=== PATIENT | male | born 1995 | race Caucasian/White ===

== ENCOUNTER 2018-08-08 10:42 | Emergency (ER) | payer BC, SELFPAY ==
[2018-08-08 10:52] VITALS: BP 151/93; PULSE 97; RESP 22; TEMP 37.1; O2SAT 99; BMI 47.2
[2018-08-08 10:58] LABS: UTC Influenza A Antigen Positive (Negative); UTC Influenza B Antigen Negative (Negative)
[2018-08-08 10:59] LABS: UTC Strep Screen (Rapid) Negative (Negative)
--- NOTE | 2018-08-08 10:59 | HMH.EDUTC ---
[facility] [place] Clinical Impression: Influenza A Disposition: Home, Self-Care Condition on Discharge: Good Instructions: Influenza, Azithromycin, Oseltamivir Additional Instructions: You have influenza A. You need to stay home from work until you are not running a fever for 24 hours. Take tylenol for pain or fever. Drink plenty of fluids. Water or gatorade would be best. I went ahead and prescribed azithromycin to prevent any bacterial infection from occurring with this influenza. Go see your regular doctor if you are not getting better in 48 hours or so. GO TO THE ER FOR ANY WORSENING OR LIFE THREATENING SYMPTOMS. Prescriptions: Ondansetron [Zofran 4mg ODT] 4 mg PO Q8HP PRN #30 tab.rapdis PRN Reason: Nausea Azithromycin [Z-Curtis 250mg Tab] 250 mg PO UD DOSE PK #6 tab Oseltamivir Phosphate [Tamiflu 75mg Capsule] 75 mg PO BID #10 capsule Referrals: Stevan Daigle MD [Primary Care Provider] - Forms: Work/School Release Time of Disposition: 11:16 Medical Decision Making - Medical Records Medical records reviewed: No: I reviewed the patient's medical records. - Javier Inquiry Pt receiving controlled substance: No Javier was queried for this patient: No Vital Signs: 08/08/18 10:52 08/08/18 11:17 Temperature 98.7 F 98.8 F Temperature Source Oral Oral Pulse Rate 92 H Pulse Rate [Left Brachial] 97 H Respiratory Rate 22 22 Blood Pressure 146/89 H Blood Pressure [Left Arm] 151/93 H Blood Pressure Mean [Left Arm] 112 Blood Pressure Source [Left Arm] Automatic Cuff Blood Pressure Position [Left Arm] Sitting 02 Sat by Pulse Oximetry 99 Oxygen Delivery Method Room Air Room Air - Lab Data Lab results reviewed: Yes: I reviewed the patient's lab results. Lab Results 08/08/18 10:48: Influenza Type A Ag Positive A, Influenza Type B Ag Negative 08/08/18 10:58: Strep Scn Rapid Clinic Negative Orders (Tests/Meds): ORDERS Category Date Time Status Strep Screen Confirmation Stat Micro 08/08/18 10:58 Received [facility] [place] - General Stated complaint: flu like symptoms Time Seen by Provider: 08/08/18 10:59 Mode of Arrival: Family Vehicle Source of Information: Patient Limitations: No Limitations Description of Symptoms (Recalled from Triage Doc. by RN): PT C/O FLU LIKE SYMPTOMS; FEVER, NAUSEA, VOMITING AND CHILLS SINCE THURSDAY. PT HAS BEEN TAKING DAYQUIL BUT JUST CONTINUES TO FEEL WORSE. HEENT Symptoms (Recalled from RN notes): Yes (FEVER) Resp Symptoms (Recalled from RN notes): No Skin Symptoms (Recalled from RN notes): No MS Symptoms (Recalled from RN notes): No Functional Status (Recalled from RN notes): N/A - History of Present Illness Provider Complaint: He states he began running a fever and feeling nauseated on Thursday night. Since then he has chilled and ran a fever up to 102. He has not had a flu shot. In past years he has got pneumonia and strep throat after getting the flu. - Related Data Previous Rx's Medication Instructions Recorded Azithromycin [Z-Curtis 250mg Tab] 250 mg PO UD DOSE PK #6 tab 08/08/18 Ondansetron [Zofran 4mg ODT] 4 mg PO Q8HP PRN #30 tab.rapdis 08/08/18 Oseltamivir Phosphate [Tamiflu 75 mg PO BID #10 capsule 08/08/18 75mg Capsule] Allergies Allergy/AdvReac Type Severity Reaction Status Date / Time NSAIDS (Non-Steroidal Allergy Unknown Verified 08/08/18 10:56 Anti-Inflamma [NSAIDS (NON-STEROIDAL ANTI-INFLAMMA] - Worker's Comp Is this a Worker's Comp case?: No [facility] History - Hepatitis A Screen Drug use history?: No High risk sexual behaviors?: No History of sexually transmitted infection?: No Currently employed?: No Childcare worker?: No Do you have indoor plumbing?: Yes Do you have electricity?: Yes Attestation statement:: This patient has been screened for Hepatitis A risk factors. I have reviewed the patient's past medical history: Yes Medical History: Denies:: Cancer, Diabetes Mellitus Type 1
--- NOTE | 2018-08-08 11:07 | ED_ITS ---
[facility] [place] Clinical Impression: Influenza A Disposition: Home, Self-Care Condition on Discharge: Good Instructions: Influenza, Azithromycin, Oseltamivir Additional Instructions: You have influenza A. You need to stay home from work until you are not running a fever for 24 hours. Take tylenol for pain or fever. Drink plenty of fluids. Water or gatorade would be best. I went ahead and prescribed azithromycin to prevent any bacterial infection from occurring with this influenza. Go see your regular doctor if you are not getting better in 48 hours or so. GO TO THE ER FOR ANY WORSENING OR LIFE THREATENING SYMPTOMS. Prescriptions: Ondansetron [Zofran 4mg ODT] 4 mg PO Q8HP PRN #30 tab.rapdis PRN Reason: Nausea Azithromycin [Z-Curtis 250mg Tab] 250 mg PO UD DOSE PK #6 tab Oseltamivir Phosphate [Tamiflu 75mg Capsule] 75 mg PO BID #10 capsule Referrals: Stevan Daigle MD [Primary Care Provider] - Forms: Work/School Release Time of Disposition: 11:16 Medical Decision Making - Medical Records Medical records reviewed: No: I reviewed the patient's medical records. - Javier Inquiry Pt receiving controlled substance: No Javier was queried for this patient: No Vital Signs: 08/08/18 10:52 08/08/18 11:17 Temperature 98.7 F 98.8 F Temperature Source Oral Oral Pulse Rate 92 H Pulse Rate [Left Brachial] 97 H Respiratory Rate 22 22 Blood Pressure 146/89 H Blood Pressure [Left Arm] 151/93 H Blood Pressure Mean [Left Arm] 112 Blood Pressure Source [Left Arm] Automatic Cuff Blood Pressure Position [Left Arm] Sitting 02 Sat by Pulse Oximetry 99 Oxygen Delivery Method Room Air Room Air - Lab Data Lab results reviewed: Yes: I reviewed the patient's lab results. Lab Results 08/08/18 10:48: Influenza Type A Ag Positive A, Influenza Type B Ag Negative 08/08/18 10:58: Strep Scn Rapid Clinic Negative Orders (Tests/Meds): ORDERS Category Date Time Status Strep Screen Confirmation Stat Micro 08/08/18 10:58 Received [facility] [place] - General Stated complaint: flu like symptoms Time Seen by Provider: 08/08/18 10:59 Mode of Arrival: Family Vehicle Source of Information: Patient Limitations: No Limitations Description of Symptoms (Recalled from Triage Doc. by RN): PT C/O FLU LIKE SYMPTOMS; FEVER, NAUSEA, VOMITING AND CHILLS SINCE THURSDAY. PT HAS BEEN TAKING DAYQUIL BUT JUST CONTINUES TO FEEL WORSE. HEENT Symptoms (Recalled from RN notes): Yes (FEVER) Resp Symptoms (Recalled from RN notes): No Skin Symptoms (Recalled from RN notes): No MS Symptoms (Recalled from RN notes): No Functional Status (Recalled from RN notes): N/A - History of Present Illness Provider Complaint: He states he began running a fever and feeling nauseated on Thursday night. Since then he has chilled and ran a fever up to 102. He has not had a flu shot. In past years he has got pneumonia and strep throat after getting the flu. - Related Data Previous Rx's Medication Instructions Recorded Azithromycin [Z-Curtis 250mg Tab] 250 mg PO UD DOSE PK #6 tab 08/08/18 Ondansetron [Zofran 4mg ODT] 4 mg PO Q8HP PRN #30 tab.rapdis 08/08/18 Oseltamivir Phosphate [Tamiflu 75 mg PO BID #10 capsule 08/08/18 75mg Cap
[2018-08-08 11:17] VITALS: BP 146/89; PULSE 92; RESP 22; TEMP 37.1; O2SAT 100
== END 2018-08-08 11:20 | disposition home or self-care (01) ==
PROVIDERS: Emergency Provider Nurse Practitioner Family; PCP Family Medicine
DX: J10.1 Influenza due to other identified influenza virus with other respiratory manifestations (principal)
CPT/HCPCS: 87804; 87880; 99202

== ENCOUNTER 2018-10-21 22:35 | Emergency (ER) | payer BC, SELFPAY ==
[2018-10-21 22:40] VITALS: BP 175/107; PULSE 88; RESP 16; TEMP 36.9; O2SAT 100; BMI 45.9
--- NOTE | 2018-10-21 22:50 | XR_ITS ---
XR chest 2V HISTORY: ITS.REASON: chest pain ORDERING PHYSICIAN: Dhruv Rubi MD PATIENT AGE: 22 years COMPARISON: None FINDINGS: The cardiomediastinal silhouette and pulmonary vascularity are within normal limits. On the lateral view there is a 2 cm opacity anterior to the hilum fairly well-circumscribed and may represent calcified lymph node. The remaining lungs are clear. No lobar consolidation or collapse. A small granuloma is suspected left upper lobe. No acute bony findings. IMPRESSION: 1. No acute finding. 2. Nodular opacity overlies the hilum on the lateral view due to calcified left. Consider follow-up to confirm stability.
[2018-10-21 23:13] LABS: Basophils % 0.6 % (0.1-2.0); Eosinophils # 0.2 K/mm3 (0.0-0.4); Eosinophils % 3.5 % (0.1-12.0); Hematocrit 45.1 % (42.0-52.0); Hemoglobin 15.3 g/dL (14.1-18.0); Lymphocytes # 1.9 K/mm3 (0.7-4.5); Lymphocytes % 39.1 % (10-50); Mean Corpuscular HGB Conc 33.9 g/dL (31.8-35.4); Mean Corpuscular Hemoglobin 29.1 pg (27.0-31.2); Mean Corpuscular Volume 85.7 fl (80-94); Mean Platelet Volume 7.7 fl (7.4-10.4); Monocytes # 0.3 K/mm3 (0.1-1.0); Monocytes % 6.4 % (1.7-9.3); Neutrophils # 2.5 K/mm3 (1.8-7.8); Neutrophils % 50.5 % (37.0-80.0); Platelet Count 206 K/mm3 (142-424); Red Blood Count 5.26 M/mm3 (4.60-6.20); Red Cell Distribution Width 13.3 % (11.5-17.5)
[2018-10-21 23:33] LABS: Anion Gap 9.3 mEq/L (5-15); Blood Urea Nitrogen 7 mg/dL (7-18); Calcium 8.7 mg/dL (8.5-10.1); Carbon Dioxide 29 mmol/L (21.0-32.0); Chloride 105 mmol/L (98-107); Creatinine Clearance Estimated 104 mL/min (50-200); Creatinine,Serum 1.14 mg/dL (0.70-1.30); Estimated Glomerular Filt Rate 80 ml/min (>60); GFR (African American) 96 ML/MIN (>60); Glucose 103 mg/dL (74-106); Potassium 4.3 mmoL/L (3.5-5.1); Sodium 139 mmol/L (136-145); Troponin I < 0.02 ng/ml (0.00-0.06)
--- NOTE | 2018-10-21 23:44 | HMH.EDCP ---
ED Disposition Clinical Impression: Atypical chest pain, Elevated BP without diagnosis of hypertension Obesity Qualifiers: Obesity type: due to excess calories Obesity classification: adult class 3 (BMI >= 40) Serious obesity comorbidity presence: with serious comorbidity Body mass index: BMI 45.0-49.9 Qualified Code(s): E66.01 - Morbid (severe) obesity due to excess calories; Z68.42 - Body mass index (BMI) 45.0-49.9, adult Disposition: Home, Self-Care Condition on Discharge: Good Instructions: DI for Atypical Chest Pain Additional Instructions: see pcp about bp Referrals: Stevan Daigle MD [Primary Care Provider] - - Critical Care Critical Care Time: No Attestation: On 10/21/18, the high probability of a clinically significant, sudden or life threatening deterioration of the following system(s) required my full and direct attention, intervention and personal management. The time I documented below is in addition to time spent performing reported procedures but includes the following listed in this critical care notation. Medical Decision Making - Medical Records Medical records reviewed: Yes: I reviewed the patient's medical records. - Javier Inquiry Pt receiving controlled substance: No Vital Signs: 10/21/18 22:40 Temperature 98.5 F Temperature Source Oral Pulse Rate [Right Brachial] 88 Respiratory Rate 16 Blood Pressure [Right Arm] 175/107 H Blood Pressure Mean [Right Arm] 129 Blood Pressure Source [Right Arm] Automatic Cuff Blood Pressure Position [Right Arm] Sitting 02 Sat by Pulse Oximetry 100 Oxygen Delivery Method Room Air - Lab Data Lab Results 10/21/18 22:50: WBC 5.0, RBC 5.26, Hgb 15.3, Hct 45.1, MCV 85.7, MCH 29.1, MCHC 33.9, RDW 13.3, Plt Count 206, MPV 7.7, Neut % (Auto) 50.5, Lymph % (Auto) 39.1, [place] % (Auto) 6.4, Eos % (Auto) 3.5, Baso % (Auto) 0.6, Neut # (Auto) 2.5, Lymph # (Auto) 1.9, [place] # (Auto) 0.3, Eos # (Auto) 0.2, Baso # (Auto) 0.0 10/21/18 22:50: Sodium 139, Potassium 4.3, Chloride 105, Carbon Dioxide 29, Anion Gap 9.3, BUN 7, Creatinine 1.14, Estimated Creat Clear 104, Estimated GFR 80, Est GFR ( Amer) 96, Glucose 103, Calcium 8.7, Troponin I < 0.02 10/21/18 22:50: D-Dimer < 100 Result diagrams: 10/21/18 22:50 10/21/18 22:50 Orders (Tests/Meds): ORDERS Category Date Time Status XR chest 2V Stat Exams 10/21/18 22:50 Taken EKG Request [ECG Request by /John] Stat Y 10/21/18 22:50 Ordered - Radiology Data #1 Image(s): Chest Image Reviewed: Yes I reviewed the patient's radiology image Preliminary Findings: Normal/NAD - ECG Data Tracing #1 Normal Sinus Rhythm: Yes Ischemic changes: non-specific ST-T wave changes Chest Pain HPI - General Chief Complaint: Chest Pain Stated Complaint: Chest Pain Time Seen by Provider: 10/21/18 22:50 Mode of Arrival: Ambulatory Source of Information: Patient, Medical Record Limitations: No Limitations Description of Symptoms (Recalled from ER Triage Doc. by RN): Pt c/o constant pressure in chest since 1999. Advises at times it feels like a twisting, stabbing pain. - History of Present Illness HPI narrative: pt with occ lt ant chest pain worse with mov and no def relationship with resp status - pt reports sx over the last few weeks and has seen pcp - no trauma or rash and no known heart disease MD complaint: chest pain Onset (ago): week(s) Duration: intermittent Activity at onset: during rest Pain location: left chest Severity: similar to previous episodes Quality: sharp Treatments prior to or on arrival for Cardiac Chest Pain: none - GRETCHEN Score for Non-Stemi Age of Patient: <30 years old Heart Rate: 70-89 bpm Systolic Blood Pressure: 160-199 mmHg Serum Creatinine: 0.80-1.19 mg/dl CHF [place] Class: I-No CHF Other Risk Factors: None Non-Stemi Risk Score: 26 - Related Data Home Medications Medication Instructions Recorded Confirmed No Known Home Medications 10/21/18 10/21/18
[2018-10-22 00:06] LABS: D-Dimer < 100 ng/mL (0-400)
[2018-10-22 00:14] VITALS: BP 161/97; PULSE 57; RESP 20; O2SAT 98
[2018-10-22 00:33] VITALS: BP 145/80; PULSE 57; RESP 18; TEMP 36.9; O2SAT 98
== END 2018-10-22 00:33 | disposition home or self-care (01) ==
PROVIDERS: Emergency Provider Emergency Medicine; PCP Family Medicine
DX: R07.89 Other chest pain (principal); R03.0 Elevated blood-pressure reading, without diagnosis of hypertension; E66.01 Morbid (severe) obesity due to excess calories; Z68.42 Body mass index [BMI] 45.0-49.9, adult; Z88.6 Allergy status to analgesic agent
CPT/HCPCS: 71046; 80048; 84484; 85025; 85378; 93005; 99283

== ENCOUNTER 2019-06-28 08:00 | Outpatient (RCR) | payer BC, SELFPAY ==
--- NOTE | 2019-06-21 17:03 | HMH.PTOPEV ---
PT Outpatient Evaluation Rehab PT Outpatient Evaluation Start: 06/21/19 16:34 Freq: Status: Active Protocol: Document 06/21/19 16:35 JAYANT (Rec: 06/21/19 17:03 CONCEPCIÓNINDERJIT [id number]) Electronically Signed By Franky Orta, PT 06/21/19 16:35 Outpatient Therapy Subjective History Subjective History This is the initial Physical Therapy evaluation for Chester Tellez. Pt is a 23 y/o male referred to PT for c/o LBP. Pt reprots pain in lumbar area on and off for years but reports this bout began . Pt reports he was stretching backwards and his back locked up . Pt rpeorts over the last few days pain has eased up but is not gone. Chief Complaint Pain,Spasms,Stiff Symptom Type Ache,Sharp,Dull,Stabbing Symptoms Relieved By Rest/Positioning,Heat, Prescription Meds Symptoms Aggravated By Standing,Bending/Stooping, Physical Activity,Twisting, Walking,Lifting Prior Functional Limitations None Current Functional Limitations Lifting,Driving,Sleeping, Standing,Sitting,Squatting, Recreation Activity,Walking, Bending/Stooping Symptom Description Constant but Variable Level of pain today (0-10) 2 Pain scale - at its best (0-10) 2 Pain scale - at its worst (0-10) 7 Lumbopelvic Eval Posture Lumbar Spine Posture Standing Position Decreased Lordosis Assistive device Assistive Devices None / NA Palapation tenderness bilateral thoracic spinal tenderness No lumbar spinal tenderness Yes paraspinal tenderness Yes buttock tenderness No tenderness over symphysis pubis No Lumbar/Sacral Palpation Findings Tenderness,Muscle Guarding Lumbar/Sacral Palpation Overall Comment TTP at B QL Accessory Movement L-spine Vertebrae Accessory Movements Central P/A [place] that Elicit Symptoms L2 bilateral L3 bilateral L4 bilateral L5 bilateral Range of Motion Lumbar Spine Active Flexion Range of 60 w/ pain Motion (degrees) Lumbar Spine Active Extension Range of 20 Motion (degrees) Left Lumbar Spine Lateral Flexion Active 30 Range of Motion (degrees) Right Lumbar Spine Lateral Flexion 30 w/ pain in L Active Range of Motion (degrees)
== END 2019-06-28 08:05 | disposition home or self-care (01) ==
LOC: PT 08:00
PROVIDERS: PCP Family Medicine; Visit Provider Family Medicine
DX: M54.5 Low back pain (principal)
CPT/HCPCS: 97010; 97014; 97110; 97163; G0283

== ENCOUNTER → 2019-08-26 15:31 | Outpatient (CLI) | payer BC, SELFPAY ==
--- NOTE | 2019-08-26 15:43 | XR_ITS ---
PROCEDURE: XR LUMBAR SPINE MIN 4V CLINICAL INDICATION: LOW BACK PAIN COMPARISON: ABDPELW CT ABD PELVIS W/ CONTRAST from 07/27/2016 FINDINGS: Normal alignment. No fracture or dislocation. There is mild degenerative disc at L4-L5. There is mild wedge appearance T12-T11 which is chronic IMPRESSION: Degenerative disc disease Dictated by: Casey Lozada MD 08/26/2019 16:22 Electronically signed by Casey Lozada MD in [place] 08/26/2019 16:22
== END ==
PROVIDERS: PCP Family Medicine; Visit Provider Family Medicine
DX: M54.5 Low back pain (principal)
CPT/HCPCS: 72110

== ENCOUNTER → 2019-09-02 15:39 | Outpatient (CLI) | payer BC, SELFPAY ==
--- NOTE | 2019-09-02 15:48 | MR_ITS ---
PROCEDURE: MR LUMBAR SPINE WO CON CLINICAL INDICATION: LOW BACK PAIN Low back pain and right leg pain COMPARISON: XR LUMBAR SPINE MIN 4V from 08/26/2019 TECHNIQUE: Standard multiplanar multiecho sequences are performed without contrast. 3-D MIP and myelographic images are also rendered and reviewed FINDINGS: There is normal alignment. The spinal cord ends at the T12-L1 level. There is mild wedge deformity of T10-T11 and T12 with kyphosis at T11-T12. These findings are felt to be chronic with endplate irregularity at T10-T11 T12-L1 and L2 suggesting Scheuermann's disease. L2-L3: Unremarkable. L3-L4: Mild concentric bulging disc with small annular fissure with facet and ligamentum hypertrophy with mild bilateral lateral recess and foraminal narrowing. L4-5: Degenerative disc disease with bulging disc. There is a small central disc the true wood slightly eccentric to the right causing mild impingement upon the thecal sac and also causing impingement upon both L5 nerve roots in the lateral recess region. This is slightly more prominent on the right. There is facet and ligamentum hypertrophy with transverse narrowing of the canal at approximately 10 mm. There is borderline narrowing in the AP dimension at 12 mm. L5-S1: Degenerate disc disease with bulging disc. Annular fissure is present at this level posteriorly. There is borderline narrowing of the canal with facet and ligamentum hypertrophy with mild bilateral foraminal narrowing. IMPRESSION: 1. There is mild wedge deformity of T10-T11 and T12 with kyphosis at T11-T12. These findings are felt to be chronic with endplate irregularity at T10-T11 T12-L1 and L2 suggesting Scheuermann's disease 2. L3-L4: Mild concentric bulging disc with small annular fissure with facet and ligamentum hypertrophy with mild bilateral lateral recess and foraminal narrowing. 3. L4-5: Degenerative disc disease with bulging disc. There is a small central disc the true wood slightly eccentric to the right causing mild impingement upon the thecal sac and also causing impingement upon both L5 nerve roots in the lateral recess region. This is slightly more prominent on the right. There is facet and ligamentum hypertrophy with transverse narrowing of the canal at approximately 10 mm. There is borderline narrowing in the AP dimension at 12 mm. 4. L5-S1: Degenerate disc disease with bulging disc. Annular fissure is present at this level posteriorly. There is borderline narrowing of the canal with facet and ligamentum hypertrophy with mild bilateral foraminal narrowing. Dictated by: Casey Lozada MD 09/03/2019 09:14 Electronically signed by Casey Lozada MD in [place] 09/03/2019 09:14
== END ==
PROVIDERS: PCP Family Medicine; Visit Provider Family Medicine
DX: M54.5 Low back pain (principal)
CPT/HCPCS: 72148; 76376

== ENCOUNTER → 2019-09-20 09:05 | Outpatient (POV) | payer BC, SELFPAY ==
[2019-09-20 09:13] VITALS: BP 151/94; PULSE 74; RESP 18; O2SAT 98; BMI 46.6
--- NOTE | 2019-09-20 10:15 | HMH.PMCON ---
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 He and I did discuss that we are unable to perform any type of injective therapies at this time secondary to the risks of COVID 19. He is currently on gabapentin 100 mg 1 tablet p.o. 3 times daily. I do think that the patient would benefit from an increase in this dose. I have encouraged him to discuss this with his provider that is prescribing medication. The patient would likely benefit from a dose of 300 mg 1 tablet p.o. twice daily. We will plan to perform the injection on the patient once we are able to resume injective therapies and home restrictions are lifted within the clinic. He is not on any anticoagulation therapy. Patient has been instructed to contact clinic if he has any concerns before his next appointment. Dr. Haque has reviewed this note and agrees with this plan of care. This note was dictated using voice recognition software and make contain errors or omissions. HPI - Data of Consult Consult date: 09/20/19 Requesting Physician: Tisha Duran APRN Primary Care Provider: Stevan Daigle MD - Consult Narrative Reason for consult: Back pain History of present illness: Mr. Tellez is a 23 year old male who presents today for consultation for right low back pain with radiation into his right leg, as well as numbness and tingling into his right foot. Patient says this pain has been ongoing for approximately 1 month. Patient has a history of morbid obesity and did undergo gastric sleeve. He says he is lost a lot of weight and has noticed a significant change in his gait since losing the weight. He is also noticed more low back pain. Patient has been taking Tyzine Lukas for greater than 2 years for chronic low back pain, however, the numbness and tingling in his right foot started approximately a month ago. Patient says a leaning onto his left side does give him relief and does relieve the numbness and tingling into his right foot. Patient also takes gabapentin 100 mg 1 tablet p.o. 3 times daily. He is also taken corticosteroids for 5 days. Patient says that he did get some relief with steroids, however, he says it was only temporary. He describes his pain as a dull ache with numbness radiating into the foot. His pain into his low back stops below his knee, with numbness down from the knee into the foot. Patient does have recent imaging of his lumbar spine. He also has undergone physical therapy. He denies patient does continue with a home stretching program. He tries ice and heat therapies. CC: Tisha Duran APRN [facility] History I have reviewed the patient's past medical history: Yes Medical History: Reports:: Hypertension Denies:: Cancer, Diabetes Mellitus Type 1, Diabetes Mellitus Type 2, MRSA *Have you ever received a pneumonia vaccine?: Yes *Have you received a flu vaccine this season?: Yes Laterality Cases: Bilateral: Tonsillectomy Other Surgeries: Yes: Bariatric Surgery (GASTRIC SLEEVE) Amputation: No Fractures: No - *Social History Educational Level: Completed High School Smoking Status: Never smoker Tobacco Type: smokeless tobacco # Packs/Day (cigarettes): 1 Alcohol Intake: never Alcohol Intake Frequency:: holidays/special occasions only *Occupational Status:: other Housing: house *Travel in the last 8 weeks: None
== END ==
PROVIDERS: PCP Family Medicine; Visit Provider Clinical Nurse Specialist Family Health
DX: M47.26 Other spondylosis with radiculopathy, lumbar region (principal); M48.00 Spinal stenosis, site unspecified
CPT/HCPCS: 99202

== ENCOUNTER 2019-09-30 10:44 | Day surgery (SDC) | payer BC, SELFPAY ==
[2019-09-30 11:19] VITALS: BP 151/91; PULSE 90; RESP 18; TEMP 36.9; O2SAT 96; BMI 45.9
[2019-09-30 11:53] VITALS: BP 173/85; PULSE 64; RESP 18; O2SAT 99
[2019-09-30 11:56] VITALS: BP 175/88; PULSE 68; RESP 18; O2SAT 99
--- NOTE | 2019-09-30 12:00 | HMH.PMPROC ---
- Procedure Date: 09/30/19 Time: 12:00 Anesthesiologist:: Marvin Haque MD Complications:: None Pre-procedure Diagnosis:: Degenerative disc disease of lumbar spine with lumbar radiculopathy symptoms Post-procedure Diagnosis:: Same Indications for Procedure:: This patient is a pleasant 23-year-old white male who we are treating for low back pain with lumbar radicular symptoms. He is having some increasing pain in his back rating down his right leg. This pain is affecting activities of daily living. Is affecting his functionality. In order to keep him from going to the emergency room or starting oral opioids we will do a lumbar epidural steroid injection today to help him with his pain symptoms. Procedure Details:: Lumbar epidural steroid injection under fluoroscopy Informed consent was obtained and the risk and benefits of the procedure was explained to the patient. The patient was taken to the procedure room. The patient was placed prone on the procedure table. The patient was prepped and draped in sterile fashion. C-arm fluoroscopy was used to view the lumbar spine. Skin and subcutaneous tissues were anesthetized using lidocaine. I placed an 18-gauge epidural needle and advanced into the L4-L5 interspace using fluoroscopic guidance and [id number] to air. After confirmation of needle placement in the epidural space with dye I injected 2 mL of lidocaine 1.5% with Depo-Medrol 80 mg. Patient tolerated the procedure well with no complications. Plan and Disposition:: We will follow-up with him in 2 weeks. Will reevaluate symptoms at that time.
[2019-09-30 12:10] VITALS: BP 151/94; PULSE 67; RESP 18; O2SAT 96
== END 2019-09-30 12:11 | disposition home or self-care (01) ==
PROVIDERS: PCP Family Medicine; Visit Provider Anesthesiology
DX: M51.16 Intervertebral disc disorders with radiculopathy, lumbar region (principal)
CPT/HCPCS: 62323; J1040; Q9966

== ENCOUNTER → 2019-10-17 14:17 | Outpatient (POV) | payer BC, SELFPAY ==
--- NOTE | 2019-10-17 14:36 | HMH.VVPMSO ---
[facility] Virtual Visit SOAP Consent for virtual visit:: With the recent concerns about the COVID-19, we are trying to minimize exposure to you by shifting to telehealth appointments whenever possible. It restricts me from seeing you in person, but the trade off is protecting you during this pandemic. Can you see and hear me okay, and do you consent to this option? If not, I would be happy to see if we can reschedule your appointment in the future, when feasible. Has patient consented to this virtual visit?: Yes Subjective:: Patient is a pleasant 23-year-old white male who presents today for follow-up after his lumbar epidural steroid injection. Patient states that he got 90% relief with his epidural injection however his pain is begun to return this was his first injection in a series of 3. He would like to move on with the rest of his injections. He is not on any anticoagulation therapy. ROS General: no recent weight change, no fever, no sleep disturbances Respiratory: no cough, no shortness of air, no recurring pulmonary infections Cardiovascular/Peripheral Vascular: No chest pain, No palpitations, no edema, no shortness of breath. Gastrointestinal: no new onset incontinence, normal bowel movements reported Genitourinary: no new onset incontinence Musculoskeletal: [Back pain, leg pain Psychiatric: normal mood/ affect Neurological: [denies new onset weakness in extremities], [denies new onset balance issues] Objective:: Physical exam: Constitutional: Healthy appearing, well-developed, alert, in no acute distress Psychiatric: Judgment and insight intact, Alert and oriented x4 Mood and affect: Mood normal, affect appropriate Head and face: Inspection: Normocephalic atraumatic, extraocular movement intact Respiratory: Breathing nonlabored, nondyspneic Cardiovascular: No cyanosis, clubbing, or edema observed Skin: Head and neck: Skin with no lesions or rash observed Gait: Able to walk without assistive device: Able to heel and toe walk Neurologic: Sensation grossly intact per patient Musculoskeletal: he has decreased range of motion lumbar spine as seen on the video monitor. Assessment:: Degenerative disc disease lumbar spine with lumbar radiculopathy symptoms Plan:: We will schedule the patient for for repeat L4-L5 lumbar epidural steroid injection given the efficacy of the last one. I will follow-up with him after this reassess his symptoms at that time. This encounter was performed as a telemedicine visit via secure 2 way video and audio to minimize risk and transmission of Covid-19. The patient and we understand the limitations of a telemedicine visit including inability to check reflexes, possibly missing subtle findings on physical exam. Alternative options were presented to the patient and the patient elected to proceed with the visit. We specifically discussed risk factors for Covid-19 including age, heart or lung disease, diabetes, immunosuppression and travel. We also discussed that NSAIDs may worsen Covid-19 infection symptoms and that they should not be used to treat Covid-19 symptoms. Patient was also informed that corticosteroids in any form oral or injectable will decrease immune response and may increase risk of Covid-[address] Haque has reviewed this patient's chart and this note and agrees with plan of care. Patient has been instructed to call the office if they have any issues prior to the next appointment. Time In:: 13:50 Time Out:: 14:00 [facility] [place] History I have reviewed the patient's past medical history: Yes Medical History: Reports:: Hypertension Denies:: Cancer, Diabetes Mellitus Type 1, Diabetes Mellitus Type 2, MRSA, Seizures *Have you ever received a pneumonia vaccine?: No *Have you received a flu vaccine this season?: No Laterality Cases: Bilateral: Tonsillectomy Other Surgeries: Yes: Bariatric Surgery (GASTRIC SLEEVE) Amputation: No Fractures: No - *Social History Smoking S
== END ==
PROVIDERS: Visit Provider Clinical Nurse Specialist Family Health
DX: M51.16 Intervertebral disc disorders with radiculopathy, lumbar region (principal)
CPT/HCPCS: 99212

== ENCOUNTER → 2020-02-23 14:29 | Outpatient (POV) | payer BC, SELFPAY ==
--- NOTE | 2020-02-23 15:08 | HMH.PAINSOAP ---
[facility] Pain Management SOAP Note Subjective:: Patient is a 24-year-old white male who presents today for follow-up after lumbar epidural steroid injection. He has been treated for low back pain with lumbar radiculopathy symptoms. Patient did get 90% relief after his injection. Patient says that he would like to proceed with repeat injection. He says that his pain is worse with walking and standing and improves with sitting. His pain is in his low back area previously radiated into his lower extremities, however, he no longer has any radiation into his lower extremities.. Patient is not on any anticoagulation therapy. Does rate his pain is 6 out of 10 today. Review of Systems General: No recent weight changes, no fever, no sleep disturbances Respiratory: No cough, no shortness of air, no recurring pulmonary infections Cardiovascular/peripheral vascular: No chest pain, no palpitations, no edema, no shortness of breath Gastrointestinal: No new onset incontinence, normal bowel movements reported Genitourinary: No new onset incontinence Musculoskeletal: Low back pain Psychiatric: Normal mood/affect Neurological: [Denies weakness in extremities], [denies balance issues] Objective:: Physical exam General: Alert and oriented x3, no acute distress, pleasant and cooperative, [on room air] Lungs: Respirations even and unlabored, symmetrical chest expansion Eyes: PERRL Musculoskeletal: Flexion and extension of lumbar spine somewhat guarded secondary to pain, deep tendon reflexes normal, strength in upper and lower extremities [5/5], [abnormal gait noted] Neurological: Speech clear, transportation inspector equal, no gross sensory deficit Assessment:: Degenerative disc disease lumbar spine with lumbar radiculopathy symptoms Plan:: We will schedule patient for repeat lumbar epidural steroid injection at L4-L5. He is not on any anticoagulation therapy. He has gotten up to 90% relief with his previous injection for greater than 2 weeks. The injection also gave him relief of his lower extremity pain and numbness and tingling. His pain is now in his low back area. We will see him back after his injection to reassess his symptoms. He has been instructed to contact clinic if he has any concerns before his next appointment. The patient and I specifically discussed risk factors for COVID19. These risks include, but are not limited to age greater than 60, heart or lung disease, diabetes, immunosuppression, and travel. We also discussed NSAIDs may worsen COVID19 infection or symptoms. Patient should not use NSAIDs to treat COVID19 signs or symptoms. Patient was also informed that any type of corticosteroid of any form (oral or injection) will decrease the patient's immune system response and may increase the likelihood of COVID19 infection and symptoms[address] Haque has reviewed this note and agrees with this plan of care. This note was dictated using voice recognition software and make contain errors or omissions. [facility] History I have reviewed the patient's past medical history: Yes Medical History: Reports:: Hypertension Denies:: Cancer, Diabetes Mellitus Type 1, Diabetes Mellitus Type 2, MRSA, Seizures *Have you ever received a pneumonia vaccine?: Yes *Have you received a flu vaccine this season?: Yes Laterality Cases: Bilateral: Tonsillectomy Other Surgeries: Yes: Bariatric Surgery (GASTRIC SLEEVE) Amputation: No Fractures: No - *Social History Smoking Status: Never smoker Tobacco Type: smokeless tobacco # Packs/Day (cigarettes): 1 Alcohol Intake: never Alcohol Intake Frequency:: holidays/special occasions only *Occupational Status:: other Housing: house *Travel in the last 8 weeks: None Family Hx:: Unable to obtain
[2020-02-23 15:14] VITALS: BP 182/116; PULSE 67; RESP 18; TEMP 36.9; O2SAT 97; BMI 47.3
== END ==
PROVIDERS: PCP Family Medicine; Visit Provider Clinical Nurse Specialist Family Health
DX: M51.16 Intervertebral disc disorders with radiculopathy, lumbar region (principal)
CPT/HCPCS: 99212

== ENCOUNTER 2020-03-16 09:48 | Day surgery (SDC) | payer BC, SELFPAY ==
[2020-03-16 10:59] VITALS: BP 147/88; PULSE 56; RESP 20; TEMP 36.7; O2SAT 100; BMI 45.9
[2020-03-16 11:16] VITALS: BP 137/87; PULSE 85; RESP 18
[2020-03-16 11:17] VITALS: BP 133/74; PULSE 85; RESP 18; O2SAT 98
--- NOTE | 2020-03-16 11:26 | HMH.PMPROC ---
- Procedure Date: 03/16/20 Time: 11:26 Anesthesiologist:: Marvin Haque MD Complications:: None Pre-procedure Diagnosis:: Degenerative disc disease of lumbar spine with lumbar radiculopathy symptoms Post-procedure Diagnosis:: Same Indications for Procedure:: This patient is a pleasant 24-year-old white male who we are treating for low back pain with lumbar radiculopathy symptoms. He did very well with his last lumbar epidural steroid injection he was 80 to 90% better and probably started working approximately 3 to 4 days after his injection. Pain is now returned so we will repeat lumbar epidural steroid injection today to help him with his pain symptoms. Procedure Details:: Lumbar epidural steroid injection under fluoroscopy Informed consent was obtained and the risk and benefits of the procedure was explained to the patient. The patient was taken to the procedure room. The patient was placed prone on the procedure table. The patient was prepped and draped in sterile fashion. C-arm fluoroscopy was used to view the lumbar spine. Skin and subcutaneous tissues were anesthetized using lidocaine. I placed an 18-gauge epidural needle and advanced into the L4-L5 interspace using fluoroscopic guidance and [id number] to air. After confirmation of needle placement in the epidural space with dye I injected 2 mL of lidocaine 1.5% with Depo-Medrol 80 mg. Patient tolerated the procedure well with no complications. Plan and Disposition:: We will follow-up with him in 2 weeks. Will reevaluate symptoms at that time.
[2020-03-16 11:31] VITALS: BP 150/95; PULSE 56; RESP 18; O2SAT 100
== END 2020-03-16 11:32 | disposition home or self-care (01) ==
PROVIDERS: PCP Family Medicine; Visit Provider Anesthesiology
DX: M51.16 Intervertebral disc disorders with radiculopathy, lumbar region (principal); F32.9 Major depressive disorder, single episode, unspecified; Z90.49 Acquired absence of other specified parts of digestive tract; Z98.84 Bariatric surgery status; Z82.49 Family history of ischemic heart disease and other diseases of the circulatory system
CPT/HCPCS: 62323; J1040

== ENCOUNTER → 2020-04-05 14:35 | Outpatient (POV) | payer BC, SELFPAY ==
[2020-04-05 14:40] VITALS: BP 148/85; PULSE 89; RESP 18; TEMP 36.3; O2SAT 98; BMI 62.4
--- NOTE | 2020-04-05 15:04 | HMH.PAINSOAP ---
[facility] Pain Management SOAP Note Subjective:: Patient is a 24-year-old white male who presents today for follow-up after lumbar epidural steroid injection. Patient reports that he did get about 70% relief with his last injection. He has been treated for low back pain with lumbar radiculopathy symptoms. Patient says he is no longer having pain in his legs. He says his pain now is primarily worse when he is leaning forward. He also says the pain is worse when he is turning from side to side. 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 Patient says he does a lot of long hours of standing with his job as well as frequent walking. He says that the pain has changed somewhat since his initial lumbar epidural steroid injection. He has had physical therapy for greater than 6 weeks and continues with a home stretching program. Patient also tried gabapentin for which he says helped with the bilateral lower extremity numbness and tingling, however, he is no longer having this. He is currently taking relaxers. He has tried anti-inflammatories in the past with no relief. He does use ice and heat therapies. \ Review of Systems General: No recent weight changes, no fever, no sleep disturbances Respiratory: No cough, no shortness of air, no recurring pulmonary infections Cardiovascular/peripheral vascular: No chest pain, no palpitations, no edema, no shortness of breath Gastrointestinal: No new onset incontinence, normal bowel movements reported Genitourinary: No new onset incontinence Musculoskeletal: Low back pain worse with leaning forward Psychiatric: Normal mood/affect Neurological: [Denies weakness in extremities], [denies balance issues] Objective:: Physical exam General: Alert and oriented x3, no acute distress, pleasant and cooperative, [on room air] Lungs: Respirations even and unlabored, symmetrical chest expansion Eyes: PERRL Musculoskeletal: Flexion and extension of lumbar spine somewhat guarded secondary to pain, deep tendon reflexes normal, strength in upper and lower extremities [5/5], [abnormal gait noted], positive Kemps test Neurological: Speech clear, radiology tech equal, no gross sensory deficit Assessment:: Degenerative disc disease lumbar spine, facet arthropathy lumbar spine, lumbar spondylosis Plan:: We will schedule the patient for medial branch blocks/facet injections at L4-L5 L5-S1 bilaterally. Patient is not on any anticoagulation therapy. He will continue with a home stretching program. We will plan to see him back in the clinic after his injection to reassess his symptoms. He has been instructed to contact clinic if he has any concerns for his next appointment. The patient and I specifically discussed risk factors for COVID19. These risks include, but are not limited to age greater than 60, heart or lung disease, diabetes, immunosuppression, and travel. We also discussed NSAIDs may worsen COVID19 infection or symptoms. Patient should not use NSAIDs to treat COVID19 signs or symptoms. Patient was also informed that any type of corticosteroid of any form (oral or injection) will decrease the patient's immune system response and may increase the likelihood of COVID19 [address] symptoms[address] Haque has reviewed this note and agrees with this plan of care. This note was dictated using voice recognition software and make contain errors or omissions. [facility] History I have reviewed the patient's past medical history: Yes Medical History: Reports:: Hypertension Denies:: Cancer, Diabetes Mellitus Type 1, Diabetes Mellitus Type 2, MRSA, Seizures *Have you ever received a pneumonia vaccine?: Yes *Have you received a flu vaccine this season?: Yes Other Medical History: Denies: Blood Transfusion Reaction Laterality Cases: Bilateral: Tonsillectomy Other Surgeries: Yes: Bariatric Surgery (GASTRIC SLEEVE) Amputation: No Fractures: No - *Social His
== END ==
PROVIDERS: PCP Family Medicine; Visit Provider Clinical Nurse Specialist Family Health
DX: M51.36 Other intervertebral disc degeneration, lumbar region (principal); M47.816 Spondylosis without myelopathy or radiculopathy, lumbar region; M12.88 Other specific arthropathies, not elsewhere classified, other specified site
CPT/HCPCS: 99212

== ENCOUNTER 2020-04-13 12:54 | Day surgery (SDC) | payer BC, SELFPAY ==
[2020-04-13 13:40] VITALS: BP 132/86; PULSE 87; RESP 18; TEMP 36.4; O2SAT 98; BMI 45.9
--- NOTE | 2020-04-13 14:26 | HMH.PMPROC ---
- Procedure Date: 04/13/20 Time: 14:26 Anesthesiologist:: Marvin Haque MD Complications:: None Pre-procedure Diagnosis:: Degenerative disc disease of lumbar spine with lumbar spondylosis and lumbar facet arthropathy Post-procedure Diagnosis:: Same Indications for Procedure:: This patient is a pleasant 24-year-old white male who we have been treating for low back pain with lumbar radiculopathy symptoms. He got 70% relief with his last lumbar epidural steroid injection. Most of his pain is axial over the L4-5 and L5-S1 facet joints. He has increased pain with extension and twisting. We will do bilateral L4-L5 L5-S1 lumbar facet joint injection/medial branch blocks today. Procedure Details:: Lumbar medial branch block Informed consent was obtained and the risks and benefits of the procedure was explained to the patient. The back was prepped using ChloraPrep. The skin and subcutaneous tissues were anesthetized using lidocaine. I placed 22-gauge spinal needles into the facet joint/medial branches of L4-L5 and L5-S1 bilaterally. Needle placement was confirmed with dye. After this we injected 3 mL bupivacaine 0.25% and Depo-Medrol 13 mg into each facet joint/medial branch of L4-L5 and L5-S1 bilaterally. We used a total of 80 mg Depo-Medrol for both levels bilaterally. The patient tolerated the procedure well with no complications. Plan and Disposition:: We will follow-up with him in 2 weeks. Will reevaluate his symptoms at that time. If these are successful we will plan on radiofrequency ablation to the facet joint/medial branches of L4-5 and L5-S1 bilaterally.
[2020-04-13 14:32] VITALS: BP 138/89; PULSE 85; RESP 18; O2SAT 98
[2020-04-13 14:33] VITALS: BP 138/87; PULSE 85; RESP 18; O2SAT 98
[2020-04-13 14:45] VITALS: BP 152/92; PULSE 50; RESP 18; O2SAT 98
== END 2020-04-13 14:45 | disposition home or self-care (01) ==
LOC: SC.PAINP 12:56
PROVIDERS: PCP Family Medicine; Visit Provider Anesthesiology
DX: M51.36 Other intervertebral disc degeneration, lumbar region (principal); M47.816 Spondylosis without myelopathy or radiculopathy, lumbar region; M12.88 Other specific arthropathies, not elsewhere classified, other specified site; Z88.6 Allergy status to analgesic agent
CPT/HCPCS: 64493; 64494; J1030; Q9966

== ENCOUNTER → 2020-05-10 10:38 | Outpatient (POV) | payer BC, SELFPAY ==
[2020-05-10 11:03] VITALS: BP 154/87; PULSE 74; RESP 18; TEMP 36.9; O2SAT 98; BMI 45.9
--- NOTE | 2020-05-10 13:08 | HMH.PAINSOAP ---
[facility] Pain Management SOAP Note Subjective:: Patient is a 24-year-old white male who presents today for follow-up after medial branch block/facet joint injections at L4-L5 L5-S1. Patient is being treated for chronic low back pain with lumbar spondylosis and lumbar facet arthropathy. Patient says that he got 100% relief for about 4 days. His pain has returned. Patient says because he did so well with the injections he was able to return to work. He says that he is still having some significant pain when he is bending forward or with extension or flexion of his legs. He does rate his pain 2 out of 10 with sitting and a 7 out of 10 with standing and with standing or movement. He does continue with home stretching program and ice and heat therapies as well as anti-inflammatories Review of Systems General: No recent weight changes, no fever, no sleep disturbances Respiratory: No cough, no shortness of air, no recurring pulmonary infections Cardiovascular/peripheral vascular: No chest pain, no palpitations, no edema, no shortness of breath Gastrointestinal: No new onset incontinence, normal bowel movements reported Genitourinary: No new onset incontinence Musculoskeletal: Low back pain worse with bending forward or extension and flexion at waist Psychiatric: Normal mood/affect Neurological: [Denies weakness in extremities], [denies balance issues] Objective:: Physical exam General: Alert and oriented x3, no acute distress, pleasant and cooperative, [on room air] Lungs: Respirations even and unlabored, symmetrical chest expansion Eyes: PERRL Musculoskeletal: Flexion and extension of lumbar spine somewhat guarded secondary to pain, deep tendon reflexes normal, strength in upper and lower extremities [5/5], [abnormal gait noted], positive test sees Neurological: Speech clear, voltmeter operator equal, no gross sensory deficit Assessment:: Degenerative disc disease lumbar spine with lumbar facet arthropathy and lumbar spondylosis Plan:: Patient did well with his medial branch blocks/facet joint injections. We will schedule him for repeat medial branch block/facet joint injections at L4-5 and L5-S1 bilaterally. He got 100% relief for up to 4 days following the injection. If the patient does get relief after his second round of injections, we will proceed with RFA. He is in agreement. Patient is not on any anticoagulation therapy. We will follow-up with him after his injections to reassess his symptoms. He has been instructed to contact clinic if he has any concerns before his next appointment. The patient and I specifically discussed risk factors for COVID19. These risks include, but are not limited to age greater than 60, heart or lung disease, diabetes, immunosuppression, and travel. We also discussed NSAIDs may worsen COVID19 infection or symptoms. Patient should not use NSAIDs to treat COVID19 signs or symptoms. Patient was also informed that any type of corticosteroid of any form (oral or injection) will decrease the patient's immune system response and may increase the likelihood of COVID19 [address] Haque has reviewed this note and agrees with this plan of care. This note was dictated using voice recognition software and make contain errors or omissions. [facility] History I have reviewed the patient's past medical history: Yes Medical History: Reports:: Hypertension Denies:: Cancer, Diabetes Mellitus Type 1, Diabetes Mellitus Type 2, MRSA, Seizures *Have you ever received a pneumonia vaccine?: No *Have you received a flu vaccine this season?: Yes Other Medical History: Denies: Blood Transfusion Reaction Laterality Cases: Bilateral: Tonsillectomy Other Surgeries: Yes: Bariatric Surgery (GASTRIC SLEEVE) Amputation: No Fractures: No - *Social History Smoking Status: Never smoker Tobacco Type: smokeless tobacco # Packs/Day (cigarettes): 1 Alcohol Intake: never Alcohol Intake Frequency:: holidays/special occasions onl
== END ==
PROVIDERS: PCP Family Medicine; Visit Provider Clinical Nurse Specialist Family Health
DX: M51.36 Other intervertebral disc degeneration, lumbar region (principal); M12.88 Other specific arthropathies, not elsewhere classified, other specified site; M47.816 Spondylosis without myelopathy or radiculopathy, lumbar region
CPT/HCPCS: 99212

== ENCOUNTER 2021-02-17 09:25 | Emergency (ER) | payer BC, SELFPAY ==
[2021-02-17 10:20] VITALS: BP 149/97; PULSE 99; RESP 14; TEMP 36.8; O2SAT 96; BMI 45.9
[2021-02-17 10:23] VITALS: BP 149/97; PULSE 99; RESP 12; TEMP 36.8
--- NOTE | 2021-02-17 10:29 | HMH.EDUTC ---
[facility] [place] Disposition Clinical Impression: Strep pharyngitis Disposition: Home, Self-Care Condition on Discharge: Good Instructions: DI for Strep Throat Additional Instructions: Take antibiotics as directed until they are gone. Follow up with Dr Daigle if not improving. Replace toothbrush in 24-48 hours. Prescriptions: Amoxicillin [Amoxicillin 875MG Tab] 875 mg PO Q12H #20 tab Transmission Status: Pending to [id number] Referrals: Stevan Daigle MD [Primary Care Provider] - Forms: Work/School Release Time of Disposition: 10:37 Medical Decision Making - Javier Inquiry Pt receiving controlled substance: No Vital Signs: 02/17/21 10:20 02/17/21 10:23 Temperature 98.3 F 98.3 F Temperature Source Oral Pulse Rate 99 H Pulse Rate [Left] 99 H Respiratory Rate 14 12 Blood Pressure 149/97 H Blood Pressure [Right Arm] 149/97 H Blood Pressure Mean [Right Arm] 114 02 Sat by Pulse Oximetry 96 - Lab Data Lab results reviewed: Yes: I reviewed the patient's lab results. [facility] [place] HPI - General Stated complaint: sinus congestion, cough Time Seen by Provider: 02/17/21 10:29 Mode of Arrival: Ambulatory Source of Information: Patient Limitations: No Limitations Description of Symptoms (Recalled from Triage Doc. by RN): pt c/o congestion and sore throat. pts children have strep. HEENT Symptoms (Recalled from RN notes): Yes (sore throat and congestion) Resp Symptoms (Recalled from RN notes): No Skin Symptoms (Recalled from RN notes): No MS Symptoms (Recalled from RN notes): No Functional Status (Recalled from RN notes): na - History of Present Illness Provider Complaint: Sore throat, congestion X 3-4 days. No fever. No vomiting or diarrhea. Children have strep. Onset (ago): day(s) (4) Location: mouth Relieving factors: none Exacerbating factors: none Associated symptoms: denies other symptoms Treatments prior to arrival: none - Related Data Home Medications Medication Instructions Recorded Confirmed Tizanidine HCl 4 mg PO TID 09/30/19 04/13/20 Previous Rx's Medication Instructions Recorded Amoxicillin [Amoxicillin 875MG 875 mg PO Q12H #20 tab 02/17/21 Tab] Allergies Allergy/AdvReac Type Severity Reaction Status Date / Time NSAIDS (Non-Steroidal Allergy Unknown Verified 04/13/20 13:52 Anti-Inflamma [NSAIDS (NON-STEROIDAL ANTI-INFLAMMA] - Worker's Comp Is this a Worker's Comp case?: No [facility] History - Hepatitis A Screen Drug use history?: No High risk sexual behaviors?: No History of sexually transmitted infection?: No Currently employed?: No Childcare worker?: No Do you have indoor plumbing?: Yes Do you have electricity?: Yes Attestation statement:: This patient has been screened for Hepatitis A risk factors. I have reviewed the patient's past medical history: Yes Medical History: Reports:: Hypertension Denies:: Cancer, Diabetes Mellitus Type 1, Diabetes Mellitus Type 2, MRSA, Seizures Other Medical History: Denies: Blood Transfusion Reaction Laterality Cases: Bilateral: Tonsillectomy Other Surgeries: Yes: Bariatric Surgery (GASTRIC SLEEVE) Amputation: No Fractures: No - Social History Smoking Status: Never smoker Tobacco Type: smokeless tobacco # Packs/Day (cigarettes): 1 Alcohol Intake: never Alcohol Intake Frequency:: holidays/special occasions only Occupational Status: other Housing: house Household Members: spouse Family Hx:: Unable to obtain ROS Obtained: Yes All systems reviewed & no additional complaints - ENT Ears, Nose, Mouth, and Throat: Reports sore throat Physical Exam - General General appearance: alert, in no apparent distress - Head Head exam: normocephalic - Eye Eye exam: Present: PERRL - ENT ENT exam: Present: TM's normal bilaterally - Expanded ENT Exam Throat exam: Present: tonsillar erythema, tonsillomegaly - Respiratory Respiratory exam: Present: normal lung sounds bilaterally - Cardio
[2021-02-17 22:12] LABS: UTC Strep Screen (Rapid) Positive (Negative)
== END 2021-02-17 11:11 | disposition home or self-care (01) ==
PROVIDERS: Emergency Provider Physician Assistant; PCP Family Medicine
DX: J02.0 Streptococcal pharyngitis (principal); I10 Essential (primary) hypertension
CPT/HCPCS: 87880; 99202; G0463

== ENCOUNTER → 2021-03-28 11:26 | Outpatient (POV) | payer BC, SELFPAY ==
[2021-03-28 12:12] VITALS: BP 122/71; PULSE 63; RESP 18; O2SAT 99; BMI 45.9
--- NOTE | 2021-03-28 12:38 | P.CONS_ITS ---
[facility] Pain Management SOAP Note Subjective:: Patient is a 25-year-old white male who was last seen on 05/10/2020. The patient was following up after medial branch block/facet joint injection at L4- L5 L5-S1, number 1 injection. The patient was having pain when bending forward and turning and twisting at waist. The patient got 100% relief until November 2020. He says his pain has slowly returned. He is here today to discuss repeat injection and possible RFA. Today, the patient rates his pain a 6 out of 10. The pain is worse when he bends forward and turning and twisting at waist. He has tried physical therapy for more than 6 weeks and continues with home stretching and anti-inflammatories as needed. Review of Systems General: No recent weight changes, no fever, no sleep disturbances Respiratory: No cough, no shortness of air, no recurring pulmonary infections Cardiovascular/peripheral vascular: No chest pain, no palpitations, no edema, no shortness of breath Gastrointestinal: No new onset incontinence, normal bowel movements reported Genitourinary: No new onset incontinence Musculoskeletal: Pain to low back worse with bending forward and turning twisting at waist Psychiatric: [Normal mood/affect] Neurological: [Denies weakness in extremities], [denies balance issues] Objective:: Physical exam General: Alert and oriented x3, no acute distress, pleasant and cooperative, [on room air] Lungs: Respirations even and unlabored, symmetrical chest expansion Eyes: PERRL Musculoskeletal: Flexion and extension of lumbar [spine] somewhat guarded secondary to pain, [antalgic gait noted], positive Kemps test Neurological: Speech clear, no gross sensory deficit Assessment:: Degenerative disc disease lumbar spine with lumbar facet arthropathy and lumbar spondylosis Plan:: We will schedule the patient for #2 medial branch block at L4-L5 L5-S1 bilaterally. Patient got 100% relief from April 2020 until November 2020. If the patient gets significant relief again with his second round of injections, we will proceed with an RFA to these areas. Patient is not on any anticoagulation therapy. Patient is not diabetic. Possible side effects of corticosteroids have been discussed with the patient. Risks and benefits of the procedure have been explained to the patient. Patient would like to proceed with the procedure. Patient has been instructed to contact the clinic with any concerns before the next appointment. Dr. Haque has r eviewed this note and agrees with this plan of care. This note was dictated using voice recognition software and make contain errors or omissions. [facility] History I have reviewed the patient's past medical history: Yes Medical History: Reports:: Hypertension Denies:: Cancer, Diabetes Mellitus Type 1, Diabetes Mellitus Type 2, MRSA, Seizures *Have you ever received a pneumonia vaccine?: No *Have you received a flu vaccine this season?: No Other Medical History: Denies: Blood Transfusion Reaction Laterality Cases: Bilateral: Tonsillectomy Other Surgeries: Yes: Bariatric Surgery (GASTRIC SLEEVE) Amputation: No Fractures: No - *Social History Smoking Status: Never smoker Tobacco Type: smokeless tobacco # Packs/Day (cigarettes): 1 Alcohol Intake: never Alcohol Intake Frequency:: holidays/special occasions only *Occupational Status:: unemployed Housing: house Household Members: spouse *Travel in the last 8 weeks: None Family Hx:: Unable to obtain
== END ==
PROVIDERS: PCP Family Medicine; Visit Provider Clinical Nurse Specialist Family Health
DX: M51.36 Other intervertebral disc degeneration, lumbar region (principal); M47.816 Spondylosis without myelopathy or radiculopathy, lumbar region; M54.06 Panniculitis affecting regions of neck and back, lumbar region
CPT/HCPCS: 99212; G0463

== ENCOUNTER 2021-05-10 11:04 | Day surgery (SDC) | payer BC, SELFPAY ==
[2021-05-10 11:12] VITALS: BP 163/91; PULSE 101; RESP 18; TEMP 36.3; O2SAT 96; BMI 101.2
[2021-05-10 12:04] VITALS: BP 187/96; PULSE 90; RESP 18; O2SAT 100
[2021-05-10 12:06] VITALS: BP 173/89; PULSE 80; RESP 18; O2SAT 99
[2021-05-10 12:21] VITALS: BP 140/92; PULSE 72; RESP 20; O2SAT 98
--- NOTE | 2021-05-10 12:30 | HMH.PMPROC ---
- Procedure Date: 05/10/21 Time: 12:30 Anesthesiologist:: Shell Gregg MD Complications:: None Pre-procedure Diagnosis:: Degenerative disc disease of the lumbar spine, lumbar facet arthropathy, lumbar spondylosis Post-procedure Diagnosis:: Same Indications for Procedure:: Patient is a very pleasant 25-year-old white male who presents today with chronic low back pain related to the above diagnosis. He denies any pain radiating down his legs. He has tried and failed conservative treatment including oral pain medications and home stretching program for greater than 6 weeks. He previously underwent the same injection last April and notes significant pain relief up until last month. He states the pain has since returned and is requesting a repeat injection today. The plan for today is for the patient to undergo diagnostic lumbar facet joint/medial branch block injections at L4-L5 and L5-S1 bilaterally #2. Procedure Details:: Lumbar medial branch block Informed consent was obtained and the risks and benefits of the procedure was explained to the patient. The back was prepped using ChloraPrep. The skin and subcutaneous tissues were anesthetized using lidocaine. I placed 22-gauge spinal needles into the facet joint/medial branches of L4,-L5 and L5-S1 bilaterally. Needle placement was confirmed with dye. After this we injected 3 mL bupivacaine 0.25% and Depo-Medrol 13 mg into each facet joint/medial branch of L4,-L5 and L5-S1 bilaterally. We used a total of 40 mg Depo-Medrol for all 2 levels bilaterally. The patient tolerated the procedure well with no complications. Plan and Disposition:: We will follow-up with this patient in 2 weeks. Will reevaluate pain symptoms at this time. Since he is undergoing appropriate pain relief for many months with the diagnostic blocks we will continue the medial branch block injections for now. Should he only experience short-term pain relief in the future we may consider proceeding with lumbar RFA.
== END 2021-05-10 12:22 | disposition home or self-care (01) ==
LOC: SC.PAINP 11:07
PROVIDERS: PCP Family Medicine; Visit Provider Anesthesiology
DX: M51.36 Other intervertebral disc degeneration, lumbar region (principal); M54.06 Panniculitis affecting regions of neck and back, lumbar region; M47.816 Spondylosis without myelopathy or radiculopathy, lumbar region; I10 Essential (primary) hypertension; Z72.0 Tobacco use; K21.9 Gastro-esophageal reflux disease without esophagitis; F32.A Depression, unspecified; Z98.84 Bariatric surgery status
CPT/HCPCS: 64493; 64494; J1040; Q9966

== ENCOUNTER 2021-07-03 18:44 | Emergency (ER) | payer BC, SELFPAY ==
[2021-07-03 19:14] VITALS: BP 134/87; PULSE 88; RESP 18; TEMP 36.7; O2SAT 98; BMI 45.9
--- NOTE | 2021-07-03 19:19 | HMH.EDUTC ---
[facility] Disposition Clinical Impression: Viral syndrome, Encounter for laboratory testing for COVID-19 virus Disposition: Home, Self-Care Condition on Discharge: Good Instructions: DI for Viral Syndrome, DI for COVID-19 (Suspected or Confirmed ), Preventing the Spread of Coronavirus Discharge Instructions Additional Instructions: *Monitor Temp, Over the counter Motrin or Tylenol as directed/as needed Tylenol every 4 hours and Motrin every 6 hours (as long as your family doctor has told you that you can take it) for fever or pain. and straight to ER if unable to lower temp less than 101.0 after medication given *Warm salt water gargles may help to soothe the throat *Throat Lozenges *Warm fluids like tea with honey may help to soothe the throat *Sleep elevated *Humidifier/Vaporizer Follow up IMMEDIATELY for new or worsening symptoms or no Noticeable improvement over the next 48-72 hours. 911 for difficulty breathing or swallowing You were tested for today for COVID19 your test result should be back in the next 24-48 hours, you may check your results on the [facility] My Health Portal if you have trouble logging on you may call support to help you You was given a handout with instructions for Self Quarantine and Self isolation for while you wait on test results and what to do if they are positive If you are positive the Health Dept will be contacting you also Make sure to take your Vitamins Vit. C Vit D and Zinc if you can take them Referrals: Stevan Daigle MD [Primary Care Provider] - As needed Forms: Work/School Release Time of Disposition: 19:27 Medical Decision Making - Javier Inquiry Pt receiving controlled substance: No Javier was queried for this patient: No Vital Signs: 07/03/21 19:14 Temperature 98.1 F Temperature Source Oral Pulse Rate [Left] 88 Respiratory Rate 18 Blood Pressure [Right Arm] 134/87 Blood Pressure Mean [Right Arm] 102 02 Sat by Pulse Oximetry 98 Orders (Tests/Meds): ORDERS Category Date Time Status Covid-19 Nasal PCR ([facility]) Routine Lab 07/03/21 19:08 Ordered [facility] HPI - General Stated complaint: covid test Time Seen by Provider: 07/03/21 19:20 Mode of Arrival: Ambulatory Source of Information: Patient Limitations: No Limitations Description of Symptoms (Recalled from Triage Doc. by RN): pt c/o fever, myalgia, nasal drainage and ROJAS since yesterday. pt wants a covid test. HEENT Symptoms (Recalled from RN notes): Yes Resp Symptoms (Recalled from RN notes): No Skin Symptoms (Recalled from RN notes): No MS Symptoms (Recalled from RN notes): No Functional Status (Recalled from RN notes): wnl - History of Present Illness Provider Complaint: Patient state that he wanted to get tested for COVID States that he has been having fever, nasal congestion, headache body aches and fatigue State that his and child at home is having similar symptoms and worried he may have COVID - Related Data Home Medications Medication Instructions Recorded Confirmed Tizanidine HCl 4 mg PO TID 09/30/19 05/10/21 Amoxicillin [Amoxicillin 875MG 875 mg PO Q12H 05/10/21 05/10/21 Tab] Baclofen [Lioresal 10mg tablet] 10 mg PO DAILY 05/10/21 05/10/21 Allergies Allergy/AdvReac Type Severity Reaction Status Date / Time NSAIDS (Non-Steroidal Allergy Unknown Verified 05/10/21 11:31 Anti-Inflamma [NSAIDS (NON-STEROIDAL ANTI-INFLAMMA] - Worker's Comp Is this a Worker's Comp case?: No [facility] History - Hepatitis A Screen Drug use history?: No High risk sexual behaviors?: No History of sexually transmitted infection?: No Currently employed?: No Childcare worker?: No Do you have indoor plumbing?: Yes Do you have electricity?: Yes Attestation statement:: This patient has been screened for Hepatitis A risk factors. I have reviewed the patient's past medical history: Yes Medical History: Reports:: Hypertension Denies:: Cancer, Diabetes Mellitus Type 1, Diabetes Mellitus Ty
[2021-07-03 19:46] VITALS: BP 134/87; PULSE 88; RESP 18; TEMP 36.7
== END 2021-07-03 19:47 | disposition home or self-care (01) ==
PROVIDERS: Emergency Provider Nurse Practitioner; PCP Family Medicine
DX: U07.1 COVID-19 (principal); B34.9 Viral infection, unspecified; I10 Essential (primary) hypertension; F17.210 Nicotine dependence, cigarettes, uncomplicated
CPT/HCPCS: 99202; C9803; G0463; U0003; U0005

== ENCOUNTER 2022-01-23 17:21 | Observation (INO) | payer BC, SELFPAY ==
[2022-01-23] VITALS (19 sets, daily range): BP systolic 103–162; BP diastolic 37–84; PULSE 60–107; RESP 12–19; TEMP 36.6–37.4; O2SAT 94–99; BMI 44.6
--- NOTE | 2022-01-23 17:54 | CT_ITS ---
PROCEDURE INFORMATION: Exam: CT Abdomen And Pelvis With Contrast Exam date and time: 01/23/2022 6:05 PM Age: 26 years old Clinical indication: Vomiting; Abdominal pain; Generalized; Prior surgery; Surgery date: 6+ months; Surgery type: Gastric sleeve; Additional info: Abd pain-vomiting TECHNIQUE: Imaging protocol: Computed tomography of the abdomen and pelvis with contrast. Radiation optimization: All CT scans at this facility use at least one of these dose optimization techniques: automated exposure control; mA and/or kV adjustment per patient size (includes targeted exams where dose is matched to clinical indication); or iterative reconstruction. Contrast material: ISOVUE; Contrast volume: 75 ml; Contrast route: IV; COMPARISON: ABDPELW CT ABD PELVIS W/ CONTRAST 07/27/2016 2:43 AM FINDINGS: Lungs: No acute findings in the visualized lower lungs. Punctate peripheral left lower or granulomatous findings. No consolidation. Heart: The heart is not enlarged. Liver: The liver is normal. Gallbladder and bile ducts: The gallbladder is unremarkable. No calcified stones or biliary dilatation. Pancreas: Slight fatty infiltrative changes of the pancreas head. No ductal dilatation. No mass. Spleen: Mild splenomegaly approximate 15 cm long axis coronal image 45. Calcified splenic granuloma. Tiny accessory splenule coronal image 59. Adrenal glands: The adrenal glands are normal. Kidneys and ureters: The kidneys are normal. The ureters are normal. Stomach and bowel: Gastric surgical changes no acute findings in the stomach. Minimal small intestinal air-fluid levels, no dilated loops or mucosal thickening. Some liquid stool in the proximal colon with air-fluid levels, possible minimal colonic ileus. No dilated loops or mucosal thickening. Appendix: Mid and distal appendix is thickened up to 11 mm, distended with fluid, with hazy adjacent mesenteric edema, consistent with acute appendicitis. There are no calcified appendicoliths. There is some trace free fluid pooling in the posterior lower pelvis, but there is no organized periappendiceal abscess collection. No extraluminal gas bubbles. See coronal images 43-50, axial series 3, images 91-96. Intraperitoneal space: Small amount of free fluid in the posterior lower pelvis, HU density approximate 9. No loculated abscess collection.There is no free intraperitoneal air. Vasculature: The vasculature is normal. Lymph nodes: No significantly enlarged lymph nodes by short axis criteria. Urinary bladder: The bladder is normal. Reproductive: The prostate and seminal vesicles are normal. Bones/joints: Chronic anterior wedge deformities in lower thoracic and upper lumbar spine with kyphosis. No acute appearing fracture or high-grade listhesis.There are spinal degenerative changes, with multilevel disc narrrowing and spondylosis. Soft tissues: There are no soft tissue masses or fluid collections. IMPRESSION: 1. Findings of acute appendicitis. Thickened appendix distended up to 11 mm, surrounding hazy mesenteric edema. There is trace free fluid in the lower pelvis, but no organized diana-appendiceal abscess collection or extraluminal gas bubbles. 2. Additional nonemergency and chronic findings as above, including granulomatous changes, gastric surgical changes, splenomegaly.
--- NOTE | 2022-01-23 18:05 | PC.NURSE ---
IV established and blood sent to the lab. pt to ct via wheelchair at this time
--- NOTE | 2022-01-23 18:16 | PC.NURSE ---
pt back from rad
[2022-01-23 18:18] LABS: Alanine Aminotransferase 48 U/L (12-78); Albumin Level 4.1 g/dl (3.5-5.0); Albumin/Globulin Ratio 1.7 (1.1-1.8); Alkaline Phosphatase 79 U/L (38-126); Anion Gap 8.9 mEq/L (5-15); Aspartate Amino Transferase 37 U/L (17-59); Bilirubin,Total 2.4 mg/dl (0.2-1.3); Blood Urea Nitrogen 8 mg/dl (9-20); Calcium 8.8 mg/dl (8.4-10.2); Carbon Dioxide 26 mmol/L (22.0-30.0); Chloride 106 mmol/L (98-107); Creatinine Clearance Estimated 115 mL/min (50-200); Estimated Glomerular Filt Rate 90 ml/min (>60); GFR (African American) 108 ML/MIN (>60); Globulin 2.4 g/dL (1.3-3.2); Glucose 94 mg/dl (74-100); Lipase 56 U/L (23-300); Potassium 3.9 mmoL/L (3.5-5.1); Sodium 137 mmol/L (136-145); Total Protein,Serum 6.5 g/dl (6.3-8.2)
[2022-01-23 18:20] LABS: Basophils # 0.1 K/mm3 (0-0.2); Basophils % 0.8 % (0.1-2.0); Eosinophils # 0.2 K/mm3 (0.0-0.4); Eosinophils % 3.1 % (0.1-12.0); Hematocrit 44.2 % (42.0-52.0); Hemoglobin 14.3 g/dL (14.1-18.0); Lymphocytes # 1.1 K/mm3 (0.7-4.5); Lymphocytes % 17.1 % (10-50); Mean Corpuscular HGB Conc 32.2 g/dL (31.8-35.4); Mean Corpuscular Hemoglobin 28.6 pg (27.0-31.2); Mean Corpuscular Volume 88.6 fl (80-94); Mean Platelet Volume 8.5 fl (7.4-10.4); Monocytes # 0.5 K/mm3 (0.1-1.0); Monocytes % 8.3 % (1.7-9.3); Neutrophils # 4.5 K/mm3 (1.8-7.8); Neutrophils % 70.7 % (37.0-80.0); Platelet Count 226 K/mm3 (142-424); Red Blood Count 4.99 M/mm3 (4.60-6.20); White Blood Count 6.4 K/mm3 (4.8-10.8)
[2022-01-23 18:22] LABS: Coronavirus 19, PCR Not Detected (NotDetected); Influenza A, PCR Not Detected (NotDetected); Influenza B, PCR Not Detected (NotDetected)
--- NOTE | 2022-01-23 18:29 | PC.NURSE ---
hooked pt back to vital machine for updated vitals
--- NOTE | 2022-01-23 18:31 | PC.NURSE ---
Nelda RN to room
--- NOTE | 2022-01-23 18:33 | HMH.EDGENADL ---
ED Disposition Clinical Impression: Acute appendicitis Qualifiers: Acute appendicitis type: with localized peritonitis Appendicitis gangrene presence: without gangrene Appendicitis perforation presence: without perforation Appendicitis abscess presence: without abscess Qualified Code(s): K35.30 - Acute appendicitis with localized peritonitis, without perforation or gangrene Disposition: Still a Patient Condition on Discharge: Fair Instructions: DI for Acute Abdominal Pain Referrals: Meg Boston APRN [Primary Care Provider] - - Critical Care Critical Care Time: No Attestation: On 01/23/22, the high probability of a clinically significant, sudden or life threatening deterioration of the following system(s) required my full and direct attention, intervention and personal management. The time I documented below is in addition to time spent performing reported procedures but includes the following listed in this critical care notation. Medical Decision Making - Javier Inquiry Pt receiving controlled substance: No Vital Signs: 01/23/22 17:30 01/23/22 17:37 01/23/22 18:30 Temperature 98.6 F Temperature Source Oral Pulse Rate 107 H 77 Pulse Rate [Left Radial] 103 H Respiratory Rate 17 Blood Pressure 129/84 103/37 L Blood Pressure [Right Arm] 129/84 Blood Pressure Mean 98 61 Blood Pressure Mean [Right Arm] 99 02 Sat by Pulse Oximetry 97 99 99 - Lab Data Lab Results 01/23/22 18:02: WBC 6.4, RBC 4.99, Hgb 14.3, Hct 44.2, MCV 88.6, MCH 28.6, MCHC 32.2, RDW 14.0, Plt Count 226, MPV 8.5, Neut % (Auto) 70.7, Lymph % (Auto) 17.1, [place] % (Auto) 8.3, Eos % (Auto) 3.1, Baso % (Auto) 0.8, Neut # (Auto) 4.5, Lymph # (Auto) 1.1, [place] # (Auto) 0.5, Eos # (Auto) 0.2, Baso # (Auto) 0.1 01/23/22 18:02: Sodium 137, Potassium 3.9, Chloride 106, Carbon Dioxide 26, Anion Gap 8.9, BUN 8 L, Creatinine 1.00, Estimated Creat Clear 115, Estimated GFR 90, Est GFR ( Amer) 108, Glucose 94, Calcium 8.8, Total Bilirubin 2.4 H, AST 37, ALT 48, Alkaline Phosphatase 79, Total Protein 6.5, Albumin 4.1, Globulin 2.4, Albumin/Globulin Ratio 1.7, Lipase 56 01/23/22 18:06: SARS-CoV-2 (PCR) Not detected, Influenza A Untype (PCR) Not detected, Influenza Type B (PCR) Not detected Result diagrams: 01/23/22 18:02 01/23/22 18:02 Orders (Tests/Meds): ED MEDICATIONS Generic Name Dose Route Start Last Admin Trade Name Freq PRN Reason Stop Dose Admin Sodium Chloride 1,000 mls @ 999 mls/hr 01/23/22 18:00 01/23/22 18:35 Sod Chlor 0.9% 1000ml Bag IV 01/23/22 19:00 999 mls/hr .Q1H1M ELSIE Administration Discontinued Medications Generic Name Dose Route Start Last Admin Trade Name Freq PRN Reason Stop Dose Admin Iopamidol 75 ml 01/23/22 18:20 01/23/22 18:20 Iopamidol-370 (76%);100ml Bottle IV 01/23/22 18:21 75 ml ONCE ONE Administration Ondansetron HCl 4 mg 01/23/22 17:55 01/23/22 18:35 Ondansetron 4mg/2ml Vial IV 01/23/22 17:56 4 mg ONCE ONE Administration Sodium Chloride 10 ml 01/23/22 18:20 01/23/22 18:21 Sodium Chloride 0.9% 10ml Syr (Rad Only) IV 01/23/22 18:21 10 ml ONCE ONE Administration ORDERS Category Date Time Status Urinalysis and Microscopic Stat Lab 01/23/22 17:52 Ordered - CT Data CT Scan: Abdomen, Pelvis Time Received: 19:[address] Reviewed: Yes: I have viewed the radiologist's interpretation Findings Narrative: PROCEDURE INFORMATION: Exam: CT Abdomen And Pelvis With Contrast Exam date and time: 01/23/2022 6:05 PM Age: 26 years old Clinical indication: Vomiting; Abdominal pain; Generalized; Prior surgery; Surgery date: 6+ months; Surgery type: Gastric sleeve; Additional info: Abd pain-vomiting TECHNIQUE: Imaging protocol: Computed tomography of the abdomen and pelvis with contrast. Radiation optimization: All CT scans at this facility use at least one of these dose optimization techniques: automated exposure control; mA and/or
--- NOTE | 2022-01-23 18:40 | PC.NURSE ---
Tatianna Gonzalez took pt a warm blanket
--- NOTE | 2022-01-23 19:10 | PC.NURSE ---
Pt getting changed into gown for surgery
--- NOTE | 2022-01-23 19:31 | PC.NURSE ---
dr osborne @ bedside
--- NOTE | 2022-01-23 19:48 | HMH.GSHP ---
HPI HPI: Patient is a 26-year-old male who states that he had developed lower abdominal pain beginning about 24 hours ago in the evening of 01/22/2022. This persisted in he presented to the emergency department this evening. He was found to have a normal white blood cell count. Laboratory studies were otherwise significant for a bilirubin of 2.4. CT scan was performed which revealed findings of acute appendicitis with a thickened appendix which was distended and measuring 11 mm with surrounding hazy mesenteric edema and trace free fluid in the lower pelvis. Patient's past medical history is only significant for hypertension and prior surgery including laparoscopic sleeve gastrectomy 12 years ago in [place] followed by additional surgery to remove extraneous skin. [facility] History I have reviewed the patient's past medical history: Yes Medical History: Reports:: Hypertension Denies:: Cancer, Diabetes Mellitus Type 1, Diabetes Mellitus Type 2, MRSA, Seizures *Have you ever received a pneumonia vaccine?: No *Have you received a flu vaccine this season?: No Other Medical History: Denies: Blood Transfusion Reaction Laterality Cases: Bilateral: Tonsillectomy Other Surgeries: Yes: Bariatric Surgery (GASTRIC SLEEVE) Amputation: No Fractures: No - *Social History Smoking Status: Current every day smoker Tobacco Type: cigarettes # Packs/Day (cigarettes): 1 Alcohol Intake: never Alcohol Intake Frequency:: holidays/special occasions only *Occupational Status:: employed Housing: house Household Members: spouse *Travel in the last 8 weeks: None Family Hx:: Unable to obtain Review of Systems - Review of Systems Review of systems:: pertinent systems reviewed and negative unless documented below Meds Home Medications Medication Instructions Recorded Confirmed Type lisinopriL [Lisinopril] 10 mg PO DAILY 01/23/22 01/23/22 History Allergies Allergy/AdvReac Type Severity Reaction Status Date / Time NSAIDS (Non-Steroidal Allergy Unknown Verified 05/10/21 11:31 Anti-Inflamma [NSAIDS (NON-STEROIDAL ANTI-INFLAMMA] Exam Vital signs and Labs for Last 24 Hours: Temp Pulse Resp BP Pulse Ox 98.6 F 77 17 103/37 L 99 01/23/22 17:37 01/23/22 18:30 01/23/22 17:37 01/23/22 18:30 01/23/22 18:30 Laboratory Results - last 24 hr 01/23/22 18:02: WBC 6.4, RBC 4.99, Hgb 14.3, Hct 44.2, MCV 88.6, MCH 28.6, MCHC 32.2, RDW 14.0, Plt Count 226, MPV 8.5, Neut % (Auto) 70.7, Lymph % (Auto) 17.1, [place] % (Auto) 8.3, Eos % (Auto) 3.1, Baso % (Auto) 0.8, Neut # (Auto) 4.5, Lymph # (Auto) 1.1, [place] # (Auto) 0.5, Eos # (Auto) 0.2, Baso # (Auto) 0.1 01/23/22 18:02: Sodium 137, Potassium 3.9, Chloride 106, Carbon Dioxide 26, Anion Gap 8.9, BUN 8 L, Creatinine 1.00, Estimated Creat Clear 115, Estimated GFR 90, Est GFR ( Amer) 108, Glucose 94, Calcium 8.8, Total Bilirubin 2.4 H, AST 37, ALT 48, Alkaline Phosphatase 79, Total Protein 6.5, Albumin 4.1, Globulin 2.4, Albumin/Globulin Ratio 1.7, Lipase 56 01/23/22 18:06: SARS-CoV-2 (PCR) Not detected, Influenza A Untype (PCR) Not detected, Influenza Type B (PCR) Not detected I & O for Last 24 hours: Intake & Output 01/21/22 01/22/22 01/23/22 01/24/22 11:59 11:59 11:59 11:59 Weight 311 lb - Constitutional no acute distress - *Routine HEENT Exam Head: Present: normocephalic Eye: Present: EOMI, PERRL ENT: Present: mucous membranes moist - *Routine Neck Exam Present: supple. Absent: lymphadenopathy - *Routine Respiratory Exam Present: CTA bilaterally - *Routine Cardiovascular Exam Present: RRR - *Routine Abdominal Exam Present: soft, tenderness Comments: Prior surgical scars. Tender with guarding most pronounced in the right lower quadrant - *Routine Rectal Exam Rectal:: deferred - *Routine Genitalia Exam Genitalia:: deferred - *Routine Extremities Exam Absent: cyanosis, clubbing, edema - *Routine Skin Exam Present: warm. Absent: shaggy
--- NOTE | 2022-01-23 20:53 | HMH.ANESCL ---
[facility] Anesthesia Checklist - Patient Identification Patient Identification: Arm Band, Verbal (Name & ) - Structural Data Admitted From: Emergency Dept Planned Operative Procedure/s: lap Appendectomy Consent for Planned Operative Procedure(s) Verified: Yes Verified Documents: Surgical Consent - NPO Status Verified Time NPO: 16:00 - Additional verifications Anesthesia Reactions: No Hx Blood Transfusions: No Blood Transfusion Reaction: No - Airway Assessment C-Spine Mobility Assessed: Yes TMJ Mobility Assessed: Yes Dentition: Partials - Neurological Assessment Level of Consciousness: Awake, Alert, Appropriate - Anesthesia Plan Anesthesia Risk discussed: Yes ASA Class: III Anesthesia Type: General [facility] History Medical History: Reports:: Hypertension Denies:: Cancer, Diabetes Mellitus Type 1, Diabetes Mellitus Type 2, MRSA, Seizures *Have you ever received a pneumonia vaccine?: No *Have you received a flu vaccine this season?: No Other Medical History: Denies: Blood Transfusion Reaction Anesthesia experience/problems:: none Laterality Cases: Bilateral: Tonsillectomy Other Surgeries: Yes: Bariatric Surgery (GASTRIC SLEEVE) Amputation: No Fractures: No - *Social History Smoking Status: Current every day smoker Tobacco Type: cigarettes # Packs/Day (cigarettes): 1 Alcohol Intake: never Alcohol Intake Frequency:: holidays/special occasions only Substance Use Type: denies use *Occupational Status:: employed Housing: house Household Members: spouse *Travel in the last 8 weeks: None Family Hx:: Unable to obtain
--- NOTE | 2022-01-23 21:23 | P.OP_ITS ---
Date of procedure: 01/23/22 Pre-op Diagnosis:: Acute appendicitis Post-op Diagnosis:: Same Procedure performed:: Laparoscopic appendectomy Surgeon:: Yifan Huff MD Anesthesia: GETFauzia Estimated blood loss (mL): 15 Operative findings:: He had an acute suppurative appendicitis without perforation. Operative note:: Patient was taken to the operating room. He was given preoperative intravenous antibiotics. In the operating room he was placed in a supine position. General anesthesia was induced via endotracheal tube. Yoon catheter was placed. Abdomen was prepped and draped in the standard surgical fashion. Due to the patient's prior abdominoplasty Veress needle was inserted in the left subcostal region. CO2 pneumoperitoneum was achieved to 15 mmHg. 11 mm optical trocar was inserted at the supraumbilical location. 5 mm trocar was inserted in the left lower abdomen and 5 mm trochars inserted in the right upper abdomen. Laparoscopic surveillance was carried out. The appendix at its base was easily identified. It was grasped with an endoscopic [place]. Appendix was thickened and inflamed and adherent to the deep abdomen. It was then able to be delivered anteriorly with some blunt dissection where there acute inflammatory adhesions to the surrounding mesentery. Appendix was markedly thickened. There was some fibrinopurulent exudate which was suctioned free. Mesoappendix was carefully divided with ROCIO ultrasonic harmonic refugio with care taken to coagulate the appendiceal artery in the process. Dissection was ultimately carried down to the appendiceal base which was relatively uninflamed. The appendix was divided at its base with an endoscopic JAYDEN linear cutting stapling device. The appendix was placed within an Endo Catch retrieval device and removed from the peritoneal cavity via the umbilical trocar site which required some minor extension of the fascia for delivery of the thickened appendix. The appendiceal stump was inspected for integrity and hemostasis which was assured. Residual fluid was suctioned free. Trochars were then removed as CO2 pneumoperitoneum was evacuated. Attempt was made to close the fascia but this proved rather difficult due to the patient's prior surgery and body habitus. Therefore he underwent reinsufflation and the supraumbilical trocar site was closed with the need of close laparoscopic closure device with several sutures for complete closure. Trochars were then once again removed and CO2 pneumoperitoneum was evacuated. Local anesthetic was infiltrated. Skin incisions were closed with 4 Monocryl subcuticular fashion. Steri-Strips and dressings were applied. Condition: stable Disposition: PACU Specimens:: Appendix Complications:: None immediately apparent
--- NOTE | 2022-01-23 21:37 | P.PN_ITS ---
[facility] Anesthesia Record Part I Intake, IV Amount: 800 Estimated blood loss (mL): 10 Urine output (mL): 0 Blood Pressure: 129/68 SaO2: 95 Pulse Rate: 60 Respiratory Rate: 16 Temperature: 97.8 F Patient is:: Drowsy Stable to PACU at:: 21:33
--- NOTE | 2022-01-23 22:09 | PC.NURSE ---
PT ARRIVED TO MED/SURGE FLOOR VIA BED TO ROOM 204 AT THIS TIME
--- NOTE | 2022-01-23 22:17 | SUR.PHASEI ---
2201- detailed report called to liliana dalton on med surg 2203- pt left in stable condition with liliana dalton in pt room
[2022-01-24] VITALS (10 sets, daily range): BP systolic 121–157; BP diastolic 63–80; PULSE 50–77; RESP 16–18; TEMP 36.7–37.1; O2SAT 96–99; BMI 43.7
--- NOTE | 2022-01-24 05:51 | PC.NURSE ---
Patient admitted to floor after Laparoscopic appendectomy. Patient has for lap sites dressings are CDI. Patient has had some moderate abdominal pain, medicated per mar. Patient is a&0x4 tolerating room air. Patient can independently ambulate to the restroom. Patient did tolerate water and broth diet last night.
--- NOTE | 2022-01-24 06:21 | HMH.GSPN ---
Subjective Narrative: Patient feels better regarding his abdominal pain. He does have soreness from surgery. He has been tolerating some clear liquids. He states that he is quite hungry. He has had some abdominal pain when voiding. Progress Note: A&P Assessment and Plan for All Diagnoses:: Advance diet. Continue IV antibiotics. Likely discharge later today. Exam Vital signs and Labs for Last 24 Hours: Temp Pulse Resp BP Pulse Ox 98.1 F 70 18 148/70 H 98 01/24/22 04:55 01/24/22 04:55 01/24/22 04:55 01/24/22 04:55 01/24/22 04:55 Laboratory Results - last 24 hr 01/23/22 18:02: WBC 6.4, RBC 4.99, Hgb 14.3, Hct 44.2, MCV 88.6, MCH 28.6, MCHC 32.2, RDW 14.0, Plt Count 226, MPV 8.5, Neut % (Auto) 70.7, Lymph % (Auto) 17.1, [place] % (Auto) 8.3, Eos % (Auto) 3.1, Baso % (Auto) 0.8, Neut # (Auto) 4.5, Lymph # (Auto) 1.1, [place] # (Auto) 0.5, Eos # (Auto) 0.2, Baso # (Auto) 0.1 01/23/22 18:02: Sodium 137, Potassium 3.9, Chloride 106, Carbon Dioxide 26, Anion Gap 8.9, BUN 8 L, Creatinine 1.00, Estimated Creat Clear 115, Estimated GFR 90, Est GFR ( Amer) 108, Glucose 94, Calcium 8.8, Total Bilirubin 2.4 H, AST 37, ALT 48, Alkaline Phosphatase 79, Total Protein 6.5, Albumin 4.1, Globulin 2.4, Albumin/Globulin Ratio 1.7, Lipase 56 01/23/22 18:06: SARS-CoV-2 (PCR) Not detected, Influenza A Untype (PCR) Not detected, Influenza Type B (PCR) Not detected I & O for Last 24 hours: Intake & Output 01/21/22 01/22/22 01/23/22 01/24/22 11:59 11:59 11:59 11:59 Intake Total 1040 / 1040 Balance 1040 / 1040 Weight 305 lb 14.4 oz - Constitutional no acute distress - *Routine Abdominal Exam Present: soft
--- NOTE | 2022-01-24 07:17 | P.CONPHA_ITS ---
[facility] Pharmacy VTE Monitoring - Patient Demographics Admission date: 01/23/22 Report Date: 01/24/22 Time: 07:17 Allergies/Adverse Reactions: Patient Allergies NSAIDS (Non-Steroidal Anti-Inflamma [NSAIDS (NON-STEROIDAL ANTI-INFLAMMA] Allergy (Unknown, Verified 05/10/21 11:31) Height: 1.78 m Weight: 138.754 kg Patient Problems: Current Active Problems Acute appendicitis (Acute) - VTE Risk Labs: VTE Related Lab Results Hgb 14.3 g/dL (14.1-18.0) 01/23/22 18:02 Hct 44.2 % (42.0-52.0) 01/23/22 18:02 Plt Count 226 K/mm3 (142-424) 01/23/22 18:02 BUN 8 mg/dl (9-20) L 01/23/22 18:02 Creatinine 1.00 mg/dl (0.66-1.25) 01/23/22 18:02 Estimated Creat Clear 115 mL/min (50-200) 01/23/22 18:02 VTE Score: 1 VTE Risk Level: Very Low Risk - Prophylaxis VTE Prophylaxis Ordered?: Yes Types of VTE Prophylaxis: TEDS Knee High Location of Applied Device: Bilateral Lower Extremeties
--- NOTE | 2022-01-24 07:18 | HMH.PHAINT ---
MEDICATION RECONCILIATION COMPLETED ON PATIENT USING EXTERNAL FILL HISTORY FROM PHARMACY. -NAT MIRANDA, NICOLED
--- NOTE | 2022-01-24 09:15 | PC.NURSE ---
pt is sitting up in bed. pt diet has been advanced to bland diet. pt states he has some pain after eating but denies nausea and pain at this time. pt to receive IV post-op antibiotics now and at 1500. possible dc this afternoon. encouraged pt to call with any needs/concerns.
--- NOTE | 2022-01-24 10:34 | HMH.ANESII ---
[facility] Anesthesia Record Part II Discharge Time: 22:03 Destination: Medical Surgical Department PACU nurse assessment reviewed?: Yes Patient Condition:: Good Anesthesia Complications:: None Swallowing reflex intact?: Yes Cyanosis?: No Blood Pressure: 140/63 Pulse Rate: 72 Temperature: 98.8 F Mental Status: Alert & Oriented Pain level:: 2 Nausea and/or vomitting:: None Intake, IV Amount: 0
[2022-01-24 11:01] LABS: Microscopic,Cath URINE MICROSCOPIC (MICROSCOPIC)
[2022-01-24 11:22] LABS: Appearance,Urine/Cath CLEAR (Clear); Bilirubin,Cath Negative (Negative); Blood, Urine/Cath Negative (Negative); Color,Urine/Cath YELLOW (Yellow); Glucose,Urine/Cath (UA) Negative (Negative); Ketones,Urine/Cath Negative (Negative); Leukocyte Esterase,Cath Negative (Negative); Nitrate,Cath Negative (Negative); PH,Urine/Cath 8.5 (5.0-8.5); Protein,Urine/Cath Negative (Negative); Specific Gravity, Urine/Cath 1.015 (1.005-1.030)
[2022-01-24 11:57] LABS: WBC,Urine/Cath Occasional #/hpf (0-3)
[2022-01-24 11:58] LABS: Bacteria,Urine/Cath TRACE /lpf; Squamous Epithelial Ur./Cath Occasional #/hpf (0-5)
--- NOTE | 2022-01-24 13:01 | HMH.DCSUM ---
General - General Admission date:: 01/23/22 Discharge date: 01/24/22 HPI HPI: Patient had presented to the emergency department in the evening of 01/23/2022 with lower abdominal pain. Work-up included CT scan which revealed findings consistent with acute appendicitis. Surgical consultation was obtained. Hospital Course Hospital Course: Patient was seen and examined in the emergency department. He has significant lower abdominal tenderness. He did have a normal white blood cell count. He was taken to the operating room and underwent laparoscopic appendectomy. He was found to have an acutely inflamed suppurative but nonperforated appendicitis. Please see operative dictation for complete details. He was admitted postoperatively for continued convalescence and perioperative antibiotics. He was continued on Unasyn. He did well overnight. The following morning he had some minor expected surgical soreness. He was advanced to a bland diet. He tolerated this without difficulty. He had received several doses of intravenous Unasyn. Arrangements were made for discharge home. Objective Vital signs: Temp Pulse Resp BP Pulse Ox 98.3 F 50 L 16 121/64 97 01/24/22 12:00 01/24/22 12:00 01/24/22 12:00 01/24/22 12:00 01/24/22 12:00 Results Labs on day of discharge: Labs from last 24 hours 01/23/22 01/23/22 01/23/22 20:15 18:06 18:02 WBC RBC Hgb Hct MCV MCH MCHC RDW Plt Count MPV Neut % (Auto) Lymph % (Auto) [place] % (Auto) Eos % (Auto) Baso % (Auto) Neut # (Auto) Lymph # (Auto) [place] # (Auto) Eos # (Auto) Baso # (Auto) Sodium 137 Potassium 3.9 Chloride 106 Carbon Dioxide 26 Anion Gap 8.9 BUN 8 L Creatinine 1.00 Estimated Creat Clear 115 Estimated GFR 90 Est GFR ( Amer) 108 Glucose 94 Calcium 8.8 Total Bilirubin 2.4 H AST 37 ALT 48 Alkaline Phosphatase 79 Total Protein 6.5 Albumin 4.1 Globulin 2.4 Albumin/Globulin Ratio 1.7 Lipase 56 Urine Color Yellow Urine Appearance Clear Urine pH 8.5 Ur Specific [place] 1.015 Urine Protein Negative Urine Glucose (UA) Negative Urine Ketones Negative Urine Blood Negative Urine Nitrate Negative Urine Bilirubin Negative Urine Urobilinogen 2.0 Ur Leukocyte Esterase Negative Urine WBC Occasional Ur Squamous Epith Cells Occasional Urine Bacteria Trace SARS-CoV-2 (PCR) Not detected Influenza A Untype (PCR) Not detected Influenza Type B (PCR) Not detected 01/23/22 18:02 WBC 6.4 RBC 4.99 Hgb 14.3 Hct 44.2 MCV 88.6 MCH 28.6 MCHC 32.2 RDW 14.0 Plt Count 226 MPV 8.5 Neut % (Auto) 70.7 Lymph % (Auto) 17.1 [place] % (Auto) 8.3 Eos % (Auto) 3.1 Baso % (Auto) 0.8 Neut # (Auto) 4.5 Lymph # (Auto) 1.1 [place] # (Auto) 0.5 Eos # (Auto) 0.2 Baso # (Auto) 0.1 Sodium Potassium Chloride Carbon Dioxide Anion Gap BUN Creatinine Estimated Creat Clear Estimated GFR Est GFR ( Amer) Glucose Calcium Total Bilirubin AST ALT Alkaline Phosphatase Total Protein Albumin Globulin Albumin/Globulin Ratio Lipase Urine Color Urine Appearance Urine pH Ur Specific [place] Urine Protein Urine Glucose (UA) Urine Ketones Urine Blood Urine Nitrate Urine Bilirubin Urine Urobilinogen Ur Leukocyte Esterase Urine WBC Ur Squamous Epith Cells Urine Bacteria SARS-CoV-2 (PCR) Influenza A Untype (PCR) Influenza Type B (PCR) Discharge Plan - Patient Discharge Instructions ACTIVITY: No heavy lifting Additional Instructions: No lifting greater than 10 pounds. No work activity until scheduled surgical follow-up. Patient Instructions: Appendicitis, DI for Acute Abdominal Pain - Follow up Plan Follow up with: Meg Boston APRN [Primary Care Provider] - Yifan Huff MD [Staff Physician
--- NOTE | 2022-01-28 14:36 | CARE MANAGER ---
Attempted x 2 to contact patient left VM message. HAILEY Beck
== END 2022-01-24 14:50 | disposition home or self-care (01) ==
LOC: ER 19:05 → SDC 20:14 → 2ND 20:25
PROVIDERS: Admitting Provider Surgery; Emergency Provider Emergency Medicine; PCP Nurse Practitioner Family; Visit Provider Surgery
PROC: 0DTJ4ZZ Resection of Appendix, Percutaneous Endoscopic Approach (ICD-10-PCS; CPT 44970; principal; 2022-01-23 20:00)
DX: K35.890 Other acute appendicitis without perforation or gangrene (principal)
CPT/HCPCS: 44970; 74177; 80053; 81001; 83690; 85025; 99285; C9803; G0378; J2405; Q9967; U0003; U0005

== ENCOUNTER 2023-12-27 08:54 | Emergency (ER) | payer BC, SELFPAY ==
[2023-12-27 09:10] VITALS: BP 125/78; PULSE 64; RESP 18; TEMP 36.8; O2SAT 98; BMI 41.1
--- NOTE | 2023-12-27 09:29 | ED_ITS ---
Discharge Plan Disposition Patient Disposition: Home, Self-Care Condition: Good Prescriptions Prescriptions: New methylprednisolone 4 mg Tablets,Dose Pack 4 mg PO DIRECTED 6 Days Qty: 21 0RF Rx Instructions: Take 1 pack as directed for 6 days amoxicillin-pot clavulanate 875-125 mg Tablet 1 tab PO Q12H Qty: 20 0RF No Action lamotrigine [Lamictal] 25 mg tablet See Rx Instructions PO .COMPLEX Qty: 60 1RF Rx Instructions: take 1 tablet for 2 weeks; take 2 tablets daily PO ; lisinopril 10 MG tablet 10 mg PO DAILY Referrals Follow up/Referrals: Chani Paulino APRN [Primary Care Provider] - See instructions Activity Restrictions/Add. Instructions Additional Instructions/Restrictions: Drink plenty of fluids. Take tylenol or ibuprofen for pain or fever. Take the medications as directed. Follow up with your regular doctor. GO TO THE ER FOR ANY WORSENING SYMPTOMS Clinical Impressions Clinical Impression: Otitis media Instructions Patient Instructions: Middle Ear Infection, Methylprednisolone, Amoxicillin and Clavulanic Acid Discharge ED Provider: Leroy Damon [facility] General Stated complaint: ear pain both, muffled in right ear congestion Mode of Arrival: Ambulatory Source of Information: Patient Limitations: No Limitations Time Seen by Provider: 12/27/23 09:29 Description of Symptoms (Recalled from Triage Doc. by RN): PATIENT C/O MUFFLED HEARING IN RIGHT EAR, SINUS CONGESTION, AND RUNNY EYES X 5 DAYS HEENT Symptoms (Recalled from RN notes): Yes Resp Symptoms (Recalled from RN notes): No Skin Symptoms (Recalled from RN notes): No MS Symptoms (Recalled from RN notes): No Functional Status (Recalled from RN notes): WNL History of Present Illness Provider Complaint: He states that for the past 3 days he has had worsening ear pain and sinus congestion. Related Data Home Medications Medication Instructions Recorded Confirmed lisinopril 10 mg tablet 10 mg PO DAILY Hypertension 01/23/22 12/04/23 Previous Rx's Medication Instructions Recorded lamotrigine 25 mg tablet (Lamictal) See Rx Instructions PO .COMPLEX 12/18/23 #60 tabs amoxicillin 875 mg-potassium 1 tab PO Q12H #20 tabs 12/27/23 clavulanate 125 mg tablet methylprednisolone 4 mg tablets in 4 mg PO DIRECTED 6 days #21 tabs 12/27/23 a dose pack Allergies Allergy/AdvReac Type Severity Reaction Status Date / Time NSAIDS (Non-Steroidal Allergy Unknown Verified 12/04/23 11:44 Anti-Inflamma [NSAIDS (NON-STEROIDAL ANTI-INFLAMMA] Worker's Comp Is this a Worker's Comp case?: No [facility] Disclaimer: The information contained in this section may have been updated after the patient was seen, as this information can be updated by other users. Medical History (Updated 12/27/23 @ 09:32 by Leroy Damon APRN) Mood disorder Generalized anxiety disorder Concussion Migraines High blood pressure Surgical History (Updated 12/04/23 @ 09:20 by Aundrea Orta APRN) History of gastric bypass History of tonsillectomy Social History (Updated 12/04/23 @ 09:18 by Aundrea Orta APRN) Smoking Status: Current every day smoker tobacco type: smokeless tobacco second hand exposure: No alcohol intake: current alcohol intake frequency: holidays/special occasions only counseling given: No substance use type: marijuana current occupational status: employed Travel in the last 8 weeks: None adopted: No caregiver/support person: Yes foster care: No household members: spouse housing: house lives independently: Yes marital status: number of children: 2 number of grandchildren: 0 education level: high school current occupation: [employer] current occupational exposures/hazards: No Hx Recent Travel: No sexually active: Yes caffeine: No physical activity: none working smoke detector in home: Yes fire extinguisher in home: Yes carbon monox detector in home: No firearms in home: Yes firearms unloaded and locked: Yes (locked up) do you feel safe at home: Yes victim of physical abuse: No victim of emotional abuse: No victim of sexual abuse: No would you like helpful sources: No ROS Obtained: Yes All systems reviewed & no additional complaints except as documented Constitutional Constitutional: Denies chills, Reports fever(s) and Reports poor appetite Eyes Eyes: Denies eye discharge ENT Ears, Nose, Mouth, and Throat: Denies ear discharge, Reports otalgia, Denies hearing loss, Denies sinus pain and Reports sore throat Cardiovascular Cardiovascular: Denies chest pain and Denies dyspnea Respiratory Respiratory: Denies chest congestion, Reports cough and Denies dyspnea Gastrointestinal Gastrointestingal: Denies abdominal pain, diarrhea, nausea or vomiting Musculoskeletal Musculoskeletal: Denies arthralgias Integumentary/Breasts Skin/Breast: Denies rash Physical Exam General General appearance: alert and in no apparent distress Head Head exam: atraumatic, normocephalic and normal inspection Eye Eye exam: Present normal appearance; Absent PERRL or EOMI ENT ENT exam: Present mucous membranes moist and normal external ear exam Expanded ENT Exam TM/Canal exam: Bilateral TM: erythema, bulging and effusion Nose exam: Absent sinus tenderness Nasal speculum exam: Bilateral: normal Mouth exam: Present normal external inspection and other; Absent drooling Teeth exam: Present normal inspection Throat exam: Present tonsillar erythema and tonsillomegaly Neck Neck exam: Present normal inspection, full ROM and trachea midline; Absent tenderness, meningismus or lymphadenopathy Chest Chest inspection: Present normal inspection and symmetric chest wall rise; Absent tenderness Respiratory Respiratory exam: Present normal lung sounds bilaterally; Absent respiratory distress, wheezes or stridor Cardiovascular Cardiovascular exam: Present regular rate, normal rhythm and normal heart sounds; Absent tachycardia or irregular rhythm Abdominal Exam Abdominal exam: Present soft and normal bowel sounds; Absent distention, tenderness, guarding, rebound or rigidity Extremities Exam Extremities exam: Present normal inspection and normal capillary refill; Absent tenderness, joint swelling or calf tenderness Back Exam Back exam: Present normal inspection and full ROM; Absent tenderness, CVA tenderness (R) or CVA tenderness (L) Neurological Exam Neurological exam: Present alert, oriented X3, CN II-XII intact, normal gait and reflexes normal; Absent motor sensory deficit Psychiatric Psychiatric exam: Present normal affect and normal mood Skin Skin exam: Present warm, dry, intact and normal color Lymphatic Lymphatic Findings: no adenopathy Medical Decision Making Medical Records Medical records reviewed: No I reviewed the patient's medical records. Javier Inquiry Pt receiving controlled substance: No Vital Signs: 12/27/23 09:10 Temperature 98.2 F Temperature Source Oral Pulse Rate [Left Brachial] 64 Respiratory Rate 18 Blood Pressure [Left Arm] 125/78 Blood Pressure Mean [Left Arm] 93 Blood Pressure Source [Left Arm] Automatic Cuff Blood Pressure Position [Left Arm] Sitting 02 Sat by Pulse Oximetry 98 Oxygen Delivery Method Room Air
[2023-12-27 09:33] VITALS: BP 125/78; PULSE 64; RESP 18; TEMP 36.8; O2SAT 98
== END 2023-12-27 09:36 | disposition home or self-care (01) ==
PROVIDERS: Emergency Provider Nurse Practitioner Family; PCP Nurse Practitioner
DX: H66.91 Otitis media, unspecified, right ear (principal); H92.01 Otalgia, right ear; R09.81 Nasal congestion
CPT/HCPCS: 99212; 99214; G0463

== ENCOUNTER 2024-05-04 14:22 | Outpatient (CLI) | payer BC, SELFPAY ==
--- NOTE | 2024-05-04 14:26 | XR_ITS ---
FINAL REPORT CLINICAL HISTORY: lower back pain COMPARISON: None FINDINGS: 5 views of the lumbar spine were obtained. There is no evidence of fracture or dislocation. The vertebral alignment is normal. Mild degenerative changes present with small osteophytes. No paraspinous soft tissue abnormalities identified. IMPRESSION: Mild degenerative change as described, without acute bony abnormality. Reviewed, Interpreted and Dictated by Yifan Sutton III, MD Transcribed by Shiela Vergara Authenticated and . [facility]
== END 2024-05-04 23:59 | disposition home or self-care (01) ==
LOC: RAD 14:24
PROVIDERS: PCP Family Medicine; Visit Provider Family Medicine
DX: M54.50 Low back pain, unspecified (principal); M54.30 Sciatica, unspecified side
CPT/HCPCS: 72110

== ENCOUNTER 2024-05-16 14:16 | Outpatient (CLI) | payer BC, SELFPAY ==
--- NOTE | 2024-05-16 | MR_ITS ---
FINAL REPORT TECHNIQUE: Multiplanar and multisequence imaging of the lumbar spine was obtained without contrast. CLINICAL HISTORY: LOWER BACK PAIN WITH LEFT SI PAIN COMPARISON: None FINDINGS: Limited evaluation of the SI joints reveals no acute edema. There is normal alignment of the lumbar vertebral bodies. Vertebral body height is preserved. The spinal cord ends at the level of L1. There is normal signal intensity within the substance of the distal spinal cord. No acute bone marrow edema or pathologic marrow replacement. No acute paraspinal abnormality is identified. L1-2: There is no focal disc herniation, central canal stenosis or neuroforaminal narrowing. L2-3: There is no focal disc herniation, central canal stenosis or neuroforaminal narrowing. L3-4: Annular disc bulge. No central canal stenosis or foraminal narrowing. L4-5: Central protrusion causing severe central canal stenosis. No foraminal narrowing. L5-S1: Small central protrusion superimposed on annular disc bulge with degenerative endplate changes and facet osteoarthropathy. Mild central canal stenosis with mild to moderate bilateral neuroforaminal narrowing. IMPRESSION: Central protrusion at L4-5 causing severe central canal stenosis. Small central protrusion at L5-S1 superimposed on annular disc bulge as above. Reviewed, Interpreted and Dictated by Janell Becker MD Transcribed by Rocio Garcia Authenticated and . [facility]
== END 2024-05-16 23:59 | disposition home or self-care (01) ==
LOC: RAD 14:16
PROVIDERS: PCP Nurse Practitioner; Visit Provider Nurse Practitioner
DX: M54.50 Low back pain, unspecified (principal); M54.30 Sciatica, unspecified side
CPT/HCPCS: 72148

== ENCOUNTER 2024-11-21 13:40 | Outpatient (CLI) | payer BC, SELFPAY ==
--- NOTE | 2024-11-21 13:45 | MR_ITS ---
FINAL REPORT TECHNIQUE: Multiplanar and multisequence MR imaging was performed through the lumbar spine before and after contrast administration. CLINICAL HISTORY: LUMBAR PAIN RIGHT LEG SHARP PAIN WITH TINGLING , BURNING AND NUMBNESS DOWN LEG 23 ML PROHANCE COMPARISON: 05/16/2024 FINDINGS: The vertebral bodies are normally aligned. The vertebral body heights are preserved. There is no bone marrow edema. There is no abnormal bone marrow enhancement. The cord terminates at T12-L1. There is normal signal within the distal cord. There is no abnormal enhancement in the distal cord. There is no acute paraspinal abnormality. There is no loculated fluid collection. L1-L2: Unremarkable. L2-L3: Unremarkable. L3-L4: Annular disc bulge with annular fissure. Degenerative endplate changes. Mild facet osteoarthropathy. Stable mild central canal stenosis. No significant neuroforaminal narrowing. L4-L5: There has been a right laminectomy. There continues to be a central protrusion and moderate central stenosis. No foraminal narrowing. Some scar tissue is noted along the right aspect of the central canal. L5-S1: Stable central protrusion superimposed on annular disc bulge. No change in mild central canal stenosis or bilateral foraminal narrowing. IMPRESSION: Interval right laminectomy at L4-5 with slight improvement in central canal stenosis. There appears to be persistent central disc herniation and some enhancing scar tissue. Stable degenerative disease at L5-S1. Reviewed, Interpreted and Dictated by Janell Becker MD Transcribed by Rocio Garcia Authenticated and [facility]
[2024-11-21 14:39] LABS: Blood Urea Nitrogen 13 mg/dl (9-20); Estimated Glomerular Filt Rate 88 ml/min (>60); GFR (African American) 106 ML/MIN (>60)
[2024-11-21] MEDS: GADOTERIDOL INJ 20ML SYRINGE 20 ML IV (15:02)
[2024-11-21] MEDS: GADOTERIDOL INJ 10ML SYRINGE 3 ML IV (15:02)
== END 2024-11-21 23:59 | disposition home or self-care (01) ==
LOC: RAD 13:42
PROVIDERS: PCP Nurse Practitioner; Visit Provider Specialist/Technologist Athletic Trainer
DX: M48.061 Spinal stenosis, lumbar region without neurogenic claudication (principal); M51.26 Other intervertebral disc displacement, lumbar region; M51.379 Other intervertebral disc degeneration, lumbosacral region without mention of lumbar back pain or lower extremity pain; Z98.890 Other specified postprocedural states
CPT/HCPCS: 36415; 72158; 82565; 84520; A9576

== ENCOUNTER 2025-01-04 02:03 | Observation (INO) | payer BC, SELFPAY ==
--- OUTSIDE RECORDS SUMMARY | 2024-12-27 08:48 | XMS_ITS | Encounter Summary ---
Author Organization [facility] ([place], [place], [place], [place]) Address [address] [place] [address] Care Team Providers Care Messenger Office Name Role Phone Maggy Paulino APRN Primary Care Provider [phone] Reason for Visit * Auth/Cert (Routine) Specialty Diagnoses / Procedures Referred By Contac t Referred To Contact Diagnoses Spinal stenosis, lumbar region with neurogenic claudication SEE PRIMARY DX Procedures DC ARTHRODESIS COMBINED TQ 1NTRSPC LUMBAR DC POSTERIOR NON-SEGMENTAL INSTRUMENTATION DC INSJ BIOMCHN DEV INTERVERTEBRAL DSC SPC W/ARTHRD DC ALLOGRAFT FOR SPINE SURGERY ONLY STRUCTURAL DC MORALES FACETEC/FORAMOT DRG ARTHRD LUMBAR 1 VRT SGM LAMINECTOMY, SPINE, LUMBAR, WITH FUSION [facility] Operating Room [address] [place] [address] Phone: tel: fax: [facility] Operating Room [address] [place] [address] Phone: tel: fax: Referral ID Status Reason Start Date Expiration Date Visits Re quested Visits Authorized [id number] 5 Encounter Details Date Type Department Care Team (Late st Contact Info) Description 12/27/2024 8:48 AM EDT - 12/28/2024 3:41 PM EDT Hospital Encounter [facility] Orthopedic & Neurosurgery [address] [place] [address] Alexx Staley MD [address] [facility] 2nd floor [place] [id number] Discharge Disposition: Home or Self Care Social History Tobacco Use Types Packs/Day Years Used Date Smoking Tobacco: Never Smokeless Tobacco: Never Tobacco Cessation:Counseling Given: Not Answered Alcohol Use Standard Drinks/Week Comments Never 0 (1 standard drink = 0.6 oz pur e alcohol) Sex and Gender Information Value Date Recorded Sex Assigned at Not on file Legal Sex Male 9:56 AM CDT Gender Identity Not on file Sexual Orientation Not on file documented as of this encounter Last Filed Vital Signs Vital Sign Reading Time Taken Comments Blood Pressure 144/68 12/28/2024 4:35 AM EDT Pulse 57 12/28/2024 4:35 AM EDT Temperature 36.6 C (97.88 F) 12/28/2024 4:30 AM EDT Respiratory Rate 17 12/28/2024 8:49 AM EDT Oxygen Saturation 100% 12/28/2024 8:49 AM EDT Inhaled Oxygen Concentration - - Weight 63 kg (139 lb) 12/27/2024 10:20 AM EDT Height 177.8 cm (5' 10 ) 12/27/2024 10:20 AM EDT Body Mass Index 19.94 12/27/2024 10:20 AM EDT documented in this encounter Discharge Summaries * Dhruv Granda PA-C - 12/28/2024 12:13 PM EDT Images from the original note were not included. Patient Name: Chester Tellez : 1995 Date of Admission: 12/27/2024 Date of Discharge: 12/28/2024 Primary Care Physician: Maggy Paulino APRN Consultations: Dr. Stan Potts Discharge Diagnoses: Status post L4-L5 decompression and fusion Reason for Admission: Back surgery Hospital Course: Patient was admitted to the hospital yesterday postoperatively after having an L4-L5 decompression fusion due to recurrent disc herniation. Patient stated the morning of surgery he has biggest complaint was lying in the bed was causing him in his has been increased back pain in his pain since states it is leg pain had felt better though since the surgery. No complications with the physical therapy today he has been up and walking on his own also in the room Studies Performed: none Procedures Performed: L4-L5 decompression and fusion Discharge Medications: Your medication list Important This medication list is not yet final, because your doctor or pharmacist is still double-checking some of the changes. Ask your nurse for an updated version. Specifically ask about this and similar medications: oxyCODONE-acetaminophen (PERCOCET) 5-325 mg per tablet START taking these medications Instructions Comments Quantity Refills oxyCODONE-acetaminophen 5-325 mg per tablet Commonly known as: PERCOCET Take 1 tablet by mouth every 4 (four) hours as needed for pain for up to 10 days Look-alike/Sound-alike medication. Max Daily Amount: 6 tablets 0 CONTINUE taking these medications Instructions Comments Quantity Refills baclofen 20 MG tablet Commonly known as: LIORESAL Take 1 tablet (20 mg total) by mouth 3 (three) times daily as needed for muscle spasms. 0 lisinopriL 20 MG tablet Commonly known as: ZESTRIL Take 1 tablet (20 mg total) by mouth daily. 0 STOP taking these medications traMADoL 50 mg tablet Commonly known as: ULTRAM Where to Get Your Medications Information about where to get these medications is not yet available Ask your nurse or doctor about these medications oxyCODONE-acetaminophen 5-325 mg per tablet Physical Exam Discharge Instructions Discharge Diet: regular Discharge Activity: weightbear as tolerated no bending lifting or twisting walk daily at home Discharge Follow UP: Saturday January 11, 2025 10:15 a.m. [place] office Kang Granda PA-C Time Spent: 15 minutes this AM Electronically signed by Dhruv Granda PA-C, 12/28/24, 12:13 PM EDT documented in this encounter Medications at Time of Discharge baclofen (LIORESAL) 20 MG tablet Take 1 tablet (20 mg total) by mouth 3 (three) times daily as needed for muscle spasms. lisinopriL (ZESTRIL) 20 MG tablet Take 1 tablet (20 mg total) by mouth daily. oxyCODONE-acetami nophen (PERCOCET) 5-325 mg per tablet Take 1 tablet by mouth every 4 (four) hours as needed for pain Look-alike/S ound-alike medication. Max Daily Amount: 6 tablets 12/28/2024 documented as of this encounter Progress Notes * Alejandra Negro RN - 12/28/2024 3:11 PM EDT Care Coordination Final Discharge Plan Final Discharge Plan PCP referral provided? (P) No Community Referral Discussed with patient: (P) Yes Patient Appealing Discharge: (P) No Does the patient have ability to fill and recive their discharge medications? (P) Yes Patient returning to prior living situation: (P) Yes Support Systems: (P) Spouse/significant other Discharge Disposition: (P) Home Services Arranged for Discharge: Transporation Provider: Transporation Contact Name: Transportation Provider Phone: Date of supervisor data processing: (P) 12/28/24 Time of supervisor data processing: RRS-N/A CM consulted for DME. Met with pt and spouse at bedside to discuss DCP. FRW obtained from [facility] and has been delivered. He declines HH services. No other CM needs noted. [facility] choice list and Patient choice letter along with Quality data link to access Medicare.gov Care Compare website to review potential post-acute providers. Choice provided to patient/family, and patient preferences received and referral(s) submitted to requested providers. Referral(s) submitted to: Teressa Negro RN * Page Saucedo, PT - 12/28/2024 2:35 PM EDT Images from the original note were not included. Inpatient Physical Therapy Initial Evaluation Patient Name: Chester Tellez Date of : 1995 Date of Evaluation: 12/28/24 In Time 1400 Out Time 1413 Session Duration 13 minutes Time spent for nursing collaboration, chart and systems review, and clinical reasoning. 10 minutes Total Time 23 minutes Pt is a 29 y.o. male admitted on 12/27/2024 with Spinal stenosis, lumbar region with neurogenic claudication [M48.062]. Past Medical History: Diagnosis Date Back pain Hypertension Past Surgical History: Procedure Laterality Date APPENDECTOMY gastric sleeve LAMINECTOMY,LUMBAR W/FUSION N/A 12/27/2024 Procedure: (L4-5 REVISION DECOMPRESSION AND FUSION); Surgeon: Alexx Staley MD; Location: [facility];Service: Orthopedic Surgery; Laterality: N/A; LUMBAR DISCECTOMY PANNICULECTOMY TONSILLECTOMY VASECTOMY General Visit Type: Initial Evaluation Approved By: Nurse Ty Patient Disposition Upon Entry: Patient in bedside chair, All needs met and within reach, Nursing aware/notified, Feet elevated Patient Verified By: Name and Date of Precautions Weight-Bearing Status: No Restrictions Precautions: Fall risk Isolation Precautions: Standard Subjective Subjective: Patient agreeable to physical therapy evaluation and treatment. Pain Yes. 0-10 SCALE Pain location: Back, incision 12/29. Pain intervention: Medication (See eMAR) Nurse notified. Response to intervention: Gradually worsening Cognition Overall cognitive status: Patient is awake and alert, attending to directions appropriately, demonstrating good problem solving skills, and aware of any deficits or impairments, if present. Home Living Lives with: Spouse, kids Home Type: House Home Layout: One level Stairs to enter: 3 step(s) Stairs inside home: none Home Equipment: Single point cane, BSC, Shower chair Functional Mobility PLOF: Patient reports being complete independent with all functional mobility prior to onset. Activities of Daily Living PLOF: Patient reports being complete independent with all ADL's prior toonset. Fall History: No, patient denies any falls over the last 6 months. Objective Vitals No s/s of distress Basic Strength Assessment Strength was unable to be assessed at this date, due to increased pain upon attempt to test. Pt appeared to have WFL strength Range of Motion Assessment WFL for all extremities Sensation No complaints of N/T Coordination Coordination is intact and within normal limits. Functional Mobility Bed Mobility Patient up in bedside chair, therefore, bed mobility not assessed this date. Transfers Sit to Stand: stand by assist, 1-person assist, gait belt used, rolling walker used Stand to Sit: stand by assist, 1-person assist, gait belt used, rolling walker used Gait Pt ambulate 100' with gait belt and RW with CGA to SBA this date. No balance checks were observed at this time. Stair Management Patient declined to attempt this date. Wheelchair Mobility Not assessed, patient ambulatory. AM-PAC Basic Mobility Inpatient Short Form How much difficulty does the patient currently have: Turning over in bed (including adjusting bedclothes, sheets, and blankets)? (3) A little (can do the activity without assistive devices or help from another person, but requires A LITTLE more time and effort) Sitting down on and standing up from a chair with arms (e.g., wheelchair, bedside commode, etc.)? (3) A little (can do the activity without assistive devices or help from another person, but requiresA LITTLE more time and effort) Moving from lying on back to sitting on side of bed? (3) A little (can do the activity without assistive devices or help from another person, but requires A LITTLE more time and effort) How much help from another person does the patient currently need: Moving to and from a bed to a chair (including a wheelchair)? (3) A little (Minimal/Contact guard/Supervision/Setup) Need to walk in hospital room? (3) A little (Minimal/Contact guard/Supervision/Setup) Climbing 3-5 steps with a railing? (2) A lot (Maximal/Moderate assist) Score Raw score=17 t-Scale score=42.13 Standard error=3.03 CMS 0-100%=50.57% MDC=4.72 A raw score of >= 16 is significantly associated with increased odds of discharge to home in addition to consideration made for the patient's cognition and social determinants of health. Balance Static/dynamic sitting and static/dynamic standing balance grades Balance Grade Sitting Static Good - patient able to maintain balance without handhold support, limited postural sway Sitting Dynamic Good - patient accepts moderate challenge; able to maintain balance while picking object off floor Standing Static Good - patient able to maintain balance without handhold support, limited postural sway Standing Dynamic Fair - patient accepts minimal challenge; able to maintain balance while turning head/trunk Activity Tolerance Patient limited with activity/intervention due to pain Treatment Pt tolerated PT eval and gait training well this date. Pt was able to perform sit <> stand and ambulate 100' with SBA using gait belt and RW. Pt did appear more steady with RW at this time. Pt politely declines stair training this date. Pt and mother were both educated to put 2 feet on each step (step to gait pattern) to perform stairs safely. Pt will benefit from skilled therapy services. Assessment Pt was seen for mobility evaluation this date. Pt was able to complete all mobility [facility] SBA using the RW. Pt did appear more steady with RW. Patient will benefit from skilled PT services to increase overall strength, balance, safety awareness, endurance, and activity tolerance for functional mobility. Problems: Decreased functional mobility, Decreased gait tolerance, Decreased strength, Decreased activity tolerance, Impaired sitting balance, Impaired standing balance, Impaired dynamic balance, Gait impairment, Pain Rehab potential: Good for stated goals Plan Treatment Plan: Therapeutic Exercise, Therapeutic Activity, Gait Training, Neuromuscular Re-education, Transfer Training, Balance Training, Stair Training, Strengthening, Home Exercise Program, ROM PT Frequency/Duration: 5x/week for 14 days Recommendations Discharge recommendations: Discharge home/prior living situation. Patient would benefit from continued therapy services. DME recommendations: Patient would benefit from the use of a Rolling walker upon discharge. Per thepatient, the patient does not have access to the recommended DME/adaptive equipment. Goals Bed Mobility: Pt will be mod I for bed mobility Supine to/from sit: Pt will be mod I for supine <> sit Sit to/from stand: Pt will be supervision for sit <> stand with LRAD Gait: Pt will ambulate 200' with SBA and LRAD Stair Negotiation: Pt will ambulate 3 stairs with CGA and one handrail Transfer: Pt will perform stand pivot transfer mod I with LRAD Target Date: 01/11/2025 Goals were discussed with patient Education Patient educated on safety, use of call button, role of physical therapy, and plan of care and following, they were able to verbalize understanding. No further questions or concerns stated. Patient Disposition Upon Leaving Patient in bedside chair, Call Light/Pull Cord in reach, All needs met and within reach, Nursing aware/notified If this patient discharges prior to next therapy session, this note serves as the patient's discharge summary. Electronically signed by Page Saucedo PT - 12/28/24 - 2:35 PM EDT PT Evaluation Completed * Matteo Potts MD - 12/28/2024 11:17 AM EDT S: Doing well. No issues overnight. Denies chest pain, pressure. Denies cough or breathing difficulties. (-) flatus, good urination Has been up with therapy EXAM Vitals: 12/27/24200112/27/24235412/28/2442912/28/24 0435 BP: (!) 142/60 (!) 142/62 (!) 144/68 BP Location: Patient Position: Pulse: 93 54 57 Resp: Temp: 97.7 ??F (36.5 ??C) 97.52 ??F (36.4 ??C) 97.88 ??F (36.6 ??C) TempSrc: SpO2: 100% Weight: Height: obese white male in no distress; pleasant, cooperative, fair historian; sitting up in chair, motherat bedside nc/at, eomi, PEERL, pink conjunctiva, moist mucous membranes, =expansion b/l without wheezes rales or rhonchi non-displaced PMI, reg s1, s2 ABDis soft non-tender, non-distended, active bowel sounds skin warm, dry without rashes ext: without edema, no calf tenderness neuro: cn 2-12 intact; no gross motor -sensory deficits psych: normal affect, good mood Results for orders placed or performed during the hospital encounter of 12/27/24 (from the past 24 hours) ECG 12 lead Status: None Collection Time: 12/27/24 11:22 AM Result Value Ref Range VENTRICULAR RATE EKG/MIN 52 BPM ATRIAL RATE (MCT) 52 BPM DC Interval 124 ms QRS-INTERVAL (MSEC) 90 ms QT Interval 426 ms QTC Interval 396 ms P [place] 21 degrees R AXIS (MCT) -3 degrees T Wave [place] 27 degrees [place] Diagnosis Sinus bradycardia with sinus arrhythmia with occasional premature ventricular complexes Otherwise normal ECG No previous ECGs available Confirmed by Marie Apodaca MD (2019) on 12/27/2024 6:15:27 PM Basic Metabolic Panel Status: Abnormal Collection Time: 12/28/24 3:08 AM Result Value Ref Range Sodium 137 136 - 145 meq/L Potassium 3.9 3.4 - 5.1 meq/L CO2 27 22 - 29 meq/L Chloride 106 98 - 112 meq/L Glucose 130 (H) 74 - 100 mg/dL BUN 4.3 (L) 8.9 - 20.6 mg/dL Creatinine 0.82 0.72 - 1.25 mg/dL BUN/Creatinine 5 (L) 8 - 20 Calcium 8.7 8.4 - 10.2 mg/dL Anion Gap 8 4 - 12 eGFR (mL/min/1.73m2) 121 >=60 mL/min/1.73m2 Osmolality Calc 272.6 mOsm/kg CBC with automated diff Status: Abnormal Collection Time: 12/28/24 3:08 AM Result Value Ref Range WBC 8.0 4.2 - 9.1 K/??L RBC 4.40 (L) 4.63 - 6.08 M/??L Hemoglobin 13.3 (L) 13.7 - 17.5 GM/DL Hematocrit 39.6 (L) 40.1 - 51.0 % MCV 90 79 - 92 fL MCH 30.2 25.7 - 32.2 pg MCHC 33.6 32.3 - 36.5 GM/DL RDW 12.6 11.6 - 14.4 % Platelets 170 140 - 375 K/CU MM MPV 10.5 9.4 - 12.4 fL % Neutros 73 (H) 34 - 68 % % Lymphs 17 (L) 22 - 53 % % Monos 8 5 - 12 % % Eos 1 1 - 7 % % Baso 1 0 - 1 % NRBC Absolute <0.01 0 - 0.012 K/ul # Neutros 5.86 (H) 1.78 - 5.38 K/??L # Lymphs 1.40 1.32 - 3.57 K/??L # Monos 0.67 0.30 - 0.82 K/??L # Eos 0.04 0.04 - 0.54 K/??L # Baso 0.04 0.01 - 0.08 K/??L Immature Granulocytes-Relative 0.40 0.01 - 0.43 % # IG 0.03 0.00 - 0.03 K/uL IMPRESSION Spinal stenosis, lumbar region with neurogenic claudication s/p L4-5 revision decompression and fusion. HTN Depression Daily marijuana use ROSALBA, resolved with weight loss after weight loss surgery PLAN 12/28/24: ok to discharge home if flatus; not major concerns for safe discharge -Monitor HTN; add PRN's, hold parameters -bowel regimen -Incentive spirometer -PT/OT -DVT prophylaxis noted -Pain management deferred to surgeon -will monitor hb/hct daily for signs of ongoing acute blood loss -will monitor bun/cr daily for signs of dehydration, prerenal azotemia -will monitor for signs/symptoms of post-op wound infection or hospital acquired infectious process -resume outpatient medication regimen for comorbidities * Nelson Apodaca, LUCIANOR/Radha - 12/28/2024 9:23 AM EDT Images from the original note were not included. Inpatient Occupational Therapy Initial Evaluation Patient Name: Chester Tellez Date of : 1995 Date of Evaluation: 12/28/24 Start Time: 922 Stop Time: 945 Session Duration: 23 minutes Total time: 33 minutes spent, including 10 minutes for nursing collaboration, thorough chart and systems review, and clinical reasoning. This patient is a 29 y.o. male admitted on 12/27/2024 with Spinal stenosis, lumbar region with neurogenic claudication [M48.062]. Past Medical History: Diagnosis Date Back pain Hypertension Past Surgical History: Procedure Laterality Date APPENDECTOMY gastric sleeve LAMINECTOMY,LUMBAR W/FUSION N/A 12/27/2024 Procedure: (L4-5 REVISION DECOMPRESSION AND FUSION); Surgeon: Alexx Staley MD; Location: [facility];Service: Orthopedic Surgery; Laterality: N/A; LUMBAR DISCECTOMY PANNICULECTOMY TONSILLECTOMY VASECTOMY General Visit type: Initial Evaluation Approved by: Nursing Patient disposition upon entry: Patient verified by name, Patient verified by date of , Supinein bed, All needs met and within reach, Call light/pull cord in reach Precautions Weightbearing status: No restrictions Precautions: Spinal precautions, Fall risk Isolation precautions: Standard Subjective Subjective: Pt agreeable Pain 0-10 SCALE Pain location: back 4/10 Cognition Cognition: Overall cognitive status: Patient is awake and alert, attending to directions appropriately, demonstrating good problem solving skills, and aware of any deficits or impairments, if present. Orientation level: Oriented x4 Following commands: Follows all commands and directions without difficulty Home Living Lives with: Spouse, kids Home Type: House Home Layout: One level Stairs to enter: 3 step(s) Stairs inside home: none Home Equipment: Single point cane, BSC, Shower chair Functional Mobility PLOF: Patient reports being complete independent with all functional mobility prior to onset. Activities of Daily Living PLOF: Patient reports being complete independent with all ADL's prior toonset. Fall History: No, patient denies any falls over the last 6 months. Objective Range of Motion Assessment Normal: Patient is able to use bilateral upper extremities for reaching/grasping/holding objects inall planes, including above shoulder level Strength Assessment Good: Patient is able to use arms to pull, push, and hold moderate to maximal resistance at shoulder, elbow, and wrist. Coordination/Sensation Coordination: The patient's gross motor coordination is intact. Bed Mobility Supine to sit: Minimal assistance Sit to supine: Minimal assistance Transfers Sit to stand:Standby assist, Gait belt used, Rolling walker used Stand to sit:Standby assist, Gait belt used, Rolling walker used Functional mobility:Standby assist, Gait belt used, Rolling walker used ADLs Feeding:Independent Grooming:Independent Bathing:Standby Assist Upper body dressing:Modified independent Lower body dressing:Standby Assist Toileting:Standby Assist Outcome Measures [facility] Daily Living Functional Assessment How much help from another person does the patient currently need: Putting on and taking off regular lower body clothing? 3 Bathing, including washing, rinsing, and drying? 3 Toileting, including using toilet, bedpan or urinal? 3 Putting on and taking off regular upper body clothing? 4 Taking care of personal grooming such as brushing teeth? 4 Eating meals? 4 1=Total/Unable (Total assist/Dependent) 2=A lot (Maximal/Moderate assist) 3=A little (Minimal/Contact guard/Supervision/Setup) 4=None (Modified independent/Independent) The patient's [facility] raw score is 21. The patient currently has 32.79% functional impairment. Clinicians are most likely to recommend inpatient/SNF/[facility] operator care for patients with scores between 6-17, home health for scores between 18-22, and routine discharge for scores above 22. Balance Static sitting balance:Good: Patient able to maintain balance without handheld support; limited postural sway Dynamic sitting balance:Good: Patient accepts moderate challenge; able to maintain balance while picking object off the floor Static standing balance:Good: Patient able to maintain balance without handheld support; limited postural sway Dynamic standing balance:Fair: Patient accepts minimal challenge; able to maintain balance while turning head/trunk Activity Tolerance Patient tolerated activity/intervention well with no complaints or adverse events. Treatment Pt received sitting in bedside chair. Pt educated on spinal precautions, and AE for LBD/bathing. PtSBA for functional transfers and ambulating functional distance with RWx. Pt Min A for log rolling technique in and out of bed. Pt requested to return to chair after treatment. Pt left with all needsmet at this time. Assessment Assessment Patient to discharge from hospital today. Discussed with patient and were in agreement that OT services are not indicated at this time. Plan Recommendations Discharge recommendations: Discharge home/prior living situation. Patient would benefit from continued therapy services. DME recommendations: Unable to make adaptive/DME recommendations at this time. Patient Disposition Upon Leaving Patient disposition upon leaving: Sitting in bedside chair, Visitor/family present, All needs met and within reach, Call light/pull cord in reach If this patient discharges prior to next therapy session, this note serves as the patient's discharge summary. Electronically signed by TAY Jolly/Radha - 12/28/2024 - 3:12 PM EDT OT Evaluation Completed * Dhruv Granda PA-C - 12/28/2024 7:37 AM EDT Subjective POD 1 L4-L5 fusion. Patient states that he is doing ok other than increased pain when laying in thehospital bed. He has been up and walking on his own in the room he says. No flatus yet. Review of Systems Objective Strength 5/5 EHL and tib anterior both LE Sensation B LE Last Recorded Vitals Blood pressure (!) 144/68, pulse 57, temperature 97.88 ??F (36.6 ??C), resp. rate 20, height 1.778 m (5' 10 ), weight 63 kg (139 lb), SpO2 100%. Physical Exam Labs: Results for orders placed or performed during the hospital encounter of 12/27/24 (from the past 24 hours) CBC with automated diff Status: Abnormal Collection Time: 12/27/24 10:45 AM Result Value Ref Range WBC 6.2 4.2 - 9.1 K/??L RBC 4.91 4.63 - 6.08 M/??L Hemoglobin 14.9 13.7 - 17.5 GM/DL Hematocrit 43.4 40.1 - 51.0 % MCV 88 79 - 92 fL MCH 30.3 25.7 - 32.2 pg MCHC 34.3 32.3 - 36.5 GM/DL RDW 12.7 11.6 - 14.4 % Platelets 219 140 - 375 K/CU MM MPV 11.0 9.4 - 12.4 fL % Neutros 59 34 - 68 % % Lymphs 31 22 - 53 % % Monos 8 5 - 12 % % Eos 1 1 - 7 % % Baso 1 0 - 1 % NRBC Absolute <0.01 0 - 0.012 K/ul # Neutros 3.69 1.78 - 5.38 K/??L # Lymphs 1.93 1.32 - 3.57 K/??L # Monos 0.48 0.30 - 0.82 K/??L # Eos 0.04 0.04 - 0.54 K/??L # Baso 0.05 0.01 - 0.08 K/??L Immature Granulocytes-Relative 0.50 (H) 0.01 - 0.43 % # IG 0.03 0.00 - 0.03 K/uL Basic Metabolic Panel Status: Abnormal Collection Time: 12/27/24 10:45 AM Result Value Ref Range Sodium 141 136 - 145 meq/L Potassium 4.3 3.4 - 5.1 meq/L CO2 24 22 - 29 meq/L Chloride 110 98 - 112 meq/L Glucose 94 74 - 100 mg/dL BUN 5.2 (L) 8.9 - 20.6 mg/dL Creatinine 0.84 0.72 - 1.25 mg/dL BUN/Creatinine 6 (L) 8 - 20 Calcium 9.3 8.4 - 10.2 mg/dL Anion Gap 11 4 - 12 eGFR (mL/min/1.73m2) 120 >=60 mL/min/1.73m2 Osmolality Calc 278.3 mOsm/kg Type and Screen Status: None Collection Time: 12/27/24 10:47 AM Result Value Ref Range ABO/Rh O Positive Antibody Screen Negative HISTCHK HIST CHECK PERFORMED Urinalysis, Reflex Microscopic and Culture If Indicated Status: Abnormal Collection Time: 12/27/24 10:50 AM Result Value Ref Range Color, UA Yellow Clarity, UA Clear Clear Specific [place], UA 1.031 (H) 1.005 - 1.030 pH, UA 6.5 6.0 - 8.0 Leukocytes, UA 25 Bertin/uL (A) Negative Nitrite, UA Negative Negative Protein, UA 1+ (A) Negative Glucose, UA Normal Normal Ketones, UA Trace (A) Negative Bilirubin, UA Negative Negative Blood, UA Negative Negative Urobilinogen, UA 3 mg/dL (A) Normal Specimen Source Urine, Voided Urinalysis Microscopic Only Status: Abnormal Collection Time: 12/27/24 10:50 AM Result Value Ref Range WBC, UA 6-10 (A) None Seen /HPF RBC, UA 0-2 (A) None Seen /HPF Bacteria, UA None Seen None Seen, Trace Mucus 4+ (A) None Seen SQUAMOUS EPITHELIAL 0-2 (A) None Seen /HPF Ca Oxalate Carina, UA 1+ (A) None Seen ECG 12 lead Status: None Collection Time: 12/27/24 11:22 AM Result Value Ref Range VENTRICULAR RATE EKG/MIN 52 BPM ATRIAL RATE (MCT) 52 BPM DC Interval 124 ms QRS-INTERVAL (MSEC) 90 ms QT Interval 426 ms QTC Interval 396 ms P [place] 21 degrees R AXIS (MCT) -3 degrees T Wave [place] 27 degrees [place] Diagnosis Sinus bradycardia with sinus arrhythmia with occasional premature ventricular complexes Otherwise normal ECG No previous ECGs available Confirmed by Marie Apodaca MD (2019) on 12/27/2024 6:15:27 PM Basic Metabolic Panel Status: Abnormal Collection Time: 12/28/24 3:08 AM Result Value Ref Range Sodium 137 136 - 145 meq/L Potassium 3.9 3.4 - 5.1 meq/L CO2 27 22 - 29 meq/L Chloride 106 98 - 112 meq/L Glucose 130 (H) 74 - 100 mg/dL BUN 4.3 (L) 8.9 - 20.6 mg/dL Creatinine 0.82 0.72 - 1.25 mg/dL BUN/Creatinine 5 (L) 8 - 20 Calcium 8.7 8.4 - 10.2 mg/dL Anion Gap 8 4 - 12 eGFR (mL/min/1.73m2) 121 >=60 mL/min/1.73m2 Osmolality Calc 272.6 mOsm/kg CBC with automated diff Status: Abnormal Collection Time: 12/28/24 3:08 AM Result Value Ref Range WBC 8.0 4.2 - 9.1 K/??L RBC 4.40 (L) 4.63 - 6.08 M/??L Hemoglobin 13.3 (L) 13.7 - 17.5 GM/DL Hematocrit 39.6 (L) 40.1 - 51.0 % MCV 90 79 - 92 fL MCH 30.2 25.7 - 32.2 pg MCHC 33.6 32.3 - 36.5 GM/DL RDW 12.6 11.6 - 14.4 % Platelets 170 140 - 375 K/CU MM MPV 10.5 9.4 - 12.4 fL % Neutros 73 (H) 34 - 68 % % Lymphs 17 (L) 22 - 53 % % Monos 8 5 - 12 % % Eos 1 1 - 7 % % Baso 1 0 - 1 % NRBC Absolute <0.01 0 - 0.012 K/ul # Neutros 5.86 (H) 1.78 - 5.38 K/??L # Lymphs 1.40 1.32 - 3.57 K/??L # Monos 0.67 0.30 - 0.82 K/??L # Eos 0.04 0.04 - 0.54 K/??L # Baso 0.04 0.01 - 0.08 K/??L Immature Granulocytes-Relative 0.40 0.01 - 0.43 % # IG 0.03 0.00 - 0.03 K/uL No image results found. Assessment SP L4-L5 fusion Plan PT/OT WBAT Lik[place] home today after seeing therapy Discharge Planning: Case management to see * Shyann Antony RN - 12/27/2024 5:35 PM EDT Ortho/neuro Nurse Navigator rounds: Patient is resting in bed. He is requesting pain medication. Patient's nurse Reilly notified. documented in this encounter H&P Notes * Nuzhat Ashford PA-C - 12/27/2024 9:21 AM EDT H&P History Of Present Illness Chester Tellez is a 29 y.o. male with pertinent PMH of spinal stenosis of lumbar region with neurogenic claudication. Patient has been experiencing chronic low back pain due to pain symptoms he has a hard time sitting or walking. Lumbar MRI results indicate recurrent L4-L5 disc herniation and st enosis. Patient has been conservatively managed but continues to have pain which is negatively impacting activities of daily living. This morning the patient complains of denies any acute issues. No f/c/s. No cp, soa. Patient was evaluated by Dr. Staley and presents today for an elective L4-5 revision decompression and fusion. Past Medical History He has a past medical history of Back pain and Hypertension. Sleep apnea, resolved with weight loss. Surgical History He has a past surgical history that includes gastric sleeve; Appendectomy; Tonsillectomy; Vasectomy; PANNICULECTOMY; and Lumbar discectomy. Social History He reports that he has never smoked. He has never used smokeless tobacco. He reports current drug use. Drug: Marijuana. He reports that he does not drink alcohol. Family History His family history is not on file. Allergies Nsaids (Non-Steroidal Anti-Inflammatory Drug) Medications Current Outpatient Medications Medication Instructions baclofen (LIORESAL) 20 mg, oral, 3 times daily PRN lisinopriL (ZESTRIL) 20 mg, oral, Daily traMADoL (ULTRAM) 50 mg, oral, Every 6 hours PRN Review of Systems 14 point ROS completed and non-contributory except as listed above Physical Exam Blood pressure 135/55, pulse 64, temperature 97 ??F (36.1 ??C), temperature source Temporal Artery,resp. rate 19, height 1.778 m (5' 10 ), weight 63 kg (139 lb), SpO2 98%. GEN: Alert, awake, NAD HEENT: NCAT, no icterus, no thrush, nares patent, CV: S1S2, no murmur. No LE edema Resp: CTAB, NL Abd: Soft, NT, ND +BS Skin: no rashes on inspection and palpation. Ext: No LE edema. No joint edema, erythema. Neuro: A&O x 3, CN grossly intact Diagnostic Results Admission on 12/27/2024 Component Date Value Ref Range Status WBC 12/27/2024 6.2 4.2 - 9.1 K/??L Final RBC 12/27/2024 4.91 4.63 - 6.08 M/??L Final Hemoglobin 12/27/2024 14.9 13.7 - 17.5 GM/DL Final Hematocrit 12/27/2024 43.4 40.1 - 51.0 % Final MCV 12/27/2024 88 79 - 92 fL Final MCH 12/27/2024 30.3 25.7 - 32.2 pg Final MCHC 12/27/2024 34.3 32.3 - 36.5 GM/DL Final RDW 12/27/2024 12.7 11.6 - 14.4 % Final Platelets 12/27/2024 219 140 - 375 K/CU MM Final MPV 12/27/2024 11.0 9.4 - 12.4 fL Final % Neutros 12/27/2024 59 34 - 68 % Final % Lymphs 12/27/2024 31 22 - 53 % Final % Monos 12/27/2024 8 5 - 12 % Final % Eos 12/27/2024 1 1 - 7 % Final % Baso 12/27/2024 1 0 - 1 % Final NRBC Absolute 12/27/2024 <0.01 0 - 0.012 K/ul Final # Neutros 12/27/2024 3.69 1.78 - 5.38 K/??L Final # Lymphs 12/27/2024 1.93 1.32 - 3.57 K/??L Final # Monos 12/27/2024 0.48 0.30 - 0.82 K/??L Final # Eos 12/27/2024 0.04 0.04 - 0.54 K/??L Final # Baso 12/27/2024 0.05 0.01 - 0.08 K/??L Final Immature Granulocytes-Relative 12/27/2024 0.50 (H) 0.01 - 0.43 % Final # IG 12/27/2024 0.03 0.00 - 0.03 K/uL Final Color, UA 12/27/2024 Yellow Final Clarity, UA 12/27/2024 Clear Clear Final Specific [place], UA 12/27/2024 1.031 (H) 1.005 - 1.030 Final pH, UA 12/27/2024 6.5 6.0 - 8.0 Final Leukocytes, UA 12/27/2024 25 Bertin/uL (A) Negative Final Nitrite, UA 12/27/2024 Negative Negative Final Protein, UA 12/27/2024 1+ (A) Negative Final Glucose, UA 12/27/2024 Normal Normal Final Ketones, UA 12/27/2024 Trace (A) Negative Final Bilirubin, UA 12/27/2024 Negative Negative Final Blood, UA 12/27/2024 Negative Negative Final Urobilinogen, UA 12/27/2024 3 mg/dL (A) Normal Final Specimen Source 12/27/2024 Urine, Voided Final WBC, UA 12/27/2024 6-10 (A) None Seen /HPF Final RBC, UA 12/27/2024 0-2 (A) None Seen /HPF Final Bacteria, UA 12/27/2024 None Seen None Seen, Trace Final Mucus 12/27/2024 4+ (A) None Seen Final SQUAMOUS EPITHELIAL 12/27/2024 0-2 (A) None Seen /HPF Final Ca Oxalate Carina, UA 12/27/2024 1+ (A) None Seen Final No image results found. Assessment & Plan Spinal stenosis, lumbar region with neurogenic claudication -to OR for scheduled procedure HTN Depression Daily marijuana use ROSALBA, resolved with weight loss after weight loss surgery documented in this encounter Consult Notes * Matteo Potts MD - 12/27/2024 3:16 PM EDTAssociated Order(s): Inpatient consult to Hospitalist Inpatient consult to Hospitalist Consult performed by: Matteo Potts MD Consult ordered by: Alexx Staley MD Chief Complaint: Medical Management s/p L4-5 revision decompression and fusion HPI: Patient is followed for medical management perioperatively while hospitalized s/p L4-5 revision decompression and fusion after failing conservative therapy. Patient denies any recent exacerbations of chronic medical problems. Patient denies recent cardiopulmonary symptoms in the weeks leading up to surgery. Patient denies recent fever, chills or nightsweats. Patient denies recent sinus infection, bronchitis, or pneumonia. Denies COVID-19 symptoms or known exposure. Denies gastroenteritis. Presently, denies chest pain, pressure or palpitations. Deniesrecent antibiotics or med changes by PCP. Patients physical limitations are limited by chronic backpain. Review of preop workup showns normal cxr, urinalysis and EKG. Intra-op reports reviewed - no signs of sustained hemodynamic instability. PACU course - unremarkable. MEDICAL HISTORY Patient Active Problem List Diagnosis HTN (hypertension) Back pain ROSALBA Obesity SURGICAL HISTORY Past Surgical History: Procedure Laterality Date APPENDECTOMY gastric sleeve LUMBAR DISCECTOMY PANNICULECTOMY TONSILLECTOMY VASECTOMY SOCIAL HISTORY Social History Socioeconomic History Marital status: Spouse name: Not on file Number of children: Not on file Years of education: Not on file Highest education level: Not on file Occupational History Not on file Tobacco Use Smoking status: Never Smokeless tobacco: Never Substance and Sexual Activity Alcohol use: Never Drug use: Yes Types: Marijuana Sexual activity: Not on file Other Topics Concern Not on file Social History Narrative Not on file Social Drivers of Health Financial Resource Strain: Medium Risk (2022) Received from [facility] Financial Resource Strain Financial benefits problems: Not on file Trouble paying for things you need: Not on file Trouble paying for things you need (Other): Not on file Food Insecurity: Not on file Transportation: Not on file Physical Activity: Not on file Social Connections: Unknown (04/02/2023) Received from [facility] Family and Community Support Help with Day-to-Day Activities: Not on file Lonely or Isolated: Not on file FAMILY HISTORY No family history on file. ALLERGIES Allergies Allergen Reactions Nsaids (Non-Steroidal Anti-Inflammatory Drug) Other (See Comments) Intolerance due to gastric sleeve. Prior to Admission medications Medication Sig Start Date End Date Taking? Authorizing Provider baclofen (LIORESAL) 20 MG tablet Take 1 tablet (20 mg total) by mouth 3 (three) times daily as needed for muscle spasms. Historical Provider, lisinopriL (ZESTRIL) 20 MG tablet Take 1 tablet (20 mg total) by mouth daily. Historical Provider, traMADoL (ULTRAM) 50 mg tablet Take 1 tablet (50 mg total) by mouth every 6 (six) hours as needed for pain. Historical Provider, REVIEW OF SYMPTOMS PER.HPI. Limited as patient seen in PACU post-op EXAM Vitals: 12/27/24 1415 12/27/24 1420 12/27/24 1425 12/27/24 1440 BP: (!) 151/68 136/69 (!) 145/66 BP Location: Patient Position: Pulse: 53 63 71 87 Resp: 20 20 Temp: 98.2 ??F (36.8 ??C) TempSrc: SpO2: 100% 98% 98% 95% Weight: Height: obese white male in no distress; pleasant, cooperative, fair historian; arousing from sedation; mother at bedside nc/at, eomi, PEERL, pink conjunctiva, dry mucous membranes, no thyromegaly or cervical lymphadenopathy; thick neck =expansion b/l without wheezes rales or rhonchi non-displaced PMI, reg s1, s2 ABDis soft non-tender, non-distended, hypoactive bowel sounds skin warm, dry without rashes ext: without edema, no calf tenderness neuro: cn 2-12 intact; no gross motor -sensory deficits psych: normal affect, good mood Results for orders placed or performed during the hospital encounter of 12/27/24 (from the past 24 hours) CBC with automated diff Status: Abnormal Collection Time: 12/27/24 10:45 AM Result Value Ref Range WBC 6.2 4.2 - 9.1 K/??L RBC 4.91 4.63 - 6.08 M/??L Hemoglobin 14.9 13.7 - 17.5 GM/DL Hematocrit 43.4 40.1 - 51.0 % MCV 88 79 - 92 fL MCH 30.3 25.7 - 32.2 pg MCHC 34.3 32.3 - 36.5 GM/DL RDW 12.7 11.6 - 14.4 % Platelets 219 140 - 375 K/CU MM MPV 11.0 9.4 - 12.4 fL % Neutros 59 34 - 68 % % Lymphs 31 22 - 53 % % Monos 8 5 - 12 % % Eos 1 1 - 7 % % Baso 1 0 - 1 % NRBC Absolute <0.01 0 - 0.012 K/ul # Neutros 3.69 1.78 - 5.38 K/??L # Lymphs 1.93 1.32 - 3.57 K/??L # Monos 0.48 0.30 - 0.82 K/??L # Eos 0.04 0.04 - 0.54 K/??L # Baso 0.05 0.01 - 0.08 K/??L Immature Granulocytes-Relative 0.50 (H) 0.01 - 0.43 % # IG 0.03 0.00 - 0.03 K/uL Basic Metabolic Panel Status: Abnormal Collection Time: 12/27/24 10:45 AM Result Value Ref Range Sodium 141 136 - 145 meq/L Potassium 4.3 3.4 - 5.1 meq/L CO2 24 22 - 29 meq/L Chloride 110 98 - 112 meq/L Glucose 94 74 - 100 mg/dL BUN 5.2 (L) 8.9 - 20.6 mg/dL Creatinine 0.84 0.72 - 1.25 mg/dL BUN/Creatinine 6 (L) 8 - 20 Calcium 9.3 8.4 - 10.2 mg/dL Anion Gap 11 4 - 12 eGFR (mL/min/1.73m2) 120 >=60 mL/min/1.73m2 Osmolality Calc 278.3 mOsm/kg Type and Screen Status: None Collection Time: 12/27/24 10:47 AM Result Value Ref Range ABO/Rh O Positive Antibody Screen Negative HISTCHK HIST CHECK PERFORMED Urinalysis, Reflex Microscopic and Culture If Indicated Status: Abnormal Collection Time: 12/27/24 10:50 AM Result Value Ref Range Color, UA Yellow Clarity, UA Clear Clear Specific [place], UA 1.031 (H) 1.005 - 1.030 pH, UA 6.5 6.0 - 8.0 Leukocytes, UA 25 Bertin/uL (A) Negative Nitrite, UA Negative Negative Protein, UA 1+ (A) Negative Glucose, UA Normal Normal Ketones, UA Trace (A) Negative Bilirubin, UA Negative Negative Blood, UA Negative Negative Urobilinogen, UA 3 mg/dL (A) Normal Specimen Source Urine, Voided Urinalysis Microscopic Only Status: Abnormal Collection Time: 12/27/24 10:50 AM Result Value Ref Range WBC, UA 6-10 (A) None Seen /HPF RBC, UA 0-2 (A) None Seen /HPF Bacteria, UA None Seen None Seen, Trace Mucus 4+ (A) None Seen SQUAMOUS EPITHELIAL 0-2 (A) None Seen /HPF Ca Oxalate Carina, UA 1+ (A) None Seen ECG 12 lead Status: None (In process) Collection Time: 12/27/24 11:22 AM Result Value Ref Range VENTRICULAR RATE EKG/MIN 52 BPM ATRIAL RATE (MCT) 52 BPM DC Interval 124 ms QRS-INTERVAL (MSEC) 90 ms QT Interval 426 ms QTC Interval 396 ms P [place] 21 degrees R AXIS (MCT) -3 degrees T Wave [place] 27 degrees [place] Diagnosis Sinus bradycardia with sinus arrhythmia with occasional premature ventricular complexes Otherwise normal ECG No previous ECGs available IMPRESSION Spinal stenosis, lumbar region with neurogenic claudication s/p L4-5 revision decompression and fusion. HTN Depression Daily marijuana use ROSALBA, resolved with weight loss after weight loss surgery PLAN -Monitor HTN; add PRN's, hold parameters -bowel regimen -Incentive spirometer -PT/OT -DVT prophylaxis noted -Pain management deferred to surgeon -will monitor hb/hct daily for signs of ongoing acute blood loss -will monitor bun/cr daily for signs of dehydration, prerenal azotemia -will monitor for signs/symptoms of post-op wound infection or hospital acquired infectious process -resume outpatient medication regimen for comorbidities documented in this encounter OR Notes * Brief Op Note - Alexx Staley MD - 12/27/2024 11:30 AM EDT Date: 12/27/2024 Procedures: Procedure(s): Diagnosis: Pre-Op Diagnosis Codes: * Spinal stenosis, lumbar region with neurogenic claudication [M48.062] Post-Op Diagnosis Codes: * Spinal stenosis, lumbar region with neurogenic claudication [M48.062] Indications: Chester Tellez is an 29 y.o. male . The risks, benefits, and alternatives of the above procedure were discussed and the patient has elected to proceed. Surgeons: Surgeons and Role: * Alexx Staley MD - Primary Findings: Anesthesia: General Estimated Blood Loss: * No values recorded between 12/27/2024 12:00 AM and 12/27/2024 11:30 AM * Total IV Fluids: mL Drains: * No LDAs found * Specimens: Specimens (From admission, onward) None Complications: None * No complications entered in OR log * Disposition: PACU - hemodynamically stable. C Condition: stable Attending Attestation: I was present and scrubbed for the entire procedure. documented in this encounter Miscellaneous Notes * Plan of Care - Melony Hall RN - 12/28/2024 11:30 AM EDT Problem: Compromised Skin Integrity Goal: LTG - Patient will be free from infection Outcome: Progressing Goal: LTG - Patient will maintain/improve skin integrity through proper skin care techniques Outcome: Progressing Goal: LTG - Patient will demonstrate appropriate pressure relief techniques Outcome: Progressing Goal: LTG - Patient will demonstrate appropriate skin care techniques Outcome: Progressing Goal: LTG - Patient will be free from infection Outcome: Progressing Goal: STG - Patient demonstrates skin care/treatment/dressing change Outcome: Progressing Goal: STG - Patient will maintain good skin integrity Outcome: Progressing Goal: STG - Patient exhibits signs of wound healing. Outcome: Progressing Goal: STG - Patient demonstrates pressure reduction techniques Outcome: Progressing Goal: STG - Patient demonstrates preventative skin care measures Outcome: Progressing Problem: Knowledge Deficit Goal: Patient/family/caregiver demonstrates understanding of disease process, treatment plan, medications, and discharge instructions Description: Complete learning assessment and assess knowledge base. Outcome: Progressing Problem: Potential for Infection Goal: Remains infection free Description: Assess and monitor vital signs, skin (color, moisture, integrity, turgor), respiratorystatus, urinary and gastrointestinal status, and labs (WBC, cultures). Administer antibiotics and antipyretics as ordered. Ensure aseptic care of all intravenous lines, invasive tubes/drains and wounds. Monitor for signs and symptoms of infection (redness, warmth, discharge, increased body temperature). Wash hands properly before and after each patient care activity. Follow isolation guidelines per hospital protocol/policy. Collaborate with interdisciplinary team and initiate plan and interventions as ordered. Outcome: Progressing Problem: Inadequate Airway Clearance Goal: Patient will maintain patent airway Description: Assess and monitor breath sounds, cough and sputum (if present), and intake/output. Collaborate with respiratory therapy to administer medications and treatments. Outcome: Progressing Goal: Patient will achieve/maintain normal respiratory rate/effort Description: Assess and monitor respiratory rate, effort, breathing pattern and oxygenation as ordered or per policy. Monitor patient for restlessness, anxiety, air hunger. Assess physical activity tolerance. Assess patient's smoking history and intervene per policy. Collaborate with interdisciplinary team and initiate plans and interventions as needed. Outcome: Progressing Problem: Inadequate Breathing Pattern Goal: Patient will maintain effective ventilation Description: Assess and monitor vital signs, respiratory status (to include respiratory rate, depth, effort, and breath sounds), oxygen saturation, oral mucosa, tongue, pain, and labs (ABGs). Collaborate with interdisciplinary team and initiate plans and interventions as needed. Outcome: Progressing Problem: Insufficient Fluid Volume Goal: Fluid and electrolyte balance are achieved/maintained Description: Assess and monitor vital signs (orthostatic vitals if applicable), fluid intake and output, urine color, labs, skin turgor, mucous membranes, mental status, and gastrointestinal system for nausea, vomiting and diarrhea. Monitor for signs and symptoms of hypovolemia (tachycardia, rapid breathing, decreased urine output, postural hypotension, confusion, syncope). Collaborate with interdisciplinary team and initiate plan and interventions as ordered. Outcome: Progressing Problem: Insufficient Nutritional Intake Goal: Patient's nutritional intake is adequate Description: Assess and monitor food intake and supplements, patient food preferences, nausea, vomiting, labs, oral cavity (gums, teeth, tongue, mucosa), proper denture fit, and cultural beliefs. Monitor for signs of hypoglycemia and hyperglycemia. Collaborate with interdisciplinary team and initiate plan and interventions as ordered. Outcome: Progressing Goal: Mobility/activity is maintained at optimum level for patient Description: Assess and monitor patient barriers to mobility and need for assistive/adaptive devices. Assess patient's emotional response to limitations. Collaborate with interdisciplinary team and initiate plans and interventions as ordered. Outcome: Progressing Problem: Inadequate Tissue Perfusion - Venous Goal: Tissue perfusion is adequate - venous Description: Assess and monitor skin color and temperature, skin integrity, pulses, capillary refill, edema, pain in extremities, Homans' sign, labs (D- dimer), and diagnostic tests (ultrasound, CT scan, VQ scan). Monitor for signs and symptoms of deep vein thrombosis (swelling of calf/thigh, redness, pain, tenderness). Monitor for signs and symptoms of pulmonary embolism (dyspnea, tachypnea, tachycardia). Collaborate with interdisciplinary team and initiate plans and interventions as needed. Outcome: Progressing Problem: Activity Intolerance/Impaired Mobility Goal: Mobility/activity is maintained at optimum level for patient Description: Assess and monitor patient barriers to mobility and need for assistive/adaptive devices. Assess patient's emotional response to limitations. Collaborate with interdisciplinary team and initiate plans and interventions as ordered. Outcome: Progressing Problem: Altered Body Image Goal: Verbalizes feelings about physical appearance Description: Assess the patient's feelings about their physical appearance, how it will effect their lifestyle, sexuality, and relationships with family and friends. Collaborate with interdisciplinary team and initiate plan and interventions as ordered. Outcome: Progressing Problem: Pain Management Goal: Patient return to pre procedure comfort Outcome: Progressing Problem: Hemodynamic Status Goal: Patient's vitals signs are stable Description: Assess and monitor patient's heart rate, rhythm, respiratory rate, peripheral pulses, capillary refill, color, body temperature, intake and output, labs and physical activity tolerance. Observe for signs of chest pain (note location, duration, severity, radiation and associated symptoms such as diaphoresis, nausea, indigestion). Monitor for signs and symptoms of heart failure (eg. shortness of breath, edema of feet/ankles/legs, rapid irregular heart rate, coughing, wheezing, white/pink blood tinged sputum, sudden weight gain, chest pain). Collaborate with interdisciplinary team and initiate plan and interventions as ordered. Outcome: Progressing Problem: Inadequte temperature regulation Goal: Body temperature is within normal range Outcome: Progressing Problem: Safety Goal: Free from accidental physical injury Outcome: Progressing Goal: Free from abuse Outcome: Progressing Problem: Elimination Goal: Elimination patterns are normal or improving Description: Assess and monitor vital signs, gastrointestinal assessment to include bowel sounds, color, appearance, frequency, and amount of stool and emesis, abdominal distention and discomfort, intake and output, and labs. Collaborate with interdisciplinary team and initiate plan and interventions as ordered. Outcome: Progressing Problem: Increased Risk for /GI Compromise Goal: Optimal /GI status Outcome: Progressing Problem: Bleeding Precautions Goal: Excessive bleeding will be minimized Outcome: Progressing documented in this encounter Plan of Treatment Not on file documented as of this encounter Procedures Procedure Name Priority Date/Time Associated Diagnosis Comments CBC W/ AUTO DIFF Routine 12/28/2024 3:08 AM EDT BASIC METABOLIC PANEL Routine 12/28/2024 3:08 AM EDT [place] C-ARM < 1 HOUR Routine 12/27/2024 12: 55 PM EDT DC ARTHRODESIS COMBINED TQ [id number] LUMBAR 12/27/2024 11:38 AM EDT Spinal stenosis, lumbar region with neurogenic claudication Case Notes IN 0900 , 1h45m (R) [id number] 12-LEAD Routine 12/27/2024 11:22 AM EDT URINALYSIS, REFLEX MICROSCOPIC AND CULTURE IF INDICATED STAT 12/27/2024 10:50 AM EDT URINALYSIS MICROSCOPIC STAT 12/27/2024 10:50 AM EDT TYPE AND SCREEN ([place] BKR) Routine 12/27/2024 10:47 AM EDT CBC W/ AUTO DIFF STAT 12/27/2024 10:4 5 AM EDT BASIC METABOLIC PANEL STAT 12/27/2024 10:45 AM EDT EKG-SCANNED 12/27/2024 documented in this encounter Results * (ABNORMAL) CBC with automated diff (12/28/2024 3:08 AM EDT) WBC 8.0 4.2 - 9.1 K/ L 12/28/2024 3:20 AM EDT [facility] RBC 4.40(L) 4.63 - 6.08 M/ L 12/28/2024 3:20 AM EDT [facility] Hemoglobin 13.3(L) 13.7 - 17.5 GM/DL 12/28/2024 3:20 AM EDT [facility] Hematocrit 39.6(L) 40.1 - 51.0 % 12/28/2024 3:20 AM EDT [facility] MCV 90 79 - 92 fL 12/28/2024 3:20 AM EDT [facility] MCH 30.2 25.7 - 32.2 pg 12/28/2024 3:20 AM EDT [facility] MCHC 33.6 32.3 - 36.5 GM/DL 12/28/2024 3:20 AM EDT [facility] RDW 12.6 11.6 - 14.4 % 12/28/2024 3:20 AM EDT [facility] Platelets 170 140 - 375 K/CU MM 12/28/2024 3:20 AM EDT [facility] MPV 10.5 9.4 - 12.4 fL 12/28/2024 3:20 AM EDT [facility] % Neutros 73(H) 34 - 68 % 12/28/2024 3:20 AM EDT [facility] % Lymphs 17(L) 22 - 53 % 12/28/2024 3:20 AM EDT [facility] % Monos 8 5 - 12 % 12/28/2024 3:20 AM EDT [facility] % Eos 1 1 - 7 % 12/28/2024 3:20 AM EDT [facility] % Baso 1 0 - 1 % 12/28/2024 3:20 AM EDT [facility] NRBC Absolute <0.01 0 - 0.012 K/ul 12/28/2024 3:20 AM EDT [facility] # Neutros 5.86(H) 1.78 - 5.38 K/ L 12/28/2024 3:20 AM EDT [facility] # Lymphs 1.40 1.32 - 3.57 K/ L 12/28/2024 3:20 AM EDT [facility] # Monos 0.67 0.30 - 0.82 K/ L 12/28/2024 3:20 AM EDT [facility] # Eos 0.04 0.04 - 0.54 K/ L 12/28/2024 3:20 AM EDT [facility] # Baso 0.04 0.01 - 0.08 K/ L 12/28/2024 3:20 AM EDT [facility] Immature Granulocytes-Re lative 0.40 0.01 - 0.43 % 12/28/2024 3:20 AM EDT [facility] # IG 0.03 0.00 - 0.03 K/uL 12/28/2024 3:20 AM EDT [facility] Blood Venipuncture / Unknown 12/28/2024 3:08 AM EDT 12/28/2024 3:16 AM EDT Narrative [facility] - 12/28/2024 3:20 AM EDT When CBC w/ Auto Diff is ordered the lab will add a Manual Differential as a quality check at no additional charge if: Lymphocytes greater than seventy five percent with normal or increased WBC Monocytes greater than Fifteen percent Basophil greater than four percent Bands >10% or several immature myeloids are seen on scan Blast? Flag noted Atypical Lymph flag noted us Matteo Potts MD LAB BLOOD ORDERABLES Final Result [facility] [address] [place] [address] * (ABNORMAL) Basic Metabolic Panel (12/28/2024 3:08 AM EDT) Sodium 137 136 - 145 meq/L 12/28/2024 3:41 AM EDT [facility] Potassium 3.9 3.4 - 5.1 meq/L 12/28/2024 3:41 AM EDT [facility] CO2 27 22 - 29 meq/L 12/28/2024 3:41 AM EDT [facility] Chloride 106 98 - 112 meq/L 12/28/2024 3:41 AM EDT [facility] Glucose 130(H) 74 - 100 mg/dL 12/28/2024 3:41 AM EDT [facility] BUN 4.3(L) 8.9 - 20.6 mg/dL 12/28/2024 3:41 AM EDT [facility] Creatinine 0.82 0.72 - 1.25 mg/dL 12/28/2024 3:41 AM EDT [facility] BUN/Creatinine 5(L) 8 - 20 12/28/2024 3:41 AM EDT [facility] Calcium 8.7 8.4 - 10.2 mg/dL 12/28/2024 3:41 AM EDT [facility] Anion Gap 8 4 - 12 12/28/2024 3:41 AM EDT [facility] eGFR (mL/min/1.73m2) 121 >=60 mL/min/1.7 3m2 12/28/2024 3:41 AM EDT [facility] Osmolality Calc 272.6 mOsm/kg 3:41 AM EDT [facility] Blood Venipuncture / Unknown 12/28/2024 3:08 AM EDT 12/28/2024 3:17 AM EDT Matteo Potts MD LAB BLOOD ORDERABLES Final Result [facility] [address] [phone] * [place] C-ARM < 1 HOUR (12/27/2024 12:55 PM EDT) Anatomical Region Laterality Modality X-Ray 12/29/2024 7:57 AM EDT Impressions 12/29/2024 8:02 AM EDT See above. Please see the operative report. Images reviewed, interpreted, and dictated by Dr. Ellie Garcia. Transcribed by Precious Nagel PA-C. Narrative 12/29/2024 8:02 AM EDT FLUORO TIME HISTORY: L4-L5 fusion. PROCEDURE: Fluoroscopy in the operating room. FINDINGS: Fluoroscopy time was provided by the radiology department for the clinical service. Single intraoperative spot image was obtained during lumbar spine surgery. Fluoroscopy exposure time: 1.23 minutes. Radiation exposure in Reference air Kerma: 61 mGy Procedure Note Fauzia Garcia MD - 12/29/2024 FLUORO TIME HISTORY: L4-L5 fusion. PROCEDURE: Fluoroscopy in the operating room. FINDINGS: Fluoroscopy time was provided by the radiology department for the clinical service. Single intraoperative spot image was obtained during lumbar spine surgery. Fluoroscopy exposure time: 1.23 minutes. Radiation exposure in Reference air Kerma: 61 mGy IMPRESSION: See above. Please see the operative report. Images reviewed, interpreted, and dictated by Dr. Ellie Garcia. Transcribed by Precious Nagel PA-C. Alexx Staley MD IMG FLUOROSCOPY ORDERABLES Erin l Result * ECG 12 lead (12/27/2024 11:22 AM EDT) VENTRICULAR RATE EKG/MIN 52 BPM GE MUSE ATRIAL RATE (MCT) 52 BPM GE MUSE DC Interval 124 ms GE MUSE QRS-INTERVAL (MSEC) 90 ms GE MUSE QT Interval 426 ms GE MUSE QTC Interval 396 ms GE MUSE P [place] 21 degrees GE MUSE R AXIS (MCT) -3 degrees GE MUSE T Wave [place] 27 degrees GE MUSE [place] Diagnosis Sinus bradycardia with sinus arrhythmia with occasional premature ventricular complexes Otherwise normal ECG No previous ECGs available Confirmed by Constanza TRUONG, Marie (2019) on 12/27/2024 6:15:27 PM GE MUSE 12/27/2024 11:2 2 AM EDT 12/27/2024 6:15 PM EDT Alexx Staley MD ECG ORDERABLES Final Result GE MUSE * (ABNORMAL) Urinalysis Microscopic Only (12/27/2024 10:50 AM EDT) WBC, UA 6-10(A) None Seen /HPF 12/27/2024 11:12 AM EDT [facility] RBC, UA 0-2(A) None Seen /HPF 12/27/2024 11:12 AM EDT [facility] Bacteria, UA None Seen None Seen, Trace 12/27/2024 11:12 AM EDT [facility] Mucus 4+(A) None Seen 12/27/2024 11:12 AM EDT [facility] SQUAMOUS EPITHELIAL 0-2(A) None Seen /HPF 12/27/2024 11:12 AM EDT [facility] Ca Oxalate [place], UA 1+(A) None Seen 12/27/2024 11:12 AM EDT [facility] Urine URINE / Unknown 12/27/2024 1 0:50 AM EDT 12/27/2024 11:04 AM EDT us Alexx Staley MD URINE ORDERABLES Final Result [facility] [address] [phone] * (ABNORMAL) Urinalysis, Reflex Microscopic and Culture If Indicated (12/27/2024 10:50 AM EDT) Color, UA Yellow 12/27/2024 11:12 AM EDT [facility] Clarity, UA Clear Clear 12/27/2024 11:12 AM EDT [facility] Specific [place], UA 1.031(H) 1.005 - 1.030 12/27/2024 11:12 AM EDT [facility] pH, UA 6.5 6.0 - 8.0 12/27/2024 11:12 AM EDT [facility] Leukocytes, UA 25 [place]/uL(A) Negative 12/27/2024 11:12 AM EDT [facility] Nitrite, UA Negative Negative 12/27/2024 11:12 AM EDT [facility] Protein, UA 1+(A) Negative 12/27/2024 11:12 AM EDT [facility] Glucose, UA Normal Normal 12/27/2024 11:12 AM EDT [facility] Ketones, UA Trace(A) Negative 12/27/2024 11:12 AM EDT [facility] Bilirubin, UA Negative Negative 12/27/2024 11:12 AM EDT [facility] Blood, UA Negative Negative 12/27/2024 11:12 AM EDT [facility] Urobilinogen, UA 3 mg/dL(A) Normal 12/27/2024 11:12 AM EDT [facility] Specimen Source Urine, Voided 12/27/2024 11:12 AM EDT [facility] Urine URINE / Unknown 12/27/2024 1 0:50 AM EDT 12/27/2024 11:04 AM EDT us Alexx Staley MD URINE ORDERABLES Final Result Performing Organization Address [facility]/ZIP Co de Phone Number [facility] [address] [phone] * Type and Screen (12/27/2024 10:47 AM EDT) ABO/Rh O Positive 12/27/2024 10:45 AM EDT [facility] [place] Antibody Screen Negative 12/27/2024 10:45 AM EDT [facility] [place] HISTCHK HIST CHECK PERFORMED 12/27/2024 10:45 AM EDT [facility] [place] Blood Venipuncture / Unknown 12/27/2024 10:47 AM EDT 12/27/2024 10:57 AM EDT us Alexx Staley MD [facility] BLOOD BANK TEST ORDERABLES Final Result Performing Organization Address [facility] Co de Phone Number [facility] [place] [address] [phone] * (ABNORMAL) Basic Metabolic Panel (12/27/2024 10:45 AM EDT) Sodium 141 136 - 145 meq/L 12/27/2024 11:20 AM EDT [facility] Potassium 4.3 3.4 - 5.1 meq/L 12/27/2024 11:20 AM EDT [facility] CO2 24 22 - 29 meq/L 12/27/2024 11:20 AM EDT [facility] Chloride 110 98 - 112 meq/L 12/27/2024 11:20 AM EDT [facility] Glucose 94 74 - 100 mg/dL 12/27/2024 11:20 AM EDT [facility] BUN 5.2(L) 8.9 - 20.6 mg/dL 12/27/2024 11:20 AM EDT [facility] Creatinine 0.84 0.72 - 1.25 mg/dL 12/27/2024 11:20 AM EDT [facility] BUN/Creatinine 6(L) 8 - 20 12/27/2024 11:20 AM EDT [facility] Calcium 9.3 8.4 - 10.2 mg/dL 12/27/2024 11:20 AM EDT [facility] Anion Gap 11 4 - 12 12/27/2024 11:20 AM EDT [facility] eGFR (mL/min/1.73m2) 120 >=60 mL/min/1.7 3m2 12/27/2024 11:20 AM EDT [facility] Osmolality Calc 278.3 mOsm/kg 11:20 AM EDT [facility] Blood Venipuncture / Unknown 12/27/2024 10:45 AM EDT 12/27/2024 10:57 AM EDT us Alexx Staley MD LAB BLOOD ORDERABLES Final Resu lt [facility] [address] [phone] * (ABNORMAL) CBC with automated diff (12/27/2024 10:45 AM EDT) WBC 6.2 4.2 - 9.1 K/ L 12/27/2024 11:06 AM EDT [facility] RBC 4.91 4.63 - 6.08 M/ L 12/27/2024 11:06 AM EDT [facility] Hemoglobin 14.9 13.7 - 17.5 GM/DL 12/27/2024 11:06 AM EDT [facility] Hematocrit 43.4 40.1 - 51.0 % 12/27/2024 11:06 AM EDT [facility] MCV 88 79 - 92 fL 12/27/2024 11:06 AM EDT [facility] MCH 30.3 25.7 - 32.2 pg 12/27/2024 11:06 AM EDT [facility] MCHC 34.3 32.3 - 36.5 GM/DL 12/27/2024 11:06 AM EDT [facility] RDW 12.7 11.6 - 14.4 % 12/27/2024 11:06 AM EDT [facility] Platelets 219 140 - 375 K/CU MM 12/27/2024 11:06 AM EDT [facility] MPV 11.0 9.4 - 12.4 fL 12/27/2024 11:06 AM EDT [facility] % Neutros 59 34 - 68 % 12/27/2024 11:06 AM EDT [facility] % Lymphs 31 22 - 53 % 12/27/2024 11:06 AM EDT [facility] % Monos 8 5 - 12 % 12/27/2024 11:06 AM EDT [facility] % Eos 1 1 - 7 % 12/27/2024 11:06 AM EDT [facility] % Baso 1 0 - 1 % 12/27/2024 11:06 AM EDT [facility] NRBC Absolute <0.01 0 - 0.012 K/ul 12/27/2024 11:06 AM EDT [facility] # Neutros 3.69 1.78 - 5.38 K/ L 12/27/2024 11:06 AM EDT [facility] # Lymphs 1.93 1.32 - 3.57 K/ L 12/27/2024 11:06 AM EDT [facility] # Monos 0.48 0.30 - 0.82 K/ L 12/27/2024 11:06 AM EDT [facility] # Eos 0.04 0.04 - 0.54 K/ L 12/27/2024 11:06 AM EDT [facility] # Baso 0.05 0.01 - 0.08 K/ L 12/27/2024 11:06 AM EDT [facility] Immature Granulocytes-Re lative 0.50(H) 0.01 - 0.43 % 12/27/2024 11:06 AM EDT [facility] # IG 0.03 0.00 - 0.03 K/uL 12/27/2024 11:06 AM EDT [facility] Blood Venipuncture / Unknown 12/27/2024 10:45 AM EDT 12/27/2024 10:57 AM EDT Narrative [facility] - 12/27/2024 11:06 AM EDT When CBC w/ Auto Diff is ordered the lab will add a Manual Differential as a quality check at no additional charge if: Lymphocytes greater than seventy five percent with normal or increased WBC Monocytes greater than Fifteen percent Basophil greater than four percent Bands >10% or several immature myeloids are seen on scan Blast? Flag noted Atypical Lymph flag noted us Alexx Staley MD LAB BLOOD ORDERABLES Final Resu lt [facility] [address] [phone] * EKG-SCANNED (12/27/2024) Narrative 12/27/2024 Ordered by an unspecified provider. us Default Scanning Provider SCAN ORDERS Final Result documented in this encounter Visit Diagnoses Diagnosis HTN (hypertension) Unspecified essential hypertension documented in this encounter Administered Medications Inactive Administered Medications - up to 3 most recent administrations Medication Order MAR Action Action Date Dose Rate Site acetaminophen (TYLENOL) tablet 1,000 mg 1,000 mg Every 6 hours PRN, oral, mild pain (1-3), and severe pain, Starting on Thu12/27/24 at 1441, Recommended maximum dose of acetaminophen is 4000 mg from all sources in 24 hours, Phase II/On Unit Given 12/28/2024 1:12 AM EDT 1,000 mg albuterol 2.5 mg/0.5 mL nebulizer solution 2.5 mg 2.5 mg Every 6 hours PRN, nebulization, wheezing, shortness of breath, Starting on Thu12/27/24 at 1514, * RESPIRATORY THERAPY TREATMENT *, What is the respiratory therapy Modality? Small volume Nebulization benzocaine-menthoL (CHLORASEPTIC) lozenge 1 lozenge 1 lozenge Every 2 hour PRN, buccal, sore throat, Starting on Thu12/27/24 at 1514 bisacodyL (DULCOLAX) suppository 10 mg 10 mg Daily as needed, rectal, constipation, Starting on Thu12/27/24 at 1514 calcium carbonate (TUMS) chewable tablet 500 mg (elemental calcium 200 mg) 500 mg Daily as needed (1 tablet), oral, indigestion, Starting on Thu12/27/24 at 1514, Each tablet contains 500 mg of calcium carbonate which equals 200 mg of elemental calcium. ceFAZolin (ANCEF) 1 g in sodium chloride 0.9 % (NS) 50 mL STEFFANIE IVPB 1 g Every 8 hours interval, intravenous, Administer over 30 Minutes, First dose on Thu12/27/24 at 1530, For 3 doses, Please choose an indication: Surgical Prophylaxis IVPB Started 12/28/2024 6:45 AM EDT 1 g 100 mL/hr IVPB Started 12/27/2024 11:13 PM EDT 1 g 100 mL/hr IVPB Started 12/27/2024 3:12 PM EDT 1 g 100 mL/hr cloNIDine (CATAPRES) tablet 0.2 mg 0.2 mg Every 6 hours PRN, oral, high blood pressure (specify), SBP OVER 160, Starting on Thu12/27/24 at 1514, Look-alike/Sound-alike medication diphenhydrAMINE-zinc acetate (BENADRYL) cream topical, 3 times daily PRN, itching, Starting on Thu12/27/24 at 1514 docusate sodium (COLACE) capsule 100 mg 100 mg 2 times daily, oral, First dose on Thu12/27/24 at 2100, * DO NOT CRUSH THIS DOSAGE FORM * Given 12/28/2024 8:48 AM EDT 100 mg Given 12/27/2024 8:11 PM EDT 100 mg famotidine (PEPCID) tablet 20 mg 20 mg Once, oral, On Thu12/27/24 at 1130, For 1 dose, Pharmacist to renally dose if CrCl is less than 50 mL/min or on CRRT., Pre-op Given 12/27/2024 11:20 AM EDT 20 mg fentaNYL PF (SUBLIMAZE) injection 25 mcg 25 mcg Every 5 min PRN, intravenous, severe pain (7-10), First Line for pain moderate or greater, Starting on Thu12/27/24 at 1259, Maximum cumulative dose 100 mcg. If maximum dose is reached, proceed to 2nd Line agent., PACU Given 12/27/2024 1:30 PM EDT 25 mcg Given 12/27/2024 1:25 PM EDT 25 mcg Given 12/27/2024 1:20 PM EDT 25 mcg hydrALAZINE (APRESOLINE) injection 10 mg 10 mg Every 4 hours PRN, intravenous, HYPERTENSION (SBP > 180), Starting on Thu12/27/24 at 1514, Hold if SBP < 100 mmHg, DBP < 50 mmHg, or patient is on pressor. Look-alike/Sound-alike medication HYDROmorphone (DILAUDID) injection 0.5 mg 0.5 mg Every 10 min PRN, intravenous, severe pain (7-10), 2nd Line agent after max dose Fentanyl given if ordered., Starting on Thu12/27/24 at 1259, For 4 doses, Maximum cumulative dose 2 mg, PACU, PACU Given 12/27/2024 2:05 PM EDT 0.5 mg Given 12/27/2024 1:55 PM EDT 0.5 mg Given 12/27/2024 1:45 PM EDT 0.5 mg lactated Ringer's infusion 100 mL/hr Continuous, intravenous, Starting on Thu12/27/24 at 1130, Pre-op Continued by Anesthesia 12/27/2024 11:38 AM EDT 100 mL/hr New Bag 12/27/2024 11:08 AM EDT 100 mL/hr 100 mL/hr lactulose (CHRONULAC) 10 gram/15 mL solution 20 g 20 g 3 times daily PRN, oral, constipation, Starting on Thu12/27/24 at 1514 LORazepam (ATIVAN) tablet 1 mg 1 mg Every 8 hours PRN, oral, anxiety, Starting on Thu12/27/24 at 1301, Phase II/On Unit Given 12/28/2024 8:48 AM EDT 1 mg Given 12/27/2024 2:17 PM EDT 1 mg magnesium hydroxide (MILK OF MAGNESIA) suspension 30 mL 30 mL Daily as needed, oral, constipation, Starting on Thu12/27/24 at 1514, Do NOT exceed 6 doses per order. morphine injection 2 mg 2 mg Every 4 hours PRN, intravenous, moderate pain (4-6), severe pain (7-10), Starting on Thu12/27/24 at 1441, If inadequate response (less than 50% reduction in pain score) within 60 minutes, proceed to next-line agent for same PRN reason or contact provider if no further options ordered., Phase II/On Unit Given 12/28/2024 8:49 AM EDT 2 mg Given 12/27/2024 8:11 PM EDT 2 mg Given 12/27/2024 3:34 PM EDT 2 mg ondansetron (ZOFRAN) injection 4 mg 4 mg Every 8 hours PRN, intravenous, nausea, vomiting, Starting on Thu12/27/24 at 1441, Give IV if patient is unable to take orally. 1st line If inadequate response within 60 minutes, proceed to next-line agent for same PRN reason or contact provider if no further options ordered. For IV push, give over 2 - 5 minutes., Phase II/On Unit Given 12/28/2024 8:48 AM EDT 4 mg Given 12/27/2024 8:22 PM EDT 4 mg ondansetron (ZOFRAN) injection 4 mg 4 mg Every 15 min PRN, intravenous, nausea, Starting on Thu12/27/24 at 1259, For 2 doses, 1st line for nausea For IV push, give over 2 - 5 minutes., PACU Given 12/27/2024 1:31 PM EDT 4 mg ondansetron (ZOFRAN-ODT) disintegrating tablet 4 mg 4 mg Every 8 hours PRN, oral, nausea, vomiting, Starting on Thu12/27/24 at 1441, 1st line. If inadequate response within 60 minutes, proceed to next-line agent for same PRN reason or contact provider if no further options ordered., Phase II/On Unit oxyCODONE (ROXICODONE) immediate release tablet 10 mg 10 mg Every 4 hours PRN, oral, moderate pain (4-6), severe pain (7-10), Starting on Thu12/27/24 at 1355, 2nd line analgesic. Give only if inadequate response (less than 50% reduction in pain score) 60 minutes after administration of 1st line analgesics + adjuvants (if ordered). Look-alike/Sound-alike medication, Phase II/On Unit Given 12/28/2024 2:19 PM EDT 10 mg Given 12/28/2024 11:50 AM EDT 10 mg Given 12/28/2024 6:17 AM EDT 10 mg oxyCODONE (ROXICODONE) immediate release tablet 5 mg 5 mg Once as needed, oral, moderate pain (4-6), severe pain (7-10), For patients going home if they have not received hydromorphone or morphine., Starting on Thu12/27/24 at 1259, For 1 dose, Look-alike/Sound-alike medication, PACU Given 12/27/2024 1:43 PM EDT 5 mg polyethylene glycol (GLYCOLAX) packet 17 g 17 g Daily, oral, First dose on Thu12/27/24 at 1530, DISSOLVE IN 8 OUNCES OF WATER, JUICE, SODA, COFFEE OR TEA Given 12/28/2024 8:48 AM EDT 17 g Given 12/27/2024 3:44 PM EDT 17 g simethicone (MYLICON) chewable tablet 80 mg 80 mg Every 6 hours PRN, oral, flatulence, bloating/gas, Starting on Thu12/27/24 at 1514 sodium chloride 0.9 % infusion 50 mL/hr Continuous, intravenous, Starting on Thu12/27/24 at 1330, Phase II/On Unit New Bag 12/27/2024 1:52 PM EDT 50 mL/hr 50 mL/hr documented in this encounter Active and Recently Administered Medications Times are shown in EDT. Scheduled Medication Order 12/26/2024 12/27/2024 12/28/2024 ceFAZolin (ANCEF) 1 g in sodium chloride 0.9 % (NS) 50 mL STEFFANIE IVPB (COMPLETED) 1 g Every 8 hours interval, intravenous, Administer over 30 Minutes, First dose on Thu12/27/24 at 1530, For 3 doses, Please choose an indication: Surgical Prophylaxis 1512 (IVPB Started - Provider: Betzy Patel)1543 (IVPB Stopped - Provider: Betzy Patel)2313 (IVPB Started - Provider: Cullen El RN)2351 (IVPB Stopped - Provider: Cullen El RN) 0645 (IVPB Started - Provider: Cullen El RN)0843 (IVPB Stopped - Provider: Melony Hall, HAILEY) ceFAZolin (ANCEF) 2 g in sodium chloride 0.9 % (NS) MBP 50 mL IVPB (COMPLETED) 2 g Once, intravenous, Administer over 30 Minutes, On Thu12/27/24 at 1100, For 1 dose, Pre-op, Please choose an indication: Surgical Prophylaxis 1151 (New Bag - Provider: Bravo Hinson CRNA) docusate sodium (COLACE) capsule 100 mg 100 mg 2 times daily, oral, First dose on Thu12/27/24 at 2100, * DO NOT CRUSH THIS DOSAGE FORM * 2010 (Given - Provider: Cullen El RN) 0848 (Given - Provider: Melony Hall, HAILEY) famotidine (PEPCID) tablet 20 mg (COMPLETED) 20 mg Once, oral, On Thu12/27/24 at 1130, For 1 dose, Pharmacist to renally dose if CrCl is less than 50 mL/min or on CRRT., Pre-op 1120 (Given - Provider: Hayley Church RN) polyethylene glycol (GLYCOLAX) packet 17 g 17 g Daily, oral, First dose on Thu12/27/24 at 1530, DISSOLVE IN 8 OUNCES OF WATER, JUICE, SODA, COFFEE OR TEA 1544 (Given - Provider: Betzy Patel) 0848 (Given - Provider: Melony Hall RN) Continuous Medication Order 12/26/2024 12/27/2024 12/28/2024 lactated Ringer's infusion (CANCELED) 100 mL/hr Continuous, intravenous, Starting on Thu12/27/24 at 1130, Pre-op 1108 (New Bag - Provider: Hayley Church RN)1138 (Continued by Anesthesia - Provider: Bravo Hinson CRNA)1314 (Anesthesia Volume Adjustment - Provider: Bravo Hinson CRNA) sodium chloride 0.9 % infusion 50 mL/hr Continuous, intravenous, Starting on Thu12/27/24 at 1330, Phase II/On Unit 1352 (New Bag - Provider: Francisco Euceda RN) PRN Medication Order 12/26/2024 12/27/2024 12/28/2024 acetaminophen (TYLENOL) tablet 1,000 mg 1,000 mg Every 6 hours PRN, oral, mild pain (1-3), and severe pain, Starting on Thu12/27/24 at 1441, Recommended maximum dose of acetaminophen is 4000 mg from all sources in 24 hours, Phase II/On Unit 0112 (Given - Provid er: Cullen El RN) albuterol 2.5 mg/0.5 mL nebulizer solution 2.5 mg 2.5 mg Every 6 hours PRN, nebulization, wheezing, shortness of breath, Starting on Thu12/27/24 at 1514, * RESPIRATORY THERAPY TREATMENT *, What is the respiratory therapy Modality? Small volume Nebulization benzocaine-menthoL (CHLORASEPTIC) lozenge 1 lozenge 1 lozenge Every 2 hour PRN, buccal, sore throat, Starting on Thu12/27/24 at 1514 bisacodyL (DULCOLAX) suppository 10 mg 10 mg Daily as needed, rectal, constipation, Starting on Thu12/27/24 at 1514 calcium carbonate (TUMS) chewable tablet 500 mg (elemental calcium 200 mg) 500 mg Daily as needed (1 tablet), oral, indigestion, Starting on Thu12/27/24 at 1514, Each tablet contains 500 mg of calcium carbonate which equals 200 mg of elemental calcium. cloNIDine (CATAPRES) tablet 0.2 mg 0.2 mg Every 6 hours PRN, oral, high blood pressure (specify), SBP OVER 160, Starting on Thu12/27/24 at 1514, Look-alike/Sound-alike medication diphenhydrAMINE-zinc acetate (BENADRYL) cream topical, 3 times daily PRN, itching, Starting on Thu12/27/24 at 1514 fentaNYL PF (SUBLIMAZE) injection 25 mcg (CANCELED) 25 mcg Every 5 min PRN, intravenous, severe pain (7-10), First Line for pain moderate or greater, Starting on Thu12/27/24 at 1259, Maximum cumulative dose 100 mcg. If maximum dose is reached, proceed to 2nd Line agent., PACU 1315 (Given - Provider: Nat Euceda RN)1320 (Given - Provider: Nat Euceda, RN)1325 (Given - Provider: Nat Euceda RN)1330 (Given - Provider: Nat Euceda, RN) hydrALAZINE (APRESOLINE) injection 10 mg 10 mg Every 4 hours PRN, intravenous, HYPERTENSION (SBP > 180), Starting on Thu12/27/24 at 1514, Hold if SBP < 100 mmHg, DBP < 50 mmHg, or patient is on pressor. Look-alike/Sound-alike medication HYDROmorphone (DILAUDID) injection 0.5 mg (COMPLETED) 0.5 mg Every 10 min PRN, intravenous, severe pain (7-10), 2nd Line agent after max dose Fentanyl given if ordered., Starting on Thu12/27/24 at 1259, For 4 doses, Maximum cumulative dose 2 mg, PACU, PACU 1335 (Given - Provider: Nat Euceda RN)1345 (Given - Provider: Nat Euceda RN)1355 (Given - Provider: Nat Euceda, RN)1405 (Given - Provider: Nat Euceda, RN) lactulose (CHRONULAC) 10 gram/15 mL solution 20 g 20 g 3 times daily PRN, oral, constipation, Starting on Thu12/27/24 at 1514 LORazepam (ATIVAN) tablet 1 mg 1 mg Every 8 hours PRN, oral, anxiety, Starting on Thu12/27/24 at 1301, Phase II/On Unit 1417 (Given - Provider: Nat Euceda RN) 0848 (Given - Provider: Melony Hall RN) magnesium hydroxide (MILK OF MAGNESIA) suspension 30 mL 30 mL Daily as needed, oral, constipation, Starting on Thu12/27/24 at 1514, Do NOT exceed 6 doses per order. morphine injection 2 mg 2 mg Every 4 hours PRN, intravenous, moderate pain (4-6), severe pain (7-10), Starting on Thu12/27/24 at 1441, If inadequate response (less than 50% reduction in pain score) within 60 minutes, proceed to next-line agent for same PRN reason or contact provider if no further options ordered., Phase II/On Unit 1534 (Given - Provider: Kiran Green, HAILEY)2010 (Given - Provider: Cullen El, HAILEY) 0849 (Given - Provider: Melony Hall, RN) naloxone (NARCAN) injection 0.2 mg 0.2 mg Every 2 min PRN, intravenous, opioid reversal, respiratory depression,, Starting on Thu12/27/24 at 1441, Give for respiratory rate less than 10 breaths/min or if patient is difficult to arouse. Max dose = 10mg. Call provider., Phase II/On Unit ondansetron (ZOFRAN) injection 4 mg(Linked Group 1) 4 mg Every 8 hours PRN, intravenous, nausea, vomiting, Starting on Thu12/27/24 at 1441, Give IV if patient is unable to take orally. 1st line If inadequate response within 60 minutes, proceed to next-line agent for same PRN reason or contact provider if no further options ordered. For IV push, give over 2 - 5 minutes., Phase II/On Unit 2021 (Given - Provider: Cullen El RN) 0848 (Given - Provider: Melony Hall, RN) ondansetron (ZOFRAN) injection 4 mg (CANCELED) 4 mg Every 15 min PRN, intravenous, nausea, Starting on Thu12/27/24 at 1259, For 2 doses, 1st line for nausea For IV push, give over 2 - 5 minutes., PACU 1331 (Given - Provider: Nat Euceda RN) ondansetron (ZOFRAN-ODT) disintegrating tablet 4 mg(Linked Group 1) 4 mg Every 8 hours PRN, oral, nausea, vomiting, Starting on Thu12/27/24 at 1441, 1st line. If inadequate response within 60 minutes, proceed to next-line agent for same PRN reason or contact provider if no further options ordered., Phase II/On Unit 2021 (See Alternative - Provider: Cullen El RN) 0848 (See Alternative - Provider: Melony Hall, HAILEY) oxyCODONE (ROXICODONE) immediate release tablet 10 mg 10 mg Every 4 hours PRN, oral, moderate pain (4-6), severe pain (7-10), Starting on Thu12/27/24 at 1355, 2nd line analgesic. Give only if inadequate response (less than 50% reduction in pain score) 60 minutes after administration of 1st line analgesics + adjuvants (if ordered). Look-alike/Sound-alike medication, Phase II/On Unit 1744 (Given - Provider: Kiran Green, RN)2237 (Given - Provider: Cullen El, RN) 0232 (Given - Provider: Cullen El, RN)0617 (Given - Provider: Cullen El, HAILEY)1150 (Given - Provider: Luz Palomo, HAILEY)1419 (Given - Provider: Melony Hall RN) oxyCODONE (ROXICODONE) immediate release tablet 5 mg (COMPLETED) 5 mg Once as needed, oral, moderate pain (4-6), severe pain (7-10), For patients going home if they have not received hydromorphone or morphine., Starting on Thu12/27/24 at 1259, For 1 dose, Look-alike/Sound-alike medication, PACU 1343 (Given - Provider: Nat Euceda RN) simethicone (MYLICON) chewable tablet 80 mg 80 mg Every 6 hours PRN, oral, flatulence, bloating/gas, Starting on Thu12/27/24 at 1514 thrombin (bovine) topical solution (CANCELED) As needed, Starting on Thu12/27/24 at 1207, Intra-op 1207 (Given - Provider: Alexx Staley MD - Comment: Mixed into surgifoam powder - op site) Linked Groups Order Group 1: ondansetron (ZOFRAN-ODT) disintegrating tablet 4 mgJump to med 4 mg Every 8 hours PRN, oral, nausea, vomiting, Starting on Thu12/27/24 at 1441, 1st line. If inadequate response within 60 minutes, proceed to next-line agent for same PRN reason or contact provider if no further options ordered., Phase II/On Unit Or ondansetron (ZOFRAN) injection 4 mgJump to med 4 mg Every 8 hours PRN, intravenous, nausea, vomiting, Starting on Thu12/27/24 at 1441, Give IV if patient is unable to take orally. 1st line If inadequate response within 60 minutes, proceed to next-line agent for same PRN reason or contact provider if no further options ordered. For IV push, give over 2 - 5 minutes., Phase II/On Unit documented in this encounter Care Teams Messenger Office Relationship Specialty Start Date End Date Maggy Paulino APRN [address] [place] [address] PCP - General Emergency Medicine 12/27/24 documented as of this encounter
--- OUTSIDE RECORDS SUMMARY | 2024-12-27 11:38 | XMS_ITS | Encounter Summary ---
Author Organization [employer] ([place], [place], [place], [place]) Address [address] [place] [address] Care Team Providers Care Textile Cutting Machine Operator Name Role Phone Maggy Paulino APRN Primary Care Provider [phone] Reason for Visit * Auth/Cert (Routine) Specialty Diagnoses / Procedures Referred By Contac t Referred To Contact Diagnoses Spinal stenosis, lumbar region with neurogenic claudication SEE PRIMARY DX Procedures MI ARTHRODESIS COMBINED TQ 1NTRSPC LUMBAR MI POSTERIOR NON-SEGMENTAL INSTRUMENTATION MI INSJ BIOMCHN DEV INTERVERTEBRAL DSC SPC W/ARTHRD MI ALLOGRAFT FOR SPINE SURGERY ONLY STRUCTURAL MI MORALES FACETEC/FORAMOT DRG ARTHRD LUMBAR 1 VRT SGM LAMINECTOMY, SPINE, LUMBAR, WITH FUSION [facility] Operating Room [address] [place] [address] Phone: tel: fax: [facility] Operating Room [address] [place] [address] Phone: tel: fax: Referral ID Status Reason Start Date Expiration Date Visits Re quested Visits Authorized [id number] 1 5 Encounter Details Date Type Department Care Team (Late st Contact Info) Description 12/27/2024 11:38 AM EDT Anesthesia Event [facility] Operating Room 1 [place] [address] Edwardo Parekh MD [address] [place] [address] Eddie Freedman MD [address] [place] [address] Anesthesia Record Procedure Summary Procedure Name Responsible Anesthesiologist Anesthesia Start Time Anesthesia Stop Time (L4-5 REVISION DECOMPRESSION AND FUSION) (Spine Lumbar) Edwardo Parekh MD 12/27/24 1138 12/27/24 1322 Events Date Time Event Comment 12/27/2024 1131 1138 An Start Patient identif ied and chart reviewed. 1140 An Start Data Anesthesia mac deyanira and monitors checked. 1143 Pre-Induction Eval FDA anest hesia machine pre-use checkout completed. Patient status reassessed prior to start of anesthesia care. 1144 An Induction 1145 An Intubation 1150 Anesthesia Ready 1311 An Extubation 1315 an stop data 1317 Handoff to Receiving I compl eted my handoff to the receiving clinician during which we: 1. Identified the patient. 2. Identified the responsible provider. 3. Reviewed the pertinent medical history. 4. Discussed the surgical course. 5. Reviewed intra-op anesthesia management and issues during anesthesia. 6. Set expectations for post-procedure period. 7. Allowed opportunity for questions and acknowledgement of understanding. 1322 An Stop Meds Name Total fentaNYL (SUBLIMAZE) injection 200 mcg glycopyrrolate (ROBINUL) injection 1 mg lidocaine (XYLOCAINE) injection 2% 100 m g neostigmine (PROSTIGMINE) 1 mg/mL inject ion 5 mg ondansetron (ZOFRAN) injection vial 4 mg propofol (DIPRIVAN) injection 10 mg/mL b olus 300 mg rocuronium (ZEMURON) 100 mg/10 mL inject ion 40 mg ceFAZolin (ANCEF) 2 g in sodium chloride 0.9 % (NS) MBP 50 mL IVPB 2 g lactated Ringer's infusion 800 mL * Agents Name O2 N2O Air SEVOFLURANE * Blood No blood administrations on file. Lines, Drains, and Airways Type Details Placement Removal Wound 12/27/24; 1047; Inci cece; Back; Not applicable; Surgical site incision - backXeroform, 4x4s, TP tape 12/27/24 1047 by Silvia Jackson RN Peripheral IV Placement Date: 02/13; Placement Time: 1108; Size: 20 G; Orientation: Left, Posterior; Location: Hand; Site Prep: Chlorhexidine ; Local Anesthetic: None; Inserted by: danisha freeman rn; Insertion attempts: 1; Securement Method: Taped; Removal Date: 12/27/24; Removal Time: 1339; Removal Reason: Other (Comment) 12/27/24 1108 by Danisha Church RN 12/27/24 1339 by Nat Euceda RN Peripheral IV Placement Date: 02/13; Placement Time: 1114; Size: 20 G; Orientation: Posterior, Right; Location: Hand; Site Prep: Chlorhexidine ; Local Anesthetic: None; Inserted by: danisha freeman rn; Insertion attempts: 1; Securement Method: Taped; Removal Date: 01/01/25; Removal Time: 1541 12/27/24 1114 by Danisha hCurch RN 01/01/25 1541 by Automatic Discharge Provider ETT Placement Date 12/27; Placement Time 1145 (created via procedure documentation); Airway Size 7.5; Airway Cuffed Yes; Removal Date 12/27/24; Removal Time 1311 12/27/24 1145 by Bravo Hinson CRNA 12/27/24 1311 by Bravo Hinson CRNA documented in this encounter Social History Tobacco Use Types Packs/Day Years Used Date Smoking Tobacco: Never Smokeless Tobacco: Never Alcohol Use Standard Drinks/Week Comments Never 0 (1 standard drink = 0.6 oz pur e alcohol) Sex and Gender Information Value Date Recorded Sex Assigned at Not on file Legal Sex Male 9:56 AM CDT Gender Identity Not on file Sexual Orientation Not on file documented as of this encounter OR Notes * Anesthesia Postprocedure Evaluation - Bravo Hinson CRNA - 12/27/2024 1:21 PM EDT Patient: Chester Tellez Procedure Summary Date: 12/27/24 Room / Location: [facility] OR [facility] OPERATING ROOM Anesthesia Start: 1138 Anesthesia Stop: Procedure: (L4-5 REVISION DECOMPRESSION AND FUSION) (Spine Lumbar) Diagnosis: Spinal stenosis, lumbar region with neurogenic claudication (SEE PRIMARY DX) Surgeons: Alexx Staley MD Responsible Provider: Edwardo Parekh MD Anesthesia Type: general ASA Status: 2 Anesthesia Type: general Vitals Value Taken Time BP 128/66 12/27/24 1320 Temp 97.3 ??F (36.3 ??C) 12/27/24 1317 Pulse 76 12/27/24 1321 Resp 16 12/27/24 1317 SpO2 99 % 12/27/24 1321 Vitals shown include unfiled device data. Ht 1.778 m (5' 10 ) Wt 63 kg (139 lb) BMI 19.94 kg/m?? Anesthesia Post Evaluation Patient location during evaluation: PACU Patient participation: complete - patient participated Level of consciousness: awake Pain score: 2 Pain management: adequate Multimodal analgesia pain management approach Airway patency: patent Cardiovascular status: stable Respiratory status: face mask Hydration status: stable Color: [place] Activity: Moves 4 extremities Inotropes/Vasopressors: N/A No notable events documented. Bravo Hinson CRNA 12/27/2024 1:22 PM EDT * Anesthesia Procedure Notes - Bravo Hinson CRNA - 12/27/2024 11:58 AM EDT Associated Order(s): Intubation Intubation Authorized by: Edwardo Parekh MD Performed by: Bravo Hinson CRNA Date/Time: 12/27/2024 11:45 AM Urgency: elective Indications and Patient Condition Indications for airway management: anesthesia and airway protection Spontaneous Ventilation: absent Sedation level: general anesthesia Preoxygenated: yes Patient position: sniffing MILS maintained throughout: yes Mask difficulty assessment: 1 - vent by mask Planned trial extubation: yes Final Airway Details Final airway type: endotracheal airway Endotracheal tube type: ETT Cuffed: yes Successful intubation technique: direct laryngoscopy Facilitating devices/methods: intubating stylet Endotracheal tube insertion site: oral Blade: Mckeon Blade size: #3 ETT size (mm): 7.5 Cormack-Lehane Classification: grade I - full view of glottis Placement verified by: chest auscultation and capnometry Cuff volume (mL): 10 Measured from: lips ETT to lips (cm): 25 Number of attempts at approach: 1 Number of other approaches attempted: 0 Additional Comments Atraumatic Intubation. Lips, gums, and dentition unchanged and as preop. Bilateral BS and chest rise, ETCO2 confirmed * Anesthesia Preprocedure Evaluation - Marc Garcia MD - 12/27/2024 11:30 AM EDT Anesthesia Pre Evaluation Mr. Chester Tellez is a 29 y.o. male being evaluated for the following: Date/Time: 12/27/24 1305 Procedure: (L4-5 REVISION DECOMPRESSION AND FUSION) (Spine Lumbar) Location: [facility] OR [address] [facility] OPERATING ROOM Surgeons: Alexx Staley MD Relevant Problems CARDIOVASCULAR (+) HTN (hypertension) - Daily marijuana Clinical information reviewed: NPO Status Date of last liquid: 12/26/24 Time of last liquid: 2229 Date of last solid: 12/26/24 Time of last solid: 2229 Physical Exam Airway Mallampati: II TM distance: >3 FB Neck ROM: full Cardiovascular - normal exam Dental (+) upper dentures Pulmonary - normal exam Abdominal Anesthesia Plan ASA 2 Planned anesthetic: general Anesthesia Plan Factors- The patient is a current smoker. Patient was previously instructed to abstain from smoking on day of procedure. Patient did not smoke on day of procedure. Induction: intravenous Informed Consent- Anesthetic plan and risks discussed with patient. Plan discussed with BILINGUAL INTERPRETER. documented in this encounter Plan of Treatment Not on file documented as of this encounter Procedures Procedure Name Priority Date/Time Associated Diagnosis Comments ANESTHESIA INTUBATION Routine 12/27/2024 11:45 AM EDT documented in this encounter Results * AN SINGLE LUMEN INTUBATION (12/27/2024 11:45 AM EDT) Bravo Dale CRNA - 12/27/2024 11:45 AM EDT Bravo Hinson CRNA 12/27/2024 11:59 AM Intubation Authorized by: Edwardo Parekh MD Performed by: Bravo Hinson CRNA Date/Time: 12/27/2024 11:45 AM Urgency: elective Indications and Patient Condition Indications for airway management: anesthesia and airway protection Spontaneous Ventilation: absent Sedation level: general anesthesia Preoxygenated: yes Patient position: sniffing MILS maintained throughout: yes Mask difficulty assessment: 1 - vent by mask Planned trial extubation: yes Final Airway Details Final airway type: endotracheal airway Endotracheal tube type: ETT Cuffed: yes Successful intubation technique: direct laryngoscopy Facilitating devices/methods: intubating stylet Endotracheal tube insertion site: oral Blade: Mckeon Blade size: #3 ETT size (mm): 7.5 Cormack-Lehane Classification: grade I - full view of glottis Placement verified by: chest auscultation and capnometry Cuff volume (mL): 10 Measured from: lips ETT to lips (cm): 25 Number of attempts at approach: 1 Number of other approaches attempted: 0 Additional Comments Atraumatic Intubation. Lips, gums, and dentition unchanged and as preop. Bilateral BS and chest rise, ETCO2 confirmed us Edwardo Parekh MD ANESTHESIA ORDERABLES Final Resu lt documented in this encounter Visit Diagnoses Not on filedocumented in this encounter Administered Medications Inactive Administered Medications - up to 3 most recent administrations Medication Order MAR Action Action Date Dose Rate Site ceFAZolin (ANCEF) 2 g in sodium chloride 0.9 % (NS) MBP 50 mL IVPB 2 g Once, intravenous, Administer over 30 Minutes, On Thu12/27/24 at 1100, For 1 dose, Pre-op, Please choose an indication: Surgical Prophylaxis New Bag 12/27/2024 11:51 AM EDT 2 g fentaNYL PF (SUBLIMAZE) injection As needed, intravenous, Starting on Thu12/27/24 at 1144, Anesthesia Intra-op Given 12/27/2024 12:00 PM EDT 100 mcg Given 12/27/2024 11:44 AM EDT 50 mcg Given 12/27/2024 11:41 AM EDT 50 mcg glycopyrrolate (ROBINUL) injection As needed, intravenous, Starting on Thu12/27/24 at 1253, Anesthesia Intra-op Given 12/27/2024 12:53 PM EDT 1 mg lactated Ringer's infusion 100 mL/hr Continuous, intravenous, Starting on Thu12/27/24 at 1130, Pre-op Continued by Anesthesia 12/27/2024 11:38 AM EDT 100 mL/hr New Bag 12/27/2024 11:08 AM EDT 100 mL/hr 100 mL/hr lidocaine (XYLOCAINE) injection 2% As needed, intravenous, Starting on Thu12/27/24 at 1141, Anesthesia Intra-op Given 12/27/2024 11:41 AM EDT 100 mg neostigmine methylsulfate (PROSTIGMINE) injection As needed, intravenous, Starting on Thu12/27/24 at 1253, Anesthesia Intra-op Given 12/27/2024 12:53 PM EDT 5 mg ondansetron (ZOFRAN) injection As needed, intravenous, Starting on Thu12/27/24 at 1144, Anesthesia Intra-op Given 12/27/2024 11:44 AM EDT 4 mg propofol (DIPRIVAN) injection 10 mg/mL bolus As needed, intravenous, Starting on Thu12/27/24 at 1144, Anesthesia Intra-op Given 12/27/2024 12:03 PM EDT 100 mg Given 12/27/2024 11:44 AM EDT 200 mg rocuronium (ZEMURON) injection As needed, intravenous, Starting on Thu12/27/24 at 1144, Anesthesia Intra-op Given 12/27/2024 11:44 AM EDT 40 mg documented in this encounter Care Teams Textile Cutting Machine Operator Relationship Specialty Start Date End Date Maggy Paulino APRN [address] [phone] PCP - General Emergency Medicine 12/27/24 documented as of this encounter
--- OUTSIDE RECORDS SUMMARY | 2024-12-27 13:05 | XMS_ITS | Encounter Summary ---
Author Organization [employer] ([place], [place], [place], [place]) Address [address] [place] [address] Care Team Providers Care Technical Sales Specialist Name Role Phone Maggy Paulino APRN Primary Care Provider [phone] Reason for Visit * Auth/Cert (Routine) Specialty Diagnoses / Procedures Referred By Contac t Referred To Contact Diagnoses Spinal stenosis, lumbar region with neurogenic claudication SEE PRIMARY DX Procedures HI ARTHRODESIS COMBINED TQ 1NTRSPC LUMBAR HI POSTERIOR NON-SEGMENTAL INSTRUMENTATION HI INSJ BIOMCHN DEV INTERVERTEBRAL DSC SPC W/ARTHRD HI ALLOGRAFT FOR SPINE SURGERY ONLY STRUCTURAL HI MORALES FACETEC/FORAMOT DRG ARTHRD LUMBAR 1 VRT SGM LAMINECTOMY, SPINE, LUMBAR, WITH FUSION [facility] Operating Room [address] [place] [address] Phone: tel: fax: [facility] Operating Room [address] [place] [address] Phone: tel: fax: Referral ID Status Reason Start Date Expiration Date Visits Re quested Visits Authorized [id number] 1 5 Encounter Details Date Type Department Care Team (Late st Contact Info) Description 12/27/2024 1:05 PM EDT - 12/27/2024 3:24 PM EDT Surgery [facility] Operating Room [address] [place] [address] Alexx Staley MD [address] [facility] 2nd [place] [address] (L4-5 REVISION DECOMPRESSION AND FUSION) Social History Tobacco Use Types Packs/Day Years [...] Sign Reading Time Taken Comments Blood Pressure 145/66 12/27/2024 2:40 PM EDT Pulse 87 12/27/2024 2:40 PM EDT Temperature 36.8 C (98.2 F) 12/27/2024 2:40 PM EDT Respiratory Rate 20 12/27/2024 2:20 PM EDT Oxygen Saturation 95% 12/27/2024 2:40 PM EDT Inhaled Oxygen Concentration - - Weight [...] UP: Saturday January 11, 2025 10:15 a.m. [place] office Kang Granda PA-C Time Spent: 15 [...] Contact Name: Transportation Provider Phone: Date of technical customer support specialist: (P) 12/28/24 Time of technical customer support specialist: RRS-N/A CM consulted for DME. Met with pt and spouse at bedside to discuss DCP. FRW obtained from [facility] and has been delivered. He declines HH services. No other CM needs noted. [facility] and Patient choice [...] Surgeon: Alexx Staley MD; Location: [facility];Service: Orthopedic Surgery; Laterality: N/A; LUMBAR DISCECTOMY [...] Pt was able to complete all mobility [facility] SBA using the RW. Pt did appear [...] patient's discharge summary. Electronically signed by Page Saucedo, PT - 12/28/24 - 2:35 PM EDT PT Evaluation Completed * Matteo Potts MD - 12/28/2024 11:17 AM EDT S: Doing well. No issues overnight. Denies chest pain, pressure. Denies cough or breathing difficulties. (-) flatus, good urination Has been up with therapy EXAM Vitals: 12/27/24200112/27/24 2355 12/28/240 12/28/24 0435 BP: (!) 142/60 (!) 142/62 (!) [...] 52 BPM ATRIAL RATE (MCT) 52 BPM HI Interval 124 ms QRS-INTERVAL (MSEC) 90 ms QT Interval 426 ms QTC Interval 396 ms P [place] 21 degrees R AXIS (MCT) -3 degrees T Wave [place] 27 degrees [place] Diagnosis Sinus bradycardia with sinus arrhythmia with occasional premature ventricular complexes Otherwise normal ECG No previous ECGs available Confirmed by Constanza TRUONG, Marie (2019) on 12/27/2024 6:15:27 PM Basic Metabolic [...] Surgeon: Alexx Staley MD; Location: [facility];Service: Orthopedic Surgery; Laterality: N/A; LUMBAR DISCECTOMY [...] agreeable Pain 0-10 SCALE Pain location: back /10 Cognition Cognition: Overall cognitive status: Patient is [...] body dressing:Standby Assist Toileting:Standby Assist Outcome Measures [facility] Daily Living Functional Assessment How much [...] (Minimal/Contact guard/Supervision/Setup) 4=None (Modified independent/Independent) The patient's [facility] raw score is 21. The patient currently has 32.79% functional impairment. Clinicians are most likely to recommend inpatient/SNF/terminal gauger supervisor care for patients with scores between 6-17, [...] UA Yellow Clarity, UA Clear Clear Specific [place], UA 1.031 (H) 1.005 - 1.030 pH, [...] 52 BPM ATRIAL RATE (MCT) 52 BPM HI Interval 124 ms QRS-INTERVAL (MSEC) 90 ms QT Interval 426 ms QTC Interval 396 ms P [place] 21 degrees R AXIS (MCT) -3 degrees T Wave [place] 27 degrees Jackson Diagnosis Sinus bradycardia with sinus arrhythmia with [...] Clarity, UA 12/27/2024 Clear Clear Final Specific [place], UA 12/27/2024 1.031 (H) 1.005 - 1.030 [...] Resource Strain: Medium Risk (2022) Received from [facility] Financial Resource Strain Financial benefits problems: Not on file Trouble paying for things you need: Not on file Trouble paying for things you need (Other): Not on file Food Insecurity: Not on file Transportation: Not on file Physical Activity: Not on file Social Connections: Unknown (04/02/2023) Received from [facility] Family and Community Support Help with Day-to-Day [...] UA Yellow Clarity, UA Clear Clear Specific [place], UA 1.031 (H) 1.005 - 1.030 pH, [...] 52 BPM ATRIAL RATE (MCT) 52 BPM HI Interval 124 ms QRS-INTERVAL (MSEC) 90 ms QT Interval 426 ms QTC Interval 396 ms P [place] 21 degrees R AXIS (MCT) -3 degrees T Wave [place] 27 degrees Jackson Diagnosis Sinus bradycardia with sinus arrhythmia with [...] HOUR Routine 12/27/2024 12: 55 PM EDT HI ARTHRODESIS COMBINED TQ 1NTRSPC LUMBAR 12/27/2024 11:38 [...] 9.1 K/ L 12/28/2024 3:[address] [facility] RBC 4.40(L) 4.63 - 6.08 M/ L 12/28/2024 3:[address] [facility] Hemoglobin 13.3(L) 13.7 - 17.5 GM/DL 12/28/2024 3:[address] [facility] Hematocrit 39.6(L) 40.1 - 51.0 % 12/28/2024 3:[address] [facility] MCV 90 79 - 92 fL 12/28/2024 3:[address] [facility] MCH 30.2 25.7 - 32.2 pg 12/28/2024 3:[address] [facility] MCHC 33.6 32.3 - 36.5 GM/DL 12/28/2024 3:[address] [facility] RDW 12.6 11.6 - 14.4 % 12/28/2024 3:[address] [facility] Platelets 170 140 - 375 K/CU MM 12/28/2024 3:[address] [facility] MPV 10.5 9.4 - 12.4 fL 12/28/2024 3:[address] [facility] % Neutros 73(H) 34 - 68 % 12/28/2024 3:[address] [facility] % Lymphs 17(L) 22 - 53 % 12/28/2024 3:[address] [facility] % Monos 8 5 - 12 % 12/28/2024 3:[address] [facility] % Eos 1 1 - 7 % 12/28/2024 3:[address] [facility] % Baso 1 0 - 1 % 12/28/2024 3:[address] [facility] NRBC Absolute <0.01 0 - 0.012 K/ul 12/28/2024 3:[address] [facility] # Neutros 5.86(H) 1.78 - 5.38 K/ L 12/28/2024 3:[address] [facility] # Lymphs 1.40 1.32 - 3.57 K/ L 12/28/2024 3:[address] [facility] # Monos 0.67 0.30 - 0.82 K/ L 12/28/2024 3:[address] [facility] # Eos 0.04 0.04 - 0.54 K/ L 12/28/2024 3:[address] [facility] # Baso 0.04 0.01 - 0.08 K/ L 12/28/2024 3:[address] [facility] Immature Granulocytes-Re lative 0.40 0.01 - 0.43 % 12/28/2024 3:[address] [facility] # IG 0.03 0.00 - 0.03 K/uL 12/28/2024 3:[address] [facility] Blood Venipuncture / Unknown 12/28/2024 3:08 AM EDT 12/28/2024 3:[address] [facility] - 12/28/2024 3:20 AM EDT When [...] Potts MD LAB BLOOD ORDERABLES Final Result [facility] [address] [place] [address] * (ABNORMAL) Basic Metabolic Panel (12/28/2024 3:08 AM EDT) Sodium 137 136 - 145 meq/L 12/28/2024 3:[address] [facility] Potassium 3.9 3.4 - 5.1 meq/L 12/28/2024 3:[address] [facility] CO2 27 22 - 29 meq/L 12/28/2024 3:[address] [facility] Chloride 106 98 - 112 meq/L 12/28/2024 3:[address] [facility] Glucose 130(H) 74 - 100 mg/dL 12/28/2024 3:[address] [facility] BUN 4.3(L) 8.9 - 20.6 mg/dL 12/28/2024 3:[address] [facility] Creatinine 0.82 0.72 - 1.25 mg/dL 12/28/2024 3:[address] [facility] BUN/Creatinine 5(L) 8 - 20 12/28/2024 3:[address] [facility] Calcium 8.7 8.4 - 10.2 mg/dL 12/28/2024 3:[address] [facility] Anion Gap 8 4 - 12 12/28/2024 3:[address] [facility] eGFR (mL/min/1.73m2) 121 >=60 mL/min/1.7 3m2 12/28/2024 3:[address] [facility] Osmolality Calc 272.6 mOsm/kg 3:[address] [facility] Blood Venipuncture / Unknown 12/28/2024 3:08 AM EDT 12/28/2024 3:17 AM EDT Matteo Potts MD LAB BLOOD ORDERABLES Final Result [facility] [address] [phone] * [place] C-ARM < 1 HOUR (12/27/2024 [...] ATRIAL RATE (MCT) 52 BPM GE MUSE HI Interval 124 ms GE MUSE QRS-INTERVAL (MSEC) 90 ms GE MUSE QT Interval 426 ms GE MUSE QTC Interval 396 ms GE MUSE P [place] 21 degrees GE MUSE R AXIS (MCT) -3 degrees GE MUSE T Wave [place] 27 degrees GE MUSE [place] Diagnosis Sinus bradycardia with sinus arrhythmia with occasional premature ventricular complexes Otherwise normal ECG No previous ECGs available Confirmed by Marie Apodaca MD (2019) on 12/27/2024 6:15:27 PM GE MUSE 12/27/2024 11:2 2 AM EDT 12/27/2024 6:15 PM EDT Alexx Staley MD ECG ORDERABLES Final Result GE MUSE * (ABNORMAL) Urinalysis Microscopic Only (12/27/2024 10:50 AM EDT) WBC, UA 6-10(A) None Seen /HPF 12/27/2024 11:[address] [facility] RBC, UA 0-2(A) None Seen /HPF 12/27/2024 11:[address] [facility] Bacteria, UA None Seen None Seen, Trace 12/27/2024 11:[address] [facility] Mucus 4+(A) None Seen 12/27/2024 11:[address] [facility] SQUAMOUS EPITHELIAL 0-2(A) None Seen /HPF 12/27/2024 11:[address] [facility] Ca Oxalate [place], UA 1+(A) None Seen 12/27/2024 11:[address] [facility] Urine URINE / Unknown 12/27/2024 1 0:50 AM EDT 12/27/2024 11:04 AM EDT us Alexx Staley MD URINE ORDERABLES Final Result [facility] [address] [phone] * (ABNORMAL) Urinalysis, Reflex Microscopic and Culture If Indicated (12/27/2024 10:50 AM EDT) Color, UA Yellow 12/27/2024 11:[address] [facility] Clarity, UA Clear Clear 12/27/2024 11:[address] [facility] Specific [place], UA 1.031(H) 1.005 - 1.030 12/27/2024 11:[address] [facility] pH, UA 6.5 6.0 - 8.0 12/27/2024 11:[address] [facility] Leukocytes, UA 25 Bertin/uL(A) Negative 12/27/2024 11:[address] [facility] Nitrite, UA Negative Negative 12/27/2024 11:[address] [facility] Protein, UA 1+(A) Negative 12/27/2024 11:[address] [facility] Glucose, UA Normal Normal 12/27/2024 11:[address] [facility] Ketones, UA Trace(A) Negative 12/27/2024 11:[address] [facility] Bilirubin, UA Negative Negative 12/27/2024 11:[address] [facility] Blood, UA Negative Negative 12/27/2024 11:[address] [facility] Urobilinogen, UA 3 mg/dL(A) Normal 12/27/2024 11:[address] [facility] Specimen Source Urine, Voided 12/27/2024 11:[address] [facility] Urine URINE / Unknown 12/27/2024 1 0:50 AM EDT 12/27/2024 11:04 AM EDT us Alexx Staley MD URINE ORDERABLES Final Result Performing Organization Address [facility]/ZIP Co de Phone Number [facility] [address] [phone] * Type and Screen (12/27/2024 10:47 AM EDT) ABO/Rh O Positive 12/27/2024 10:45 AM EDT [facility] ([place]) Antibody Screen Negative 12/27/2024 10:45 AM EDT [facility] ([place]) HISTCHK HIST CHECK PERFORMED 12/27/2024 10:45 AM EDT [facility] ([place]) Blood Venipuncture / Unknown 12/27/2024 10:47 AM EDT 12/27/2024 10:57 AM EDT us Alexx Staley MD [facility] TEST ORDERABLES Final Result Performing Organization Address [facility] Co de Phone Number [facility] ([place]) [address] [phone] * (ABNORMAL) Basic Metabolic Panel (12/27/2024 10:45 AM EDT) Sodium 141 136 - 145 meq/L 12/27/2024 11:[address] [facility] Potassium 4.3 3.4 - 5.1 meq/L 12/27/2024 11:[address] [facility] CO2 24 22 - 29 meq/L 12/27/2024 11:[address] [facility] Chloride 110 98 - 112 meq/L 12/27/2024 11:[address] [facility] Glucose 94 74 - 100 mg/dL 12/27/2024 11:[address] [facility] BUN 5.2(L) 8.9 - 20.6 mg/dL 12/27/2024 11:[address] [facility] Creatinine 0.84 0.72 - 1.25 mg/dL 12/27/2024 11:[address] [facility] BUN/Creatinine 6(L) 8 - 20 12/27/2024 11:[address] [facility] Calcium 9.3 8.4 - 10.2 mg/dL 12/27/2024 11:[address] [facility] Anion Gap 11 4 - 12 12/27/2024 11:[address] [facility] eGFR (mL/min/1.73m2) 120 >=60 mL/min/1.7 3m2 12/27/2024 11:[address] [facility] Osmolality Calc 278.3 mOsm/kg 11:[address] [facility] Blood Venipuncture / Unknown 12/27/2024 10:45 AM EDT 12/27/2024 10:57 AM EDT us Alexx Staley MD LAB BLOOD ORDERABLES Final Resu lt Performing Organization Address City/State/[facility] Co de Phone Number [facility] [address] [phone] * (ABNORMAL) CBC with automated diff (12/27/2024 10:45 AM EDT) WBC 6.2 4.2 - 9.1 K/ L 12/27/2024 11:[address] [facility] RBC 4.91 4.63 - 6.08 M/ L 12/27/2024 11:[address] [facility] Hemoglobin 14.9 13.7 - 17.5 GM/DL 12/27/2024 11:[address] [facility] Hematocrit 43.4 40.1 - 51.0 % 12/27/2024 11:[address] [facility] MCV 88 79 - 92 fL 12/27/2024 11:[address] [facility] MCH 30.3 25.7 - 32.2 pg 12/27/2024 11:[address] [facility] MCHC 34.3 32.3 - 36.5 GM/DL 12/27/2024 11:[address] [facility] RDW 12.7 11.6 - 14.4 % 12/27/2024 11:[address] [facility] Platelets 219 140 - 375 K/CU MM 12/27/2024 11:[address] [facility] MPV 11.0 9.4 - 12.4 fL 12/27/2024 11:[address] [facility] % Neutros 59 34 - 68 % 12/27/2024 11:[address] [facility] % Lymphs 31 22 - 53 % 12/27/2024 11:[address] [facility] % Monos 8 5 - 12 % 12/27/2024 11:[address] [facility] % Eos 1 1 - 7 % 12/27/2024 11:[address] [facility] % Baso 1 0 - 1 % 12/27/2024 11:[address] [facility] NRBC Absolute <0.01 0 - 0.012 K/ul 12/27/2024 11:[address] [facility] # Neutros 3.69 1.78 - 5.38 K/ L 12/27/2024 11:[address] [facility] # Lymphs 1.93 1.32 - 3.57 K/ L 12/27/2024 11:[address] [facility] # Monos 0.48 0.30 - 0.82 K/ L 12/27/2024 11:[address] [facility] # Eos 0.04 0.04 - 0.54 K/ L 12/27/2024 11:[address] [facility] # Baso 0.05 0.01 - 0.08 K/ L 12/27/2024 11:[address] [facility] Immature Granulocytes-Re lative 0.50(H) 0.01 - 0.43 % 12/27/2024 11:[address] [facility] # IG 0.03 0.00 - 0.03 K/uL 12/27/2024 11:[address] [facility] Blood Venipuncture / Unknown 12/27/2024 10:45 AM EDT 12/27/2024 10:[address] [facility] - 12/27/2024 11:06 AM EDT When [...] MD LAB BLOOD ORDERABLES Final Resu lt [facility] [address] [phone] * EKG-SCANNED (12/27/2024) Narrative 12/27/2024 Ordered by an unspecified provider. us Default Scanning Provider SCAN ORDERS Final Result documented in this encounter Visit Diagnoses Diagnosis HTN (hypertension) Unspecified essential hypertension Spinal stenosis, lumbar region with neurogenic claudication documented in this encounter Administered Medications Inactive [...] 1:52 PM EDT 50 mL/hr 50 mL/hr thrombin (bovine) topical solution As needed, Starting on Thu12/27/24 at 1207, Intra-op Given 12/27/2024 12:07 PM EDT 5,000 Units documented in this encounter Active and Recently [...] El RN)0843 (IVPB Stopped - Provider: Melony Hall RN) ceFAZolin (ANCEF) 2 g in sodium chloride [...] Nat Euceda RN)1355 (Given - Provider: Nat Euceda RN)1405 (Given - Provider: Nat Euceda RN) lactulose (CHRONULAC) 10 gram/15 mL solution [...] RN)2010 (Given - Provider: Cullen El RN) 0849 (Given - Provider: Melony Hall, RN) [...] Kiran Green RN)2237 (Given - Provider: Cullen El, HA[place]) 0232 (Given - Provider: Cullen El, RN)0617 (Given - Provider: Cullen El, RN)1150 (Given - Provider: Luz Palomo, [place])1419 (Given [...] Unit documented in this encounter Care Teams Technical Sales Specialist Relationship Specialty Start Date End Date Maggy Paulino APRN [address] [phone] PCP - General Emergency Medicine 12/27/24 documented as of this encounter
[2025-01-04] VITALS (13 sets, daily range): BP systolic 106–154; BP diastolic 54–98; PULSE 52–109; RESP 12–24; TEMP 36.4–37.1; O2SAT 96–99; BMI 34.4
--- NOTE | 2025-01-04 02:00 | ECG_ITS ---
APPROVED REPORT Exam: Resting ECG HR:101 bpm ECG Measurements Heart Rate 101 AXES DC 135 P 67 QRSd 92 QRS 16 QT 319 T 75 QTc 377 Conclusion SINUS TACHYCARDIA ABNORMAL RHYTHM ECG No STEMI Electronically signed by : MELANIE VILLELA, 01/04/2025 06:58:05
--- NOTE | 2025-01-04 02:07 | CT_ITS ---
PROCEDURE INFORMATION: Exam: CTA Head With Contrast, Arteriography Exam date and time: 01/04/2025 2:45 AM Age: 29 years old Clinical indication: Injury or trauma; Additional info: Recent surgery unprovoked syncope TECHNIQUE: Imaging protocol: Computed tomographic angiography of the head with contrast. Exam focused on the arteries. 3D rendering (Not supervised by radiologist): MIP and/or 3D reconstructed images were created by the technologist. Radiation optimization: All CT scans at this facility use at least one of these dose optimization techniques: automated exposure control; mA and/or kV adjustment per patient size (includes targeted exams where dose is matched to clinical indication); or iterative reconstruction. Contrast material: ISOVUE; Contrast volume: 80 ml; Contrast route: INTRAVENOUS (IV); COMPARISON: CT HEAD/BRAIN WO CON 01/04/2025 2:38 AM FINDINGS: ANTERIOR CIRCULATION: INTRACRANIAL INTERNAL CAROTID ARTERIES: Intracranial internal carotid arteries are without acute flow limiting stenosis. MIDDLE CEREBRAL ARTERIES: M1, M2 and their distal visualized branches are without acute flow limiting stenosis. ANTERIOR CEREBRAL ARTERIES: A1, A2 and their distal visualized branches are without acute flow limiting stenosis. Anterior communicating artery is unremarkable. . POSTERIOR CIRCULATION: VERTEBRAL ARTERIES: Intracranial vertebral arteries and their visualized branches are without acute flow limiting stenosis. BASILAR ARTERY: The basilar artery and its visualized proximal branches are without acute flow limiting stenosis. POSTERIOR CEREBRAL ARTERIES: P1, P2 and their distal visualized branches are without acute flow limiting stenosis. IMPRESSION: NO acute flow-limiting stenosis or large vessel occlusion. COMMENTS: Recommend followup with MRI if persistent/new/worsening symptoms or symptoms unexplained by the current study. PROCEDURE INFORMATION: Exam: CTA Neck With Contrast Exam date and time: 01/04/2025 2:45 AM Age: 29 years old Clinical indication: Injury or trauma; Additional info: Recent surgery unprovoked syncope TECHNIQUE: Imaging protocol: Computed tomographic angiography of the neck with contrast. Exam focused on the cervical segments of the vasculature. Radiation optimization: All CT scans at this facility use at least one of these dose optimization techniques: automated exposure control; mA and/or kV adjustment per patient size (includes targeted exams where dose is matched to clinical indication); or iterative reconstruction. COMPARISON: No relevant prior studies available. FINDINGS: THORACIC VESSELS: Visualized aortic arch is unremarkable. No significant narrowing at the origin of the neck vessels. . COMMON CAROTID ARTERIES: Common carotid arteries are without acute flow limiting stenosis. . CERVICAL INTERNAL CAROTID ARTERIES: No acute flow-limiting stenosis of the cervical internal carotid arteries. No evidence of an aneurysm or a dissection. . VERTEBRAL ARTERIES: Cervical vertebral arteries are without acute flow limiting stenosis. . OTHER STRUCTURES: Mild degenerative changes in the visualized spine. IMPRESSION: NO acute flow-limiting stenosis, no occlusion, aneurysm or dissection of the carotid and vertebral arteries in the neck. REFERENCES: NASCET CRITERIA. The degree of stenosis in the cervical segment of the internal carotid artery is based on NASCET criteria. Normal is no stenosis. Mild is less than 50% stenosis. Moderate is 50-69% stenosis. Severe is 70% to 99% stenosis. Total occlusion is no detectable patent lumen.
--- NOTE | 2025-01-04 02:07 | CT_ITS ---
PROCEDURE INFORMATION: Exam: CT Cervical Spine Without Contrast Exam date and time: 01/04/2025 2:40 AM Age: 29 years old Clinical indication: Injury or trauma; Additional info: Fall struck head TECHNIQUE: Imaging protocol: Computed tomography of the cervical spine without contrast. Radiation optimization: All CT scans at this facility use at least one of these dose optimization techniques: automated exposure control; mA and/or kV adjustment per patient size (includes targeted exams where dose is matched to clinical indication); or iterative reconstruction. COMPARISON: CT CERVICAL SPINE WO CON 01/04/2025 2:40 AM FINDINGS: Bones: Loss of normal curvature of the spine, alignment of the vertebral bodies is grossly normal. No evidence of acute compression fracture or deformity in the cervical spine. No acute displaced fracture involving the vertebral bodies or their posterior elements. Discs/Spinal canal/Neural foramina: Mild chronic degenerative changes with foraminal osteophytes at C2-C3 and C3-C4. Soft tissues: Pre-and paravertebral soft tissues are grossly normal. IMPRESSION: Mild chronic degenerative changes in the cervical spine without an acute bony cervical spine injury or abnormality. COMMENTS: Recommend followup with MRI if clinically suspicion for discoligamentous/soft tissue or cord abnormality.
--- NOTE | 2025-01-04 02:07 | CT_ITS ---
PROCEDURE INFORMATION: Exam: CTA Chest With Contrast Exam date and time: 01/04/2025 2:49 AM Age: 29 years old Clinical indication: Injury or trauma; Additional info: Recent surgery, unprovoked syncope TECHNIQUE: Imaging protocol: Computed tomographic angiography of the chest with contrast. Exam focused on the arteries. 3D rendering (Not supervised by radiologist): MIP and/or 3D reconstructed images were created by the technologist. Radiation optimization: All CT scans at this facility use at least one of these dose optimization techniques: automated exposure control; mA and/or kV adjustment per patient size (includes targeted exams where dose is matched to clinical indication); or iterative reconstruction. Contrast material: ISOVUE; Contrast volume: 70 ml; Contrast route: INTRAVENOUS (IV); COMPARISON: CR CXR2V XR chest 2V 10/21/2018 10:50 PM FINDINGS: Pulmonary arteries: Normal. No pulmonary emboli. Aorta: Unremarkable. No aortic aneurysm. No aortic dissection. Lungs: Unremarkable. No consolidation. No masses. Pleural spaces: Unremarkable. No pneumothorax. No pleural effusion. Heart: Unremarkable. No cardiomegaly. No pericardial effusion. Mediastinal space: There no mediastinal hematoma. Lymph nodes: Unremarkable. No enlarged lymph nodes. Bones/joints: No acute fracture. Soft tissues: Unremarkable. IMPRESSION: 1. There is no significant traumatic injury seen. 2. No acute cardiac or pulmonary process.
--- NOTE | 2025-01-04 02:07 | CT_ITS ---
PROCEDURE INFORMATION: Exam: CT Head Without Contrast Exam date and time: 01/04/2025 2:38 AM Age: 29 years old Clinical indication: Injury or trauma; Additional info: Syncope struck head TECHNIQUE: Imaging protocol: Computed tomography of the head without contrast. Radiation optimization: All CT scans at this facility use at least one of these dose optimization techniques: automated exposure control; mA and/or kV adjustment per patient size (includes targeted exams where dose is matched to clinical indication); or iterative reconstruction. COMPARISON: No relevant prior studies available. FINDINGS: Brain: Normal appearing brain parenchyma without intraparenchymal hemorrhage and normal gaston-white matter differentiation/no obvious acute ischemic stroke. No intra-or extra-axial fluid collection, no supra-or infratentorial mass, no mass effect or midline shift. Cerebral ventricles: Ventricles, sulci and basal cisterns are normal in size without hydrocephalus. Paranasal sinuses: No significant mucoperiosteal thickening in the visualized paranasal sinuses. Mastoid air cells: No mastoid effusion. Bones: Visualized skull bones are grossly normal. Soft tissues: NA IMPRESSION: No evidence of an acute intracranial hemorrhage, mass lesion or obvious acute ischemic infarction.
--- NOTE | 2025-01-04 02:07 | CT_ITS ---
PROCEDURE INFORMATION: Exam: CTA Head With Contrast, Arteriography Exam date and time: 01/04/2025 2:45 AM Age: 29 years old Clinical indication: Injury or trauma; Additional info: Recent surgery unprovoked syncope TECHNIQUE: Imaging protocol: Computed tomographic angiography of the head with contrast. Exam focused on the arteries. Radiation optimization: All CT scans at this facility use at least one of these dose optimization techniques: automated exposure control; mA and/or kV adjustment per patient size (includes targeted exams where dose is matched to clinical indication); or iterative reconstruction. COMPARISON: CT HEAD/BRAIN WO CON 01/04/2025 2:38 AM FINDINGS: ANTERIOR CIRCULATION: INTRACRANIAL INTERNAL CAROTID ARTERIES: Intracranial internal carotid arteries are without acute flow limiting stenosis. MIDDLE CEREBRAL ARTERIES: M1, M2 and their distal visualized branches are without acute flow limiting stenosis. ANTERIOR CEREBRAL ARTERIES: A1, A2 and their distal visualized branches are without acute flow limiting stenosis. Anterior communicating artery is unremarkable. . POSTERIOR CIRCULATION: VERTEBRAL ARTERIES: Intracranial vertebral arteries and their visualized branches are without acute flow limiting stenosis. BASILAR ARTERY: The basilar artery and its visualized proximal branches are without acute flow limiting stenosis. POSTERIOR CEREBRAL ARTERIES: P1, P2 and their distal visualized branches are without acute flow limiting stenosis. IMPRESSION: NO acute flow-limiting stenosis or large vessel occlusion. COMMENTS: Recommend followup with MRI if persistent/new/worsening symptoms or symptoms unexplained by the current study. PROCEDURE INFORMATION: Exam: CTA Neck With Contrast Exam date and time: 01/04/2025 2:45 AM Age: 29 years old Clinical indication: Injury or trauma; Additional info: Recent surgery unprovoked syncope TECHNIQUE: Imaging protocol: Computed tomographic angiography of the neck with contrast. Exam focused on the cervical segments of the vasculature. 3D rendering (Not supervised by radiologist): MIP and/or 3D reconstructed images were created by the technologist. Radiation optimization: All CT scans at this facility use at least one of these dose optimization techniques: automated exposure control; mA and/or kV adjustment per patient size (includes targeted exams where dose is matched to clinical indication); or iterative reconstruction. Contrast material: ISOVUE; Contrast volume: 80 ml; Contrast route: INTRAVENOUS (IV); COMPARISON: No relevant prior studies available. FINDINGS: THORACIC VESSELS: Visualized aortic arch is unremarkable. No significant narrowing at the origin of the neck vessels. . COMMON CAROTID ARTERIES: Common carotid arteries are without acute flow limiting stenosis. . CERVICAL INTERNAL CAROTID ARTERIES: No acute flow-limiting stenosis of the cervical internal carotid arteries. No evidence of an aneurysm or a dissection. . VERTEBRAL ARTERIES: Cervical vertebral arteries are without acute flow limiting stenosis. . OTHER STRUCTURES: Mild degenerative changes in the visualized spine. IMPRESSION: NO acute flow-limiting stenosis, no occlusion, aneurysm or dissection of the carotid and vertebral arteries in the neck. REFERENCES: NASCET CRITERIA. The degree of stenosis in the cervical segment of the internal carotid artery is based on NASCET criteria. Normal is no stenosis. Mild is less than 50% stenosis. Moderate is 50-69% stenosis. Severe is 70% to 99% stenosis. Total occlusion is no detectable patent lumen.
[2025-01-04 02:14] LABS: Hematocrit 43.0 % (42.0-52.0); Hemoglobin 14.7 g/dL (14.1-18.0); Immature Granulocytes % 0.5 %; Mean Corpuscular HGB Conc 34.2 g/dL (31.8-35.4); Mean Corpuscular Hemoglobin 30.2 pg (27.0-31.2); Mean Corpuscular Volume 88.3 fl (80-94); Nucleated Red Blood Cells % 0 %; Platelet Count 318 K/mm3 (142-424); Red Blood Count 4.87 M/mm3 (4.60-6.20); Red Cell Distribution Width-SD 39.7 fL; White Blood Count 7.7 K/mm3 (4.8-10.8)
[2025-01-04] MEDS: LACTATED RINGERS 1000ML 1,000 ML 999 ML IV (02:14)
--- OUTSIDE RECORDS SUMMARY | 2025-01-04 02:14 | XMS_ITS | Encounter Summary ---
Author Organization [employer] ([place], [place], [place], [place]) Address [address] [place] [address] Care Team Providers Care Accounts Receivable Associate Name Role Phone Maggy Paulino APRN Primary Care Provider [phone] Encounter Details Date Type Department Care Team (Latest Contact Info) Description 12/27/2024 Travel Social History Tobacco Use Types Packs/Day Years [...] on file documented as of this encounter Plan of Treatment Not on file documented as of this encounter Visit Diagnoses Not on filedocumented in this encounter Care Teams Accounts Receivable Associate Relationship Specialty Start Date End Date Maggy Paulino APRN [address] [place] [address] PCP - General Emergency Medicine 12/27/24 documented as of this encounter
--- OUTSIDE RECORDS SUMMARY | 2025-01-04 02:14 | XMS_ITS | Clinical Summary ---
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 Medications lisinopriL (ZESTRIL) 20 MG tablet Take 1 tablet (20 mg total) by mouth daily. Active baclofen (LIORESAL) 20 MG tablet Take 1 tablet (20 mg total) by mouth 3 (three) times daily as needed for muscle spasms. Active oxyCODONE-aceta minophen (PERCOCET) 5-325 mg per tablet Take 1 tablet by mouth every 4 (four) hours as needed for pain Look-alike /Sound-alike medication . Max Daily Amount: 6 tablets 5 Active traMADoL (ULTRAM) 50 mg tablet Take 1 tablet (50 mg total) by mouth every 6 (six) hours as needed for pain. 12/29/19 25 Discontinu ed(Stop Taking at Discharge) Resolved Problems Problem Noted Date Diagnosed Date Resolved Date HTN (hypertension) 12/27/2024 5 Encounters Date Type Department Care Team Description 12/27/2024 1:05 PM EDT - 12/27/2024 3:24 PM EDT Surgery [facility] Operating Room [address] [place] [address] Alexx Staley MD (L4-5 REVISION DECOMPRESSION AND FUSION) 12/27/2024 11:38 AM EDT Anesthesia Event [facility] Operating Room [address] [place] [address] Edwardo Parekh MD Wilson, Matthew L, MD 12/27/2024 8:48 AM EDT - 12/28/2024 3:41 PM EDT Hospital Encounter [facility] Orthopedic & Neurosurgery Unit [address] [place] [address] Alexx Staley MD Discharge Disposition: Home or Self Care 12/27/2024 Travel from Last 3 Months Social History Tobacco Use Types Packs/Day Years [...] on file Sexual Orientation Not on file Last Filed Vital Signs Vital Sign Reading [...] Mass Index 19.94 12/27/2024 10:20 AM EDT Plan of Treatment Health Maintenance Due Date Last Done Comments Depression Screening (12+) 2006 HIV Screening 2009 Hepatitis C Screening 2012 DTAP/TDAP/TD VACCINES (4 - Tdap) 2013 1999, 02/04/1996, 08/25/1995 Lipid Panel 2014 COVID-19 VACCINE (2 2023-2 5 season) 2024 04/25/2021 Influenza Vaccine (#1) 2025 Tobacco Cessation Counseling and Screening (12+) 12/26/2025 12/26/2024 Pneumococcal Vaccine: 0-49 Years Aged Out No longer eligible b ased on patient's age to complete this topic Medical Devices Implanted Type Area Nurse First Assist Device Identifier Shelf Expiration Date Model / Serial / Lot Wire Nitonal - [id number] Implanted:Qty : 4 on 12/27/2024 by Alexx Staley MD at [facility] IMPLANTS N/A: Spine Lumbar J &J:DEPUY:DEPUY SPINE / / Mis Chris Ply Scrw Set Ti - [id number] Implanted:Qty : 4 on 12/27/2024 by Alexx Staley MD at [facility] IMPLANTS N/A: Spine Lumbar J &J:DEPUY:DEPUY SPINE / / Bone Matrx [facility]0-001 - [id number] Implanted:Qty : 1 on 12/27/2024 by Alexx Staley MD at [facility] IMPLANTS N/A: Spine Lumbar LIFENET:LIFENET TRANSPLANT SRV 11/23/2025 [facility]0-001 / [id number] / Cage Eit Plif H 11mm 8d 26/9 [id number] - [id number] Implanted:Qty : 1 on 12/27/2024 by Alexx Staley MD at [facility] IMPLANTS N/A: Spine Lumbar J &J:DEPUY:DEPUY SPINE 11/23/2025 [id number] / / [id number] Imp Vpr Prm Cfxfen Xtab 7x50mm [id number] - [id number] Implanted:Qty : 4 on 12/27/2024 by Alexx Staley MD at [facility] IMPLANTS N/A: Spine Lumbar J &J:DEPUY:DEPUY SPINE [id number] / / Viper2 Lordotic Antolin-50mm -050 - [id number] Implanted:Qty : 2 on 12/27/2024 by Alexx Staley MD at [facility] IMPLANTS N/A: Spine Lumbar J &J:DEPUY:DEPUY SPINE / / Procedures Procedure Name Priority Date/Time Associated Diagnosis Comments CBC W/ AUTO DIFF Routine 12/28/2024 3:08 AM EDT BASIC METABOLIC PANEL Routine 12/28/2024 3:08 AM EDT [place] C-ARM < 1 HOUR Routine 12/27/2024 12: 55 PM EDT ANESTHESIA INTUBATION Routine 12/27/2024 11:45 AM EDT [place] ARTHRODESIS COMBINED TQ 1NTRSPC LUMBAR 12/27/2024 11:38 AM EDT Spinal stenosis, lumbar region with neurogenic claudication Case Notes IN 0900 , 1h45m (R) [id number] 12-LEAD Routine 12/27/2024 11:22 AM EDT URINALYSIS MICROSCOPIC STAT 12/27/2024 10:50 AM EDT URINALYSIS, REFLEX MICROSCOPIC AND CULTURE IF INDICATED STAT 12/27/2024 10:50 AM EDT TYPE AND SCREEN ([place] BKR) Routine 12/27/2024 10:47 AM EDT BASIC METABOLIC PANEL STAT 12/27/2024 10:45 AM EDT CBC W/ AUTO DIFF STAT 12/27/2024 10:4 5 AM EDT EKG-SCANNED 12/27/2024 from Last 3 Months Results * (ABNORMAL) CBC with automated diff (12/28/2024 3:08 AM EDT) Only the most recent of2 resultswithin the time period is included. WBC 8.0 4.2 - 9.1 K/ L 12/28/2024 3:20 AM EDT [facility] RBC 4.40(L) 4.63 - 6.08 M/ L 12/28/2024 3:20 AM EDT [facility] Hemoglobin 13.3(L) 13.7 - 17.5 GM/DL 12/28/2024 3:20 AM EDT [facility] Hematocrit 39.6(L) 40.1 - 51.0 % 12/28/2024 3:20 AM EDT [facility] MCV 90 79 - 92 fL 12/28/2024 3:20 AM EDT [facility] MCH 30.2 25.7 - 32.2 pg 12/28/2024 3:20 AM T [facility] MCHC 33.6 32.3 - 36.5 GM/DL 12/28/2024 3:20 AM T [facility] RDW 12.6 11.6 - 14.4 % 12/28/2024 3:20 AM EDT [facility] Platelets 170 140 - 375 K/CU MM 12/28/2024 3:20 AM T [facility] MPV 10.5 9.4 - 12.4 fL 12/28/2024 3:20 AM EDT [facility] % Neutros 73(H) 34 - 68 % 12/28/2024 3:20 AM EDT [facility] % Lymphs 17(L) 22 - 53 % 12/28/2024 3:20 AM EDT [facility] % Monos 8 5 - 12 % 12/28/2024 3:20 AM EDT [facility] % Eos 1 1 - 7 % 12/28/2024 3:20 AM EDT [facility] % Baso 1 0 - 1 % 12/28/2024 3:20 AM EDT [facility] NRBC Absolute <0.01 0 - 0.012 K/ul 12/28/2024 3:20 AM EDT [facility] # Neutros 5.86(H) 1.78 - 5.38 K/ L 12/28/2024 3:20 AM EDT [facility] # Lymphs 1.40 1.32 - 3.57 K/ L 12/28/2024 3:20 AM EDT [facility] # Monos 0.67 0.30 - 0.82 K/ L 12/28/2024 3:20 AM EDT [facility] # Eos 0.04 0.04 - 0.54 K/ L 12/28/2024 3:20 AM EDT [facility] # Baso 0.04 0.01 - 0.08 K/ L 12/28/2024 3:20 AM EDT [facility] Immature Granulocytes-Re lative 0.40 0.01 - 0.43 % 12/28/2024 3:20 AM EDT [facility] # IG 0.03 0.00 - 0.03 K/uL 12/28/2024 3:20 AM EDT [facility] Blood Venipuncture / Unknown 12/28/2024 3:08 AM EDT 12/28/2024 3:16 AM EDT Narrative [facility] - 12/28/2024 3:20 AM EDT When [...] Blast? Flag noted Atypical Lymph flag noted Matteo Potts MD LAB BLOOD ORDERABLES Final Result [facility] [address] [phone] * (ABNORMAL) Basic Metabolic Panel (12/28/2024 3:08 AM EDT) Only the most recent of2 resultswithin the time period is included. Sodium 137 136 - 145 meq/L 12/28/2024 3:41 AM EDT [facility] Potassium 3.9 3.4 - 5.1 meq/L 12/28/2024 3:41 AM EDT [facility] CO2 27 22 - 29 meq/L 12/28/2024 3:41 AM EDT [facility] Chloride 106 98 - 112 meq/L 12/28/2024 3:41 AM EDT [facility] Glucose 130(H) 74 - 100 mg/dL 12/28/2024 3:41 AM EDT [facility] BUN 4.3(L) 8.9 - 20.6 mg/dL 12/28/2024 3:41 AM EDT [facility] Creatinine 0.82 0.72 - 1.25 mg/dL 12/28/2024 3:41 AM EDT [facility] BUN/Creatinine 5(L) 8 - 20 12/28/2024 3:41 AM EDT [facility] Calcium 8.7 8.4 - 10.2 mg/dL 12/28/2024 3:41 AM EDT [facility] Anion Gap 8 4 - 12 12/28/2024 3:41 AM EDT [facility] eGFR (mL/min/1.73m2) 121 >=60 mL/min/1.7 3m2 12/28/2024 3:41 AM EDT [facility] Osmolality Calc 272.6 mOsm/kg 3:41 AM EDT [facility] Blood Venipuncture / Unknown 12/28/2024 3:08 AM EDT 12/28/2024 3:17 AM EDT Matteo Potts MD LAB BLOOD ORDERABLES Final Result [facility] [address] [phone] * [place] C-ARM < 1 HOUR (12/27/2024 [...] Ellie Garcia. Transcribed by Precious Nagel PA-C. us Alexx Staley MD IMG FLUOROSCOPY ORDERABLES Erin l Result * AN SINGLE LUMEN INTUBATION (12/27/2024 11:45 [...] Parekh MD ANESTHESIA ORDERABLES Final Resu lt * ECG 12 lead (12/27/2024 11:22 AM EDT) VENTRICULAR RATE EKG/MIN 52 BPM GE MUSE ATRIAL RATE (MCT) 52 BPM GE MUSE OK Interval 124 ms GE MUSE QRS-INTERVAL (MSEC) 90 ms GE MUSE QT Interval 426 ms GE MUSE QTC Interval 396 ms GE MUSE P [place] 21 degrees GE MUSE R AXIS (MCT) -3 degrees GE MUSE T Wave [place] 27 degrees GE MUSE [place] Diagnosis Sinus bradycardia with sinus arrhythmia with occasional premature ventricular complexes Otherwise normal ECG No previous ECGs available Confirmed by Marie Apodaca MD (2019) on 12/27/2024 6:15:27 PM GE MUSE 12/27/2024 11:2 2 AM EDT 12/27/2024 6:15 PM EDT us Alexx Staley MD ECG ORDERABLES Final Result GE MUSE * (ABNORMAL) Urinalysis, Reflex Microscopic and Culture If Indicated (12/27/2024 10:50 AM EDT) Color, UA Yellow 12/27/2024 11:12 AM EDT [facility] Clarity, UA Clear Clear 12/27/2024 11:12 AM EDT [facility] Specific [place], UA 1.031(H) 1.005 - 1.030 12/27/2024 11:12 AM EDT [facility] pH, UA 6.5 6.0 - 8.0 12/27/2024 11:12 AM EDT [facility] Leukocytes, UA 25 Bertin/uL(A) Negative 12/27/2024 11:12 AM EDT [facility] Nitrite, UA Negative Negative 12/27/2024 11:12 AM EDT [facility] Protein, UA 1+(A) Negative 12/27/2024 11:12 AM EDT [facility] Glucose, UA Normal Normal 12/27/2024 11:12 AM EDT [facility] Ketones, UA Trace(A) Negative 12/27/2024 11:12 AM EDT [facility] Bilirubin, UA Negative Negative 12/27/2024 11:12 AM EDT [facility] Blood, UA Negative Negative 12/27/2024 11:12 AM EDT [facility] Urobilinogen, UA 3 mg/dL(A) Normal 12/27/2024 11:12 AM EDT [facility] Specimen Source Urine, Voided 12/27/2024 11:12 AM EDT [facility] Urine URINE / Unknown 12/27/2024 1 0:50 AM EDT 12/27/2024 11:04 AM EDT us Alexx Staley MD URINE ORDERABLES Final Result Performing Organization Address City/State/[facility] Co de Phone Number [facility] [address] [place] [address] * (ABNORMAL) Urinalysis Microscopic Only (12/27/2024 10:50 AM EDT) WBC, UA 6-10(A) None Seen /HPF 12/27/2024 11:12 AM EDT [facility] RBC, UA 0-2(A) None Seen /HPF 12/27/2024 11:12 AM EDT [facility] Bacteria, UA None Seen None Seen, Trace 12/27/2024 11:12 AM EDT [facility] Mucus 4+(A) None Seen 12/27/2024 11:12 AM EDT [facility] SQUAMOUS EPITHELIAL 0-2(A) None Seen /HPF 12/27/2024 11:12 AM EDT [facility] Ca Oxalate Carina, UA 1+(A) None Seen 12/27/2024 11:12 AM EDT [facility] Urine URINE / Unknown 12/27/2024 1 0:50 AM EDT 12/27/2024 11:04 AM EDT us Alexx Staley MD URINE ORDERABLES Final Result Performing Organization Address City/[facility]/ZIP Co de Phone Number [facility] [address] [place], [place] [id number] [place] [address] * Type and Screen (12/27/2024 10:47 AM EDT) ABO/Rh O Positive 12/27/2024 10:45 AM EDT [facility] ([place] Antibody Screen Negative 12/27/2024 10:45 AM EDT [facility] [place] HISTCHK HIST CHECK PERFORMED 12/27/2024 10:45 AM EDT [facility] [place] Blood Venipuncture / Unknown 12/27/2024 10:47 AM EDT 12/27/2024 10:57 AM EDT Alexx Stalye MD [facility] BLOOD BANK TEST ORDERABLES Final Result Performing Organization Address [facility] Co de Phone Number [facility] ([place] [address] [phone] * EKG-SCANNED (12/27/2024) Narrative 12/27/2024 Ordered by an unspecified provider. us Default Scanning Provider SCAN ORDERS Final Result from Last 3 Months Insurance [facility] [place] [address] [id number] BLUE CROSS/BLUE SHIELD Advance Directives For more information, please contact: [phone] * Full Code (Latest Code Status on File) Date Activated Date Inactivated Comments 12/27/2024 1:41 PM 12/28/2024 4:41 PM Care Teams Technical Support Analyst Relationship Specialty Start Date End Date Maggy Paulino, RODRIGO [address] [place] [address] PCP - General Emergency Medicine 12/27/24
--- OUTSIDE RECORDS SUMMARY | 2025-01-04 02:16 | XMS_ITS | Continuity of Care Document ---
Author Organization [facility] & [facility] Urology-100 Address [address] [address] [place] [address] Care Team Providers Care Bursar Name Role Phone BRITTNEY NAGY Primary Care Provider [phone] Assessment Encounter Date Assessment Date Assessment LastModified by Organization Details LastModified Time 11/17/2024 11/17/2024 ASSESSMENT: Chester Tellez is a 29-year-old male with high riding testicles, which may complicate performing a vasectomy in the office setting. PLAN: 1. The patient was advised to hold any blood thinners, including aspirin and Excedrin, for seven days prior to the procedure. 2. A prescription for Valium was sent to the pharmacy for the patient to take 30 to 60 minutes before the procedure to help relax. 3. The patient was informed about the potential need to perform the procedure in the OR if it cannot be completed in the office due to anatomical reasons. 4. The patient was educated on the importance of continuing contraception until a semen analysis confirms sterility two months post-procedure. 5. The patient was provided with a pamphlet summarizing the procedure and post-procedure care instructions. 6. The patient was instructed to avoid heavy lifting or straining for five to seven days post-procedure to reduce the risk of bleeding. 7. The patient was advised to avoid sexual activity and submersion in water for one week post-procedure to reduce the risk of infection. Please note this report was created using voice recognition/text compilation software with [employer] documentation services during the encounter with the patient; Please excuse any errors due to the regulatory and compliance technician process. [email or web address] Not available 11/17/2024 10:09:32 Plan of Treatment Reminders Order Date Submit Date Provider Last Modified By Organization Details Last Modified Time Details Appointments None recorded . Lab None recorded . Referral None recorded . Procedures None recorded . Surgeries None recorded . Imaging None recorded . Medication Orders Valium 10 mg tablet 025 11/18/19 25 [facility], [address] [address] [place], [id number], 11:03:27 Patient TargetsNo targets recorded. Patient InstructionsNo instructions recorded. Reason for Referral None Reported. Procedures Surgical History Date Name Laterality Status Provider Name and Address Organization Details Recorded Time 12/07/19 Urology Vasectomy completed JOSHUA GLEZ MD [facility], [place], [address], [facility] & [place] 12/06/2024 12:00:22 tonsillectomy completed Carmen Candido Cervantesarrez [facility] & [place] 11/17/2024 09:53:40 sleeve resection of stomach completed Carmen Sniderez [facility] & [place] 11/17/2024 09:53:50 excision of skin completed Carmen ridleyo Rio [facility] & [place] 11/17/2024 09:54:02 appendectomy completed Carmen Sniderez [facility] & [place] 11/17/2024 09:54:13 Imaging Results None recorded. Procedure Notes None recorded. Medical Equipment None Reported. Allergies Allergen ID Allergen Name Allergen Category Reaction Reaction Severity Criticality Documentation Date Start Date Code Code System Note Provider Name and Address Organization Details Recorded Time 229807 Non-stero idal anti-infl ammatory agent (product) medicatio n Not available Not available Not available 11/17/2024 28133 005 SNOMED Carmen Pate [facility] & [place] 09:53:24 Medications Name Sig Start Date Stop Date Status Note LastModified by Organization Details LastModified Time tizanidine 4 mg tablet TAKE 1 TABLET BY MOUTH 2 TIMES A DAY FOR 10 DAYS active Not Available Not Available No t Available lisinopril 20 mg tablet TAKE 1 TABLET BY MOUTH ONCE A DAY active Not Available Not Available No t Available prednisone 20 mg tablet TAKE 2 TABLETS BY MOUTH ONCE A DAY FOR 6 DAYS 11/17 completed Not Available Not Available Not Available hydrocodone 10 mg-acetamin ophen 325 mg tablet TAKE 1 TABLET BY MOUTH EVERY 6 HOURS FOR 7 DAYS active Not Available Not Available No t Available tramadol 50 mg tablet Take 1 tablet every 6 hours by oral route for 3 days. 2024 active Not Available Not Available Not Avai lable diazepam 10 mg tablet TAKE 1 TABLET BY MOUTH FOR 1 DOSE active Not Available Not Available No t Available ondansetron 4 mg disintegrat ing tablet DISSOLVE 1 TABLET ON THE TONGUE EVERY 6 HOURS FOR 10 DAYS active Not Available Not Available No t Available baclofen active Not Available Not Avai lable Not Available Vitals Date Recorded Body height Body mass index (BMI) Body weight Oxygen saturation Oxygen saturation in Arterial blood by Pulse oximetry Heart rate Systolic And Diastolic Provider Name and Address Organization Details Last Updated DateTime 5 177.8 cm 35.6 kg/m2 159391. 91 g 98 % 98 % 69 /min 132/74 mm[Hg] Carmen Pate [place] - [facility] & [place] 5 09:52:28 Social History None recorded. Functional Status None recorded. Mental Status None recorded. Family History Nothing Reported. Medical History No medical history recorded. Past Encounters Encounter ID Performer Location Encounter Start Date Encounter Closed Date Diagnosis/Indication Diagnosis SNOMED-CT Code Diagnosis ICD10 Code Diagnosis Note [id number] JOSHUA GLEZ MD [facility] Urology-1 00 [address] [facility] [address] [place] [address] 11/17/2024 09:46:06 11/17/2024 10:10:41 Assessment for sterilization procedure 459843654 Z30.09 I had a long discussion with Mr. Tellez today regarding elective sterilizat ion. I reviewed procedure in depth including risks including, but not limited to: Bleeding, infection, scrotal hematoma, injury to adjacent structures such as the testicle, and re-cannula tion. I discussed the typical postoperat praveen recovery along with activity limitation s. The patient was explicitly instructed to continue contracept ion for a minimum of 2 months following the procedure. At that time, sterility must be confirmed by semen analysis prior to the cessation of contracept ion. The patient verbalized his understand ing. I explained to the patient that given the retractile testicles bilaterall y, It may be difficult if not impossible to comfortabl y performed the procedure in office under local anesthetic . He verbalized his understand ing. We will proceed in office, but may have to abort the procedure in favor of rescheduli ng under general anesthesia .. Health Concerns Section Related Observation LastModified by Organization Detai ls LastModified Time None Recorded Concern Status LastModified by Organization Details LastModified Time None Recorded Payers Encounter Date Sequence Insurance Name Policy Number Policy Camacho Covered Member ID Camacho Member ID Guarantor Name 11/17/2024 1 [place] [id number] Chester Tellez [id number] Chester Tellez Notes Date Note Type Note Provider Name and Address Organization Details Recorded Time 11/17/2024 text/html 11/17/24 63-[id number]-[id number]-male present for a vasectomy consultation.Chester Tellez is a 29-year-old male who presents for a new patient visit. He is interested in discussing a vasectomy. He has two children, one who just turned five and another who is a few months old. He is currently using control but not an IUD. He has no history of hernia repair or any other surgeries. During the visit, the procedure for vasectomy was explained in detail, including the use of local anesthetic, the steps involved, and the potential risks such as bleeding and infection. The patient was informed about the need to hold blood thinners like aspirin for seven days prior to the procedure and the option to take Valium 30 to 60 minutes before the procedure to help relax. The patient was also advised about the importance of continuing contraception until a semen analysis confirms sterility two months post-procedure. Not Available [facility] 11/17/2024 10:59:52
--- OUTSIDE RECORDS SUMMARY | 2025-01-04 02:16 | XMS_ITS | Continuity of Care Document ---
Author Organization [facility] & [facility] Urology-100 Address [address] [facility] [address] [place] [address] Care Team Providers Care Autoglazier Name Role Phone BRITTNEY NAGY Primary Care Provider Assessment No assessment recorded. Plan of Treatment Reminders Order Date Submit Date Provider Last Modified By Organization Details Last Modified Time Details Appointments None recorded. Lab semen analysis (post vasectomy) [address] (Registration ), [address] [place], [address], 12:01:29 Referral None recorded. Procedures None recorded. Surgeries None recorded. Imaging None recorded. Medication Orders tramadol 50 mg tablet 2024 025 [facility], [address], [id number], 14:15:07 Patient TargetsNo targets recorded. Patient InstructionsNo instructions recorded. Reason for Referral None Reported. Procedures Surgical History Date Name Laterality Status Provider Name and Address Organization Details Recorded Time 12/07/19 25 Urology Vasectomy completed JOSHUA GLEZ MD [address] [place], [address], [facility] & [place] 12/06/2024 12:00:22 tonsillectomy completed Carmen Pate [facility] 11/17/2024 09:53:40 sleeve resection of stomach completed Carmen IBARRA - [facility] & [place] 11/17/2024 09:53:50 excision of skin completed Carmen Pate [place] - [facility] & [place] 11/17/2024 09:54:02 appendectomy completed Carmen IBARRA - [facility] & [place] 11/17/2024 09:54:13 Imaging Results None recorded. Procedure Notes None recorded. Medical Equipment None Reported. Allergies Allergen ID Allergen Name Allergen Category Reaction Reaction Severity Criticality Documentation Date Start Date Code Code System Note Provider Name and Address Organization Details Recorded Time 383254 Non-stero idal anti-infl ammatory agent (product) medicatio n Not available Not available Not available 11/17/2024 51842 005 SNOMED Carmen gonzalez, [facility] & [place] 09:53:24 Medications Name Sig Start Date Stop [...] height Body mass index (BMI) Body weight Provider Name and Address Organization Details Last Updated DateTime 12/06/2024 177.8 cm 35.1 kg/m2 506290.98 g Silke Wilde [place] - [facility] & [place] 12/06/2024 11:24:24 Social History None recorded. Functional Status None recorded. Mental Status None recorded. Family History Nothing Reported. Medical History No medical history recorded. Past Encounters Encounter ID Performer Location Encounter Start Date Encounter Closed Date Diagnosis/Indication Diagnosis SNOMED-CT Code Diagnosis ICD10 Code Diagnosis Note [id number] JOSHUA GLEZ MD [facility] Urology-1 00 [address] [facility] 100 [place] [address] 11/17/2024 09:46:06 11/17/2024 10:10:41 Assessment for sterilization procedure 030570456 Z30.09 I had a long discussion with [...] of rescheduli ng under general anesthesia .. [id number] JOSHUA GLEZ MD [facility] Urology-1 00 [address] [facility] 100 [place] [address] 12/06/2024 11:06:04 12/06/2024 12:08:51 Contraception status 664273634 Z30.2 Patient tolerated the procedure well. He was instructed to apply cold compress today, 20 minutes on/ 20 minutes off. He may shower tomorrow but is instructed not to submerge the incision sites under water for a minimum of 1 week. He may return to light duty tomorrow, but he was instructed to avoid any heavy lifting or straining for the next week. He was instructed to contact our office if he experience s any fever, shortness of breath, uncontroll able pain/swell ing, or signs worrisome for infection (redness, purulent drainage, fever). He was given explicit instructio ns to continue contracept ion until sterility is confirmed on semen analysis is performed in 2 months. Health Concerns Section Related Observation LastModified by Organization Detai ls LastModified Time None Recorded Concern Status LastModified by Organization Details LastModified Time None Recorded Payers Encounter Date Sequence Insurance Name Policy Number Policy Camacho Covered Member ID Camacho Member ID Guarantor Name 12/06/2024 1 [place] [id number] Chester Tellez [id number] Chester Tellez Notes Date Note Type Note Provider Name and Address Organization Details Recorded Time 12/06/2024 text/html 12/06/24 Patient returns to my office for vasectomy. ----- 11/17/24 71-[id number]-abt-male present for a vasectomy consultation.Chester Tellez is [...] semen analysis confirms sterility two months post-procedure. JOSHUA GLEZ MD [address], [place], [address], [facility] - [facility] - [place] & [place] 12/09/2024 09:05:15
--- OUTSIDE RECORDS SUMMARY | 2025-01-04 02:16 | XMS_ITS | Data Portability ---
Author Organization [facility] - [place] & JOSE Kemp ADMIN Address [address] [place] [address] Care Team Providers Care Ice Guard Tester Name Role Phone BRITTNEY NAGY Primary Care Provider [phone] Assessment Encounter Date Assessment Date Assessment LastModified [...] created using voice recognition/text compilation software with [employer]'s documentation services during the encounter with the patient; Please excuse any errors due to the flexible nanny process. [email or web address] Not available 11/17/2024 10:09:32 Plan of Treatment Reminders Order Date Submit Date Provider Last Modified By Organization Details Last Modified Time Details Appointments None recorded. Lab semen analysis (post vasectomy) [address] (Registration ), [address], [place], [address], 12:01:29 Referral None recorded. Procedures None recorded. Surgeries None recorded. Imaging None recorded. Medication Orders tramadol 50 mg tablet 2024 025 [facility], [facility], [id number], 14:15:07 Valium 10 mg tablet 2024 025 [facility], [address] [place] [address], [id number], 11:03:27 Patient TargetsNo targets recorded. Patient InstructionsNo instructions recorded. Reason for Referral None Reported. Procedures Surgical History Date Name Laterality Status Provider Name and Address Organization Details Recorded Time 12/07/19 25 Urology Vasectomy completed JOSHUA GLEZ MD [address], [place], [address], [facility] & [place] 12/06/2024 12:00:[address] [facility] Candido IBARRA - [facility] & [place] 11/17/2024 09:53:40 sleeve resection of stomach completed Carmen IBARRA - [facility] & [place] 11/17/2024 09:53:50 excision of skin completed Carmen Leana IBARRA - [facility] & [place] 11/17/2024 09:54:02 appendectomy completed Carmen IBARRA [facility] & [place] 11/17/2024 09:54:13 Imaging Results None recorded. Procedure Notes None recorded. Medical Equipment None Reported. Allergies Allergen ID Allergen Name Allergen Category Reaction Reaction Severity Criticality Documentation Date Start Date Code Code System Note Provider Name and Address Organization Details Recorded Time 685204 Non-stero idal anti-infl ammatory agent (product) medicatio n Not available Not available Not available 11/17/2024 83733 005 SNOMED Carmen Pate [facility], [facility] & [place] 5 09:53:24 Medications Name Sig Start Date Stop [...] Updated DateTime 5 177.8 cm 35.6 kg/m2 456189. 91 g 98 % 98 % 69 /min 132/74 mm[Hg] Carmen Pate [facility] & [place] 5 09:52:28 Date Recorded Body height Body mass index (BMI) Body weight Provider Name and Address Organization Details Last Updated DateTime 12/06/2024 177.8 cm 35.1 kg/m2 194788.98 g Silke Chani [facility] [place] & [place] 12/06/2024 11:24:24 Social History None recorded. Functional Status None recorded. Mental Status None recorded. Family History Nothing Reported. Medical History No medical history recorded. Past Encounters Encounter ID Performer Location Encounter Start Date Encounter Closed Date Diagnosis/Indication Diagnosis SNOMED-CT Code Diagnosis ICD10 Code Diagnosis Note [id number] JOSHUA GLEZ MD [facility] Urology-1 00 [address] [facility] 100 [place] [address] 11/17/2024 09:46:06 11/17/2024 10:10:41 Assessment for sterilization procedure 540283483 Z30.09 I had a long discussion with [...] of rescheduli ng under general anesthesia .. [id number] JOSHUA GLEZ MD [facility] Urology-1 00 [address] [facility] 100 [place] [address] 12/06/2024 11:06:04 12/06/2024 12:08:51 Contraception status 879617166 Z30.2 Patient tolerated the procedure well. He [...] Concerns Section Related Observation LastModified by Organization Karen LastModified Time None Recorded Concern Status LastModified by Organization Details LastModified Time None Recorded Advance Directives Directive None Recorded Payers Insurance Date Sequence Insurance Name Policy Number Policy Camacho Covered Member ID Camacho Member ID Guarantor Name 12/06/2024 1 [place] [id number] Chester Tellez [id number] Chester Tellez Notes Date Note Type Note Provider Name and Address Organization Details Recorded Time 11/17/2024 text/html 11/17/24 64-ipgg-atb-male present for a vasectomy consultation.Chester Tellez is [...] confirms sterility two months post-procedure. Not Available [facility] 11/17/2024 10:59:52 12/06/2024 text/html 12/06/24 Patient returns to my office for vasectomy. ----- 11/17/24 26-dxrp-ovj-male present for a vasectomy consultation.Chester Tellez is [...] sterility two months post-procedure. JOSHUA GLEZ MD [address], [place], [address], [facility] - [place] & [place] 12/09/2024 09:05:15
[2025-01-04 02:17] LABS: Albumin Level 4.5 g/dl (3.5-5.0); Chloride 100 mmol/L (98-107); Potassium 3.6 mmoL/L (3.5-5.1); Sodium 135 mmol/L (136-145)
[2025-01-04 02:20] LABS: Alanine Aminotransferase 19 U/L (12-78); Albumin/Globulin Ratio 1.7 (1.1-1.8); Alkaline Phosphatase 93 U/L (38-126); Anion Gap 15.6 mEq/L (5-15); Aspartate Amino Transferase 27 U/L (17-59); Bilirubin,Total 0.5 mg/dl (0.2-1.3); Blood Urea Nitrogen 9 mg/dl (9-20); Calcium 8.7 mg/dl (8.4-10.2); Carbon Dioxide 23 mmol/L (22.0-30.0); Creatinine Clearance Estimated 238 mL/min (50-200); Creatinine,Serum 0.70 mg/dl (0.66-1.25); Estimated Glomerular Filt Rate 132 ml/min (>60); GFR (African American) 160 ML/MIN (>60); Globulin 2.6 g/dL (1.3-3.2); Glucose 139 mg/dl (74-100); Total Protein,Serum 7.1 g/dl (6.3-8.2)
[2025-01-04 02:35] LABS: VBG HCO3 21.9 mmol/L (23-30); VBG PCO2 35.3 mmol/L (35-51); VBG PH 7.41 mmol/L (7.31-7.41); VBG PO2 82.4 mmol/L (28-40)
[2025-01-04 02:38] LABS: Lactate Venous 2.1 mmol/L (0.4-2.0)
[2025-01-04 02:42] LABS: Troponin I < 0.01 ng/ml (0.00-0.034)
[2025-01-04] MEDS: SODIUM CHLORIDE 0.9% 10ML SYR (RAD ONLY) 10 ML IV ×2 (03:01→07:53)
[2025-01-04] MEDS: IOPAMIDOL-370 (76%);100ML BOTTLE 150 ML IV (03:01)
[2025-01-04] MEDS: 0.9 % SODIUM CHLORIDE 50 ML VIAL IV ×2 (03:02→07:53)
--- NOTE | 2025-01-04 03:39 | HMH.EDGENADL ---
Discharge Plan Disposition Patient Disposition: Admitted Prescriptions Prescriptions: No Action Vraylar 1.5 mg capsule 1.5 mg PO DAILY Qty: 30 1RF lisinopril 10 MG tablet 10 mg PO DAILY Referrals Follow up/Referrals: Fauzia Osorio MD [Primary Care Provider, Medical] - See instructions Clinical Impressions Clinical Impression: Syncope and collapse Print Language Print Language: Trinidadian Discharge ED Provider: Tam Meyer General Adult HPI General Chief complaint: Fall Stated complaint: SYNCOPE Time Seen by Provider: 01/04/25 02:07 Mode of Arrival: EMS Source of Information: Patient and Parent(s) Description of Symptoms (Recalled from ER Triage Doc. by RN): pt presents to the ED d/t falling in bathroom twice, pt denies hitting head, pt had lumbar fusion on L4-5. pt is alert. pt had gastric bypass for med hx. History of Present Illness HPI narrative: 29-year-old male who just had lumbar fusion 8 days ago presents to the ER after concerns of passing out. Patient reports he took a prescribed pain pill before bed, went to lay down, had to get up to use the restroom so he walked to the bathroom, attempted to take a picture of his incision and started having tunnel vision and then syncopized. He was attempting to take a video of the incision when this happened and on his video he can see that he twitched briefly after he initially fell to the ground. He then woke up to get himself off the ground and to the toilet and states I do not know what happened next, I woke up on the floor again . Patient reports a similar passing out episode a few months ago prior to his surgery which she thought may have been related to his chronic back pain. He is unsure why he has had these episodes and is now worrying about them. He did not think he hit his head but he did fall completely to the floor. He does not take any blood thinners. He is not having any new back pain, numbness, tingling, or weakness. No neck pain. Was tachycardic on arrival and with EMS but otherwise stable and well-appearing. He was GCS 15 per EMS report. Blood glucose 180 during transportation. Patient reports no fevers but states he has been having hot and cold flashes and currently has chills. Denies any new pain at the incision sites, no new back pain, he states his pain has been steadily improving since the time of surgery. He also has not had any redness or pus from the wounds. No abdominal pain, nausea, vomiting, diarrhea, no chest pain or difficulty breathing, he does not report any palpitations. Related Data Home Medications ?Medication ?Instructions ?Recorded ?Confirmed lisinopril 10 mg tablet 10 mg PO DAILY Hypertension 01/23/22 01/29/24 Previous Rx's ?Medication ?Instructions ?Recorded cariprazine 1.5 mg capsule 1.5 mg PO DAILY #30 caps 02/05/24 (Vraylar) Allergies Allergy/AdvReac Type Severity Reaction Status Date / Time NSAIDS (Non-Steroidal Allergy Unknown Verified 01/29/24 12:00 Anti-Inflamma (NSAIDS (NON-STEROIDAL ANTI-INFLAMMA) [facility] Disclaimer: The information contained in this section may have been updated after the patient was seen, as this information can be updated by other users. Medical History (Updated 01/04/25 @ 04:00 by Tam Meyer MD) Mood disorder Generalized anxiety disorder Concussion Migraines High blood pressure Surgical History (Updated 12/04/23 @ 09:20 by Aundrea Orta APRN) History of gastric bypass History of tonsillectomy Social History (Updated 12/04/23 @ 09:18 by Aundrea Orta APRN) Smoking Status: Never smoker second hand exposure: No alcohol intake: current alcohol intake frequency: holidays/special occasions only counseling given: No substance use type: marijuana current occupational status: employed Travel in the last 8 weeks?: None adopted: No caregiver/support person: Yes foster care: No household members: spouse housing: house lives independently: Yes marital status: number of children: 2 number of grandchildren: 0 education level: high school current occupation: 3M current occupational exposures/hazards: No Hx Recent Travel: No sexually active: Yes caffeine: No physical activity: none working smoke detector in home: Yes fire extinguisher in home: Yes carbon monox detector in home: No firearms in home: Yes firearms unloaded and locked: Yes (locked up) do you feel safe at home: Yes victim of physical abuse: No victim of emotional abuse: No victim of sexual abuse: No would you like helpful sources: No Other Medical History Have you received the Flu Vaccine for this season: No Have you received the Pneumonia Vaccine: No ROS Obtained: Yes Systems reviewed as appropriate & no additional complaints except as documented Per HPI Physical Exam General General appearance: alert and in no apparent distress Head Head exam: atraumatic and normocephalic Eye Eye exam: Present PERRL and EOMI ENT ENT exam: Present mucous membranes moist Neck Neck exam: Present normal inspection and full ROM Chest Chest inspection: Present symmetric chest wall rise Respiratory Respiratory exam: Present normal lung sounds bilaterally; Absent respiratory distress, wheezes or stridor Cardiovascular Cardiovascular exam: Present normal rhythm and tachycardia Abdominal Exam Abdominal exam: Present soft; Absent distention or tenderness Extremities Exam Extremities exam: Present full ROM Back Exam Back exam: Present other (Lumbar surgical incisions well-approximated with analy in place, well-healing, no evidence of infection, mild appropriate postoperative tenderness) Neurological Exam Neurological exam: Present alert, oriented X3 and CN II-XII intact; Absent motor sensory deficit Psychiatric Psychiatric exam: Present normal affect and normal mood Skin Skin exam: Present warm and dry Medical Decision Making Medical Records Medical records reviewed: Yes I reviewed the patient's medical records. Screening: Per USPSTF and CDC recommendations, given the prevalence of disease in our region, it is our hospital?s policy to screen for HIV and viral Hepatitis for all patients aged 18 and over and those with ongoing risk factors. Javier Inquiry Pt receiving controlled substance: No Vital Signs: 01/04/25 02:03 01/04/25 03:01 01/04/25 03:31 Temperature 98.7 F Temperature Source Oral Pulse Rate 73 Pulse Rate [Bilateral Radial] 109 H Respiratory Rate 24 16 18 Blood Pressure 108/59 L 122/98 H Blood Pressure [Right Arm] 108/82 L Blood Pressure Mean 106 Blood Pressure Mean [Right Arm] 90 Blood Pressure Source Blood Pressure Position Blood Pressure Position [Right Arm] Supine 02 Sat by Pulse Oximetry 99 99 Oxygen Delivery Method Room Air 01/04/25 03:40 01/04/25 03:41 01/04/25 03:42 Temperature Temperature Source Pulse Rate 72 78 80 Pulse Rate [Bilateral Radial] Respiratory Rate 16 18 20 Blood Pressure 119/54 L 125/60 106/67 L Blood Pressure [Right Arm] Blood Pressure Mean 78 82 82 Blood Pressure Mean [Right Arm] Blood Pressure Source Automatic Cuff Automatic Cuff Automatic Cuff Blood Pressure Position Supine Sitting Standing Blood Pressure Position [Right Arm] 02 Sat by Pulse Oximetry 99 99 Oxygen Delivery Method 07/16/25 03:45 Temperature Temperature Source Pulse Rate 64 Pulse Rate [Bilateral Radial] Respiratory Rate 18 Blood Pressure Blood Pressure [Right Arm] Blood Pressure Mean Blood Pressure Mean [Right Arm] Blood Pressure Source Blood Pressure Position Blood Pressure Position [Right Arm] 02 Sat by Pulse Oximetry 98 Oxygen Delivery Method Lab Data Lab Results 01/04/25 01:48: WBC 7.7, RBC 4.87, Hgb 14.7, Hct 43.0, MCV 88.3, MCH 30.2, MCHC 34.2, RDW 12.2, Plt Count 318, MPV 10.4, Neut % (Auto) 50.2, Lymph % (Auto) 40.6, [place] % (Auto) 6.2, Eos % (Auto) 1.7, Baso % (Auto) 0.8, Neut # (Auto) 3.9, Lymph # (Auto) 3.1, [place] # (Auto) 0.5, Eos # (Auto) 0.1, Baso # (Auto) 0.1, Sodium 135 L, Potassium 3.6, Chloride 100, Carbon Dioxide 23, Anion Gap 15.6 H, BUN 9, Creatinine 0.70, Estimated Creat Clear 238, Estimated GFR 132, Est GFR ( Amer) 160, Glucose 139 H, Calcium 8.7, Total Bilirubin 0.5, AST 27, ALT 19, Alkaline Phosphatase 93, Troponin I < 0.01, Total Protein 7.1, Albumin 4.5, Globulin 2.6, Albumin/Globulin Ratio 1.7, Plasma/Serum Alcohol < 10 01/04/25 02:12: VBG pH 7.41, VBG pCO2 35.3, VBG pO2 82.4 H, VBG HCO3 21.9 L, VBG Total CO2 23.0, VBG O2 Saturation 96.3 H, VBG Base Excess -2.8 L, VBG Lactic Acid 2.1 H 01/04/25 01:48 01/04/25 01:48 Orders (Tests/Meds): ED MEDICATIONS Discontinued Medications Generic Name Dose Route Start Last Admin Trade Name Freq PRN Reason Stop Dose Admin Lactated Ringer's 1,000 mls @ 999 mls/hr 01/04/25 02:07 01/04/25 02:14 Lactated Ringer's 1000 Ml Bag IV 01/04/25 03:07 999 mls/hr .Q1H1M ONE Administration Iopamidol 150 ml 01/04/25 03:00 01/04/25 03:01 Iopamidol-370 (76%);100ml Bottle IV 01/04/25 03:01 150 ml ONCE ONE Administration Sodium Chloride 50 ml 01/04/25 03:00 01/04/25 03:02 0.9 % Sodium Chloride 50 Ml Vial IV 01/04/25 03:01 50 ml ONCE ONE Administration Sodium Chloride 10 ml 01/04/25 03:00 01/04/25 03:01 Sodium Chloride 0.9% 10ml Syr (Rad Only) IV 01/04/25 03:01 10 ml ONCE ONE Administration ORDERS Category Date Time Status CT angio chest PE protocol Stat Cat Scan 01/04/25 02:[address] angio head Stat Cat Scan 01/04/25 02:[address] angio neck Stat Cat Scan 01/04/25 02:[address] cervical spine wo con Stat Cat Scan 01/04/25 02:[address] head/brain wo con Stat Cat Scan 01/04/25 02:07 Completed CBC w/Auto Diff [Complete Blood Count Auto Diff] Stat Lab 01/04/25 01:48 Completed CMP [Comprehensive Metabolic Panel] Stat Lab 01/04/25 01:48 Completed Ethanol [Ethyl Alcohol] Stat Lab 01/04/25 01:48 Completed Troponin I Q3H Lab 01/04/25 05:15 Ordered Troponin I Q3H Lab 01/04/25 08:15 Ordered Troponin I Stat Lab 01/04/25 01:48 Completed UDS [Drug Screen,Urine] Stat Lab 01/04/25 03:33 Received Blood Culture Stat Micro 01/04/25 03:05 Ordered VBG [Venous Blood Gas] Stat RT 01/04/25 02:12 Completed Medical Decision Narrative: In summary, this 29-year-old male with comorbidities described in the HPI including recent back surgery presents to the emergency department today with multiple syncopal episodes. On initial evaluation patient is tachycardic but otherwise hemodynamically stable, afebrile but having chills, no numbness, tingling, or weakness, no focal neurologic deficits, benign abdominal exam, lungs clear bilaterally, no peripheral edema, no external evidence of trauma, lumbar surgical sites well-healing without evidence of infection. Differential diagnosis includes but is not limited to ACS, PE, arrhythmia, electrolyte abnormality, arrhythmogenic abnormality such as WPW, Brugada, HCM, or prolonged QT, also considered the possibility of intracranial bleed, traumatic cervical spine injury, also considered the possibility of vascular abnormality in the brain causing relatively unprovoked syncope though his initial episode sounded vasovagal, his second episode sounded unprovoked and I am concerned he has had episodes like this before. I did also consider the possibility of bloodstream infection since patient is more than a week out from surgery and is now having hot and cold flashes with new syncope. Based on these concerns, I ordered broad workup including serum labs, CT imaging and angiography, cardiac workup, VBG, tox labs. ECG personally interpreted demonstrates sinus tachycardia, rate 101, normal axis, normal WA and QTc, no STEMI. No WPW, Brugada, HCM, or prolonged QT. Patient received IV fluids initially for treatment. Labs personally reviewed demonstrate normal CBC, VBG with normal pH, mild elevated lactic acid on VBG, CMP with tracely elevated anion gap consistent with a slightly elevated lactic acid, normal kidney function, troponin undetectably low less than 0.01, EtOH negative. CT head personally interpreted does not demonstrate acute intracranial traumatic injury or intracranial bleed, I also do not appreciate acute traumatic injury in the cervical spine. See radiology reads for final interpretations. On CTA PE I do not appreciate large segmental or subsegmental PE, see radiology read for final interpretation. CT angiography of the head and neck were also reviewed and do not demonstrate acute stenosis or occlusion. After returning from all imaging, patient asked if we were going to do images of his low back, I explained to him I did not have high concern for any hardware failure since he has no new low back pain, he is actually describing to me that his pain has improved daily since the surgery. He has no new numbness, tingling, or weakness, and does not have any exquisite midline tenderness. He is reassured by this. I am not going to do any additional imaging of the low back at this time. On reassessment patient is stable, his tachycardia has improved. Orthostatic vitals demonstrate mild drop in systolic blood pressure when going from sitting to standing but his mean arterial pressures remain the same without significant change in heart rate. At this time I am mostly concerned that the patient is having unprovoked syncopal episodes and him also somewhat concerned that he is having these hot and cold flashes concerning for potential developing infection though he has a normal CBC which is reassuring. Biggest concern for unprovoked syncope in the postsurgical setting. I recommended admission to the patient and he and family are agreeable to this. I discussed this case with the hospitalist, Dominique, and she graciously accepted the patient for admission. Patient was admitted in stable condition. Critical Care Critical Care Time Critical Care Time: No
[2025-01-04 03:58] LABS: Amphetamine/Metha Screen,Urine Negative ng/ml (<1000); Barbiturates Screen,Urine Negative ng/ml (<200)
[2025-01-04 03:59] LABS: Benzodiazepines Screen,Urine Negative ng/ml (<200)
[2025-01-04 04:01] LABS: Methadone Screen,Urine Negative ng/ml (<300); Opiate Screen,Urine Negative ng/ml (<300)
[2025-01-04 04:02] LABS: Phencyclidine Screen,Urine Negative ng/ml (<25)
--- NOTE | 2025-01-04 04:51 | PC.NURSE ---
Patient arrived to floor via stretcher from ED at 04:45.
--- NOTE | 2025-01-04 05:03 | P.HP_ITS ---
<Statement entered by Cedrick Lagos MD - 01/08/25 08:54> Personally examined patient and agree with plan of care as outlined by the [employer] PROGRAMMER ANALYST. History of Present Illness *Admission Date: 01/04/25 *Reason for visit:: Syncope *History of present illness: This is a 29-year-old male with a past medical history of lumbar radiculopathy and recent spinal fusion who presents emergency department today with syncope and collapse. He reports spinal fusion 8 days ago and has been doing well since then. States that he got up to go to the bathroom this evening secondary to his spinal dressing being itchy. States that he walked across the house to get his cell phone to take a picture of his back to ensure that there was no problems with his wound. Upon starting the video to record his back he had tunnel vision and woke up lying on the floor. He states that he attempted to sit up when he passed out again. He states that he was not using the bathroom when this happened he was standing up. He does endorse taking 3 doses of his pain medication today for his back which he typically does not do. States that he tries to stay away from pain medicine. He does endorse frequent THC usage but has never had any issues with this. He reports similar episode that happened in October during a painful episode with sciatica. He does not recall if he was on pain medication that day when those events happened. EKG was performed and possible delta wave noted concerning for arrhythmic etiology for syncopal episode. Labs are stable. Spinal incision wound looks well. No analy noted in back. Edges approximated. No drainage noted. Given his multiple single events today and prior history of this it was felt he would benefit from further evaluation he is admitted to the hospital service. [facility] Disclaimer: The information contained in this section may have been updated after the patient was seen, as this information can be updated by other users. Medical History (Updated 01/04/25 @ 05:12 by Josefa Hernandez RN) Depression Fusion of spine of lumbar region Mood disorder Generalized anxiety disorder Concussion Migraines High blood pressure Surgical History (Updated 01/04/25 @ 05:12 by Josefa Hernandez RN) Hx of appendectomy Hx of vasectomy H/O discectomy History of gastric bypass History of tonsillectomy Social History (Updated 12/04/23 @ 09:18 by Aundrea Orta APRN) Smoking Status: Never smoker second hand exposure: No alcohol intake: never counseling given: No substance use type: marijuana current occupational status: employed Travel in the last 8 weeks?: None adopted: No caregiver/support person: Yes foster care: No household members: spouse housing: house lives independently: Yes marital status: number of children: 2 number of grandchildren: 0 education level: high school current occupation: 3[employer] current occupational exposures/hazards: No Hx Recent Travel: No sexually active: Yes caffeine: No physical activity: none working smoke detector in home: Yes fire extinguisher in home: Yes carbon monox detector in home: No firearms in home: Yes firearms unloaded and locked: Yes (locked up) do you feel safe at home: Yes victim of physical abuse: No victim of emotional abuse: No victim of sexual abuse: No would you like helpful sources: No Other Medical History Have you received the Flu Vaccine for this season: No Have you received the Pneumonia Vaccine: No Review of Systems Review of Systems Review of systems:: pertinent systems reviewed and negative unless documented below Review of systems (narrative): Negative except for HPI Meds Home Medications and Allergies Home Medications ?Medication ?Instructions ?Recorded ?Confirmed ?Type lisinopril 10 mg tablet 20 mg PO DAILY Hypertension 01/23/22 01/04/25 History ondansetron 4 mg disintegrating 4 mg PO Q6 PRN Nausea And Vomiting 01/04/25 01/04/25 History tablet oxycodone-acetaminophen 5 mg-325 1 tab PO Q4HP PRN [place] n (Scale 01/04/25 01/04/25 History mg tablet Score 7-10) New Prescriptions to Start Prescriptions: Allergies Allergy/AdvReac Type Severity Reaction Status Date / Time NSAIDS (Non-Steroidal Allergy Unknown Verified 01/29/24 12:00 Anti-Inflamma (NSAIDS (NON-STEROIDAL ANTI-INFLAMMA) Exam Data for Last 24 hours Vital signs and Labs for Last 24 Hours: Temp Pulse Resp BP Pulse Ox O2 Del Method 98.4 F 56 L 18 110/57 L 99 Room Air 01/04/25 04:59 01/04/25 04:59 01/04/25 04:59 01/04/25 04:59 01/04/25 04:59 01/04/25 04:59 Laboratory Results - last 24 hr 01/04/25 01:48: WBC 7.7, RBC 4.87, Hgb 14.7, Hct 43.0, MCV 88.3, MCH 30.2, MCHC 34.2, RDW 12.2, Plt Count 318, MPV 10.4, Neut % (Auto) 50.2, Lymph % (Auto) 40.6, [place] % (Auto) 6.2, Eos % (Auto) 1.7, Baso % (Auto) 0.8, Neut # (Auto) 3.9, Lymph # (Auto) 3.1, [place] # (Auto) 0.5, Eos # (Auto) 0.1, Baso # (Auto) 0.1, Sodium 135 L, Potassium 3.6, Chloride 100, Carbon Dioxide 23, Anion Gap 15.6 H, BUN 9, Creatinine 0.70, Estimated Creat Clear 238, Estimated GFR 132, Est GFR ( Amer) 160, Glucose 139 H, Calcium 8.7, Total Bilirubin 0.5, AST 27, ALT 19, Alkaline Phosphatase 93, Troponin I < 0.01, Total Protein 7.1, Albumin 4.5, Globulin 2.6, Albumin/Globulin Ratio 1.7, Plasma/Serum Alcohol < 10 01/04/25 02:12: VBG pH 7.41, VBG pCO2 35.3, VBG pO2 82.4 H, VBG HCO3 21.9 L, VBG Total CO2 23.0, VBG O2 Saturation 96.3 H, VBG Base Excess -2.8 L, VBG Lactic Acid 2.1 H 01/04/25 03:33: Urine Opiates Screen Negative, Urine Methadone Screen Negative, Ur Barbituates Screen Negative, Ur Phencyclidine Scrn Negative, Ur Amphetamines Screen Negative, U Benzodiazepines Scrn Negative, Urine Cocaine Screen Negative, U Marijuana (THC) Screen Positive H I & O for Last 24 hours: Intake & Output 01/01/25 01/02/25 01/03/25 01/04/25 23:59 23:59 23:59 23:59 Weight 109.27 kg Constitutional Constitutional: no acute distress *Routine HEENT Exam Head: Present normocephalic Eye: Present EOMI and PERRL ENT: Present mucous membranes moist *Routine Neck Exam Neck: Present supple; Absent lymphadenopathy *Routine Respiratory Exam Respiratory: Present CTA bilaterally *Routine Cardiovascular Exam Cardiovascular: Present RRR *Routine Abdominal Exam Abdominal: Present soft and normoactive bowel sounds; Absent tenderness *Routine Rectal Exam Rectal:: deferred *Routine Genitalia Exam Genitalia:: deferred *Routine Extremities Exam Extremities: Absent cyanosis, clubbing or edema *Routine Skin Exam Skin: Present warm; Absent rash Comments: Spinal incision intact. Edges approximated. No incision closure device is present *Routine Neurological Exam Neurological: Present alert and oriented X3 Assessment and Plan *Assessment and plan (1) Syncope and collapse: Status: Acute Category: Medical Code(s): R55 - Syncope and collapse (2) Degenerative joint disease (DJD) of lumbar spine: Status: Chronic Category: Medical Code(s): M47.816 - Spondylosis without myelopathy or radiculopathy, lumbar region Plan Admit to medicine #Syncope and collapse Likely secondary to polypharmacy with oxycodone and THC. Nonetheless, ED provider concerned about possible delta wave on EKG. Heart rate in the 50s in the emergency department. Will monitor on telemetry for the remainder of the evening. Will obtain echocardiogram in a.m. Patient taking his oxycodone at the time of this assessment. Will stand patient up about an hour after oxycodone to see if we can elicit similar symptoms. Consider cardiology consult in a.m. #Degenerative joint disease of the lumbar spine #Status post fusion No evidence to suggest infection of the spine. No leukocytosis, no fever Wound well-healing. Continue oxycodone as needed
[2025-01-04] MEDS: OXYCODONE 5MG IMMEDIATE RELEASE TABLET 5 MG PO ×2 (05:18→09:56)
[2025-01-04] MEDS: LACTATED RINGERS 1000ML 1,000 ML 75 ML IV (05:19)
[2025-01-04 06:07] LABS: Reflex Lactic Add Lactic Reflex
[2025-01-04 06:35] LABS: Lactic Acid Follow Up (RFLX 1) 0.9 mmol/L (0.7-2.1)
--- NOTE | 2025-01-04 06:43 | CT_ITS ---
FINAL REPORT TECHNIQUE: CT angiogram was performed of the abdomen and pelvis after the intravenous administration of contrast. Reformatted images were also obtained and reviewed. This study was performed with techniques to keep radiation doses as low as reasonably achievable (ALARA). Individualized dose reduction techniques using automated exposure control or adjustment of mA and/or kV according to the patient's size were employed. CLINICAL HISTORY: back pain and hematuria trauma protocol COMPARISON: 01/23/2022 FINDINGS: The lung bases are clear. Liver is homogeneous. Gallbladder is normal. Spleen, adrenal glands and pancreas are without acute abnormality. Kidneys demonstrate normal enhancement. There is no hydronephrosis. Patient is status post gastric sleeve. There is no free fluid or adenopathy. Bowel is unremarkable. Urinary bladder and prostate are normal. The appendix is not identified. There is no acute osseous abnormality identified. CTA: Abdominal aorta is normal in caliber and without evidence of dissection. Mesenteric vessels are widely patent. Renal arteries and iliac arteries are widely patent. IMPRESSION: Unremarkable CTA of the abdominal aorta and branch vessels. No findings to account for patient's hematuria. Reviewed, Interpreted and Dictated by Elke Lam MD Transcribed by Rhianna Chadwick Authenticated and . [facility]
[2025-01-04 06:54] LABS: Troponin I < 0.01 ng/ml (0.00-0.034)
--- NOTE | 2025-01-04 07:00 | CA_ITS ---
APPROVED REPORT EXAM: Comprehensive 2D, Doppler, and color-flow Echocardiogram Magnetic Healer: DONALD Coffey, RVS Ht: 5 ft 10 in Wt: 240lbs BSA: 2.26 BP: 130/53 mmHg Indications: syncope s/p lumbar fusion surgery 8 days ago. Echo Enhancing Agent Comments: Technically limited due to lung impedance, lack of positioning, patient intolerance to exam. Patient in pain throughout exam. 2D Dimensions Left Atrium 2.81 cm LA Volume 39.10 mL LA Volume Index 17.407363 mL/m2 (M/F) 16-34 M-Mode Dimensions RVDd 2.70 cm (0.9-2.6) LA Diam 2.87 cm (1.9-4.0) LVDd 5.23 cm (3.5-5.7) LVDs 3.37 cm (3.5-5.7) IVSd 1.05 cm (0.6-1.1) PWd 0.97 cm (0.6-1.1) EF (Teich) 61.10% EPSs 0.85 cm FS 32.90% EDV (Teich) 119.30 mL ESV (Teich) 46.40 mL LV Diastology E Decel Time 217 (160-240 msec) E/A Ratio 2.08 MED A' 10.20 cm/s LAT A' 9.30 cm/s Aortic Valve ANI Index 1.35 cm2/m2 AoV Peak [place]. 119.0 (50-130 cm/s) AO Peak GR. 5.60 mmHg AO Mean GR. 2.80 (<5 mmHg) AO VTI 23.9 (18-25 cm) ANI (VTI) 3.11 (2.5-4.5 cm2) Mitral Valve MV A Velocity 32.0 (40-130 cm/s) E/A Ratio 2.08 Left Ventricle The left ventricle is normal size. The left ventricular systolic function is normal. The left ventricular ejection fraction is within the normal range. There is normal left ventricular wall thickness. There is normal LV segmental wall motion. The left ventricular diastolic function is normal. LVEF is 55%. Right Ventricle The right ventricle is normal size. The right ventricular systolic function is normal. Atria The left atrium size is normal. The right atrium size is normal. There is no Doppler evidence of interatrial shunt. Aortic Valve The aortic valve opens well. There is no aortic valvular stenosis. No aortic regurgitation is present. Mitral Valve The mitral valve is normal in structure. No evidence of mitral valve stenosis. There is no mitral valve regurgitation noted. Tricuspid Valve Tricuspid valve is grossly normal in structure and function. Trace tricuspid interstitium. There is insufficient TR jet estimate of SBE. Pulmonic Valve The pulmonary valve is normal in structure. César pulmonic regurgitation. Great Vessels The aortic root is normal in size. IVC is normal in size and collapses >50% with inspiration. Pericardium There is no pericardial effusion. Other Information Study Quality: Fair Conclusion Normal biventricular systolic function. No significant valvular stenosis or regurgitation. Electronically signed by : Alicia Caraballo MD 01/05/2025 22:48:42
[2025-01-04 07:17] LABS: Creatine Kinase 50 U/L (55-170)
[2025-01-04] MEDS: IOPAMIDOL-370 (76%);100ML BOTTLE 100 ML IV (07:53)
--- NOTE | 2025-01-04 07:55 | PC.NURSE ---
went to radiology at 07:34 returned at 07:55
[2025-01-04 08:04] LABS: Microscopic, Urine URINE MICROSCOPIC (MICROSCOPIC)
[2025-01-04 08:07] LABS: Bilirubin,Urine Negative (Negative); Color,Urine RED (Yellow); Glucose,Urine (UA) Negative (Negative); Ketones,Urine Negative (Negative); Leukocyte Esterase,Urine Negative (Negative); PH,Urine 7.0 (5.0-8.5); Protein,Urine TRACE (Negative); Specific Gravity, Urine <= 1.005 (1.005-1.030); Urobilinogen,Urine 2.0 EU/dl (0.2)
[2025-01-04 08:23] LABS: RBC,Urine TNTC #/hpf (0-3); WBC,Urine Occasional #/hpf (0-3)
--- NOTE | 2025-01-04 09:03 | HMH.PHAINT1 ---
Pharmacy Intervention Comments: MEDICATION RECONCILIATION COMPLETE USING EXTERNAL PHARMACY FILL HISTORY AND TEGAN REPORT.
[2025-01-04 09:22] LABS: Troponin I < 0.01 ng/ml (0.00-0.034)
[2025-01-04 09:48] LABS: Thyroid Stimulating Hormone 0.67 uIU/mL (0.465-4.68)
[2025-01-04 10:41] LABS: Hemoglobin A1C 6.1 % (4.0-6.0)
[2025-01-04] MEDS: TIZANIDINE 4MG TABLET 2 MG PO (12:00)
--- NOTE | 2025-01-04 14:14 | P.DS_ITS ---
<Statement entered by Cedrick Lagos MD - 01/08/25 09:02> Personally examined patient and agree with plan of care as outlined by the FREE LANCE ARTIST. General Admission date:: 01/04/25 Discharge date: 01/04/25 HPI HPI HPI: This is a 29-year-old male with a past medical history of lumbar radiculopathy and recent spinal fusion who presents emergency department today with syncope and collapse. He reports spinal fusion 8 days ago and has been doing well since then. States that he got up to go to the bathroom this evening secondary to his spinal dressing being itchy. States that he walked across the house to get his cell phone to take a picture of his back to ensure that there was no problems with his wound. Upon starting the video to record his back he had tunnel vision and woke up lying on the floor. He states that he attempted to sit up when he passed out again. He states that he was not using the bathroom when this happened he was standing up. He does endorse taking 3 doses of his pain medication today for his back which he typically does not do. States that he tries to stay away from pain medicine. He does endorse frequent THC usage but has never had any issues with this. He reports similar episode that happened in October during a painful episode with sciatica. He does not recall if he was on pain medication that day when those events happened. EKG was performed and possible delta wave noted concerning for arrhythmic etiology for syncopal episode. Labs are stable. Spinal incision wound looks well. No analy noted in back. Edges approximated. No drainage noted. Given his multiple single events today and prior history of this it was felt he would benefit from further evaluation he is admitted to the hospital service. Hospital Course Hospital Course Hospital Course: Mr. Tomas is a 29-year-old male who was admitted to the hospital after a syncopal episode at home. He states that he had a recent back surgery, L4-5 fusion. He is approximately 1 week postop and began to feel lightheaded at home and lost consciousness. States that he hit his left shoulder, trauma scans were all negative. Patient was admitted to the hospital for close monitoring. #Syncopal episode ?Patient taking oxycodone 5 mg every 4 hours since his procedure, also endorses smoking marijuana daily. Syncopal episode likely secondary to polypharmacy with oxycodone and THC. Heart rate has remained slightly bradycardic between 50 and 60. Telemetry shows normal sinus rhythm. Preliminary echo report shows normal EF. ?Patient received fluids during admission, states that he feels better. Discussed with patient the importance of increased hydration. #Degenerative disc disease #Status post spinal fusion ? CBC shows no leukocytosis or signs of infection. Patient remains afebrile. Surgical site clean dry and intact, no drainage, no hematoma. #Hematuria ?Patient's urinalysis does show gross blood. No signs of infection. Repeat UA shows 2+ blood, urine is yellow. ?CTA unremarkable, no findings to account for patient's hematuria. ?Patient does state that he recently had a vasectomy approximately 1 month ago, so he follows with a urologist. Recommendations to follow-up outpatient in the next 1 to 2 weeks. #Hypertension ?Patient has been normotensive during admission, continue lisinopril 20 mg daily per PCP. #Elevated A1c ?Discussed with patient A1c is elevated, 6.1%. Encouraged close PCP follow-up. Total time spent on discharge 32 minutes in counseling, documentation, chart review, and direct care with patient. Exam Data for Last 24 hours Vital signs and Labs for Last 24 Hours: Temp Pulse Resp BP Pulse Ox O2 Del Method 98 F 53 L 16 124/60 96 Room Air 01/04/25 12:00 01/04/25 12:00 01/04/25 12:00 01/04/25 12:00 01/04/25 12:00 01/04/25 13:00 Laboratory Results - last 24 hr 01/04/25 01:48: WBC 7.7, RBC 4.87, Hgb 14.7, Hct 43.0, MCV 88.3, MCH 30.2, MCHC 34.2, RDW 12.2, Plt Count 318, MPV 10.4, Neut % (Auto) 50.2, Lymph % (Auto) 40.6, [place] % (Auto) 6.2, Eos % (Auto) 1.7, Baso % (Auto) 0.8, Neut # (Auto) 3.9, Lymph # (Auto) 3.1, [place] # (Auto) 0.5, Eos # (Auto) 0.1, Baso # (Auto) 0.1, Sodium 135 L, Potassium 3.6, Chloride 100, Carbon Dioxide 23, Anion Gap 15.6 H, BUN 9, Creatinine 0.70, Estimated Creat Clear 238, Estimated GFR 132, Est GFR ( Amer) 160, Glucose 139 H, Hemoglobin A1c 6.1 H, Calcium 8.7, Total Bilirubin 0.5, AST 27, ALT 19, Alkaline Phosphatase 93, Troponin I < 0.01, Total Protein 7.1, Albumin 4.5, Globulin 2.6, Albumin/Globulin Ratio 1.7, Plasma/Serum Alcohol < 10 01/04/25 02:12: VBG pH 7.41, VBG pCO2 35.3, VBG pO2 82.4 H, VBG HCO3 21.9 L, VBG Total CO2 23.0, VBG O2 Saturation 96.3 H, VBG Base Excess -2.8 L, VBG Lactic Acid 2.1 H 01/04/25 03:33: Urine Opiates Screen Negative, Urine Methadone Screen Negative, Ur Barbituates Screen Negative, Ur Phencyclidine Scrn Negative, Ur Amphetamines Screen Negative, U Benzodiazepines Scrn Negative, Urine Cocaine Screen Negative, U Marijuana (THC) Screen Positive H 01/04/25 06:04: Lactate 0.9, Total Creatine Kinase 50 L, Troponin I < 0.01 01/04/25 06:38: Urine Color Red, Urine Appearance Cloudy, Urine pH 7.0, Ur Specific [place] <= 1.005, Urine Protein Trace, Urine Glucose (UA) Negative, Urine Ketones Negative, Urine Blood 3+ A, Urine Nitrate Negative, Urine Bilirubin Negative, Urine Urobilinogen 2.0, Ur Leukocyte Esterase Negative, Urine RBC Tntc, Urine WBC Occasional, Ur Squamous Epith Cells None, Urine Bacteria None 01/04/25 08:25: Troponin I < 0.01, TSH 0.67 I & O for Last 24 hours: Intake & Output 01/01/25 01/02/25 01/03/25 01/04/25 23:59 23:59 23:59 23:59 Intake Total 120 / 120 Balance 120 / 120 Weight 109.27 kg Constitutional Constitutional: no acute distress, average body habitus and cooperative *Routine HEENT Exam Head: Present normocephalic Eye: Present EOMI ENT: Present mucous membranes moist *Routine Neck Exam Neck: Present supple and full ROM Routine Chest/Breast/Axilla Exam Breast: Present scars *Routine Respiratory Exam Respiratory: Present CTA bilaterally, normal respiratory effort, able to speak in complete sentences and symmetric chest movement; Absent wheezes *Routine Cardiovascular Exam Cardiovascular: Present RRR; Absent murmur *Routine Abdominal Exam Abdominal: Present soft and normoactive bowel sounds; Absent tenderness or d istended *Routine Rectal Exam Patient deferred: visual exam *Routine Exam Patient deferred: penile exam *Routine Extremities Exam Extremities: Present full ROM and normal capillary refill; Absent edema *Routine Skin Exam Skin: Present intact and dry *Routine Neurological Exam Neurological: Present alert and oriented X3 Results Data Completed and Pending Labs on day of discharge: Labs from last 24 hours 01/04/25 01/04/25 01/04/25 08:25 06:38 06:04 WBC RBC Hgb Hct MCV MCH MCHC RDW Plt Count MPV Neut % (Auto) Lymph % (Auto) [place] % (Auto) Eos % (Auto) Baso % (Auto) Neut # (Auto) Lymph # (Auto) [place] # (Auto) Eos # (Auto) Baso # (Auto) VBG pH VBG pCO2 VBG pO2 VBG HCO3 VBG Total CO2 VBG O2 Saturation VBG Base Excess VBG Lactic Acid Sodium Potassium Chloride Carbon Dioxide Anion Gap BUN Creatinine Estimated Creat Clear Estimated GFR Est GFR ( Amer) Glucose Hemoglobin A1c Lactate 0.9 Calcium Total Bilirubin AST ALT Alkaline Phosphatase Total Creatine Kinase 50 L Troponin I < 0.01 < 0.01 Total Protein Albumin Globulin Albumin/Globulin Ratio TSH 0.67 Urine Color Red Urine Appearance Cloudy Urine pH 7.0 Ur Specific [place] <= 1.005 Urine Protein Trace Urine Glucose (UA) Negative Urine Ketones Negative Urine Blood 3+ A Urine Nitrate Negative Urine Bilirubin Negative Urine Urobilinogen 2.0 Ur Leukocyte Esterase Negative Urine RBC Tntc Urine WBC Occasional Ur Squamous Epith Cells None Urine Bacteria None Urine Opiates Screen Urine Methadone Screen Ur Barbituates Screen Ur Phencyclidine Scrn Ur Amphetamines Screen U Benzodiazepines Scrn Urine Cocaine Screen U Marijuana (THC) Screen Plasma/Serum Alcohol 01/04/25 01/04/25 01/04/25 03:33 02:12 01:48 WBC 7.7 RBC 4.87 Hgb 14.7 Hct 43.0 MCV 88.3 MCH 30.2 MCHC 34.2 RDW 12.2 Plt Count 318 MPV 10.4 Neut % (Auto) 50.2 Lymph % (Auto) 40.6 [place] % (Auto) 6.2 Eos % (Auto) 1.7 Baso % (Auto) 0.8 Neut # (Auto) 3.9 Lymph # (Auto) 3.1 [place] # (Auto) 0.5 Eos # (Auto) 0.1 Baso # (Auto) 0.1 VBG pH 7.41 VBG pCO2 35.3 VBG pO2 82.4 H VBG HCO3 21.9 L VBG Total CO2 23.0 VBG O2 Saturation 96.3 H VBG Base Excess -2.8 L VBG Lactic Acid 2.1 H Sodium 135 L Potassium 3.6 Chloride 100 Carbon Dioxide 23 Anion Gap 15.6 H BUN 9 Creatinine 0.70 Estimated Creat Clear 238 Estimated GFR 132 Est GFR ( Amer) 160 Glucose 139 H Hemoglobin A1c 6.1 H Lactate Calcium 8.7 Total Bilirubin 0.5 AST 27 ALT 19 Alkaline Phosphatase 93 Total Creatine Kinase Troponin I < 0.01 Total Protein 7.1 Albumin 4.5 Globulin 2.6 Albumin/Globulin Ratio 1.7 TSH Urine Color Urine Appearance Urine pH Ur Specific [place] Urine Protein Urine Glucose (UA) Urine Ketones Urine Blood Urine Nitrate Urine Bilirubin Urine Urobilinogen Ur Leukocyte Esterase Urine RBC Urine WBC Ur Squamous Epith Cells Urine Bacteria Urine Opiates Screen Negative Urine Methadone Screen Negative Ur Barbituates Screen Negative Ur Phencyclidine Scrn Negative Ur Amphetamines Screen Negative U Benzodiazepines Scrn Negative Urine Cocaine Screen Negative U Marijuana (THC) Screen Positive H Plasma/Serum Alcohol < 10 DS: Diagnosis Discharge Diagnosis (1) Syncope and collapse: Status: Acute Code(s): R55 - Syncope and collapse (2) Degenerative joint disease (DJD) of lumbar spine: Status: Chronic Code(s): M47.816 - Spondylosis without myelopathy or radiculopathy, lumbar region (3) H/O spinal fusion: Status: Acute Code(s): Z98.1 - Arthrodesis status (4) Hematuria: Status: Acute Code(s): R31.9 - Hematuria, unspecified (5) Elevated hemoglobin A1c: Status: Acute Code(s): R73.09 - Other abnormal glucose Meds Home Medications and Allergies Home Medications ?Medication ?Instructions ?Recorded ?Confirmed ?Type lisinopril 20 mg tablet 20 mg PO DAILY 01/04/2512/20 History ondansetron 4 mg disintegrating 4 mg PO Q6HP PRN Nause a And 01/04/25 01/04/25 History tablet Vomiting oxycodone-acetaminophen 5 mg-325 1 tab PO Q4HP PRN [place] n (Scale 01/04/25 01/04/25 History mg tablet Score 7-10) New Prescriptions to Start Prescriptions: Allergies Allergy/AdvReac Type Severity Reaction Status Date / Time NSAIDS (Non-Steroidal Allergy Unknown Verified 01/29/24 12:00 Anti-Inflamma (NSAIDS (NON-STEROIDAL ANTI-INFLAMMA) Discharge Plan Disposition Patient Disposition: Home, Self-Care Condition: Fair Follow up Plan Follow up with: Fauzia Osorio MD [Primary Care Provider, Medical] - 01/11/25 9:30 am Prescriptions/Medication Reconciliation: Continued oxycodone-acetaminophen 5-325 mg tablet 1 tab PO Q4HP PRN (Reason: Pain (Scale Score 7-10)) Rx Instructions: FILLED 12/28/15 FOR 8 DAY SUPPLY PER TEGAN REPORT. ondansetron 4 mg tablet,disintegrating 4 mg PO Q6HP PRN (Reason: Nausea And Vomiting) lisinopril 20 mg tablet 20 mg PO DAILY Patient Comments: TAKE 1 TABLET BY MOUTH ONCE A DAY Problem Reconciliation Problems Reviewed?: Yes Patient Discharge Instructions ACTIVITY: Continue current activity DIET: continue same diet Patient Instructions: DI for Syncope in Adults (Fainting), Heart-Healthy Diet Print Language: Kiswahili Providers Primary Care Provider: Fauzia Osorio Admit Provider: Cedrick Lagos Attending Provider: Cedrick Lagos
[2025-01-04 14:48] LABS: Microscopic, Urine URINE MICROSCOPIC (MICROSCOPIC)
[2025-01-04 14:53] LABS: Bilirubin,Urine Negative (Negative); Color,Urine YELLOW (Yellow); Glucose,Urine (UA) Negative (Negative); Ketones,Urine Negative (Negative); Leukocyte Esterase,Urine Negative (Negative); PH,Urine 6.5 (5.0-8.5); Protein,Urine Negative (Negative); Specific Gravity, Urine 1.010 (1.005-1.030); Urobilinogen,Urine 1.0 EU/dl (0.2)
[2025-01-04 15:00] LABS: Bacteria,Urine Trace /lpf; RBC,Urine TNTC #/hpf (0-3); Squamous Epithelial Cell,Urine Occasional #/hpf (0-5); WBC,Urine Occasional #/hpf (0-3)
--- NOTE | 2025-01-05 09:53 | SW/DCPLANNER ---
Spoke with patient on the phone. Patient stated that he is doing ok. Patient stated that he is aware of his upcoming appointments. Patient stated that he was not prescribed any new medicine. Patient stated that he has no concerns or questions at this time. Alcira Valentino
--- NOTE | 2025-01-08 12:08 | PC.NURSE ---
pts final blood culture results forwarded to the hospitalist as the pt was admitted.
== END 2025-01-04 15:30 | disposition home or self-care (01) ==
LOC: ER 04:00 → 2ND 04:02
PROVIDERS: Nurse Practitioner Acute Care; Admitting Provider Student in an Organized Health Care Education/Training Program; Emergency Provider Emergency Medicine; PCP Family Medicine; Visit Provider Student in an Organized Health Care Education/Training Program
DX: R55 Syncope and collapse (principal); M47.816 Spondylosis without myelopathy or radiculopathy, lumbar region; R31.9 Hematuria, unspecified; R73.09 Other abnormal glucose; F32.A Depression, unspecified; G43.909 Migraine, unspecified, not intractable, without status migrainosus; R00.0 Tachycardia, unspecified; I10 Essential (primary) hypertension; F17.210 Nicotine dependence, cigarettes, uncomplicated; Z98.1 Arthrodesis status; Z88.6 Allergy status to analgesic agent; Z79.899 Other long term (current) drug therapy; Z79.891 Long term (current) use of opiate analgesic
CPT/HCPCS: 36415; 70450; 70496; 70498; 71275; 72125; 74174; 80053; 80307; 80320; 81001; 82550; 82803; 83036; 83605; 84443; 84484; 85025; 87040; 87186; 93005; 93306; 96360; 96361; 99285; G0378; J7120; Q9967

== ENCOUNTER 2025-02-23 10:12 | Emergency (ER) | payer BC, SELFPAY ==
--- OUTSIDE RECORDS SUMMARY | 2024-12-27 08:48 | XMS_ITS | Encounter Summary ---
Author Organization [employer] ([place], [place], [place], [place]) Address [address] [place] [address] Care Team Providers Care Cartographic Designer Name Role Phone Maggy Paulino APRN Primary Care Provider [phone] Reason for Visit * Auth/Cert (Routine) Specialty Diagnoses / Procedures Referred By Contac t Referred To Contact Diagnoses Spinal stenosis, lumbar region with neurogenic claudication SEE PRIMARY DX Procedures CA ARTHRODESIS COMBINED TQ 1NTRSPC LUMBAR CA POSTERIOR NON-SEGMENTAL INSTRUMENTATION CA INSJ BIOMCHN DEV INTERVERTEBRAL DSC SPC W/ARTHRD CA ALLOGRAFT FOR SPINE SURGERY ONLY STRUCTURAL CA MORALES FACETEC/FORAMOT DRG ARTHRD LUMBAR 1 VRT SGM LAMINECTOMY, SPINE, LUMBAR, WITH FUSION [facility] Operating Room [address] [place] [address] Phone: tel: fax: [facility] Operating Room [address] [place] [address] Phone: tel: fax: Referral ID Status Reason Start Date Expiration Date Visits Re quested Visits Authorized [id number] 1 5 Encounter Details Date Type Department Care Team (Late st Contact Info) Description 12/27/2024 8:48 AM EDT - 12/28/2024 3:41 PM EDT Hospital Encounter [facility] Orthopedic & Neurosurgery [address] [place] [address] Alexx Staley MD 1957 [facility] 2nd floor [place] [id number] Discharge Disposition: Home or Self Care Social [...] UP: Saturday January 11, 2025 10:15 a.m. [place] office Kang Granda PA-C Time Spent: 15 [...] Contact Name: Transportation Provider Phone: Date of academic support assistant: (P) 12/28/24 Time of academic support assistant: RRS-N/A CM consulted for DME. Met with pt and spouse at bedside to discuss DCP. [facility] and has been delivered. He declines HH services. No other CM needs noted. [facility] and Patient choice [...] FUSION); Surgeon: Alexx Staley MD; Location: [facility];Service: Orthopedic Surgery; Laterality: N/A; LUMBAR DISCECTOMY PANNICULECTOMY [...] Pt was able to complete all mobility [facility] [employer] [facility] using the RW. Pt did appear [...] 52 BPM ATRIAL RATE (MCT) 52 BPM CA Interval 124 ms QRS-INTERVAL (MSEC) 90 ms QT Interval 426 ms QTC Interval 396 ms P Hoopa 21 degrees R AXIS (MCT) -3 degrees T Wave Hoopa 27 degrees Sunflower Diagnosis Sinus bradycardia with sinus arrhythmia with [...] FUSION); Surgeon: Alexx Staley MD; Location: [facility];Service: Orthopedic Surgery; Laterality: N/A; LUMBAR DISCECTOMY PANNICULECTOMY [...] body dressing:Standby Assist Toileting:Standby Assist Outcome Measures [facility] Daily Living Functional Assessment How much help [...] (Minimal/Contact guard/Supervision/Setup) 4=None (Modified independent/Independent) The patient's [facility] raw score is 21. The patient currently has 32.79% functional impairment. Clinicians are most likely to recommend inpatient/SNF/fpc care for patients with scores between 6-17, [...] UA Yellow Clarity, UA Clear Clear Specific Cut Off, UA 1.031 (H) 1.005 - 1.030 pH, [...] 52 BPM ATRIAL RATE (MCT) 52 BPM CA Interval 124 ms QRS-INTERVAL (MSEC) 90 ms QT Interval 426 ms QTC Interval 396 ms P Hoopa 21 degrees R AXIS (MCT) -3 degrees T Wave Hoopa 27 degrees Sunflower Diagnosis Sinus bradycardia with sinus arrhythmia with [...] Clarity, UA 12/27/2024 Clear Clear Final Specific Cut Off, UA 12/27/2024 1.031 (H) 1.005 - 1.030 [...] Resource Strain: Medium Risk (2022) Received from [facility] Financial Resource Strain Financial benefits problems: Not on file Trouble paying for things you need: Not on file Trouble paying for things you need (Other): Not on file Food Insecurity: Not on file Transportation: Not on file Physical Activity: Not on file Social Connections: Unknown (04/02/2023) Received from [facility] Family and Community Support Help with Day-to-Day [...] UA Yellow Clarity, UA Clear Clear Specific Cut Off, UA 1.031 (H) 1.005 - 1.030 pH, [...] 52 BPM ATRIAL RATE (MCT) 52 BPM CA Interval 124 ms QRS-INTERVAL (MSEC) 90 ms QT Interval 426 ms QTC Interval 396 ms P Hoopa 21 degrees R AXIS (MCT) -3 degrees T Wave Hoopa 27 degrees Sunflower Diagnosis Sinus bradycardia with sinus arrhythmia with [...] documented in this encounter OR Notes * Op Note - Alexx Staley MD - 12/27/2024 2:32 PM EDT DATE OF PROCEDURE: 12/27/2024 PROCEDURES: 1. L4-5 interbody and posterolateral fusion. 2. L4-5 revision and decompression of the right L4 and L5 nerve root. 3. Posterior instrumentation, L4-L5. 4. Application of interbody device, L4-5. 5. Use of autograft and allograft bone at L4-5. SURGEON: Luís. PUMP TECHNICIAN: Lb. PREOPERATIVE DIAGNOSIS: Recurrent L4-5 stenosis after previous decompression with spondylolisthesis. POSTOPERATIVE DIAGNOSIS: Recurrent L4-5 stenosis after previous decompression with spondylolisthesis. ANESTHESIA: General. BRIEF MEDICAL HISTORY: The patient is a gentleman who had previous lumbar decompression, but developed recurrent disk herniation and stenosis and had a subtle listhesis. He had failed conservative treatment. He was informed of the risks, benefits, and alternatives of the above-mentioned procedure and wished to proceed. FINDINGS: The patient was taken to the operating room and placed in a prone position. After sterile prep and drape and administration of preoperative antibiotics, the pedicles were percutaneously cannulated at L4 and L5 bilaterally under dual C-arm guidance. We placed DePuy ViacoreER pedicle screws on the left side at L4 and L5. We used them as posts for our tube dilator system which was positioned over the right L4-5 interspace. A facetectomy was performed. We removed ligamentum flavum and identified the L5 nerve root and retracted it, and there was a large extruded disk fragment which was removed. We then performed a complete diskectomy and prepared endplates, and placed ViviGen allograft and autograft bone in and around a size 11 x 26 conduit cage. Next, we decorticated the posterolateral gutters at this level and placed remaining ViviGen allograft and autograft bone for posterolateral fusion. Next, we placed pedicle screws over top of the right L4 and L5 guidewires. We placed 5 fiber rods into the tulips of the pedicle screws, placed end caps, and tightened them with a torque limiter. Strict hemostasis was obtained. We closed the wounds with Vicryl and analy. He was taken to recovery room in sterile dressing. There were no complications. The plan is to admit him for medical management, pain control, and physical therapy. /[id number] MD JONA Solano/FABRIZIO / JONA / ESTEFANY /[id number] CC: Maggy Paulino APRN * Brief Op Note - Alexx Staley [...] HOUR Routine 12/27/2024 12: 55 PM EDT CA ARTHRODESIS COMBINED TQ 1NTRSPC LUMBAR 12/27/2024 11:38 [...] 9.1 K/ L 12/28/2024 3:20 AM EDT [facility] RBC 4.40(L) 4.63 - 6.08 M/ L 12/28/2024 3:20 AM EDT [facility] Hemoglobin 13.3(L) 13.7 - 17.5 GM/DL 12/28/2024 3:20 AM EDT [facility] Hematocrit 39.6(L) 40.1 - 51.0 % 12/28/2024 3:20 AM EDT [facility] MCV 90 79 - 92 fL 12/28/2024 3:20 AM EDT [facility] MCH 30.2 25.7 - 32.2 pg 12/28/2024 3:20 AM EDT [facility] MCHC 33.6 32.3 - 36.5 GM/DL 12/28/2024 3:20 AM EDT [facility] RDW 12.6 11.6 - 14.4 % 12/28/2024 3:20 AM EDT [facility] Platelets 170 140 - 375 K/CU MM 12/28/2024 3:20 AM EDT [facility] MPV 10.5 9.4 - 12.4 fL 12/28/2024 3:20 AM EDT [facility] % Neutros 73(H) 34 - 68 % 12/28/2024 3:20 AM EDT [facility] % Lymphs 17(L) 22 - 53 % 12/28/2024 3:20 AM EDT [facility] % Monos 8 5 - 12 % 12/28/2024 3:20 AM EDT [facility] % Eos 1 1 - 7 % 12/28/2024 3:20 AM EDT [facility] % Baso 1 0 - 1 % 12/28/2024 3:20 AM EDT [facility] NRBC Absolute <0.01 0 - 0.012 K/ul 12/28/2024 3:20 AM EDT [facility] # Neutros 5.86(H) 1.78 - 5.38 K/ L 12/28/2024 3:20 AM EDT [facility] # Lymphs 1.40 1.32 - 3.57 K/ L 12/28/2024 3:20 AM EDT [facility] # Monos 0.67 0.30 - 0.82 K/ L 12/28/2024 3:20 AM EDT [facility] # Eos 0.04 0.04 - 0.54 K/ L 12/28/2024 3:20 AM EDT [facility] # Baso 0.04 0.01 - 0.08 K/ L 12/28/2024 3:20 AM EDT [facility] Immature Granulocytes-Re lative 0.40 0.01 - 0.43 % 12/28/2024 3:20 AM EDT [facility] # IG 0.03 0.00 - 0.03 K/uL 12/28/2024 3:20 AM EDT [facility] Blood Venipuncture / Unknown 12/28/2024 3:08 AM EDT 12/28/2024 3:16 AM EDT Narrative [facility] - 12/28/2024 3:20 AM EDT When [...] Potts MD LAB BLOOD ORDERABLES Final Result [facility] [address] [phone] * (ABNORMAL) Basic Metabolic Panel (12/28/2024 3:08 AM EDT) Sodium 137 136 - 145 meq/L 12/28/2024 3:41 AM EDT [facility] Potassium 3.9 3.4 - 5.1 meq/L 12/28/2024 3:41 AM EDT [facility] CO2 27 22 - 29 meq/L 12/28/2024 3:41 AM EDT [facility] Chloride 106 98 - 112 meq/L 12/28/2024 3:41 AM EDT [facility] Glucose 130(H) 74 - 100 mg/dL 12/28/2024 3:41 AM EDT [facility] BUN 4.3(L) 8.9 - 20.6 mg/dL 12/28/2024 3:41 AM EDT [facility] Creatinine 0.82 0.72 - 1.25 mg/dL 12/28/2024 3:41 AM EDT [facility] BUN/Creatinine 5(L) 8 - 20 12/28/2024 3:41 AM EDT [facility] Calcium 8.7 8.4 - 10.2 mg/dL 12/28/2024 3:41 AM EDT [facility] Anion Gap 8 4 - 12 12/28/2024 3:41 AM EDT [facility] eGFR (mL/min/1.73m2) 121 >=60 mL/min/1.7 3m2 12/28/2024 3:41 AM EDT [facility] Osmolality Calc 272.6 mOsm/kg 3:41 AM EDT [facility] Blood Venipuncture / Unknown 12/28/2024 3:08 AM EDT 12/28/2024 3:17 AM EDT us Matteo Potts MD LAB BLOOD ORDERABLES Final Result [facility] [address] [phone] * [place] C-ARM < 1 HOUR (12/27/2024 [...] ATRIAL RATE (MCT) 52 BPM GE MUSE CA Interval 124 ms GE MUSE QRS-INTERVAL (MSEC) 90 ms GE MUSE QT Interval 426 ms GE MUSE QTC Interval 396 ms GE MUSE P Hoopa 21 degrees GE MUSE R AXIS (MCT) -3 degrees GE MUSE T Wave Hoopa 27 degrees GE MUSE Sunflower Diagnosis Sinus bradycardia with sinus arrhythmia with [...] None Seen /HPF 12/27/2024 11:12 AM EDT [facility] RBC, UA 0-2(A) None Seen /HPF 12/27/2024 11:12 AM EDT [facility] Bacteria, UA None Seen None Seen, Trace 12/27/2024 11:12 AM EDT [facility] Mucus 4+(A) None Seen 12/27/2024 11:12 AM EDT [facility] SQUAMOUS EPITHELIAL 0-2(A) None Seen /HPF 12/27/2024 11:12 AM EDT [facility] Ca Oxalate Carina, UA 1+(A) None Seen 12/27/2024 11:12 AM EDT [facility] Urine URINE / Unknown 12/27/2024 1 0:50 AM EDT 12/27/2024 11:04 AM EDT us Alexx Staley MD URINE ORDERABLES Final Result [facility] [address] [phone] * (ABNORMAL) Urinalysis, Reflex Microscopic and Culture If Indicated (12/27/2024 10:50 AM EDT) Color, UA Yellow 12/27/2024 11:12 AM EDT [facility] Clarity, UA Clear Clear 12/27/2024 11:12 AM EDT [facility] Specific Cut Off, UA 1.031(H) 1.005 - 1.030 12/27/2024 11:12 AM EDT [facility] pH, UA 6.5 6.0 - 8.0 12/27/2024 11:12 AM EDT [facility] Leukocytes, UA 25 Bertin/uL(A) Negative 12/27/2024 11:12 AM EDT [facility] Nitrite, UA Negative Negative 12/27/2024 11:12 AM EDT [facility] Protein, UA 1+(A) Negative 12/27/2024 11:12 AM EDT [facility] Glucose, UA Normal Normal 12/27/2024 11:12 AM EDT [facility] Ketones, UA Trace(A) Negative 12/27/2024 11:12 AM EDT [facility] Bilirubin, UA Negative Negative 12/27/2024 11:12 AM EDT [facility] Blood, UA Negative Negative 12/27/2024 11:12 AM EDT [facility] Urobilinogen, UA 3 mg/dL(A) Normal 12/27/2024 11:12 AM EDT [facility] Specimen Source Urine, Voided 12/27/2024 11:12 AM EDT [facility] Urine URINE / Unknown 12/27/2024 1 0:50 AM EDT 12/27/2024 11:04 AM EDT us Alexx Staley MD URINE ORDERABLES Final Result Performing Organization Address City/[facility]/ZIP Co de Phone Number [facility] [address] [phone] * Type and Screen (12/27/2024 10:47 AM EDT) ABO/Rh O Positive 12/27/2024 10:45 AM EDT [facility] ([place]) Antibody Screen Negative 12/27/2024 10:45 AM EDT [facility] B[facility] ([place]) HISTCHK HIST CHECK PERFORMED 12/27/2024 10:45 AM EDT [facility] BLO[facility] ([place]) Blood Venipuncture / Unknown 12/27/2024 10:47 AM EDT 12/27/2024 10:57 AM EDT us Alexx Staley MD [facility] BLOOD BANK TEST ORDERABLES Final Result Performing Organization Address [facility]/ZIP Co de Phone Number [facility] ([place]) [address] [phone] * (ABNORMAL) Basic Metabolic Panel (12/27/2024 10:45 AM EDT) Sodium 141 136 - 145 meq/L 12/27/2024 11:20 AM EDT [facility] Potassium 4.3 3.4 - 5.1 meq/L 12/27/2024 11:20 AM EDT [facility] CO2 24 22 - 29 meq/L 12/27/2024 11:20 AM EDT [facility] Chloride 110 98 - 112 meq/L 12/27/2024 11:20 AM EDT [facility] Glucose 94 74 - 100 mg/dL 12/27/2024 11:20 AM EDT [facility] BUN 5.2(L) 8.9 - 20.6 mg/dL 12/27/2024 11:20 AM EDT [facility] Creatinine 0.84 0.72 - 1.25 mg/dL 12/27/2024 11:20 AM EDT [facility] BUN/Creatinine 6(L) 8 - 20 12/27/2024 11:20 AM EDT [facility] Calcium 9.3 8.4 - 10.2 mg/dL 12/27/2024 11:20 AM EDT [facility] Anion Gap 11 4 - 12 12/27/2024 11:20 AM [facility] eGFR (mL/min/1.73m2) 120 >=60 mL/min/1.7 3m2 12/27/2024 11:20 AM EDT [facility] Osmolality Calc 278.3 mOsm/kg 11:20 AM T [facility] Blood Venipuncture / Unknown 12/27/2024 10:45 AM EDT 12/27/2024 10:57 AM EDT us Alexx Staley MD LAB BLOOD ORDERABLES Final Resu lt [facility] [address] [place] [id number] [phone] * (ABNORMAL) CBC with automated diff (12/27/2024 10:45 AM EDT) WBC 6.2 4.2 - 9.1 K/ L 12/27/2024 11:06 AM EDT [facility] RBC 4.91 4.63 - 6.08 M/ L 12/27/2024 11:06 AM EDT [facility] Hemoglobin 14.9 13.7 - 17.5 GM/DL 12/27/2024 11:06 AM EDT [facility] Hematocrit 43.4 40.1 - 51.0 % 12/27/2024 11:06 AM EDT [facility] MCV 88 79 - 92 fL 12/27/2024 11:06 AM EDT [facility] MCH 30.3 25.7 - 32.2 pg 12/27/2024 11:06 AM EDT [facility] MCHC 34.3 32.3 - 36.5 GM/DL 12/27/2024 11:06 AM EDT [facility] RDW 12.7 11.6 - 14.4 % 12/27/2024 11:06 AM EDT [facility] Platelets 219 140 - 375 K/CU MM 12/27/2024 11:06 AM EDT [facility] MPV 11.0 9.4 - 12.4 fL 12/27/2024 11:06 AM EDT [facility] % Neutros 59 34 - 68 % 12/27/2024 11:06 AM EDT [facility] % Lymphs 31 22 - 53 % 12/27/2024 11:06 AM EDT [facility] % Monos 8 5 - 12 % 12/27/2024 11:06 AM EDT [facility] % Eos 1 1 - 7 % 12/27/2024 11:06 AM EDT [facility] % Baso 1 0 - 1 % 12/27/2024 11:06 AM EDT [facility] NRBC Absolute <0.01 0 - 0.012 K/ul 12/27/2024 11:06 AM EDT [facility] # Neutros 3.69 1.78 - 5.38 K/ L 12/27/2024 11:06 AM EDT [facility] # Lymphs 1.93 1.32 - 3.57 K/ L 12/27/2024 11:06 AM EDT [facility] # Monos 0.48 0.30 - 0.82 K/ L 12/27/2024 11:06 AM EDT [facility] # Eos 0.04 0.04 - 0.54 K/ L 12/27/2024 11:06 AM EDT [facility] # Baso 0.05 0.01 - 0.08 K/ L 12/27/2024 11:06 AM EDT [facility] Immature Granulocytes-Re lative 0.50(H) 0.01 - 0.43 % 12/27/2024 11:06 AM EDT [facility] # IG 0.03 0.00 - 0.03 K/uL 12/27/2024 11:06 AM EDT [facility] Blood Venipuncture / Unknown 12/27/2024 10:45 AM EDT 12/27/2024 10:57 AM EDT Narrative [facility] - 12/27/2024 11:06 AM EDT When [...] MD LAB BLOOD ORDERABLES Final Resu lt [facility] [address] [phone] * EKG-SCANNED (12/27/2024) Narrative 12/27/2024 Ordered by [...] Betzy Patel)2313 (IVPB Started - Provider: Cullen El, HAILEY)2351 (IVPB Stopped - Provider: Cullen El RN) [...] Betzy Patel) 0848 (Given - Provider: Melony Hall, HAILEY) Continuous Medication Order 12/26/2024 12/27/2024 12/28/2024 lactated Ringer's infusion (CANCELED) 100 mL/hr Continuous, intravenous, Starting on Thu12/27/24 at 1130, Pre-op 1108 (New Bag - Provider: Hayley Abdi V RN)1138 (Continued by Anesthesia - Provider: Bravo [...] Nat Euceda RN)1320 (Given - Provider: Nat Euceda RN)1325 (Given - Provider: Nat Euceda RN)1330 (Given - Provider: Nat Euceda RN) hydrALAZINE (APRESOLINE) injection 10 mg 10 [...] no further options ordered., Phase II/On Unit 1533 (Given - Provider: Kiran Green RN)2010 (Given - Provider: Cullen El RN) 08 (Given - Provider: Melony Hall, HAILEY) naloxone (NARCAN) injection 0.2 mg 0.2 mg [...] 0848 (Given - Provider: Melony Hall, HAILEY) ondansetron (ZOFRAN) injection 4 mg (CANCELED) 4 [...] 0848 (See Alternative - Provider: Melony Hall, RN) oxyCODONE (ROXICODONE) immediate release tablet 10 mg 10 mg Every 4 hours PRN, oral, moderate pain (4-6), severe pain (7-10), Starting on Thu12/27/24 at 1355, 2nd line analgesic. Give only if inadequate response (less than 50% reduction in pain score) 60 minutes after administration of 1st line analgesics + adjuvants (if ordered). Look-alike/Sound-alike medication, Phase II/On Unit 1744 (Given - Provider: Kiran Green RN)2237 (Given - Provider: Cullen El RN) 0232 (Given - Provider: Cullen El RN)0617 (Given - Provider: Cullen El RN)1150 (Given - Provider: Luz Paolmo, HAILEY)1419 (Given - Provider: Melony Hall, HAILEY) oxyCODONE (ROXICODONE) immediate release tablet 5 mg [...] Unit documented in this encounter Care Teams Cartographic Designer Relationship Specialty Start Date End Date Maggy Paulino APRN [address] [place] [address] PCP - General Emergency Medicine 12/27/24 documented as of this encounter
--- OUTSIDE RECORDS SUMMARY | 2024-12-27 11:38 | XMS_ITS | Encounter Summary ---
Author Organization [employer] ([place], [place], [place], [place]) Address [address] [place] [address] Care Team Providers Care Import And Export Clerk Name Role Phone Maggy Paulino APRN Primary Care Provider [phone] Reason for Visit * Auth/Cert (Routine) Specialty Diagnoses / Procedures Referred By Contac t Referred To Contact Diagnoses Spinal stenosis, lumbar region with neurogenic claudication SEE PRIMARY DX Procedures AR ARTHRODESIS COMBINED TQ 1NTRSPC LUMBAR AR POSTERIOR NON-SEGMENTAL INSTRUMENTATION AR INSJ BIOMCHN DEV INTERVERTEBRAL DSC SPC W/ARTHRD AR ALLOGRAFT FOR SPINE SURGERY ONLY STRUCTURAL AR MORALES FACETEC/FORAMOT DRG ARTHRD LUMBAR 1 VRT SGM LAMINECTOMY, SPINE, LUMBAR, WITH FUSION [facility] Operating Room [address] [place] [address] Phone: tel: fax: [facility] Operating Room [address] [place] [address] Phone: tel: fax: Referral ID Status Reason Start Date Expiration Date Visits Re quested Visits Authorized [id number] 1 5 Encounter Details Date Type Department Care Team (Late st Contact Info) Description 12/27/2024 11:38 AM EDT Anesthesia Event [facility] Operating Room [address] [place] [address] Edwardo Parekh MD [address] [place] [address] Eddie Fredeman MD [address] [place] [address] Anesthesia Record Procedure Summary Procedure Name Responsible [...] Removal Time: 1541 12/27/24 1114 by Danisha Church RN 01/01/25 1541 by Automatic Discharge Provider [...] Procedure Summary Date: 12/27/24 Room / Location: [facility] OPERATING ROOM Anesthesia Start: 1138 Anesthesia Stop: [...] status: face mask Hydration status: stable Color: [place] Activity: Moves 4 extremities Inotropes/Vasopressors: N/A No [...] REVISION DECOMPRESSION AND FUSION) (Spine Lumbar) Location: [facility] OR [address] [facility] OPERATING ROOM Surgeons: Alexx Staley MD Relevant [...] risks discussed with patient. Plan discussed with MACHINE SPREADER. documented in this encounter Plan of Treatment [...] mg documented in this encounter Care Teams Import And Export Clerk Relationship Specialty Start Date End Date Maggy Paulino APRN [address] [phone] PCP - General Emergency Medicine 12/27/24 documented as of this encounter
--- OUTSIDE RECORDS SUMMARY | 2024-12-27 13:05 | XMS_ITS | Encounter Summary ---
Author Organization [employer] ([place], [place], [place], [place]) Address [address] [place] [address] Care Team Providers Care Supervisor Policy Change Clerks Name Role Phone Maggy Paulino APRN Primary Care Provider [phone] Reason for Visit * Auth/Cert (Routine) Specialty Diagnoses / Procedures Referred By Contac t Referred To Contact Diagnoses Spinal stenosis, lumbar region with neurogenic claudication SEE PRIMARY DX Procedures CT ARTHRODESIS COMBINED TQ 1NTRSPC LUMBAR CT POSTERIOR NON-SEGMENTAL INSTRUMENTATION CT INSJ BIOMCHN DEV INTERVERTEBRAL DSC SPC W/ARTHRD CT ALLOGRAFT FOR SPINE SURGERY ONLY STRUCTURAL CT MORALES FACETEC/FORAMOT DRG ARTHRD LUMBAR 1 VRT SGM LAMINECTOMY, SPINE, LUMBAR, WITH FUSION [facility] [address] [place] [address] Phone: tel: fax: [facility] [address] [place] [address] Phone: tel: fax: Referral ID Status Reason Start Date Expiration Date Visits Re quested Visits Authorized [id number] 1 5 Encounter Details Date Type Department Care Team (Late st Contact Info) Description 12/27/2024 1:05 PM EDT - 12/27/2024 3:24 PM EDT Surgery [facility] Operating [facility] [address] [place] [address] Alexx Staley MD [address] [facility] 2nd [place] [address] (L4-5 REVISION DECOMPRESSION AND FUSION) Social History [...] UP: Saturday January 11, 2025 10:15 a.m. [place] office Kang Granda PA-C Time Spent: 15 [...] Contact Name: Transportation Provider Phone: Date of senior occupational therapist: (P) 12/28/24 Time of senior occupational therapist: RRS-N/A CM consulted for DME. Met with pt and spouse at bedside to discuss DCP. FRW obtained from [facility] and has been delivered. He declines HH services. No other CM needs noted. [facility] and Patient [...] AND FUSION); Surgeon: Alexx Staley MD; Location: [facility];Service: Orthopedic Surgery; Laterality: N/A; LUMBAR DISCECTOMY [...] Pt was able to complete all mobility [facility] SBA using the RW. Pt did appear [...] 52 BPM ATRIAL RATE (MCT) [address] Interval 124 ms QRS-INTERVAL (MSEC) 90 ms QT Interval 426 ms QTC Interval 396 ms P [place] 21 degrees R AXIS (MCT) -3 degrees T Wave [place] 27 degrees [place] Diagnosis Sinus bradycardia with sinus arrhythmia with [...] AND FUSION); Surgeon: Alexx Staley MD; Location: [facility];Service: Orthopedic Surgery; Laterality: N/A; LUMBAR DISCECTOMY [...] body dressing:Standby Assist Toileting:Standby Assist Outcome Measures [facility] Daily Living Functional Assessment How much help [...] (Minimal/Contact guard/Supervision/Setup) 4=None (Modified independent/Independent) The patient's [facility] raw score is 21. The patient currently has 32.79% functional impairment. Clinicians are most likely to recommend inpatient/SNF/mcfp care for patients with scores between 6-17, [...] UA Yellow Clarity, UA Clear Clear Specific [place], UA 1.031 (H) 1.005 - 1.030 pH, [...] 52 BPM ATRIAL RATE (MCT) [address] Interval 124 ms QRS-INTERVAL (MSEC) 90 ms QT Interval 426 ms QTC Interval 396 ms P [place] 21 degrees R AXIS (MCT) -3 degrees T Wave [place] 27 degrees [place] Diagnosis Sinus bradycardia with sinus arrhythmia with [...] Clarity, UA 12/27/2024 Clear Clear Final Specific [place], UA 12/27/2024 1.031 (H) 1.005 - 1.030 [...] Resource Strain: Medium Risk (2022) Received from [facility] Financial Resource Strain Financial benefits problems: Not on file Trouble paying for things you need: Not on file Trouble paying for things you need (Other): Not on file Food Insecurity: Not on file Transportation: Not on file Physical Activity: Not on file Social Connections: Unknown (04/02/2023) Received from [facility] Help with Day-to-Day [...] UA Yellow Clarity, UA Clear Clear Specific [place], UA 1.031 (H) 1.005 - 1.030 pH, UA 6.5 6.0 - 8.0 Leukocytes, UA 25 Bertin/uL (A) Negative Nitrite, UA Negative Negative Protein, UA 1+ (A) Negative Glucose, UA Normal Normal Ketones, UA Trace (A) Negative Bilirubin, UA Negative Negative Blood, UA Negative Negative Urobilinogen, UA 3 mg/dL (A) Normal Specimen Source Urine, Voided Urinalysis Microscopic Only Status: Abnormal Collection Time: 07/08/25 10:50 AM Result Value Ref Range WBC, [...] 52 BPM ATRIAL RATE (MCT) [address] Interval 124 ms QRS-INTERVAL (MSEC) 90 ms QT Interval 426 ms QTC Interval 396 ms P [place] 21 degrees R AXIS (MCT) -3 degrees T Wave [place] 27 degrees [place] Diagnosis Sinus bradycardia with sinus arrhythmia with [...] and allograft bone at L4-5. SURGEON: Luís. BOOK AUTHOR: Lb. PREOPERATIVE DIAGNOSIS: Recurrent L4-5 stenosis after [...] under dual C-arm guidance. We placed DePuy mySBXER pedicle screws on the left side at [...] medical management, pain control, and physical therapy. /[id number] MD JONA Solano/FABRIZIO / JONA / ESTEFANY /[id number] CC: Maggy Paulino APRN * Brief Op [...] HOUR Routine 12/27/2024 12: [address] ARTHRODESIS COMBINED TQ 1NTRSPC LUMBAR 12/27/2024 11:38 [...] 9.1 K/ L 12/28/2024 3:20 AM EDT [facility] RBC 4.40(L) 4.63 - 6.08 M/ L 12/28/2024 3:20 AM EDT [facility] Hemoglobin 13.3(L) 13.7 - 17.5 GM/DL 12/28/2024 3:20 AM EDT [facility] Hematocrit 39.6(L) 40.1 - 51.0 % 12/28/2024 3:20 AM EDT [facility] MCV 90 79 - 92 fL 12/28/2024 3:20 AM EDT [facility] MCH 30.2 25.7 - 32.2 pg 12/28/2024 3:20 AM EDT [facility] MCHC 33.6 32.3 - 36.5 GM/DL 12/28/2024 3:20 AM EDT [facility] RDW 12.6 11.6 - 14.4 % 12/28/2024 3:20 AM EDT [facility] Platelets 170 140 - 375 K/CU MM 12/28/2024 3:20 AM EDT [facility] MPV 10.5 9.4 - 12.4 fL 12/28/2024 3:20 AM EDT [facility] % Neutros 73(H) 34 - 68 % 12/28/2024 3:20 AM EDT [facility] % Lymphs 17(L) 22 - 53 % 12/28/2024 3:20 AM EDT [facility] % Monos 8 5 - 12 % 12/28/2024 3:20 AM EDT [facility] % Eos 1 1 - 7 % 12/28/2024 3:20 AM EDT [facility] % Baso 1 0 - 1 % 12/28/2024 3:20 AM EDT [facility] NRBC Absolute <0.01 0 - 0.012 K/ul 12/28/2024 3:20 AM EDT [facility] # Neutros 5.86(H) 1.78 - 5.38 K/ L 12/28/2024 3:20 AM EDT [facility] # Lymphs 1.40 1.32 - 3.57 K/ L 12/28/2024 3:20 AM EDT [facility] # Monos 0.67 0.30 - 0.82 K/ L 12/28/2024 3:20 AM EDT [facility] # Eos 0.04 0.04 - 0.54 K/ L 12/28/2024 3:20 AM EDT [facility] # Baso 0.04 0.01 - 0.08 K/ L 12/28/2024 3:20 AM EDT [facility] Immature Granulocytes-Re lative 0.40 0.01 - 0.43 % 12/28/2024 3:20 AM EDT [facility] # IG 0.03 0.00 - 0.03 K/uL 12/28/2024 3:20 AM EDT [facility] Blood Venipuncture / Unknown 12/28/2024 3:08 AM EDT 12/28/2024 3:16 AM EDT Narrative [facility] - 12/28/2024 3:20 AM EDT [...] Potts MD LAB BLOOD ORDERABLES Final Result [facility] [address] [phone] * (ABNORMAL) Basic Metabolic Panel (12/28/2024 3:08 AM EDT) Sodium 137 136 - 145 meq/L 12/28/2024 3:41 AM EDT [facility] Potassium 3.9 3.4 - 5.1 meq/L 12/28/2024 3:41 AM EDT [facility] CO2 27 22 - 29 meq/L 12/28/2024 3:41 AM EDT [facility] Chloride 106 98 - 112 meq/L 12/28/2024 3:41 AM EDT [facility] Glucose 130(H) 74 - 100 mg/dL 12/28/2024 3:41 AM EDT [facility] BUN 4.3(L) 8.9 - 20.6 mg/dL 12/28/2024 3:41 AM EDT [facility] Creatinine 0.82 0.72 - 1.25 mg/dL 12/28/2024 3:41 AM EDT [facility] BUN/Creatinine 5(L) 8 - 20 12/28/2024 3:41 AM EDT [facility] Calcium 8.7 8.4 - 10.2 mg/dL 12/28/2024 3:41 AM EDT [facility] Anion Gap 8 4 - 12 12/28/2024 3:41 AM EDT [facility] eGFR (mL/min/1.73m2) 121 >=60 mL/min/1.7 3m2 12/28/2024 3:41 AM EDT [facility] Osmolality Calc 272.6 mOsm/kg 3:41 AM EDT [facility] Blood Venipuncture / Unknown 12/28/2024 3:08 AM EDT 12/28/2024 3:17 AM EDT us Matteo Potts MD LAB BLOOD ORDERABLES Final Result [facility] [address] [phone] * [place] C-ARM < 1 HOUR (12/27/2024 [...] ATRIAL RATE (MCT) [address] Interval 124 ms GE MUSE QRS-INTERVAL (MSEC) 90 ms GE MUSE QT Interval 426 ms GE MUSE QTC Interval 396 ms GE MUSE P [place] 21 degrees GE MUSE R AXIS (MCT) -3 degrees GE MUSE T Wave [place] 27 degrees GE MUSE [place] Diagnosis Sinus bradycardia with sinus arrhythmia with [...] None Seen /HPF 12/27/2024 11:12 AM EDT [facility] RBC, UA 0-2(A) None Seen /HPF 12/27/2024 11:12 AM EDT [facility] Bacteria, UA None Seen None Seen, Trace 12/27/2024 11:12 AM EDT [facility] Mucus 4+(A) None Seen 12/27/2024 11:12 AM EDT [facility] SQUAMOUS EPITHELIAL 0-2(A) None Seen /HPF 12/27/2024 11:12 AM EDT [facility] Ca Oxalate Carina, UA 1+(A) None Seen 12/27/2024 11:12 AM EDT [facility] Urine URINE / Unknown 12/27/2024 1 0:50 AM EDT 12/27/2024 11:04 AM EDT us Alexx Staley MD URINE ORDERABLES Final Result [facility] [address] [phone] * (ABNORMAL) Urinalysis, Reflex Microscopic and Culture If Indicated (12/27/2024 10:50 AM EDT) Color, UA Yellow 12/27/2024 11:12 AM EDT [facility] Clarity, UA Clear Clear 12/27/2024 11:12 AM EDT [facility] Specific [place], UA 1.031(H) 1.005 - 1.030 12/27/2024 11:12 AM EDT [facility] pH, UA 6.5 6.0 - 8.0 12/27/2024 11:12 AM EDT [facility] Leukocytes, UA 25 Bertin/uL(A) Negative 12/27/2024 11:12 AM EDT [facility] Nitrite, UA Negative Negative 12/27/2024 11:12 AM EDT [facility] Protein, UA 1+(A) Negative 12/27/2024 11:12 AM EDT [facility] Glucose, UA Normal Normal 12/27/2024 11:12 AM EDT [facility] Ketones, UA Trace(A) Negative 12/27/2024 11:12 AM EDT [facility] Bilirubin, UA Negative Negative 12/27/2024 11:12 AM EDT [facility] Blood, UA Negative Negative 12/27/2024 11:12 AM EDT [facility] Urobilinogen, UA 3 mg/dL(A) Normal 12/27/2024 11:12 AM EDT [facility] Specimen Source Urine, Voided 12/27/2024 11:12 AM EDT [facility] Urine URINE / Unknown 12/27/2024 1 0:50 AM EDT 12/27/2024 11:04 AM EDT us lAexx Staley MD URINE ORDERABLES Final Result Performing Organization Address City/[facility]/ZIP Co de Phone Number [facility] [address] [phone] * Type and Screen (12/27/2024 10:47 AM EDT) ABO/Rh O Positive 12/27/2024 10:45 AM EDT [facility] [place] Antibody Screen Negative 12/27/2024 10:45 AM EDT [facility] [place] HISTCHK HIST CHECK PERFORMED 12/27/2024 10:45 AM EDT [facility] [place] Blood Venipuncture / Unknown 12/27/2024 10:47 AM EDT 12/27/2024 10:57 AM EDT us Alexx Staley MD [facility] TEST ORDERABLES Final Result Performing Organization Address [facility]/ZIP Co de Phone Number [facility] [place] [address] [phone] * (ABNORMAL) Basic Metabolic Panel (12/27/2024 10:45 AM EDT) Sodium 141 136 - 145 meq/L 12/27/2024 11:20 AM EDT [facility] Potassium 4.3 3.4 - 5.1 meq/L 12/27/2024 11:20 AM EDT [facility] CO2 24 22 - 29 meq/L 12/27/2024 11:20 AM EDT [facility] Chloride 110 98 - 112 meq/L 12/27/2024 11:20 AM EDT [facility] Glucose 94 74 - 100 mg/dL 12/27/2024 11:20 AM EDT [facility] BUN 5.2(L) 8.9 - 20.6 mg/dL 12/27/2024 11:20 AM EDT [facility] Creatinine 0.84 0.72 - 1.25 mg/dL 12/27/2024 11:20 AM EDT [facility] BUN/Creatinine 6(L) 8 - 20 12/27/2024 11:20 AM EDT [facility] Calcium 9.3 8.4 - 10.2 mg/dL 12/27/2024 11:20 AM EDT [facility] Anion Gap 11 4 - 12 12/27/2024 11:20 AM [facility] eGFR (mL/min/1.73m2) 120 >=60 mL/min/1.7 3m2 12/27/2024 11:20 AM EDT [facility] Osmolality Calc 278.3 mOsm/kg 11:20 AM EDT [facility] Blood Venipuncture / Unknown 12/27/2024 10:45 AM EDT 12/27/2024 10:57 AM EDT us Alexx Staley MD LAB BLOOD ORDERABLES Final Resu lt [facility] [address] [place] [id number] [phone] * (ABNORMAL) CBC with automated diff (12/27/2024 10:45 AM EDT) WBC 6.2 4.2 - 9.1 K/ L 12/27/2024 11:06 AM EDT [facility] RBC 4.91 4.63 - 6.08 M/ L 12/27/2024 11:06 AM EDT [facility] Hemoglobin 14.9 13.7 - 17.5 GM/DL 12/27/2024 11:06 AM EDT [facility] Hematocrit 43.4 40.1 - 51.0 % 12/27/2024 11:06 AM EDT [facility] MCV 88 79 - 92 fL 12/27/2024 11:06 AM EDT [facility] MCH 30.3 25.7 - 32.2 pg 12/27/2024 11:06 AM EDT [facility] MCHC 34.3 32.3 - 36.5 GM/DL 12/27/2024 11:06 AM EDT [facility] RDW 12.7 11.6 - 14.4 % 12/27/2024 11:06 AM EDT [facility] Platelets 219 140 - 375 K/CU MM 12/27/2024 11:06 AM EDT [facility] MPV 11.0 9.4 - 12.4 fL 12/27/2024 11:06 AM EDT [facility] % Neutros 59 34 - 68 % 12/27/2024 11:06 AM EDT [facility] % Lymphs 31 22 - 53 % 12/27/2024 11:06 AM EDT [facility] % Monos 8 5 - 12 % 12/27/2024 11:06 AM EDT [facility] % Eos 1 1 - 7 % 12/27/2024 11:06 AM EDT [facility] % Baso 1 0 - 1 % 12/27/2024 11:06 AM EDT [facility] NRBC Absolute <0.01 0 - 0.012 K/ul 12/27/2024 11:06 AM EDT [facility] # Neutros 3.69 1.78 - 5.38 K/ L 12/27/2024 11:06 AM EDT [facility] # Lymphs 1.93 1.32 - 3.57 K/ L 12/27/2024 11:06 AM EDT [facility] # Monos 0.48 0.30 - 0.82 K/ L 12/27/2024 11:06 AM EDT [facility] # Eos 0.04 0.04 - 0.54 K/ L 12/27/2024 11:06 AM EDT [facility] # Baso 0.05 0.01 - 0.08 K/ L 12/27/2024 11:06 AM EDT [facility] Immature Granulocytes-Re lative 0.50(H) 0.01 - 0.43 % 12/27/2024 11:06 AM EDT [facility] # IG 0.03 0.00 - 0.03 K/uL 12/27/2024 11:06 AM EDT [facility] Blood Venipuncture / Unknown 12/27/2024 10:45 AM EDT 12/27/2024 10:57 AM EDT Narrative [facility] - 12/27/2024 11:06 AM EDT [...] noted Atypical Lymph flag noted us Alexx Satley MD LAB BLOOD ORDERABLES Final Resu lt [facility] [address] [phone] * EKG-SCANNED (12/27/2024) Narrative 12/27/2024 Ordered by [...] FORM * 2010 (Given - Provider: Cullen El, HAILEY) 08 (Given - Provider: Melony Hall, HAILEY) famotidine (PEPCID) tablet 20 mg (COMPLETED) 20 mg Once, oral, On Thu12/27/24 at 1130, For 1 dose, Pharmacist to renally dose if CrCl is less than 50 mL/min or on CRRT., Pre-op 1120 (Given - Provider: Hayley Abdi V, RN) polyethylene glycol (GLYCOLAX) packet 17 g [...] Nat Euceda RN)1345 (Given - Provider: Nat Euceda, RN)1355 (Given - Provider: Nat Euceda, RN)1405 (Given - Provider: Nat Euceda, RN) lactulose (CHRONULAC) 10 gram/15 mL solution 20 g 20 g 3 times daily PRN, oral, constipation, Starting on Thu12/27/24 at 1514 LORazepam (ATIVAN) tablet 1 mg 1 mg Every 8 hours PRN, oral, anxiety, Starting on Thu12/27/24 at 1301, Phase II/On Unit 141 (Given - Provider: Nat Euceda RN) 0848 (Given - Provider: Melony Hall, RN) magnesium hydroxide (MILK OF MAGNESIA) suspension [...] El RN) 0232 (Given - Provider: Cullen El, HAILEY)0617 (Given - Provider: Cullen El RN)1150 (Given - Provider: Luz Palomo RN)1419 (Given - Provider: Melony Hall, HAILEY) oxyCODONE [...] Unit documented in this encounter Care Teams Supervisor Policy Change Clerks Relationship Specialty Start Date End Date Maggy Paulino APRN [address] [phone] PCP - General Emergency Medicine 12/27/24 documented as of this encounter
[2025-02-23] VITALS (9 sets, daily range): BP systolic 117–150; BP diastolic 60–97; PULSE 42–66; RESP 18–20; TEMP 36.7; O2SAT 97–100; BMI 34.5
--- OUTSIDE RECORDS SUMMARY | 2025-02-23 10:20 | XMS_ITS | Encounter Summary ---
Author Organization [facility] ([place], [place], [place], [place]) Address [address] [place] [address] Care Team Providers Care Grassroots Organizer Name Role Phone Maggy Paulino APRN Primary Care Provider [phone] Encounter Details Date Type Department Care Team [...] on filedocumented in this encounter Care Teams Grassroots Organizer Relationship Specialty Start Date End Date Maggy Paulino APRN [address] [place] [address] PCP - General Emergency Medicine 12/27/24 documented as of this encounter
--- OUTSIDE RECORDS SUMMARY | 2025-02-23 10:20 | XMS_ITS | Clinical Summary ---
Author Organization [facility] Address [address] [place] [address] Care Team Providers Care Posting Specialist Name Role Phone Stevan Daigle M.D. Primary Care Provider [phone] Source Comments [facility] is fully rolled out with thefollowing exceptions:General Clinical Research [facility] Allergies Active Allergy Reactions Criticality Noted Date Comments Nsaids 11/10/2011 Pt unable to take due to stomach surgery Medications SUMAtriptan (IMITREX) 50 MG tablet Take 50 mg by mouth every 8 hours as needed for Migraine. Active Multiple Vitamins-Minera ls (CENTRUM) tablet Take 1 Tab by mouth 2 times daily. Please dispense Centrum CHEWABLE 60 2 04/08/2010 Active cyanocobalamin (VITAMIN B-12) 500 MCG tablet Take 1 Tab by mouth 1 time daily. 30 2 04/08/2010 Active Calcium Citrate-Vitamin D (CALCIUM CITRATE + D PO)Indications: Malabsorption syndrome Take 600 mg by mouth 2 times daily. Active ferrous sulfate 325 (65 FE) MG tablet Take 1 Tab (65 mg total) by mouth 2 times daily. 60 Tab 5 11/11/2011 Active Cholecalciferol (VITAMIN D-3) 5000 UNITS TABS Take 1 Tab (5,000 Units total) by mouth 1 time a day. 30 Tab 11 06/13/2013 Active Active Problems Problem Noted Date Diagnosed Date Iron deficiency 11/11/2011 Left ventricular hypertrophy 12/27/2010 Vitamin D insufficiency 10/30/2010 GERD (gastroesophageal reflux disease) 1 Malabsorption syndrome 05/09/2010 Morbid obesity 06/07/2009 Joint pain Resolved Problems Problem Noted Date Diagnosed Date Resolved Date Elevated BP 07/11/2010 06/02/2013 Headache(784.0) 06/07/2009 12/26/2010 Elevated liver enzymes 06/07/200910/30 Elevated fasting glucose 04/25/200904/2011 Insulin resistance 1 ROSALBA (obstructive sleep apnea) 04/19/2010 Essential hypertension 05/09 Family History Medical History Relation Name Comments Obesity/Overweight Brother Other Brother Diabetes Father Obesity/Overweight Father Diabetes Maternal Grandmother Hypertension Maternal Grandmother Diabetes Mother High Blood Pressure Mother Hypertension Mother Cardiac Condition Paternal Grandfather Hypertension Paternal Grandfather Relation Name Status Comments Brother Father Maternal Grandfather Maternal Grandmother Mother Paternal Grandfather Social History Tobacco Use Types Packs/Day Years Used Date Smoking Tobacco: Never Smokeless Tobacco: Never Alcohol Use Standard Drinks/Week Comments No 0 (1 standard drink = 0.6 oz pur e alcohol) Financial Resource Strain Answer Date R ecorded Financial benefits problems Not on file 09/2022 Trouble paying for things you need Not on file 2022 Trouble paying for things you need (Other) Not o n file 2022 Sex and Gender Information Value Date Recorded Sex Assigned at Not on file Legal Sex Male 5:29 AM EST Gender Identity Not on file Sexual Orientation Not on file Last Filed Vital Signs Vital Sign Reading Time Taken Comments Blood Pressure 154/78 04/05/2015 3:01 PM EDT Pulse 54 04/08/2010 12:56 PM EDT Temperature 36.3 C (97.3 F) 04/08/2010 12:56 PM EDT Respiratory Rate 18 04/08/2010 12:56 PM EDT Oxygen Saturation 100% 04/08/2010 12:56 PM EDT Inhaled Oxygen Concentration - - Weight 109.6 kg (241 lb 10 oz) 04/05/2015 9:11 A M EDT Height 175 cm (5' 8.9 ) 04/05/2015 9:11 AM EDT Body Mass Index 35.79 04/05/2015 9:11 AM EDT Plan of Treatment Health Maintenance Due Date Last Done Comments MMR IMMUNIZATION (1 of 1 - S tandard series) 10/24/1995 DTAP/Tdap/Td IMMUNIZATION (1 - Tdap) 2001 VARICELLA IMMUNIZATION (1 of 2 - 13+ 2-dose series) 10/24/2007 HEPATITIS B IMMUNIZATION (1 of 3 - 19+ 3-dose series) 2013 HPV IMMUNIZATION (1 - 3-dose SCDM series) 2021 AMB SEASONAL FLU VACCINE (#1) 02/20/2025 COVID-19 Vaccine ( - 2023-2 5 season) 2025 HIB IMMUNIZATION Aged Out No longer e ligible based on patient's age to complete this topic IPV IMMUNIZATION Aged Out No longer e ligible based on patient's age to complete this topic MCV4 IMMUNIZATION Aged Out No longer eligible based on patient's age to complete this topic MENINGOCOCCAL B VACCINE Aged Out No l onger eligible based on patient's age to complete this topic PNEUMOCOCCAL IMMUNIZATION Aged Out No longer eligible based on patient's age to complete this topic Respiratory Syncytial Virus (RSV) <20mo Aged Out No longer eligible b ased on patient's age to complete this topic Insurance [employer] NON-TRADITIONAL * Guarantor: [facility] Account Type Relation to Patient Date of Phone Billing Address Research Visit [facility] [address] [place] [address] Care Teams Posting Specialist Relationship Specialty Start Date End Date Stevan Daigle M.D. [facility] [address], [place] [address] PCP - General 05/26/13
--- OUTSIDE RECORDS SUMMARY | 2025-02-23 10:21 | XMS_ITS | Clinical Summary ---
Author Organization [employer] ([place] Address [address] [place] [address] Care Team Providers Care Instrument Calibrator Name Role Phone Maggy Paulino RODRIGO Primary Care Provider [phone] Allergies Active Allergy Reactions Criticality Noted Date [...] medication . Max Daily Amount: 6 tablets 12/28/2024 Active Resolved Problems Problem Noted Date Diagnosed Date Resolved Date HTN (hypertension) 12/27/2024 5 Encounters Date Type Department Care Team Description 12/27/2024 1:05 PM EDT - 12/27/2024 3:24 PM EDT Surgery [facility] Operating Room [address] [place] [address] Alexx Staley MD (L4-5 REVISION DECOMPRESSION AND FUSION) 12/27/2024 11:38 AM EDT Anesthesia Event [facility] Operating Room [address] [place] [address] Edwardo Parekh MD Wilson, Matthew L, MD 12/27/2024 8:48 AM EDT - 12/28/2024 3:41 PM EDT Hospital Encounter [facility] Orthopedic & Neurosurgery Unit [address] [place] [address] Alexx Staley MD Discharge Disposition: [...] 08/25/1995 Lipid Panel 2014 COVID-19 VACCINE (2 - 2024-2 6 season) 2025 04/25/2021 Influenza Vaccine (#1) 2025 Tobacco Cessation Counseling and Screening (12+) 12/26/2025 12/26/2024 Pneumococcal Vaccine: 0-49 Years Aged Out No longer eligible b ased on patient's age to complete this topic Medical Devices Implanted Type Area Ambulance Paramedic Device Identifier Shelf Expiration Date Model / Serial / Lot Wire Nitonal - [id number] Implanted:Qty : 4 on 12/27/2024 by Alexx Staley MD at [facility] IMPLANTS N/A: Spine Lumbar J &J:DEPUY:DEPUY SPINE / / Mis Chris Ply Scrw Set Ti - Implanted:Qty : 4 on 12/27/2024 by Alexx Staley MD at [facility] IMPLANTS N/A: Spine Lumbar J &J:DEPUY:DEPUY SPINE / / Bone Matrx Vivigen Prefilled -1900-001 - [id number] Implanted:Qty : 1 on 12/27/2024 by Alexx Staley MD at [facility] IMPLANTS N/A: Spine Lumbar LIFENET:LIFENET TRANSPLANT SRV 11/23/2025 [id number] / [id number] / Cage Eit Plif H 11mm 8d 17/03 [id number] - [id number] Implanted:Qty : 1 on 12/27/2024 by Alexx Staley MD at [facility] IMPLANTS N/A: Spine Lumbar J &J:DEPUY:DEPUY SPINE 11/23/2025 [id number] / / [id number] Imp Vpr Prm Cfxfen Xtab 7x50mm [id number] - Implanted:Qty : 4 on 12/27/2024 by Alexx Staley MD at [facility] IMPLANTS N/A: Spine Lumbar J &J:DEPUY:DEPUY SPINE [id number] / / [id number] Lordotic Antolin-50mm - [id number] Implanted:Qty : 2 on 12/27/2024 by Alexx Staley MD at [facility] IMPLANTS N/A: Spine Lumbar J &J:DEPUY:DEPUY SPINE 050 / [id number] / Procedures Procedure Name Priority Date/Time Associated Diagnosis Comments CBC W/ AUTO DIFF Routine 12/28/2024 3:08 AM EDT BASIC METABOLIC PANEL Routine 12/28/2024 3:08 AM EDT [place] C-ARM < 1 HOUR Routine 12/27/2024 12: 55 PM EDT ANESTHESIA INTUBATION Routine 12/27/2024 11:45 AM EDT [place] ARTHRODESIS COMBINED TQ 1NTRSPC LUMBAR 12/27/2024 11:38 [...] 9.1 K/ L 12/28/2024 3:20 AM EDT [facility] RBC 4.40(L) 4.63 - 6.08 M/ L 12/28/2024 3:20 AM EDT [facility] Hemoglobin 13.3(L) 13.7 - 17.5 GM/DL 12/28/2024 3:20 AM EDT [facility] Hematocrit 39.6(L) 40.1 - 51.0 % 12/28/2024 3:20 AM EDT [facility] MCV 90 79 - 92 fL 12/28/2024 3:20 AM EDT [facility] MCH 30.2 25.7 - 32.2 pg 12/28/2024 3:20 AM EDT [facility] MCHC 33.6 32.3 - 36.5 GM/DL 12/28/2024 3:20 AM EDT [facility] RDW 12.6 11.6 - 14.4 % 12/28/2024 3:20 AM EDT [facility] Platelets 170 140 - 375 K/CU MM 12/28/2024 3:20 AM EDT [facility] MPV 10.5 9.4 - 12.4 fL 12/28/2024 3:20 AM EDT [facility] % Neutros 73(H) 34 - 68 % 12/28/2024 3:20 AM EDT [facility] % Lymphs 17(L) 22 - 53 % 12/28/2024 3:20 AM EDT [facility] % Monos 8 5 - 12 % 12/28/2024 3:20 AM EDT [facility] % Eos 1 1 - 7 % 12/28/2024 3:20 AM EDT [facility] % Baso 1 0 - 1 % 12/28/2024 3:20 AM EDT [facility] NRBC Absolute <0.01 0 - 0.012 K/ul 12/28/2024 3:20 AM EDT [facility] # Neutros 5.86(H) 1.78 - 5.38 K/ L 12/28/2024 3:20 AM EDT [facility] # Lymphs 1.40 1.32 - 3.57 K/ L 12/28/2024 3:20 AM EDT [facility] # Monos 0.67 0.30 - 0.82 K/ L 12/28/2024 3:20 AM EDT [facility] # Eos 0.04 0.04 - 0.54 K/ L 12/28/2024 3:20 AM EDT [facility] # Baso 0.04 0.01 - 0.08 K/ L 12/28/2024 3:20 AM EDT [facility] Immature Granulocytes-Re lative 0.40 0.01 - 0.43 % 12/28/2024 3:20 AM EDT [facility] # IG 0.03 0.00 - 0.03 K/uL 12/28/2024 3:20 AM EDT [facility] Blood Venipuncture / Unknown 12/28/2024 3:08 AM EDT 12/28/2024 3:16 AM EDT Narrative [facility] - 12/28/2024 3:20 AM EDT [...] Potts MD LAB BLOOD ORDERABLES Final Result [facility] [address] [phone] * (ABNORMAL) Basic Metabolic Panel (12/28/2024 3:08 AM EDT) Only the most recent of2 resultswithin the time period is included. Sodium 137 136 - 145 meq/L 12/28/2024 3:41 AM EDT [facility] Potassium 3.9 3.4 - 5.1 meq/L 12/28/2024 3:41 AM EDT [facility] CO2 27 22 - 29 meq/L 12/28/2024 3:41 AM EDT [facility] Chloride 106 98 - 112 meq/L 12/28/2024 3:41 AM EDT [facility] Glucose 130(H) 74 - 100 mg/dL 12/28/2024 3:41 AM EDT [facility] BUN 4.3(L) 8.9 - 20.6 mg/dL 12/28/2024 3:41 AM EDT [facility] Creatinine 0.82 0.72 - 1.25 mg/dL 12/28/2024 3:41 AM EDT [facility] BUN/Creatinine 5(L) 8 - 20 12/28/2024 3:41 AM EDT [facility] Calcium 8.7 8.4 - 10.2 mg/dL 12/28/2024 3:41 AM EDT [facility] Anion Gap 8 4 - 12 12/28/2024 3:41 AM EDT [facility] eGFR (mL/min/1.73m2) 121 >=60 mL/min/1.7 3m2 12/28/2024 3:41 AM EDT [facility] Osmolality Calc 272.6 mOsm/kg 3:41 AM EDT [facility] Blood Venipuncture / Unknown 12/28/2024 3:08 AM EDT 12/28/2024 3:17 AM EDT Matteo Potts MD LAB BLOOD ORDERABLES Final Result Performing Organization Address [facility]/State/[facility] Co de Phone Number [facility] [address] [phone] * [place] C-ARM < 1 HOUR (12/27/2024 [...] Alexx Staley MD IMG FLUOROSCOPY ORDERABLES Erin orestes Result * AN SINGLE LUMEN INTUBATION (12/27/2024 [...] ATRIAL RATE (MCT) 52 BPM GE MUSE [place] Interval 124 ms GE MUSE QRS-INTERVAL (MSEC) 90 ms GE MUSE QT Interval 426 ms GE MUSE QTC Interval 396 ms GE MUSE P [place] 21 degrees GE MUSE R AXIS (MCT) -3 degrees GE MUSE T Wave [place] 27 degrees GE MUSE [place] Diagnosis Sinus bradycardia with sinus arrhythmia with [...] Color, UA Yellow 12/27/2024 11:12 AM EDT [facility] Clarity, UA Clear Clear 12/27/2024 11:12 AM EDT [facility] Specific [place], UA 1.031(H) 1.005 - 1.030 12/27/2024 11:12 AM EDT [facility] pH, UA 6.5 6.0 - 8.0 12/27/2024 11:12 AM EDT [facility] Leukocytes, UA 25 Bertin/uL(A) Negative 12/27/2024 11:12 AM EDT [facility] Nitrite, UA Negative Negative 12/27/2024 11:12 AM EDT [facility] Protein, UA 1+(A) Negative 12/27/2024 11:12 AM EDT [facility] Glucose, UA Normal Normal 12/27/2024 11:12 AM EDT [facility] Ketones, UA Trace(A) Negative 12/27/2024 11:12 AM EDT [facility] Bilirubin, UA Negative Negative 12/27/2024 11:12 AM EDT [facility] Blood, UA Negative Negative 12/27/2024 11:12 AM EDT [facility] Urobilinogen, UA 3 mg/dL(A) Normal 12/27/2024 11:12 AM EDT [facility] Specimen Source Urine, Voided 12/27/2024 11:12 AM EDT [facility] Urine URINE / Unknown 12/27/2024 1 0:50 AM EDT 12/27/2024 11:04 AM EDT us Alexx Staley MD URINE ORDERABLES Final Result Performing Organization Address [facility]/ZIP Co de Phone Number [facility] [address] [phone] * (ABNORMAL) Urinalysis Microscopic Only (12/27/2024 10:50 AM EDT) WBC, UA 6-10(A) None Seen /HPF 12/27/2024 11:12 AM EDT [facility] RBC, UA 0-2(A) None Seen /HPF 12/27/2024 11:12 AM EDT [facility] Bacteria, UA None Seen None Seen, Trace 12/27/2024 11:12 AM EDT [facility] Mucus 4+(A) None Seen 12/27/2024 11:12 AM EDT [facility] SQUAMOUS EPITHELIAL 0-2(A) None Seen /HPF 12/27/2024 11:12 AM EDT [facility] Ca Oxalate Carina, UA 1+(A) None Seen 12/27/2024 11:12 AM EDT [facility] Urine URINE / Unknown 12/27/2024 1 0:50 AM EDT 12/27/2024 11:04 AM EDT us Alexx Staley MD URINE ORDERABLES Final Result Performing Organization Address City/[facility]/ZIP Co de Phone Number [facility] [address] [phone] * Type and Screen (12/27/2024 10:47 AM EDT) ABO/Rh O Positive 12/27/2024 10:45 AM EDT [facility] BLOOD [facility] [place] Antibody Screen Negative 12/27/2024 10:45 AM EDT [facility] BLOOD [facility] [place] HISTCHK HIST CHECK PERFORMED 12/27/2024 10:45 AM EDT [facility] [place] Blood Venipuncture / Unknown 12/27/2024 10:47 AM EDT 12/27/2024 10:57 AM EDT us Alexx Staley MD [facility] BLOOD BANK TEST ORDERABLES Final Result [facility] ([place]) 1 [facility] [place] [address], [facility] [phone] * EKG-SCANNED (12/27/2024) Narrative 12/27/2024 Ordered by an unspecified provider. us Default Scanning Provider SCAN ORDERS Final Result from Last 3 Months Insurance BLUE CROSS/BLUE SHIELD Advance Directives For more information, please contact: [phone] * Full Code (Latest Code Status on File) Date Activated Date Inactivated Comments 12/27/2024 1:41 PM 12/28/2024 4:41 PM Care Teams Instrument Calibrator Relationship Specialty Start Date End Date Maggy Paulino, BLOOD TESTER [address] [id number] PCP - General Emergency Medicine 12/27/24
--- OUTSIDE RECORDS SUMMARY | 2025-02-23 10:21 | XMS_ITS | Clinical Summary ---
[facility] Address [address] [place] [address] Care Team Providers Care Preparole Counseling Aide Name Role Phone Woody Osorio MD Primary Care Provider [phone] Social History Tobacco Use Types Packs/Day Years Used Date Smoking Tobacco: Never Assessed Abuse Screen Answer Date Recorded Unsafe at Home or Work/School Not on file Feels Threatened by Someone? Not on file 05/2023 Does Anyone Keep You from Co ntacting Others or Doint Things Outside the Home? Not on file 04/02/2023 Physical Sign of Abuse Present Not on file 1 Housing Stability Answer Date Recorded Current Living Arrangements Not on file 03/22 Potentially Unsafe Housing Conditions Not on tawny e 04/02/2023 Family and Community Support Answer Diomedes e Recorded Help with Day-to-Day Activities Not on file 04/02/2023 Lonely or Isolated Not on file 04/02/2023 Employment Answer Date Recorded Do you want help finding or keeping work or a jeffrey b? Not on file 04/02/2023 Disabilities Answer Date Recorded Concentrating, Remembering, or Making Decisions Difficulty Not on file 04/02/2023 Doing Errands Independently Difficulty Not on fi le 04/02/2023 Education Answer Date Recorded Help with school or training? Not on file Preferred Language Not on file 04/02/2023 Sex and Gender Information Value Date Recorded Sex Assigned at Not on file Legal Sex Male 10:43 AM EST Gender Identity Not on file Sexual Orientation Not on file Plan of Treatment Health Maintenance Due Date Last Done Comments TDAP/TD VACCINES (1 - Tdap) 2013 ANNUAL PHYSICAL 09/07/2018 HEPATITIS C SCREENING 09/07/2018 COVID-19 Vaccine ( - 2023-2 5 season) 2024 INFLUENZA VACCINE 03/22/2025 Pneumococcal Vaccine 0-49 Aged Out No longer eligible based on patient's age to complete this topic Insurance [facility] PPO Care Teams Preparole Counseling Aide Relationship Specialty Start Date End Date Woody Osorio MD [address] [place] [address] PCP - General Family Medicine 08/11/18
--- OUTSIDE RECORDS SUMMARY | 2025-02-23 10:21 | XMS_ITS | Referral Summary ---
Author Organization [employer] ([place], [place], [place], [place]) Address [address] [place] [address] Care Team Providers Care Management Professionals Name Role Phone Maggy Paulino APRN Primary Care Provider [phone] Encounters Date Type Department Care Team Description 12/27/2024 8:48 AM EDT - 12/28/2024 3:41 PM EDT Hospital Encounter [facility] Orthopedic & Neurosurgery Unit 1 [place] [address] Alexx Staley MD Discharge Disposition: Home or Self Care 12/27/2024 11:38 AM EDT Anesthesia Event [facility] Operating Room 1 [place] [address] Edwardo Parekh MD Wilson, Matthew L, MD 12/27/2024 Travel 12/27/2024 1:05 PM EDT - 12/27/2024 3:[address] [facility] Operating Room 1 [place] [address] Alexx Staley MD (L4-5 REVISION DECOMPRESSION AND FUSION) from Last 3 Months Allergies Active Allergy Reactions Criticality Noted Date [...] Diagnosed Date Resolved Date HTN (hypertension) 12/27/2024 Social History Tobacco Use Types Packs/Day Years [...] 12/27/2024 10:20 AM EDT Plan of Treatment Not on file Medical Devices Implanted Type Area Supervisor Sunglasses Device Identifier Shelf Expiration Date Model / Serial / Lot Wire Nitonal 2867-05-320 - [id number] Implanted:Qty : 4 on 12/27/2024 by Alexx Staley MD at [facility] IMPLANTS N/A: Spine Lumbar J &J:DEPUY:DEPUY SPINE / / Mis Chris Ply Scrw Set Ti 1867-15-000 - [id number] Implanted:Qty : 4 on 12/27/2024 by Alexx Staley MD at [facility] IMPLANTS N/A: Spine Lumbar J &J:DEPUY:DEPUY SPINE / / Bone Matrx Vivigen Prefilled -1900-001 - [id number] Implanted:Qty : 1 on 12/27/2024 by Alexx Staley MD at [facility] IMPLANTS N/A: Spine Lumbar LIFENET:LIFENET TRANSPLANT SRV 11/23/2025 -1900-001 / [id number] / Cage Eit Plif H 11mm 8d 17/03 [id number] - [id number] Implanted:Qty : 1 on 12/27/2024 by Alexx Staley MD at [facility] IMPLANTS N/A: Spine Lumbar J &J:DEPUY:DEPUY SPINE 11/23/2025 [id number] / / [id number] Imp Vpr Prm Cfxfen Xtab 7x50mm [id number] - [id number] Implanted:Qty : 4 on 12/27/2024 by Alexx Staley MD at [facility] IMPLANTS N/A: Spine Lumbar J &J:DEPUY:DEPUY SPINE [id number] / -[id number] / Viper2 Lordotic Antolin-50mm -050 - [id number] Implanted:Qty : 2 on 12/27/2024 by Alexx Staley MD at [facility] IMPLANTS N/A: Spine Lumbar J &J:DEPUY:DEPUY SPINE 050 / / Procedures Procedure Name Priority Date/Time Associated Diagnosis Comments CBC W/ AUTO DIFF Routine 12/28/2024 3:08 AM EDT BASIC METABOLIC PANEL Routine 12/28/2024 3:08 AM EDT [place] C-ARM < 1 HOUR Routine 12/27/2024 12: 55 PM EDT ANESTHESIA INTUBATION Routine 12/27/2024 11:45 AM EDT [place] ARTHRODESIS COMBINED TQ 1NTRSPC LUMBAR 12/27/2024 11:38 [...] 9.1 K/ L 12/28/2024 3:20 AM EDT [facility] RBC 4.40(L) 4.63 - 6.08 M/ L 12/28/2024 3:20 AM EDT [facility] Hemoglobin 13.3(L) 13.7 - 17.5 GM/DL 12/28/2024 3:20 AM EDT [facility] Hematocrit 39.6(L) 40.1 - 51.0 % 12/28/2024 3:20 AM EDT [facility] MCV 90 79 - 92 fL 12/28/2024 3:20 AM EDT [facility] MCH 30.2 25.7 - 32.2 pg 12/28/2024 3:20 AM EDT [facility] MCHC 33.6 32.3 - 36.5 GM/DL 12/28/2024 3:20 AM EDT [facility] RDW 12.6 11.6 - 14.4 % 12/28/2024 3:20 AM EDT [facility] Platelets 170 140 - 375 K/CU MM 12/28/2024 3:20 AM EDT [facility] MPV 10.5 9.4 - 12.4 fL 12/28/2024 3:20 AM EDT [facility] % Neutros 73(H) 34 - 68 % 12/28/2024 3:20 AM EDT [facility] % Lymphs 17(L) 22 - 53 % 12/28/2024 3:20 AM EDT [facility] % Monos 8 5 - 12 % 12/28/2024 3:20 AM EDT [facility] % Eos 1 1 - 7 % 12/28/2024 3:20 AM EDT [facility] % Baso 1 0 - 1 % 12/28/2024 3:20 AM EDT [facility] NRBC Absolute <0.01 0 - 0.012 K/ul 12/28/2024 3:20 AM EDT [facility] # Neutros 5.86(H) 1.78 - 5.38 K/ L 12/28/2024 3:20 AM EDT [facility] # Lymphs 1.40 1.32 - 3.57 K/ L 12/28/2024 3:20 AM EDT [facility] # Monos 0.67 0.30 - 0.82 K/ L 12/28/2024 3:20 AM EDT [facility] # Eos 0.04 0.04 - 0.54 K/ L 12/28/2024 3:20 AM EDT [facility] # Baso 0.04 0.01 - 0.08 K/ L 12/28/2024 3:20 AM EDT [facility] Immature Granulocytes-Re lative 0.40 0.01 - 0.43 % 12/28/2024 3:20 AM EDT [facility] # IG 0.03 0.00 - 0.03 K/uL 12/28/2024 3:20 AM EDT [facility] Blood Venipuncture / Unknown 12/28/2024 3:08 AM EDT 12/28/2024 3:16 AM EDT Narrative [facility] - 12/28/2024 3:20 AM EDT [...] Potts MD LAB BLOOD ORDERABLES Final Result [facility] [address] [phone] * (ABNORMAL) Basic Metabolic Panel (12/28/2024 3:08 AM EDT) Only the most recent of2 resultswithin the time period is included. Sodium 137 136 - 145 meq/L 12/28/2024 3:41 AM EDT [facility] Potassium 3.9 3.4 - 5.1 meq/L 12/28/2024 3:41 AM EDT [facility] CO2 27 22 - 29 meq/L 12/28/2024 3:41 AM EDT [facility] Chloride 106 98 - 112 meq/L 12/28/2024 3:41 AM EDT [facility] Glucose 130(H) 74 - 100 mg/dL 12/28/2024 3:41 AM EDT [facility] BUN 4.3(L) 8.9 - 20.6 mg/dL 12/28/2024 3:41 AM EDT [facility] Creatinine 0.82 0.72 - 1.25 mg/dL 12/28/2024 3:41 AM EDT [facility] BUN/Creatinine 5(L) 8 - 20 12/28/2024 3:41 AM EDT [facility] Calcium 8.7 8.4 - 10.2 mg/dL 12/28/2024 3:41 AM EDT [facility] Anion Gap 8 4 - 12 12/28/2024 3:41 AM EDT [facility] eGFR (mL/min/1.73m2) 121 >=60 mL/min/1.7 3m2 12/28/2024 3:41 AM EDT [facility] Osmolality Calc 272.6 mOsm/kg 3:41 AM EDT [facility] Blood Venipuncture / Unknown 12/28/2024 3:08 AM EDT 12/28/2024 3:17 AM EDT Matteo Potts MD LAB BLOOD ORDERABLES Final Result [facility] [address] [phone] * [place] C-ARM < 1 HOUR (12/27/2024 [...] by Dr. Ellie Garcia. Transcribed by Precious Nagel, PA-C. us Alexx Staley MD IMG FLUOROSCOPY [...] Bilateral BS and chest rise, ETCO2 confirmed Edwardo Parekh MD ANESTHESIA ORDERABLES Final Resu lt * ECG 12 lead (12/27/2024 11:22 AM EDT) VENTRICULAR RATE EKG/MIN 52 BPM GE MUSE ATRIAL RATE (MCT) 52 BPM GE MUSE NM Interval 124 ms GE MUSE QRS-INTERVAL (MSEC) 90 ms GE MUSE QT Interval 426 ms GE MUSE QTC Interval 396 ms GE MUSE P [place] 21 degrees GE MUSE R AXIS (MCT) -3 degrees GE MUSE T Wave [place] 27 degrees GE MUSE [place] Diagnosis Sinus bradycardia with sinus arrhythmia with [...] Color, UA Yellow 12/27/2024 11:12 AM EDT [facility] Clarity, UA Clear Clear 12/27/2024 11:12 AM EDT [facility] Specific Ralph, UA 1.031(H) 1.005 - 1.030 12/27/2024 11:12 AM EDT [facility] pH, UA 6.5 6.0 - 8.0 12/27/2024 11:12 AM EDT [facility] Leukocytes, UA 25 Bertin/uL(A) Negative 12/27/2024 11:12 AM EDT [facility] Nitrite, UA Negative Negative 12/27/2024 11:12 AM EDT [facility] Protein, UA 1+(A) Negative 12/27/2024 11:12 AM EDT [facility] Glucose, UA Normal Normal 12/27/2024 11:12 AM EDT [facility] Ketones, UA Trace(A) Negative 12/27/2024 11:12 AM EDT [facility] Bilirubin, UA Negative Negative 12/27/2024 11:12 AM EDT [facility] Blood, UA Negative Negative 12/27/2024 11:12 AM EDT [facility] Urobilinogen, UA 3 mg/dL(A) Normal 12/27/2024 11:12 AM EDT [facility] Specimen Source Urine, Voided 12/27/2024 11:12 AM EDT [facility] Urine URINE / Unknown 12/27/2024 1 0:50 AM EDT 12/27/2024 11:04 AM EDT us Alexx Staley MD URINE ORDERABLES Final Result Performing Organization Address City/[facility]/ZIP Co de Phone Number [facility] [address] [phone] * (ABNORMAL) Urinalysis Microscopic Only (12/27/2024 10:50 AM EDT) WBC, UA 6-10(A) None Seen /HPF 12/27/2024 11:12 AM EDT [facility] RBC, UA 0-2(A) None Seen /HPF 12/27/2024 11:12 AM EDT [facility] Bacteria, UA None Seen None Seen, Trace 12/27/2024 11:12 AM EDT [facility] Mucus 4+(A) None Seen 12/27/2024 11:12 AM EDT [facility] SQUAMOUS EPITHELIAL 0-2(A) None Seen /HPF 12/27/2024 11:12 AM EDT [facility] Ca Oxalate Carina, UA 1+(A) None Seen 12/27/2024 11:12 AM EDT [facility] Urine URINE / Unknown 12/27/2024 1 0:50 AM EDT 12/27/2024 11:04 AM EDT us Alexx Staley MD URINE ORDERABLES Final Result Performing Organization Address [facility]/ZIP Co de Phone Number [facility] [address] [phone] * Type and Screen (12/27/2024 10:47 AM EDT) ABO/Rh O Positive 12/27/2024 10:45 AM EDT [facility] ([place] Antibody Screen Negative 12/27/2024 10:45 AM EDT [facility] ([place]) HISTCHK HIST CHECK PERFORMED 12/27/2024 10:45 AM EDT [facility] [place] Blood Venipuncture / Unknown 12/27/2024 10:47 AM EDT 12/27/2024 10:57 AM EDT us Alexx Staley MD [facility] TEST ORDERABLES Final Result [facility] ([place]) [address] [place] [address], [facility] [phone] * EKG-SCANNED (12/27/2024) Narrative 12/27/2024 Ordered by an unspecified provider. us Default Scanning Provider SCAN ORDERS Final Result from Last 3 Months Insurance BLUE CROSS/BLUE SHIELD Advance Directives For more information, please contact: [phone] * Full Code (Latest Code Status on File) Date Activated Date Inactivated Comments 12/27/2024 1:41 PM 12/28/2024 4:41 PM Care Teams Management Professionals Relationship Specialty Start Date End Date Maggy Paulino APRN [address] [place] [address] PCP - General Emergency Medicine 12/27/24
--- NOTE | 2025-02-23 10:25 | CT_ITS ---
FINAL REPORT TECHNIQUE: After the administration of oral and intravenous contrast, axial images were obtained through the abdomen and pelvis by computed tomography. The study was performed with techniques to keep radiation dose as low as reasonably achievable, (ALARA). Individual dose reduction techniques using automated exposure control or adjustment of mA and/or kV according to the patient's size were employed. CLINICAL HISTORY: left flank pain COMPARISON: None FINDINGS: Abdomen: The lung bases are clear. The liver parenchyma demonstrates moderate fatty infiltration. The gallbladder is present. The spleen, pancreas and adrenals appear unremarkable. There is a 5 mm partially obstructing stone in the proximal left ureter along with mild hydronephrosis. The aorta is normal in caliber. There is no free fluid or adenopathy. Pelvis: The appendix is not identified and may be surgically absent. The urinary bladder is decompressed. There is no free fluid or adenopathy. There is posterior lumbar fusion hardware noted at the L4-5 level that produces some magnetic susceptibility artifact. IMPRESSION: 5 mm partially obstructing stone in the proximal left ureter producing mild hydronephrosis. Reviewed, Interpreted and Dictated by Edwardo Diego MD Transcribed by Shiela Vergara Authenticated and [facility]
--- NOTE | 2025-02-23 10:28 | ED_ITS ---
<Statement entered by Pippa Dumont MD - 02/23/25 15:26> I was consulted by the LILIBETH, and we discussed the complexity of the problems being addressed. I approved the treatment and management plan for this patient's care in the emergency department, thus performing a substantive portion of the medical decision making. Pippa Dumont MD, SUMAN, FACEP Discharge Plan Disposition Patient Disposition: Home, Self-Care Prescriptions Prescriptions: New tamsulosin [Flomax] 0.4 mg capsule 0.4 mg PO DAILY Qty: 20 0RF ketorolac 10 mg tablet 10 mg PO Q8H 5 Days Qty: 15 0RF ondansetron 4 mg tablet,disintegrating 4 mg PO Q8H PRN (Reason: nausea and vomiting) 5 Days Qty: 30 0RF hydrocodone-acetaminophen 5-325 mg tablet 1 tab PO Q6H PRN (Reason: pain) 3 Days Qty: 12 0RF No Action oxycodone-acetaminophen 5-325 mg tablet 1 tab PO Q4HP PRN (Reason: Pain (Scale Score 7-10)) Rx Instructions: FILLED 12/28/15 FOR 8 DAY SUPPLY PER TEGAN REPORT. ondansetron 4 mg tablet,disintegrating 4 mg PO Q6HP PRN (Reason: Nausea And Vomiting) lisinopril 20 mg tablet 20 mg PO DAILY Patient Comments: TAKE 1 TABLET BY MOUTH ONCE A DAY Referrals Follow up/Referrals: Maggy Paulino APRN [Primary Care Provider, Medical] - See instructions Mahesh Arias MD [Staff Physician, Urology] - See instructions Activity Restrictions/Add. Instructions Additional Instructions/Restrictions: Increase fluids and rest. Please call Dr. Arias for appointment and follow-up. If you have increased problems or concerns please return to the ED. Clinical Impressions Clinical Impression: Kidney stone Instructions Patient Instructions: DI for Kidney Stones Print Language Print Language: Slovenian Discharge ED Provider: Pippa Dumont General Adult HPI General Chief complaint: Urogenital-Male Stated complaint: Lower L Back Pain Time Seen by Provider: 02/23/25 10:15 Mode of Arrival: Ambulatory Source of Information: Patient Description of Symptoms (Recalled from ER Triage Doc. by RN): Patient presents to ED for left flank pain that began at 0730 this morning. Patient reports trouble urinating since then. History of Present Illness HPI narrative: 29-year-old male presents to the ED today for left-sided flank pain that began this morning when he was dropping his daughter off at school. He started to have urinating that looked like fruit punch. He went home took baclofen and Tylenol and lay down. He says he woke up and felt slightly better and was going to physical therapy today. He recently had back surgery and was scheduled for PT to start today. He says he then started with nausea and increased pain in the left side. He canceled his appointment and he says the pain got worse. He came to the ED for evaluation. He has had weight loss surgery in the past and that same only reason he does not take NSAIDs. He is not allergic. Patient appears to be in pain. He is shaking due to pain. Denies fevers or chills. No vomiting but has had nausea and pain. He does have a history of a lumbar radiculopathy and spinal stenosis that he has had surgery for recently. Related Data Home Medications ?Medication ?Instructions ?Recorded ?Confirmed lisinopril 20 mg tablet 20 mg PO DAILY 01/04/2512/20 ondansetron 4 mg disintegrating 4 mg PO Q6HP PRN Nause a And 01/04/25 01/04/25 tablet Vomiting oxycodone-acetaminophen 5 mg-325 1 tab PO Q4HP PRN [place] n (Scale 01/04/25 01/04/25 mg tablet Score 7-10) Previous Rx's ?Medication ?Instructions ?Recorded hydrocodone 5 mg-acetaminophen 325 1 tab PO Q6H PRN pa in 3 days #12 02/23/25 mg tablet tabs ketorolac 10 mg tablet 10 mg PO Q8H 5 days #15 tabs 02/23/25 ondansetron 4 mg disintegrating 4 mg PO Q8H PRN nausea and 02/23/25 tablet vomiting 5 days #30 tabs tamsulosin 0.4 mg capsule (Flomax) 0.4 mg PO DAILY #20 caps 02/23/25 Allergies Allergy/AdvReac Type Severity Reaction Status Date / Time NSAIDS (Non-Steroidal Allergy Unknown Verified 01/29/24 12:00 Anti-Inflamma (NSAIDS (NON-STEROIDAL ANTI-INFLAMMA) [facility] Disclaimer: The information contained in this section may have been updated after the patient was seen, as this information can be updated by other users. Medical History (Updated 02/23/25 @ 11:51 by Maggy Paulino (ED), [employer]) Otitis media Acute appendicitis Encounter for laboratory testing for COVID-19 virus Viral syndrome Strep pharyngitis Atypical chest pain Influenza A Sprain of hand, right Depression Fusion of spine of lumbar region Mood disorder Generalized anxiety disorder Concussion Migraines High blood pressure Surgical History Hx of appendectomy Hx of vasectomy H/O discectomy History of gastric bypass History of tonsillectomy Family History (Updated 02/23/25 @ 10:23 by Anita Duffy RN) Other No significant family history Social History Smoking Status: Current some day smoker tobacco type: smokeless tobacco second hand exposure: No alcohol intake: never counseling given: No substance use type: marijuana current occupational status: employed Travel in the last 8 weeks?: None adopted: No caregiver/support person: Yes foster care: No household members: spouse housing: house lives independently: Yes marital status: number of children: 2 number of grandchildren: 0 education level: high school current occupation: [employer] current occupational exposures/hazards: No Hx Recent Travel: No sexually active: Yes caffeine: No physical activity: none working smoke detector in home: Yes fire extinguisher in home: Yes carbon monox detector in home: No firearms in home: Yes firearms unloaded and locked: Yes (locked up) do you feel safe at home: Yes victim of physical abuse: No victim of emotional abuse: No victim of sexual abuse: No would you like helpful sources: No Have you lived/traveled outside [place] in past 30 days?: No Contact w/someone who lives/traveled outside US past 30 days?: No Exposure to someone with infectious disease in past 14 days?: No Do you have a fever (greater than 100.4 F or 38 C)?: No Have you tested positive for COVID-19?: No Exposed to someone with COVID-19 in past 14 days?: No Do you have a sore throat?: No Do you have a cough?: No Do you have any weakness?: No Do you have any diarrhea?: No Are you experiencing any unusual bleeding?: No Do you have any muscle aches/pain?: No Do you have any abdominal pain?: No Are you experiencing loss of taste or smell?: No Other Medical History Have you received the Flu Vaccine for this season: No Have you received the Pneumonia Vaccine: No ROS Obtained: Yes Systems reviewed as appropriate & no additional complaints except as documented Constitutional Constitutional: Reports as per HPI Physical Exam General General appearance: alert and in distress Head Head exam: normocephalic Eye Eye exam: Present PERRL and EOMI ENT ENT exam: Present normal oropharynx and mucous membranes moist Neck Neck exam: Present full ROM and trachea midline Respiratory Respiratory exam: Present normal lung sounds bilaterally Cardiovascular Cardiovascular exam: Present regular rate, normal rhythm, normal heart sounds, +S1 and +S2 Abdominal Exam Abdominal exam: Present soft and normal bowel sounds Extremities Exam Extremities exam: Present full ROM and normal capillary refill Back Exam Back exam: Present CVA tenderness (L) Neurological Exam Neurological exam: Present alert and oriented X3 Skin Skin exam: Present warm, dry and intact Medical Decision Making Medical Records Screening: Per USPSTF and CDC recommendations, given the prevalence of disease in our region, it is our hospital?s policy to screen for HIV and viral Hepatitis for all patients aged 18 and over and those with ongoing risk factors. Tegan Inquiry Pt receiving controlled substance: No Tegan was queried for this patient: No Vital Signs: 02/23/25 10:20 02/23/25 10:22 02/23/25 10:22 Temperature 98.1 F 98.1 F Temperature Source Oral Pulse Rate 66 64 Pulse Rate [Left] 64 Respiratory Rate 20 20 Blood Pressure 150/97 H 150/97 H Blood Pressure [Right Arm] 150/97 H Blood Pressure Mean Blood Pressure Mean [Right Arm] 114 Blood Pressure Source Blood Pressure Position 02 Sat by Pulse Oximetry 100 99 99 Oxygen Delivery Method Room Air 02/23/25 10:26 02/23/25 10:40 02/23/25 11:01 Temperature Temperature Source Pulse Rate 50 L 62 Pulse Rate [Left] Respiratory Rate 18 Blood Pressure 150/97 H 148/96 H 137/76 Blood Pressure [Right Arm] Blood Pressure Mean 111 Blood Pressure Mean [Right Arm] Blood Pressure Source Blood Pressure Position 02 Sat by Pulse Oximetry 100 100 98 Oxygen Delivery Method Room Air 02/23/25 11:21 02/23/25 12:01 02/23/25 12:20 Temperature Temperature Source Pulse Rate 51 L 42 L Pulse Rate [Left] Respiratory Rate Blood Pressure 132/71 117/60 126/64 Blood Pressure [Right Arm] Blood Pressure Mean 79 Blood Pressure Mean [Right Arm] Blood Pressure Source Blood Pressure Position 02 Sat by Pulse Oximetry 97 98 97 Oxygen Delivery Method 02/23/25 12:29 Temperature 98.0 F Temperature Source Oral Pulse Rate 60 Pulse Rate [Left] Respiratory Rate 20 Blood Pressure 126/64 Blood Pressure [Right Arm] Blood Pressure Mean Blood Pressure Mean [Right Arm] Blood Pressure Source Automatic Cuff Blood Pressure Position Sitting 02 Sat by Pulse Oximetry Oxygen Delivery Method Room Air Lab Data Lab Results 02/23/25 10:20: Urine Color Yellow, Urine Appearance Clear, Urine pH 5.5, Ur Specific [place] 1.020, Urine Protein 2+ A, Urine Glucose (UA) Negative, Urine Ketones Trace, Urine Blood 3+ A, Urine Nitrate Negative, Urine Bilirubin 1+ A, Urine Urobilinogen 1.0, Ur Leukocyte Esterase Trace, Urine RBC 20-50, Urine WBC Occasional, Ur Squamous Epith Cells None, Urine Bacteria None 02/23/25 10:23: WBC 7.1, RBC 5.02, Hgb 14.8, Hct 44.5, MCV 88.6, MCH 29.5, MCHC 33.3, RDW 12.7, Plt Count 282, MPV 10.3, Neut % (Auto) 68.8, Lymph % (Auto) 23.6, [place] % (Auto) 5.5, Eos % (Auto) 1.0, Baso % (Auto) 0.7, Neut # (Auto) 4.9, Lymph # (Auto) 1.7, [place] # (Auto) 0.4, Eos # (Auto) 0.1, Baso # (Auto) 0.1, Sodium 139, Potassium 4.1, Chloride 107, Carbon Dioxide 23, Anion Gap 13.1, BUN 7 L, Creatinine 0.80, Estimated Creat Clear 209, Estimated GFR 114, Est GFR ( Amer) 137, Glucose 123 H, Calcium 9.5, Magnesium 2.0, Total Bilirubin 0.7, AST 30, ALT 19, Alkaline Phosphatase 73, Total Protein 7.1, Albumin 4.6, Globulin 2.5, Albumin/Globulin Ratio 1.8, Lipase 78 02/23/25 10:23 02/23/25 10:23 Orders (Tests/Meds): ED MEDICATIONS Discontinued Medications Generic Name Dose Route Start Last Admin Trade Name Daniella PRN Reason Stop Dose Admin Acetaminophen 1,000 mg 02/23/25 10:25 02/23/25 10:41 Acetaminophen 1,000mg/100ml Vial IV 02/23/25 10:26 1,000 mg ONCE ONE Administration Sodium Chloride 1,000 mls @ 999 mls/hr 02/23/25 10:25 02/23/25 12:04 Sod Chlor 0.9% 1000ml Bag IV 02/23/25 11:25 Infused .Q1H1M ONE Infusion Iopamidol 75 ml 02/23/25 10:55 02/23/25 10:55 Iopamidol-370 (76%);100ml Bottle IV 02/23/25 10:56 75 ml ONCE ONE Administration Ketorolac Tromethamine 30 mg 02/23/25 10:25 02/23/25 10:40 Ketorolac 30mg/Ml Vial IV 02/23/25 10:26 30 mg ONCE ONE Administration Morphine Sulfate 4 mg 02/23/25 11:43 02/23/25 12:04 Morphine 4mg/Ml Syringe IV 02/23/25 11:44 4 mg ONCE ONE Administration Ondansetron HCl 4 mg 02/23/25 10:25 02/23/25 10:39 Ondansetron 4mg/2ml Vial IV 02/23/25 10:26 4 mg ONCE ONE Administration Sodium Chloride 10 ml 02/23/25 10:55 02/23/25 10:55 Sodium Chloride 0.9% 10ml Syr (Rad Only) IV 02/23/25 10:56 10 ml ONCE ONE Administration ORDERS Category Date Time Status CT abdomen pelvis w con Stat Cat Scan 02/23/25 10:25 Completed CBC [Complete Blood Count Auto Diff] Stat Lab 02/23/25 10:23 Completed Comprehensive Metabolic Panel Stat Lab 02/23/25 10:23 Completed Lipase Stat Lab 02/23/25 10:23 Completed Magnesium Stat Lab 02/23/25 10:23 Completed Urinalysis and Microscopic Stat Lab 02/23/25 10:20 Completed Medical Decision Narrative: patient is a 29-year-old male presenting to the emergency department for evaluation of left-sided flank pain and dysuria. Patient is hemodynamically stable and ill-appearing upon arrival, afebrile. Differential diagnosis includes kidney stone, UTI, pyelonephritis, worsening back pain, among others. Workup will be conducted with hematologic labs, specific imaging. Initial inventions include crystalloid bolus, analgesics. Initial workup reviewed by me hematologic labs are remarkable for normal white count normal labs for the most part. Patient's labs were nonactionable. Dr. Dumont looked at CT scan and saw that a kidney stone. CT read read stone on the left side approximately 5 mm in size. I discussed this with the patient. We have sent medications for patient to take at home. Patient was given precaution for home and return precautions. Patient is safe for discharge home. Critical Care Critical Care Time Critical Care Time: No
[2025-02-23 10:32] LABS: Hematocrit 44.5 % (42.0-52.0); Hemoglobin 14.8 g/dL (14.1-18.0); Immature Granulocytes % 0.4 %; Mean Corpuscular HGB Conc 33.3 g/dL (31.8-35.4); Mean Corpuscular Hemoglobin 29.5 pg (27.0-31.2); Mean Corpuscular Volume 88.6 fl (80-94); Nucleated Red Blood Cells % 0 %; Platelet Count 282 K/mm3 (142-424); Red Blood Count 5.02 M/mm3 (4.60-6.20); Red Cell Distribution Width-SD 41.1 fL; White Blood Count 7.1 K/mm3 (4.8-10.8)
[2025-02-23 10:36] LABS: Microscopic, Urine URINE MICROSCOPIC (MICROSCOPIC)
[2025-02-23 10:37] LABS: Albumin Level 4.6 g/dl (3.5-5.0); Chloride 107 mmol/L (98-107); Potassium 4.1 mmoL/L (3.5-5.1); Sodium 139 mmol/L (136-145)
[2025-02-23 10:38] LABS: Color,Urine YELLOW (Yellow); Glucose,Urine (UA) Negative (Negative); Ketones,Urine TRACE (Negative); Leukocyte Esterase,Urine TRACE (Negative); PH,Urine 5.5 (5.0-8.5); Protein,Urine 2+ (Negative); Specific Gravity, Urine 1.020 (1.005-1.030); Urobilinogen,Urine 1.0 EU/dl (0.2)
[2025-02-23] MEDS: 0.9 % SODIUM CHLORIDE 1000ML 1,000 ML 999 ML IV (10:38)
[2025-02-23 10:39] LABS: Alanine Aminotransferase 19 U/L (12-78); Aspartate Amino Transferase 30 U/L (17-59); Blood Urea Nitrogen 7 mg/dl (9-20); Creatinine Clearance Estimated 209 mL/min (50-200); Creatinine,Serum 0.80 mg/dl (0.66-1.25); Estimated Glomerular Filt Rate 114 ml/min (>60); GFR (African American) 137 ML/MIN (>60)
[2025-02-23] MEDS: ONDANSETRON 4MG/2ML VIAL 4 MG IV (10:39)
[2025-02-23 10:40] LABS: Albumin/Globulin Ratio 1.8 (1.1-1.8); Alkaline Phosphatase 73 U/L (38-126); Anion Gap 13.1 mEq/L (5-15); Bilirubin,Total 0.7 mg/dl (0.2-1.3); Calcium 9.5 mg/dl (8.4-10.2); Carbon Dioxide 23 mmol/L (22.0-30.0); Globulin 2.5 g/dL (1.3-3.2); Glucose 123 mg/dl (74-100); Lipase 78 U/L (23-300); Magnesium 2.0 mg/dl (1.6-2.3); Total Protein,Serum 7.1 g/dl (6.3-8.2)
[2025-02-23] MEDS: KETOROLAC 30MG/ML VIAL 30 MG IV (10:40)
[2025-02-23] MEDS: ACETAMINOPHEN 1,000MG/100ML VIAL 1000 MG IV (10:41)
[2025-02-23] MEDS: IOPAMIDOL-370 (76%);100ML BOTTLE 75 ML IV (10:55)
[2025-02-23] MEDS: SODIUM CHLORIDE 0.9% 10ML SYR (RAD ONLY) 10 ML IV (10:55)
[2025-02-23 11:03] LABS: Bilirubin,Urine 1+ (Negative)
[2025-02-23 11:07] LABS: RBC,Urine 20-50 #/hpf (0-3); WBC,Urine Occasional #/hpf (0-3)
[2025-02-23] MEDS: MORPHINE 4MG/ML SYRINGE 4 MG IV (12:04)
== END 2025-02-23 12:38 | disposition home or self-care (01) ==
PROVIDERS: Emergency Provider Student in an Organized Health Care Education/Training Program; PCP Nurse Practitioner
DX: N20.0 Calculus of kidney (principal)
CPT/HCPCS: 74177; 80053; 81001; 83690; 83735; 85025; 96361; 96374; 96375; 99285; J0131; J1885; J2270; J2405; J7030; Q9967